=== PATIENT | male | born 1965 | race Caucasian/White ===

== ENCOUNTER → 2016-06-17 | Outpatient (CLI) | payer OTHER ==
[~2016-06-17] MED LIST: ALLO300T2 PO; ATOR-26 PO; CLR10 PO; GABA-113 PO; GLC/500 PO; GLIP-199 PO; LISI5TAB3 PO; SIMV40TA2 PO
--- NOTE | 2016-06-18 04:34 | PAP/PSG TECHNICIAN REPORT ---
[facility] Stock Supervisor Polysomnogram Report Study name: None Report date: 06/18/2016 Study date: 06/17/2016 Referring Physician: JOSE Moreno M.D. Name: ALBERT MOREIRA Interpreting Physician: Boni Howard M.D. Date of : 1965 Stock Supervisor: Cornelia Sterling [facility]. Sex: Male Age: 51 StudyType: PSG PAP Weight: 377 lbs Height: 51 years, Height 6' 1" BMI: 49.73 Medications: List not provided Patient History 51 yr. old male here for an updated titration sleep study. Patient complains of not sleeping well, frequent arousals and EDS. Patients last study was done on 06/25/11 and was ended on a BiPAP pressure of 18/12 with 3 lpm 02. Parameters Monitored NPSG: E1-M2, E2-M1, Fp1-M2, Fp2-M1, F3-M2, F4-M2, F4-M1, C3-M2, C4-M2, C4-M1, O1-M2, O2-M2, O2-M1, T3-M2, T4-M1, P3-M2, P4-M1, CHIN1, CHIN2, HR, EKG, Legs, PFLOW, SNOR, FLOW, CFLOW, Tidal Volume, THOR, ABDO, SpO2, PLTH, CPRESS, ETCO2 Wave, ETCO2, pH Sleep Architecture Sleep Stages Time at Lights Off 8:29:47 PM STAGES Time (min.) TST (%) Time at Lights On 4:11:47 AM Wake 89.0 -- Total Recording Time (TRT) 463.00 min. N1 69.5 19 Total Sleep Period (TSP) 442.0 min. N2 223.0 60 Total Sleep Time (TST) 373.0min. N3 26.0 7 Awake Time 90.0 min. REM 54.5 15 Wake after Sleep Onset 77.5 min. Sleep Efficiency (SE) 81 % Sleep Onset Latency (KIM) 11.5 min. Number of Stage 1 Shifts None Awakenings 43 Stage Changes 181 Number of REM periods 6 REM 54.5 15 REM Latency 124.0 min. NREM 318.5 85 Body Position Analysis Supine Right Left Side Prone Vertical Total Sleep Time (min.) 169.7 109.6 135.7 245.31 0.0 0.0 Total Sleep Time (%) 34% 29% 36% 66 0% N/A% Total Sleep Time REM (min.) 8.0 20.0 26.5 None 0.0 0.0 Total Sleep Time NREM (min.) 119.7 89.6 109.2 None 0.0 0.0 Intermittent Wake (min.) 42.0 34.6 12.4 None 0.0 0.0 Total Sleep Period (%) 34% None None None None None Arousals Myoclonus (PLM) * Events Count Index Events Count Index Spontaneous 18 3 Events Awake (PLMW) 168 113.3 Respiratory 73 11.9 Events Asleep w/ Arousal (PLMA) 102 16.4 PLM 100 16 Events Asleep w/o Arousal (PLMS) 413 66.4 Snoring 16 3 Total Asleep 515 82.8 Total 207 33 Total 683 89 Respiratory Analysis * CA OA MA CH H RERA Total Count 1 2 1 0 151 1 155 Index 0.2 0.3 0.2 0 24.3 0 25.1 Mean Duration 26.7 16.8 39.8 0.00 17.4 17.6 17.6 Longest Duration 26.7 19.4 39.8 0.00 39.8 17.6 55.5 Respiratory Event Summary Total Supine ~Supine Right Left Prone REM NREM Apneas Count 4 4 0 0 0 N/A 0 4 Index 0.6 2 0 0.0 0.0 N/A 0 1 Hypopneas (4% Desat) Count 151 118 33 17 16 N/A 7 144 Index 24.3 55.4 8 9.3 7.1 N/A 7.7 27.1 Apneas & All Hypopneas Count 155 122 33 17 16 N/A 7 148 Index 24.9 57 8 9 7 N/A 7.7 27.9 Respiratory Events (Quality Assurance Project Manager+All Hyp+RERA) Count 155 123 33 17 16 N/A 7 148 Index 25.1 58 8 9.3 7.1 N/A 7.7 28.1 Respiratory Related Arousal Count 73 123 6 2 4 N/A 1 73 Index 11.9 32 1 1 2 N/A 1 14 Snoring Analysis Supine Right Left Prone REM NREM Total Snore duration 13.3 min Snores count 177 32 76 N/A 5 280 285 Snore mean duration 2.8 Sec Snores index 83 18 34 N/A 5.5 52.7 45.8 TST with snoring (%) 3.6% Desaturation Event Summary: Minimum %SpO2 Event Count Mean/Min/Max Duration(sec.) Desaturation Index % Time In Bed > 90 151 24.4 / 6.0 / 60.0 143.5 13.9 86 - 90 147 23.5 / 7.0 / 60.0 48.2 40.3 81 - 85 14 25.6 / 7.0 / 34.5 4.1 45.5 76 - 80 0 N/A 0.0 0.3 71 - 75 0 N/A 0.0 0.0 66 - 70 0 N/A 0.0 0.0 61 - 65 0 N/A 0.0 0.0 56 - 60 0 N/A 0.0 0.0 51 - 55 0 N/A 0.0 0.0 < 50 0 N/A 0.0 0.0 Total REM NREM Awake <50% 0.0 min. 0.0 min. 0.0 min. 0.0 min. 51 - 60% 0.0 min. 0.0 min. 0.0 min. 0.0 min. 61 - 70% 0.0 min. 0.0 min. 0.0 min. 0.0 min. 71 - 80% 1.5 min. 1.5 min. 0.0 min. 0.0 min. 81 - 90% 389.5 min. 52.2 min. 283.1 min. 54.1 min. 91 - 100% 63.2 min. 0.8 min. 33.4 min. 29.0 min. Average 87 84 86 89 Minimum SpO2 79 79 81 80 Desaturation Event Index 31.7 8.8 32.2 45.2 # Desat. Events below 89% 213 8 152 53 Time(%) with Saturation below 89% 74.6 11.7 55.8 7.2 Time(min.) with Saturation below 89% 338.9 53.1 253.2 32.7 Time (mins) REM (mins) NREM (mins) % of TST SpO2 Below 90% 175 8 N167 86.7 SpO2 Below 88% 65 0 0 77 Heart Rate Analysis Min (bpm) Max (bpm) Average (bpm) Awake 60 93 78 NREM 46 91 75 REM 53 87 73 Overall 46 91 75 Supplemental O2 Values Minimum O2 level: None Value Start Time End Time Stock Supervisor Comments MR. Moreira slept in the right, left, and supine and prone positions. Frequent cardiac arrhythmia and PLMs causing arousals noted. No bruxism noted. CPAP was initiated at +6 CMH2O room air for patient comfort and up-titrated to al level of +15 CMH2O no Cflex. At the next pressure increase patient was switched to Bi-level therapy. PAP initiated at an IPAP of +15 CMH2O and an EPAP of +10 CMH2O up-titrated to a level of: IPAP +20 CMH2O, EPAP + 12 CMH20 BiFlex 2. At 9:58 pm 1 lpm of supplemental 02 was added due to very low oxygen, he stated that he uses 5 lpm at night. Patient was not on an optimal pressure for two hours to titrate oxygen. Patients own ResMed Mirage Quattro was used during titration. MR. Moreira awoke to use the restroom once during the night. MR. Moreira stated, I slept better last night than I do at home. The final report will be interpreted and signed by a sleep physician. The completed physician report will then be placed in the patient medical record. Therapy Event: Therapy (cm H20) 6 7 9 11 12 13 14 Total Time at Pressure (min.) 17.3 9.8 36.9 37.3 9.7 6.2 15.7 TST at Pressure (min.) 4.8 9.3 23.9 36.8 7.2 5.7 15.2 # Periods 1 1 1 1 1 1 1 Sleep Onset (min.) 11.5 0.0 0.0 0.0 0.0 0.0 0.0 REM Onset (min.) N/A N/A N/A N/A N/A N/A N/A Sleep Efficiency % 27 94 64 98 74 91 96 Wakefulness (%) 72.2 5.1 35.2 1.3 25.7 8.1 3.2 Wakefulness (min.) 12.5 0.5 13.0 0.5 2.5 0.5 0.5 NREM 1 (%) 27.8 32.6 18.9 6.7 25.7 12.1 23.9 NREM 1 (min.) 4.8 3.2 7.0 2.5 2.5 0.8 3.7 NREM 2 (%) 0.0 62.3 45.9 86.6 48.6 79.8 72.9 NREM 2 (min.) 0.0 6.1 16.9 32.3 4.7 4.9 11.4 NREM 3 (%) 0.0 0.0 0.0 5.4 0.0 0.0 0.0 NREM 3 (min.) 0.0 0.0 0.0 2.0 0.0 0.0 0.0 REM (%) 0.0 0.0 0.0 0.0 0.0 0.0 0.0 REM (min.) 0.0 0.0 0.0 0.0 0.0 0.0 0.0 # Arousals 1 4 26 22 14 9 15 Arousal Index 12.5 25.9 65.2 35.9 116.3 94.7 59.3 # Snore 1 8 29 53 24 13 13 Snore Index 12.5 51.7 72.7 86.4 199.4 136.8 51.4 AHI 62.4 77.6 67.7 31.0 124.7 136.8 19.8 AHI Supine 62.4 77.6 91.6 118.1 124.7 136.8 57.2 AHI Non-Supine N/A N/A 41.7 6.3 N/A N/A 5.5 NREM AHI 62.4 77.6 67.7 31.0 124.7 136.8 19.8 REM AHI N/A N/A N/A N/A N/A N/A N/A RDI 74.8 77.6 67.7 31.0 124.7 136.8 19.8 # Obstructive 0 1 0 1 0 0 0 # Central Ap 0 0 0 0 0 0 0 # Mixed 0 0 0 0 0 0 0 # Hypopneas 5 11 27 18 15 13 5 RERAS 1 0 0 0 0 0 0 Total Respiratory Events 6 12 27 19 15 13 5 Time Below SpO2 89.00% (min.) 2.9 5.7 17.7 31.1 2.3 1.1 12.8 Mean NREM SpO2 (%) 88 88 87 85 90 91 86 Mean REM SpO2 (%) N/A N/A N/A N/A N/A N/A N/A Mean Sleep SpO2 (%) 88 88 87 85 90 91 86 Min NREM SpO2 (%) 84 83 81 81 83 83 83 Min REM SpO2 (%) N/A N/A N/A N/A N/A N/A N/A Position Supine (min.) 4.8 9.3 12.4 8.1 7.2 5.7 4.2 Position Non-supine (min.) 0.0 0.0 11.5 28.7 0.0 0.0 11.0 LM Index Sleep 49.9 19.4 67.7 47.3 24.9 210.5 98.8 LM Index NREM 49.9 19.4 67.7 47.3 24.9 210.5 98.8 LM Index REM N/A N/A N/A N/A N/A N/A N/A Mean Heart Rate (bpm) 80 78 80 79 76 77 78 Min Heart Rate (bpm) 75 73 66 48 57 57 67 Therapy (cm H20) 15 15/10 16/10 17/10 18/11 19/11 20/12 Total Time at Pressure (min.) 58.0 21.4 111.1 12.6 13.1 100.9 12.1 TST at Pressure (min.) 53.1 6.8 102.6 10.1 10.1 83.9 3.6 # Periods 1 1 1 1 1 1 1 Sleep Onset (min.) 0.0 4.6 0.0 0.0 0.0 0.0 0.0 REM Onset (min.) 2.6 N/A 44.2 N/A N/A 75.5 0.0 Sleep Efficiency % 91 31 92 80 77 83 29 Wakefulness (%) 8.5 68.2 7.7 19.8 23.0 16.9 70.3 Wakefulness (min.) 4.9 14.6 8.5 2.5 3.0 17.0 8.5 NREM 1 (%) 12.1 9.3 12.2 43.6 30.6 12.9 0.0 NREM 1 (min.) 7.0 2.0 13.5 5.5 4.0 13.0 0.0 NREM 2 (%) 58.8 22.4 38.3 36.6 46.4 54.0 0.0 NREM 2 (min.) 34.1 4.8 42.6 4.6 6.1 54.5 0.0 NREM 3 (%) 6.9 0.0 18.0 0.0 0.0 0.0 0.0 NREM 3 (min.) 4.0 0.0 20.0 0.0 0.0 0.0 0.0 REM (%) 13.8 0.0 23.9 0.0 0.0 16.3 29.7 REM (min.) 8.0 0.0 26.5 0.0 0.0 16.4 3.6 # Arousals 29 2 33 13 8 29 2 Arousal Index 32.8 17.7 19.3 77.1 47.7 20.7 33.4 # Snore 31 2 52 24 12 22 1 Snore Index 35.0 17.7 30.4 142.3 71.5 15.7 16.7 AHI 10.2 35.3 8.2 88.9 59.6 4.3 16.7 AHI Supine 10.2 N/A 59.6 88.9 89.4 0.0 N/A AHI Non-Supine N/A 35.3 3.8 N/A 39.7 4.3 16.7 NREM AHI 10.7 35.3 10.3 88.9 59.6 1.8 N/A REM AHI 7.5 N/A 2.3 N/A N/A 14.6 16.7 RDI 10.2 35.3 8.2 88.9 59.6 4.3 16.7 # Obstructive 0 0 0 0 0 0 0 # Central Ap 0 0 1 0 0 0 0 # Mixed 0 0 1 0 0 0 0 # Hypopneas 9 4 12 15 10 6 1 RERAS 0 0 0 0 0 0 0 Total Respiratory Events 9 4 14 15 10 6 1 Time Below SpO2 89.00% (min.) 48.7 5.2 95.0 2.0 5.7 73.1 3.2 Mean NREM SpO2 (%) 86 87 86 91 88 86 N/A Mean REM SpO2 (%) 83 N/A 84 N/A N/A 85 85 Mean Sleep SpO2 (%) 86 87 85 91 88 86 85 Min NREM SpO2 (%) 83 82 81 82 83 82 N/A Min REM SpO2 (%) 79 N/A 80 N/A N/A 79 82 Position Supine (min.) 53.1 0.0 8.0 10.1 4.0 0.6 0.0 Position Non-supine (min.) 0.0 6.8 94.5 0.0 6.0 83.2 3.6 LM Index Sleep 83.7 141.2 124.0 130.4 95.3 42.9 66.8 LM Index NREM 95.9 141.2 116.0 130.4 95.3 41.8 N/A LM Index REM 15.0 N/A 147.2 N/A N/A 47.5 66.8 Mean Heart Rate (bpm) 77 76 74 72 73 72 69 Min Heart Rate (bpm) 46 70 57 64 54 57 63
--- NOTE | 2016-06-19 21:27 | POLYSOMNOGRAPH REPORT ---
CLINICAL DATA: A 51-year-old male with BMI of 49.73, referred by Dr. Samantha Moreno for sleep study with titration. He has poor sleep quality, frequent arousals, and excessive daytime sleepiness. His last study done on 06/27/2011 ended with a BiPAP pressure of 18/12, 3 liters a minute of oxygen. SLEEP ARCHITECTURE: Total sleep period was 442 minutes. Total sleep time was 373 minutes divided between 318.5 minutes of non-REM sleep and 54.5 minutes of REM sleep. Sleep onset latency was 11.5 minutes. REM latency was 124 minutes. Sleep efficiency was 81%. Wake after sleep onset was 77.5 minutes. Sleep consisted of stage N1 19%, N2 60%, N3 7%, REM 15%. AROUSAL DATA: 207 arousals were recorded for an index of 33 per hour. PLM DATA: Markedly elevated limb movements during sleep were noted. There were 515 limb movements during sleep noted for an index of 82.8 per hour with arousal index of 16.4 per hour. RESPIRATORY DATA: The apnea hypopnea index was 24.9. There was 1 central, 2 obstructive, and 1 mixed apneic episode. The longest duration of apnea was 39.8 seconds. There were 151 hypopneic episodes. The longest duration of hypopnea was 39.8 seconds. OXIMETRY DATA: Nocturnal hypoxemia was seen. Oxygen alejandra was 79% during REM sleep. Mean saturation was 87%. Time below 88% for 65 minutes. EKG: Heart rates ranged from 46-91 beats per minute. Frequent premature beats were noted. GEOGRAPHIC AREA INTELLIGENCE OFFICER'S COMMENTS AND TREATMENT SUMMARY: The patient slept in the right, left, supine, and prone positions. The patient was started on CPAP 6 cm of water pressure and titrated up to 15 cm of water pressure. He then was switched to BiPAP and eventually was titrated up to a final pressure setting up BiPAP 20/12, Bi-Flex 2 with 1 liter per minute oxygen. The patient continued to have nocturnal hypoxemia, but there was not enough tome to titrate oxygen. He continued to have hypoxemia in spite of BiPAP. At his final pressure setting of BiPAP 20/12, the patient slept for just over 3 minutes with an AHI of 16.7. IMPRESSION: Severe sleep apnea/hypopnea with severe nocturnal hypoxemia, improved but not totally corrected with BiPAP inspiratory pressure 20 and expiratory pressure 12, Bi-Flex setting #2, oxygen 1 liter per minute with persistent hypoxemia. RECOMMENDATIONS: The patient could be placed on BiPAP 20/12, Bi-Flex 2, with oxygen 2-3 liters per minute with followup pulse oximetry overnight and evaluations of compliance and effectiveness data. [facility]
== END | disposition home or self-care (01) ==
LOC: C.NEUR 20:00
PROVIDERS: ATTEND Otolaryngology
DX: G47.33 Obstructive sleep apnea (adult) (pediatric) (principal)

== ENCOUNTER 2017-01-03 05:17 | Observation (INO) | payer OTHER ==
[2016-12-31 11:23] VITALS: BMI 48.0
--- NOTE | 2016-12-31 11:59 | PAT Medication Instructions ---
Service Date Dec 31, 2016. Current Home Medication List Allopurinol (Zyloprim), 300 MG PO HS Atorvastatin (Lipitor), 80 MG PO HS Gabapentin (Neurontin), 600 MG PO HS PRN for RN Glipizide (Glipizide Er), 1 TAB PO QAM Lisinopril (Zestril), 5 MG PO HS Loratadine (Claritin), 10 MG PO PRN Metformin Hcl (Glucophage), 1,000 MG PO HS Medication Instructions For Your Scheduled Surgery - Hold the following medications 48 hours prior to surgery: Metformin Hcl (Glucophage), 1,000 MG PO HS - Hold the following medications 24 hours prior to surgery: Lisinopril (Zestril), 5 MG PO HS - Hold the following medications the morning of surgery: Glipizide (Glipizide Er), 1 TAB PO QAM Loratadine (Claritin), 10 MG PO PRN - Take the following medications as scheduled the night before surgery: Allopurinol (Zyloprim), 300 MG PO HS Atorvastatin (Lipitor), 80 MG PO HS Gabapentin (Neurontin), 600 MG PO HS PRN nothing to eat or drink after midnight If you have any questions please call us at [phone] or [phone] or [phone]
[2016-12-31 12:49] LABS: BASO % 0.4 %; BASO ABS # 0.04 K/uL (0-0.2); COMPLETE YES; EOS % 2.1 %; HEMATOCRIT 40.6 % (42-52); IG% 0.4 %; LYMPH % 29.5 %; LYMPH ABS # 3.29 K/uL (1.2-3.4); MEAN CELL VOLUME 84.2 fL (80-100); MEAN CORPUSCULAR HGB CONC 34.5 g/dl (32-36); MEAN PLATELET VOLUME 9.3 fL (7.4-10.4); MONO % 6.5 %; NEUT % 61.1 %; PLATELET COUNT 293 K/uL (130-400); RED BLOOD COUNT 4.82 M/uL (4.7-6.1); WHITE BLOOD COUNT 11.14 K/uL (4.8-10.8)
[2016-12-31 12:57] LABS: BUN/CREATININE RATIO 14.6 (10-20); CALCIUM 9.5 mg/dl (8.5-10.1); CREATININE 0.81 mg/dl (0.60-1.40); POTASSIUM 4.2 mmol/L (3.5-5.1)
--- NOTE | 2017-01-02 21:00 | HISTORY & PHYSICAL EXAMINATION ---
DATE OF ADMISSION: 01/03/2017 DIAGNOSES: Epiglottic cyst and chronic otitis media. HISTORY OF PRESENT ILLNESS: This 51-year-old presented with severe sleep apnea with choking spells. He was found to have persistent cystic type lesion on the lingual surface of the epiglottis. He also has chronic otitis media, hearing loss and found to have persistent effusions in both ears despite antibiotic treatment. PAST MEDICAL HISTORY: Medical problems; sleep apnea and hypertension. PREVIOUS SURGERIES: Tonsillectomy and sinus surgery. FAMILY HISTORY: Negative. SOCIAL HISTORY: Positive for smoking 1 pack per day. REVIEW OF SYSTEMS: Positive for tiredness and positive for hearing loss. PHYSICAL EXAMINATION: GENERAL: WNWD, male. VITAL SIGNS: 6 feet 2 inches, 370 pounds. HEAD: Normocephalic. EYES: Normal. EARS: Tympanic membrane shows dull with effusion behind the tympanic membranes. NOSE: Nasal passages are patent. THROAT: Oropharynx shows hypertrophy of the tongue base. Fiberoptic examination showed a 1 cm cyst on the lingual surface of the epiglottis. HEART: RRR. LUNGS: Clear. ABDOMEN: Soft. GENITOURINARY: Deferred. EXTREMITIES: Full range of motion. IMPRESSION: Epiglottic cyst and chronic otitis media. PLAN: Bilateral myringotomy with insertion of T-tubes and also direct laryngoscopy with excision of cyst of the epiglottis.
[~2017-01-03] VITALS: Ht 188 cm; Wt 168.4 kg
[2017-01-03] VITALS (8 sets, daily range): BP systolic 154–177; BP diastolic 75–95; PULSE 65–96; TEMP 36.3–36.8; O2SAT 94–98; Ht 188 cm; Wt 168.4 kg
[~2017-01-03 05:17] MED LIST changes: -SIMV40TA2 PO
[2017-01-03] MEDS ORDERED: LACTATED RINGER'S 1000ML 1,000 ML IV SCH (06:00)
[2017-01-03] MEDS ORDERED: CEFAZOLIN 3000 MG/65 ML D5W IV SCH (06:00)
[2017-01-03] MEDS ORDERED: FENTANYL CITRATE INJ 50 MCG/1 ML 2 ML VIAL ONE (06:49)
[2017-01-03] MEDS ORDERED: MIDAZOLAM HCL 1 MG/ML 2ML VIAL ONE (06:49)
[2017-01-03] MEDS ORDERED: ROCURONIUM BROMIDE 10 MG/ML 5 ML VIAL IV ONE (06:49)
[2017-01-03] MEDS ORDERED: LIDOCAINE HCL 2% 2 ML VIAL (20MG/ML) ONE (06:49)
[2017-01-03] MEDS ORDERED: PROPOFOL IV EMULSION 10 MG/ML 20 ML VIAL IV ONE ×3 (06:49→07:51)
[2017-01-03] MEDS ORDERED: SUCCINYLCHOLINE CHLORIDE 20 MG/ML 10 ML VIAL IV ONE (06:49)
[2017-01-03] MEDS ORDERED: OFLOXACIN 0.3% OP SOLN 5 ML BTL ONE (07:02)
--- NOTE | 2017-01-03 07:07 | History & Physical Bridge Note ---
H&P Re-Evaluation Bridge Note: I have examined the patient, reviewed the History & Physical and in the interval since the performance of the History & Physical I have noted the following changes of clinical significance: No changes noted
[2017-01-03] MEDS ORDERED: DEXAMETHASONE SOD INJ 4 MG/ML VIAL ONE (07:36)
[2017-01-03] MEDS ORDERED: ONDANSETRON INJ 2 MG/ML 2 ML VIAL ONE (07:37)
[2017-01-03] MEDS: EpINEphrine HCL INJ 1 MG/ML 5ML SYRINGE ONE ×2 (08:02→08:05)
[2017-01-03] MEDS ORDERED: ATROPINE SULFATE 0.1 MG/ML 5ML SYR IV PRN (08:15)
[2017-01-03] MEDS ORDERED: FENTANYL CITRATE INJ 50 MCG/1 ML 2 ML VIAL IV PRN (08:15)
[2017-01-03] MEDS ORDERED: EpHEDrine SULFATE INJ 50 MG/ML AMP IV PRN (08:15)
[2017-01-03] MEDS ORDERED: MoRPHine SULFATE 2 MG/ML CARP IV PRN (09:00)
[2017-01-03] MEDS ORDERED: ONDANSETRON INJ 2 MG/ML 2 ML VIAL IV PRN (09:00)
[2017-01-03] MEDS ORDERED: ACETAMINOPHEN SOLN 650MG/20.3 ML UDC PO PRN (09:00)
--- NOTE | 2017-01-03 09:02 | [facility] Operative Report ---
Operative Report Operative Date Jan 03, 2017. Pre-Operative Diagnosis Epiglottic cyst and chronic otitis media Post-Operative Diagnosis same as pre-operative Procedure(s) Performed Bilateral Myringotomy with insertion of bilateral T-Tubes, Direct Laryngoscopy and Excision of Cyst of the Epiglottis Surgeon Dr. Moreno Estimated Blood Loss 20ml Findings Large epiglottic cyst. Cyst right greater than the left ear canal. Specimens Specimen A: Epiglottis cyst Anesthesia Gen. endotracheal Complication(s) None Disposition Recovery Room / PACU Indications 51-year-old gentleman with chronic otitis media with effusion he also has a moderate sized cyst of the epiglottis Description of Procedure The patient was brought to the operating room. General endotracheal anesthesia was induced. He was draped in the usual sterile manner. The Dedo laryngoscope was used to visualize the epiglottis and the cyst on the lingual surface of the epiglottis. Suspension and microlaryngoscopy was performed. The cyst was grasped with the straight cup forceps and excised using the straight and up- biting scissors. The left ear was visualized irrigated with peroxide and cleaned of cerumen there. A large cyst was noted inferiorly along with fluid behind the tympanic membrane. Myringotomy incision was made inferiorly through the cystic area into the middle ear space evacuating isaac-colored fluid from the middle ear space. A modified T-tube was inserted. The right side tympanostomy was performed in a similar manner again the tympanic membrane was cystic and the T- tube was more difficult to insert on the right side. The T-tube had to be positioned using the alligator forceps and the Simmons needle placing it into the middle ear space. Floxin eardrops were placed. Attention was returned to the pharynx and the Dedo laryngoscope was again used. Hemostasis was controlled using topical epinephrine on cottonoids pledgets. The pharynx was irrigated clean and suctioned clean. The patient was extubated by anesthesia after assuring the patient was totally awake. He tolerated procedure well was taken to the recovery area in satisfactory condition. I attest to the content of the Intraoperative Record and any orders documented therein. Any exceptions are noted below.
[2017-01-03] MEDS ORDERED: IV FLUIDS COMPLETED PRN (09:15)
--- NOTE | 2017-01-03 09:32 | Anesthesiology Progress Note ---
Anesthesia Post Op Note Date & Time Jan 03, 2017 at 09:30 Vital Signs Pain Intensity: 0 Vital Signs Past 12 Hours Date Time Temp Pulse Resp B/P (MAP) Pulse Ox O2 Delivery O2 Flow Rate FiO2 01/03/17 09:22 36.4 77 16 145/78 (97) 96 Nasal Cannula 3 01/03/17 09:12 76 6 01/03/17 09:12 76 6 93 01/03/17 09:11 136/78 01/03/17 09:07 78 10 01/03/17 09:07 80 10 96 01/03/17 09:06 144/77 01/03/17 09:05 77 11 96 01/03/17 09:05 78 11 01/03/17 09:00 80 16 01/03/17 09:00 83 16 97 01/03/17 08:57 36.4 81 15 176/83 95 Mask 10 01/03/17 08:45 36.4 81 16 134/83 96 Mask 10 01/03/17 06:58 65 16 98 Room Air 01/03/17 05:35 36.8 96 20 159/82 (107) 96 Room Air Notes Mental Status: alert / awake / arousable, participated in evaluation Pt Amnestic to Procedure: Yes Nausea / Vomiting: adequately controlled Pain: adequately controlled Airway Patency, RR, SpO2: stable & adequate BP & HR: stable & adequate Hydration State: stable & adequate Anesthetic Complications: no major complications apparent Because this patient had such severe sleep apnea and there was so much soft tissue in his airway, the decision was made to keep him overnight on continuous pulse oximetry and 02 wih bipap for sleep.
--- NOTE | 2017-01-03 10:43 | Discharge Instructions ---
Discharge Instructions Date of Service Jan 03, 2017. Admission Reason for Admission: Chronic Otitis Media W/Effusion, Epiglottis Cyst, Discharge Discharge Diagnosis / Problem: same Discharge Goals Goal(s): Diagnostic testing, Therapeutic intervention Activity Recommendations Activity Limitations: resume your previous activity . Instructions / Follow-Up Instructions / Follow-Up ACTIVITY RECOMMENDATIONS: * Take it easy today. * Return to regular activity tomorrow. OVER THE COUNTER MEDICATIONS: * You may use Tylenol for pain * Avoid aspirin or aspirin containing products, e.g. as they may increase bleeding. DIET: Resume previous diet RETURN TO SCHOOL/WORK: May return to normal activities tomorrow. SPECIAL CARE INSTRUCTIONS: * Drainage is not unusual during the first few days after placement of tubes. The drainage may be bloody. If it is foul smelling or very thick, please notify the doctor. Call or cell phone . * Keep water out of the ears when shampooing or bathing. Use cotton balls covered with Vaseline or "Macks" ear plugs. * Call physician if increased pain, fever over 101 degrees F. or any problems. FOLLOW UP VISIT: Follow-up Visit with Dr. Moreno in 2 weeks. Please call to schedule. Current Hospital Diet Patient's current hospital diet: Diabetes Type 2 Diet Discharge Diet Recommended Diet: Regular Diet Procedures Procedures Performed: Bilateral Myringotomy with insertion of bilateral T-Tubes, Direct Laryngoscopy and Excision of Cyst of the Epiglottis Pending Studies Studies pending at discharge: yes List of pending studies: pathology of cyst Medical Emergencies . Who to Call and When: Medical Emergencies: If at any time you feel your situation is an emergency, please call [phone] immediately. . Non-Emergent Contact Non-Emergency issues call your: Primary Care Provider . "Provider Documentation" section prepared by Samantha Moreno. . VTE Core Measure Inpt VTE Proph given/why not?: SCD's [place] Drug Monitoring Program Search Results: no issues identified
[2017-01-03] MEDS ORDERED: LORATADINE 10 MG TAB PO SCH (10:45)
[2017-01-03] MEDS ORDERED: GABAPENTIN 300 MG CAP PO PRN (10:45)
[2017-01-03] MEDS ORDERED: ALLOPURINOL 300 MG TAB PO SCH (21:00)
[2017-01-03] MEDS ORDERED: METFORMIN HCL 500 MG TAB PO SCH (21:00)
[2017-01-03] MEDS ORDERED: ATORVASTATIN 20 MG TAB PO SCH (21:00)
[2017-01-03] MEDS ORDERED: LISINOPRIL 5 MG TAB PO SCH (21:00)
--- NOTE | 2017-01-20 11:52 | DISCHARGE SUMMARY ---
DIAGNOSES: Chronic otitis media and epiglottic cyst. DISCHARGE DIAGNOSES: Same. PROCEDURE: BMT and direct laryngoscopy with micro-excision of epiglottic cyst. HISTORY OF PRESENT ILLNESS: A 51-year-old male with a long history of obstructive sleep apnea, found to have chronic otitis media and mixed hearing loss, also has a large cyst of the epiglottis. He also has significant sleep apnea. HOSPITAL COURSE: The patient was taken to the operating room on 01/03/2017 where under general anesthesia he underwent BMT and direct laryngoscopy with micro-excision of epiglottic cyst. Postoperatively, the patient did well. He was monitored with oximetry for 6 hours postoperatively in the surgical unit. He continued to do well and desired to be discharged to home, therefore, the patient was sent home, instructed to use his CPAP at home and to return for followup in my office in 1 week.
== END 2017-01-03 12:45 | disposition home or self-care (01) ==
LOC: C.ACU 05:17 → C.MSW 08:30 → ENRESERV 09:54
PROVIDERS: ADMIT Otolaryngology; ATTEND Otolaryngology
DX: H65.493 Other chronic nonsuppurative otitis media, bilateral (principal); J38.7 Other diseases of larynx; J44.9 Chronic obstructive pulmonary disease, unspecified; G47.33 Obstructive sleep apnea (adult) (pediatric); E11.9 Type 2 diabetes mellitus without complications; I10 Essential (primary) hypertension; F17.200 Nicotine dependence, unspecified, uncomplicated

== ENCOUNTER → 2017-02-24 | Outpatient (CLI) | payer OTHER ==
[2017-02-24 12:56] LABS: ESTIMATED AVERAGE GLUCOSE 200 mg/dl; HA1C FLAG Normal (Normal)
== END | disposition home or self-care (01) ==
LOC: C.LABBFT 09:49
PROVIDERS: ATTEND Nurse Practitioner
DX: E11.40 Type 2 diabetes mellitus with diabetic neuropathy, unspecified (principal)

== ENCOUNTER → 2017-07-15 | Outpatient (CLI) | payer OTHER ==
[2017-07-15 15:04] LABS: BASO % 0.2 %; BASO ABS # 0.03 K/uL (0-0.2); EOS % 2.6 %; EOS ABS # 0.33 K/uL (0-0.5); HEMATOCRIT 43.8 % (42-52); IG# 0.04 K/uL (0.00-0.02); LYMPH % 30.8 %; LYMPH ABS # 3.93 K/uL (1.2-3.4); MEAN CELL VOLUME 84.7 fL (80-100); MEAN CORPUSCULAR HGB CONC 34.2 g/dl (32-36); MEAN PLATELET VOLUME 9.4 fL (7.4-10.4); MONO % 6.5 %; MONO ABS # 0.83 K/uL (0.11-0.59); NEUT % 59.6 %; PLATELET COUNT 314 K/uL (130-400); RED CELL DISTRIBUTION WIDTH CV 13.8 % (11.5-14.5); WHITE BLOOD COUNT 12.76 K/uL (4.8-10.8)
[2017-07-15 15:25] LABS: ALT/SGPT 21 U/L (12-78); AST/SGOT 14 U/L (15-37); BLOOD UREA NITROGEN 13 mg/dl (7-18); CARBON DIOXIDE 24 mmol/L (21-32); CREATININE 0.96 mg/dl (0.60-1.40); GLUCOSE 196 mg/dl (70-99); SODIUM 133 mmol/L (136-145); TOTAL PROTEIN 7.8 gm/dl (6.4-8.2)
[2017-07-15 15:29] LABS: ALKALINE PHOSPHATASE 131 U/L (45-117)
[2017-07-16 05:55] LABS: HEMOGLOBIN A1C 9.3 % (4.5-5.6)
== END | disposition home or self-care (01) ==
LOC: C.LABBFT 09:07
PROVIDERS: ATTEND Nurse Practitioner
DX: E11.40 Type 2 diabetes mellitus with diabetic neuropathy, unspecified (principal); Z12.5 Encounter for screening for malignant neoplasm of prostate; D72.829 Elevated white blood cell count, unspecified

== ENCOUNTER 2019-10-02 09:05 | Observation (INO) ==
[2019-10-02] MEDS ORDERED: SODIUM CHLORIDE 0.9% 500 ML IV ONE (09:45)
[2019-10-02 10:03] LABS: Basophils # (auto) 0.03 K/uL (0-0.2); Basophils % (auto) 0.3 %; Eosinophils # (auto) 0.16 K/uL (0-0.5); Eosinophils % (auto) 1.5 %; Hematocrit (blood only) 43.7 % (42-52); Hemoglobin 14.7 g/dL (14.0-18.0); Immature Granulocytes # (auto) 0.05 K/uL (0.00-0.02); Immature Granulocytes % (auto) 0.5 %; Lymphocytes # (auto) 2.65 K/uL (1.2-3.4); Lymphocytes % (auto) 25.5 %; Mean Corpuscular Hemoglobin 28.7 pg (25-34); Mean Corpuscular Hgb Conc 33.6 g/dL (32-36); Mean Corpuscular Volume 85.4 fL (80-100); Mean Platelet Volume 9.9 fL (7.4-10.4); Monocytes # (auto) 0.63 K/uL (0.11-0.59); Monocytes % (auto) 6.1 %; Neutrophils # (auto) 6.87 K/uL (1.4-6.5); Neutrophils % (auto) 66.1 %; Platelet Count 294 K/uL (130-400); RDW Coefficient of Variation 13.7 % (11.5-14.5); RDW Standard Deviation 42.4 fL (36.4-46.3); Red Blood Count 5.12 M/uL (4.7-6.1); White Blood Count 10.39 K/uL (4.8-10.8)
[2019-10-02 10:14] LABS: Partial Thromboplastin Time 29.1 Seconds (21.0-31.0); Prothrombin Time 10.3 Seconds (9.0-12.0)
--- NOTE | 2019-10-02 10:19 | XRay Report ---
XR chest 1V portable CLINICAL HISTORY: stroke sx COMPARISON STUDY: No previous studies for comparison. FINDINGS: Moderate cardiomegaly. Prominent pulmonary vasculature. Diaphragms are smooth. IMPRESSION: Mild congestive heart failure ACT 112: Negative or not required by law. The above report was generated using voice recognition software. It may contain grammatical, syntax or spelling errors. Electronically signed by: Tashi Boland M.D. 10/02/2019 10:18 AM
[2019-10-02 10:22] LABS: Alanine Aminotransferase 17 U/L (12-78); Albumin Level 3.7 gm/dl (3.4-5.0); Aspartate Aminotransferase 7 U/L (15-37); Blood Urea Nitrogen 16 mg/dl (7-18); Calcium 9.4 mg/dl (8.5-10.1); Carbon Dioxide 26 mmol/L (21-32); Chloride 104 mmol/L (98-107); Creatinine Clr Calc Pharmacy 149.9 ml/min; Est GFR (African American) 111.1; Est GFR (Non-African American) 95.9; Glucose 194 mg/dl (70-99); Magnesium 1.8 mg/dl (1.8-2.4); Potassium 4.1 mmol/L (3.5-5.1); Sodium 137 mmol/L (136-145)
[2019-10-02 10:33] LABS: Albumin Globulin Ratio 0.9 (0.9-2); Alkaline Phosphatase 98 U/L (45-117); Bilirubin,Total 0.4 mg/dl (0.2-1); Phosphorus 3.5 mg/dl (2.5-4.9); Total Protein 7.7 gm/dl (6.4-8.2); Troponin I < 0.015 ng/ml (0-0.045)
[2019-10-02] MEDS ORDERED: OPTIRAY 320 125ml IV PRN (10:52)
--- NOTE | 2019-10-02 11:15 | CT Scan Report ---
CT head/brain wo con CT DOSE: HISTORY: Mental status change Stroke evaluation TECHNIQUE: Multiaxial CT images of the head were performed without the use of intravenous contrast. A dose lowering technique was utilized adhering to the principles of ALARA. Comparison: None. Findings: Opacified mastoid air cells The calvarium and skull base are intact. The ventricles and sul ci are within normal limits. There is no mass, hematoma, midline shift, or acute infarct. Impression: No acute intracranial abnormality. Opacified bilateral mastoid air cells ACT 112: Negative or not required by law. The above report was generated using voice recognition software. It may contain grammatical, syntax or spelling errors. Electronically signed by: Tashi Boland M.D. 10/02/2019 11:14 AM
--- NOTE | 2019-10-02 11:17 | CT Scan Report ---
CT angio neck with con HISTORY: Mental status change Stroke evaluation TECHNIQUE: Multiaxial CT angiography of the neck was performed IV contrast: 119 cc nonionic All ameena urements were calculated based on NASCET criteria. Maximum intensity projection images were also obt ained. A dose lowering technique was utilized adhering to the principles of ALARA. COMPARISON STUDY: None. FINDINGS: The aortic arch and proximal great vessels are widely patent. There is no significant sten osis, occlusion, or dissection identified within the bilateral common carotid, internal carotid, or v ertebral arteries. IMPRESSION: No significant stenosis, occlusion, or dissection identified within the carotid or vertebral arteries . ACT 112: Negative or not required by law. The above report was generated using voice recognition software. It may contain grammatical, syntax or spelling errors. Electronically signed by: Tashi Boland M.D. 10/02/2019 11:16 AM
--- NOTE | 2019-10-02 11:19 | CT Scan Report ---
CT angio head w con HISTORY: Mental status change Stroke evaluation TECHNIQUE: Multiaxial CT angiography of the head was performed IV contrast: 119 cc nonionic Maximu m intensity projection images were also obtained. A dose lowering technique was utilized adhering to the principles of ALARA. COMPARISON: None. FINDINGS: There is no mass, hematoma, midline shift, or acute infarct. Visualized intracranial production intern al carotid arteries, distal vertebral arteries, and basilar artery are widely patent. There is no sig nificant stenosis, occlusion, or aneurysm seen within the bilateral ACAs, MCAs, or nanofabrication specialist. IMPRESSION: No significant stenosis, occlusion, or aneurysm within the [place]. ACT 112: Negative or not required by law. The above report was generated using voice recognition software. It may contain grammatical, syntax or spelling errors. Electronically signed by: Tashi Boland M.D. 10/02/2019 11:18 AM
--- NOTE | 2019-10-02 11:33 | Electrocardiogram Report ---
Test Reason : Blood Pressure : / mmHG Vent. Rate : 069 BPM Atrial Rate : 069 BPM P-R Int : 174 ms QRS Dur : 124 ms QT Int : 440 ms P-R-T Axes : 040 011 036 degrees QTc Int : 471 ms Normal sinus rhythm Possible Left atrial enlargement Non-specific intra-ventricular conduction delay Borderline ECG When compared with ECG of 31-DEC-2016 12:00, Questionable change in QRS axis Confirmed by Sarath Prajapati ([id number]) on 10/02/2019 11:32:37 AM Referred By: REFERRED SELF Confirmed By:Sarath Prajapati
[2019-10-02] MEDS ORDERED: ASPIRIN 81 MG CHEW PO STA ×2 (13:34→16:01)
--- NOTE | 2019-10-02 13:42 | History & Physical Report ---
Date of Service October 02, 2019 Assessment & Plan (1) Stroke-like symptoms: Combination of acute onset dysarthria with dysequilibrium and RUE clumsy- hand syndrome concerning for lacunar infarct; no facial weakness noted however. CT head with opacified mastoid cells, no ischemic changes Impressive CTA head/neck without significant stenoses despite significant risk factors with dyslipidemia, diabetes, obesity, smoking history. Complete stroke work-up: MRI brain without contrast TTE HbA1c and lipid panel in a.m. PT, OT, SLT evals Consult neurology Rx Aspirin 324 mg p.o. now Start aspirin 81 mg p.o. daily Continue atorvastatin 80 mg p.o. daily (2) Dysequilibrium: Acute CVA vs. Vestibular neuritis. Lack of true vertigo and concurrent dysarthria and RUE co-ordination deficit would favor the former. Consider vestibular neuritis only if stroke ruled out as he does not similar symptoms in the past treated by Dr Moreno, consider treatment with steroids. (3) Dysarthria: Suspected CVA vs. less likely pharyngitis in setting of chronic otitis media SLT eval (4) Bilateral otitis media with effusion: T-tubes in place but appear blocked b/l with bulging left TM and bilateral effusion. Not erythematous to suggest acute infection, but this was noticed in clinic yesterday. Suspect more longstanding from history and complete opacification of mastoids without pain. No epidural abscess /osteomyelitis to suggest spread of infection. (5) Mastoid disorder: Complete opacification of mastoids noted on CT. No associated pain or fever with this therefore unlikely acute mastoiditis with normal WBC. Otitis media treatment as above Discussed with Dr. Moreno and recommend patient calls for follow up on discharge. (6) Dyslipidemia: Continue atorvastatin 80 mg p.o. at bedtime (7) Hypertension: Continue lisinopril 5 mg p.o. every morning (8) Type 2 diabetes mellitus with diabetic neuropathy, without long-term current use of insulin: HbA1c 6.3 in January. However he had discontinued his usual diabetes medications since then. HbA1c with a.m. labs Hold metformin, linagliptin, glipizide. Consult pharmacy for glycemic control in the setting of suspected CVA a.m. glucose 100-140 (9) Tobacco use disorder: 3 PPD smoker highly advised smoking cessation Declined tobacco replacement products at this time. (10) Anxiety: On no chronic medication for this lorazepam 1 mg IV prior to MRI (11) Gout, joint: Chronic without acute flare. Continue allopurinol 300 mg p.o. every morning. (12) Sleep apnea in adult: CPAP at bedtime with supplemental O2 as required (13) DVT prophylaxis: Lovenox 40 mg SQ at bedtime Admission and Anticipated Discharge Date Admission Date: October 02, 2019 History of Present Illness Chief Complaint: Dysarthria, disequilibrium Primary Care Provider: Peterson Lamas MD Nathaniel Ga is a 54 year old male with multiple cardiovascular risk factors (smokes 3 PPD, hyperlipidemia, diabetes, hypertension, obstructive sleep apnea) who presents to the ER with stroke-like symptoms ongoing for the last 3 days. He notes on waking up on Friday, noted bilateral severe headache (without neck pain) and acute onset dysequilibrium, difficulty with word pronunciation and clumsiness of his dominant right hand when writing. He denies any problems understanding words. He denies any problems finding the right words to say. He denies any vision changes or dizziness. He is not falling more to one side but generally feels unbalanced. He denies any extremity limb weakness or acute sensation change other than his chronic diabetic peripheral neuropathy. He had stopped all his usual medications for diabetes and hypertension due to financial concerns and he does not pay for health insurance for the past 2 months. Restarted medications 2 days ago. He saw his primary care provider yesterday with similar symptoms and was advised to go to the ER due to concern for acute CVA but refused. He was additionally diagnosed with left-sided acute otitis media treated with Augmentin (took 1 tablet of this prior to coming to the ER today). After further persuasion by his partner that he was not improving; he decided to come to the ER today. He is also concerned about excessive ear discharge over the last 2 months. He believes this discharge to be wax rather than pus. Associated anterior ear pain occurring intermittently during this time period. No fevers or chills. No mastoid pain. No sinus pain. He reports extensive ENT surgical history with Dr. Moreno requiring multiple T tubes, sinus surgeries, tonsillectomy and uvulectomy. He does report a similar episode of disequilibrium many years ago which was treated as an inner ear infection and fully resolved. He denies any dysarthria or coordination deficit in his hand at that time. Allergies Allergy/AdvReac Type Severity Reaction Status Date / Time oxycodone AdvReac Mild DIZZY Verified 10/02/19 09:59 Home Medications Home Medications Medication Instructions Recorded Confirmed Type atorvastatin 80 mg tablet 80 mg PO HS #90 tab 01/25/19 10/02/19 Rx glipizide 10 mg tablet, extended 10 mg PO BID #180 tab 01/25/19 10/02/19 Rx release 24 hr allopurinol 300 mg PO QAM 02/02/19 10/02/19 History blood sugar diagnostic #200 ea 02/02/19 10/01/19 Rx gabapentin 300 mg PO QAM 02/02/19 10/02/19 History gabapentin 600 mg PO HS 02/02/19 10/02/19 History linagliptin [Tradjenta] 5 mg PO QAM 02/02/19 10/02/19 History lisinopril 5 mg PO QAM 02/02/19 10/02/19 History metformin 1,000 mg PO BID 02/02/19 10/02/19 History amoxicillin 875 mg-potassium 1 tab PO BID #14 tab 10/01/19 10/02/19 Rx clavulanate 125 mg tablet Past Med/Surg History Medical History (Updated 10/02/19 @ 22:32 by Tk Mendoza MD) Dyslipidemia Gout, joint Hypertension Right flank pain Skin lesion Sleep apnea CPAP Type 2 diabetes mellitus with diabetic neuropathy, without long-term current use of insulin Surgical History History of sinus surgery History of tonsillectomy and adenoidectomy Status post myringotomy with insertion of tube Social History (Updated 01/25/19 @ 09:06 by Diamante Mcfarlane) Preferred Language: Slovak Communication Ability: Effective Form Grader Operator Required: No Beliefs That Will Affect Care: None Current Living Situation: Significant Other Other Information That Helps Us Care for You: No Feels Safe at Home: Yes Safety Concerns: Feels Safe At This Time Smoking Status: Current every day smoker Tobacco Type: cigarettes ; Age Started Using Tobacco: 22 ; packs per day: 1.5 ; Cigarettes Per Day: 20-30 ; Do You Dip or Chew Tobacco: No ; Second Hand Exposure: No ; Tobacco Cessation Education Requested by Patient: No Hx Alcohol Use: No Hx Substance Use: No Review of Systems Review of Systems: All systems reviewed & are unremarkable except as noted in HPI & below Physical Exam Constitutional: WD/WN, vitals as above Eyes: PERRL, conjunctivae normal, anicteric sclerae ENMT: Ears: + hearing impairment (Bilateral) and + TM abnormality (T tubes in place with bilateral effusions, bulging TM on left, no erythema); no mastoid abnormality (Nonpainful to palpation) Nose: no external nose abnormality Mouth: + oropharynx abnormality (Uvulectomy and tonsillectomy noted, mild erythema posteriorly); no TMJ abnormality and oral mucous membranes not dry Neck: trachea midline, + short neck and + thick neck Respiratory: normal respiratory effort, lungs clear to auscultation Cardiovascular: Rate/Rhythm: regular rate and regular rhythm Heart Sounds: no murmur Extremities: normal capillary refill and + pedal edema (Trace pitting bilaterally); no calf tenderness Gastrointestinal (Abdomen): normal bowel sounds, soft, nontender, no hepatosplenomegaly Musculoskeletal: no cyanosis or clubbing, extremities motor strength 5/5 Skin: no rashes, warm and dry Neurologic: moves all extremities and awake; no focal motor deficits Speech / Cognition: + abnormal speech (Mild dysarthria noted with routine communication); no expressive aphasia and no receptive aphasia Motor/Sensory: + sensory deficit (Bilateral stocking distribution numbness to mid shins); no tremor and no pronator drift Cranial Nerves: PERRL, EOM intact bilaterally, normal facial strength, tongue midline, able to rotate head bilaterally, able to elevate shoulders bilaterally, no nystagmus and symmetric palate elevation; + hearing impairment (Non-unilateral) Coordination: normal [id number] test and normal hbqj-[id number] test Psychiatric: A+Ox3, euthymic affect Genitourinary: no CVA tenderness Lymphatic: no cervical or axillary lymphadenopathy Results & Data Results & Data ([facility]) Vital Signs (Past 12 Hours) Vital Signs Temp Pulse Pulse Resp BP BP Pulse Ox 10/02/19 13:20 66 96 10/02/19 13:10 64 94 10/02/19 13:01 169/92 H 96 10/02/19 13:00 95 10/02/19 12:50 66 97 06/20/20 12:40 65 24 96 10/02/19 12:31 69 18 136/75 97 10/02/19 12:30 67 19 97 10/02/19 12:21 64 70 17 116/98 116/98 98 10/02/19 10:31 71 72 18 115/81 115/81 96 10/02/19 10:30 69 19 96 10/02/19 10:20 72 18 96 10/02/19 10:10 70 17 96 10/02/19 10:00 71 20 141/88 H 95 10/02/19 09:50 69 14 98 10/02/19 09:47 67 19 144/90 H 96 10/02/19 09:10 36.9 C 67 20 199/[address] head/brain wo con Impression: No acute intracranial abnormality. Opacified bilateral mastoid air cells CT angio head w con IMPRESSION: No significant stenosis, occlusion, or aneurysm within the [place] of [place]. CT angio neck with con IMPRESSION: No significant stenosis, occlusion, or dissection identified within the carotid or vertebral arteries. ECG Indication: other (Suspected CVA) Rate (beats per minute): 69 Rhythm: normal sinus Findings: + other (Borderline QRS duration) Comparison ECG Date: from (December 31, 2016) Change: no significant change Code Status & VTE Plan Code Status Full VTE Prophylaxis Plan VTE Prophylaxis will be ordered: Yes PG Care Time/CCT Total # of Minutes Spent Total Time Spent with Patient: Total time spent is greater than 50% in coordination of care (as documented) at patient's floor/unit and/or counseling patient: Coding Level of Care Code 77459 Initial Inpt Care Lvl 3 Diagnoses Stroke-like symptoms R29.90 Dysequilibrium R42 Dysarthria R47.1 Bilateral otitis media with effusion H65.93 Mastoid disorder H74.90 Dyslipidemia E78.5 Hypertension I10 Type 2 diabetes mellitus with diabetic neuropathy, without long-term current use of insulin E11.40 Tobacco use disorder F17.200 Anxiety F41.9 Gout, joint M10.9 Sleep apnea in adult G47.30 DVT prophylaxis Z29.9
[2019-10-02] MEDS ORDERED: PNEUMOCOCCAL ADMINISTRATION CHARGE ONE (13:51)
[2019-10-02] MEDS ORDERED: PNEUMOCOCCAL POLYSACCHARIDES 25 MCG/0.5 ML VIAL/SYR IM ONE (13:51)
[2019-10-02] MEDS ORDERED: LORazepam 1 MG/2 ML VIAL IV STA (13:53)
[2019-10-02] MEDS ORDERED: LORazepam 2 MG/4 ML VIAL ONE (13:56)
[2019-10-02] MEDS ORDERED: PHARMACIST DISCHARGE MED REC CONSULT PRN (16:01)
[2019-10-02 17:09] LABS: Appearance Urine Clear (Clear); Bacteria Urine Automated Negative (Negative); Bilirubin Urine Negative (Negative); Blood Urine Negative (Negative); Cast Urine Automated 0 /lpf (0-5); Color Urine Yellow; Glucose Urine UA Negative (Negative); Ketones Urine Negative (Negative); Leukocyte Esterase Urine Negative (Negative); Nitrite Urine Negative (Negative); Protein Urine 1+ (Negative); RBC Urine Automated 0-4 /hpf (0-4); Specific Gravity Urine > 1.045 (1.000-1.030); Urobilinogen Urine Negative (Negative); WBC Urine Automated 0 /hpf (0-5)
[2019-10-02] MEDS ORDERED: PHARMACY GLYCEMIC MGMT CONSULT PRN (17:40)
--- NOTE | 2019-10-02 18:01 | Emergency Department Note ---
Impression & Plan Dysarthria, Dysequilibrium, Stroke-like symptoms, History of medication noncompliance ED Provider Note NAME: ALBERT MOREIRA AGE: 54 SEX: M ARRIVES VIA: Walk-In INFORMANT: Patient, ED PROVIDER(S): Bradley Singh MD CHIEF COMPLAINT: Difficulty with speech and balance. PLAN: Disposition: Admit MEDICAL DECISION MAKING: The patient is a pleasant 54-year-old gentleman with a past medical history of hypertension, hyperlipidemia, diabetes, gout who presents emergency department for valuation of dysarthria and difficulty with ambulation with unsteadiness in gait that the patient noticed acutely when he awoke morning he was subsequently seen by his PCP yesterday and was referred to the emergency department given their concern for stroke. However, the patient felt it was too late in decided that he would go home and then come today which he has done. Of note, the patient's pcp note does comment on patient's noncompliance and the fact that he decided to stop taking his medications 2 months ago. Patient reports he has been having recurrent ear infections for the past 2 months. Yesterday he was prescribed Augmentin. Patient denies any worsening of the symptoms since yesterday but does feel as though it is still difficult to articulate his words and difficult to walk in a straight line. He denies fevers, cough, congestion, CP, SOB, n/v/d, urinary sx. On arrival patient no acute distress, afebrile stable vital signs. On exam the patient does exhibit some mild ataxia to the left with unsteadiness with his gait. He does seem to have some subtle difficulty with articulation though he has no word finding difficulty. He has no focal neuro deficits otherwise. Given almost 72 hours from [facility], stroke alert was deferred. EKG unremarkable without evidence of acute ischemia. CXR negative. WBC, H/H, platelets wnl. Chemistry without acidosis. LFTs and electrolytes unremarkable. Troponin negative/undetectable. UA negative. CT head and CTA of the head and neck were performed and negative for ischemia, ICH or severe narrowing or occlusion of large vessels. Note is made of bilateral opacified mastoid air cells, which is likely chronic. No mastoid tenderness, swelling, or erythema/warmth. TMs with bilateral effusions but are not injected but with T-tubes in place. Given pateint's continued stroke-like sx will proceed with admission for further evaluation. Patient was agreeable. Case was discussed with Dr. Mendoza, [facility] [place], who will evaluate the patient for admission. Triage Nursing notes reviewed and agree them. Prior medical records reviewed Vital Signs: reviewed and remarkable for no significant abnormalities Differential diagnosis: Infection, dehydration, metabolic abnormality, hypo/hyperglycemia, electrolyte disturbance, anemia, hypoxia, cardiac sources, intracerebral event, toxicologic, neurologic, as well as other pathologies. ER treatment provided: See below. Diagnostics interpreted by me: ECG: NSR, 69 bpm, no ectopy, nonspecific intraventricular conduction delay, no overt ST elevation or depression, QTC 471, QRS 124. Cardiac Monitoring: An order for continuous cardiac monitoring was placed and demonstrated NSR, 69 bpm, no ectopy. Laboratory studies: See below Imaging studies: XR chest 1V portable CLINICAL HISTORY: stroke sx COMPARISON STUDY: No previous studies for comparison. FINDINGS: Moderate cardiomegaly. Prominent pulmonary vasculature. Diaphragms are smooth. IMPRESSION: Mild congestive heart failure ACT 112: Negative or not required by law. -- CT head/brain wo con CT DOSE: HISTORY: Mental status change Stroke evaluation TECHNIQUE: Multiaxial CT images of the head were performed without the use of intravenous contrast. A dose lowering technique was utilized adhering to the principles of ALARA. Comparison: None. Findings: Opacified mastoid air cells The calvarium and skull base are intact. The ventricles and sulci are within normal limits. There is no mass, hematoma, midline shift, or acute infarct. Impression: No acute intracranial abnormality. Opacified bilateral mastoid air cells -- CT angio head w con HISTORY: Mental status change Stroke evaluation TECHNIQUE: Multiaxial CT angiography of the head was performed IV contrast: 119 cc nonionic Maximum intensity projection images were also obtained. A dose lowering technique was utilized adhering to the principles of ALARA. COMPARISON: None. FINDINGS: There is no mass, hematoma, midline shift, or acute infarct. Visualized intracranial internal carotid arteries, distal vertebral arteries, and basilar artery are widely patent. There is no significant stenosis, occlusion, or aneurysm seen within the bilateral ACAs, MCAs, or global process owner. IMPRESSION: No significant stenosis, occlusion, or aneurysm within the nightm[place] of [place]. -- CT angio neck with con HISTORY: Mental status change Stroke evaluation TECHNIQUE: Multiaxial CT angiography of the neck was performed IV contrast: 119 cc nonionic All measurements were calculated based on NASCET criteria. Maximum intensity projection images were also obtained. A dose lowering technique was utilized adhering to the principles of ALARA. COMPARISON STUDY: None. FINDINGS: The aortic arch and proximal great vessels are widely patent. There is no significant stenosis, occlusion, or dissection identified within the bilateral common carotid, internal carotid, or vertebral arteries. IMPRESSION: No significant stenosis, occlusion, or dissection identified within the carotid or vertebral arteries. Consultation(s): Case was discussed with Dr. Mendoza, [facility] hospitalist, who will evaluate the patient for admission. HPI: The patient is a pleasant 54-year-old gentleman with a past medical history of hypertension, hyperlipidemia, diabetes, gout who presents emergency department for valuation of dysarthria and difficulty with ambulation with unsteadiness in gait that the patient noticed acutely when he awoke morning he was subsequently seen by his PCP yesterday and was referred to the emergency department given their concern for stroke. However, the patient felt it was too late in decided that he would go home and then come today which he has done. Of note, the patient's pcp note does comment on patient's noncompliance and the fact that he decided to stop taking his medications 2 months ago. Patient reports he has been having recurrent ear infections for the past 2 months. Yesterday he was prescribed Augmentin. Patient denies any worsening of the symptoms since yesterday but does feel as though it is still difficult to articulate his words and difficult to walk in a straight line. He denies fevers, cough, congestion, CP, SOB, n/v/d, urinary sx. ROS: See above HPI for pertinent positives & negatives. A total of 10 systems reviewed and were otherwise negative. PAST MEDICAL HISTORY:See Below PAST SURGICAL HISTORY:See Below FAMILY HISTORY:See Below SOCIAL HISTORY:See Below HOME MEDICATIONS:See Below ALLERGIES:See Below VITALS:See Below PHYSICAL EXAMINATION: GENERAL: Awake, alert, fatigued-appearing, in no distress, BMI 49. HENT: Normocephalic, atraumatic. Oropharynx with dry mucous membranes and otherwise unremarkable. TMs with bilateral effusions but are not injected but with T-tubes in place. EYES: Normal conjunctiva. Sclera non-icteric. EOMI. No nystamgus. PEARRL. NECK: Supple. No nuchal rigidity. FROM. No JVD. RESPIRATORY: Clear to auscultation. CARDIAC: Regular rate, normal rhythm. Extremities warm and well perfused. Pulses equal. ABDOMEN: Soft, non-distended. No tenderness to palpation. No rebound or guarding. No masses. RECTAL: Deferred. MUSCULOSKELETAL: Chest examination reveals no tenderness. The back is symmetrical on inspection without obvious abnormality. There is no CVA t enderness to palpation. No joint edema. LOWER EXTREMITIES: Calves are equal size bilaterally and non-tender. No edema. No discoloration. NEURO: Normal sensorium. No sensory or motor deficits noted. Subtle/equivocal difficulty with articulation without overt dysarthria or word finding difficulty. 5/5 strength and SILT x 4 extremities. Cerebellar function intact including [id number], alternating palms, [id number]. Mild ataxia to left with unsteady gait. SKIN: No rash or jaundice noted. Bradley Singh MD Past Med/Surg History Medical History Dyslipidemia Gout, joint Hypertension Right flank pain Skin lesion Sleep apnea CPAP Type 2 diabetes mellitus with diabetic neuropathy, without long-term current use of insulin Surgical History History of sinus surgery History of tonsillectomy and adenoidectomy Status post myringotomy with insertion of tube Family History Uncle Prostate cancer Mother Diabetes Father Diabetes COPD (chronic obstructive pulmonary disease) Social History Preferred Language: Azerbaijani Communication Ability: Effective Discovery Manager Required: No Beliefs That Will Affect Care: None Current Living Situation: Significant Other Other Information That Helps Us Care for You: No Feels Safe at Home: Yes Safety Concerns: Feels Safe At This Time Smoking Status: Current every day smoker Tobacco Type: cigarettes ; Age Started Using Tobacco: 22 ; packs per day: 1.5 ; Cigarettes Per Day: 20-30 ; Do You Dip or Chew Tobacco: No ; Second Hand Exposure: No ; Tobacco Cessation Education Requested by Patient: No Hx Alcohol Use: No Hx Substance Use: No Allergies Allergies Allergy/AdvReac Type Severity Reaction Status Date / Time oxycodone AdvReac Mild DIZZY Verified 10/02/19 09:59 Home Meds Home Medications Medication Instructions Recorded Confirmed allopurinol 300 mg PO QAM 02/02/19 10/02/19 gabapentin 300 mg PO QAM 02/02/19 10/02/19 gabapentin 600 mg PO HS 02/02/19 10/02/19 linagliptin [Tradjenta] 5 mg PO QAM 02/02/19 10/02/19 lisinopril 5 mg PO QAM 02/02/19 10/02/19 metformin 1,000 mg PO BID 02/02/19 10/02/19 Previous Rx's Medication Instructions Recorded atorvastatin 80 mg tablet 80 mg PO HS #90 tab 01/25/19 glipizide 10 mg tablet, extended 10 mg PO BID #180 tab 01/25/19 release 24 hr blood sugar diagnostic #200 ea 02/02/19 amoxicillin 875 mg-potassium 1 tab PO BID #14 tab 10/01/19 clavulanate 125 mg tablet Results & Data (ED) Vital Signs Vital Signs - 24 hr 10/02/19 09:10 10/02/19 09:47 10/02/19 09:50 Temperature 36.9 C Temperature Source Oral Pulse Rate 67 67 69 Pulse Rate [Right] Pulse Rate from SpO2 Sensor 68 69 Respiratory Rate 20 19 14 Respiratory Effort / Characteristics Non-Labored Spontaneous Respiratory Depth Normal Respiratory Pattern Regular Blood Pressure 199/111 H 144/90 H Blood Pressure [Right Arm] Blood Pressure Mean 140 104 Blood Pressure Mean [Right Arm] Blood Pressure Position Sitting Pulse Oximetry 98 96 98 Oxygen Delivery Method Room Air Sepsis Recent Fever Within 48 Hours No Sepsis New/Unexplained Change in Mental Status No Sepsis Action Taken by Nursing No Action Required 10/02/19 10:00 10/02/19 10:10 10/02/19 10:20 Temperature Temperature Source Pulse Rate 71 70 72 Pulse Rate [Right] Pulse Rate from SpO2 Sensor 71 66 70 Respiratory Rate 20 17 18 Respiratory Effort / Characteristics Respiratory Depth Respiratory Pattern Blood Pressure 141/88 H Blood Pressure [Right Arm] Blood Pressure Mean 95 Blood Pressure Mean [Right Arm] Blood Pressure Position Pulse Oximetry 95 96 96 Oxygen Delivery Method Sepsis Recent Fever Within 48 Hours Sepsis New/Unexplained Change in Mental Status Sepsis Action Taken by Nursing 10/02/19 10:30 10/02/19 10:31 10/02/19 12:21 Temperature Temperature Source Pulse Rate 69 71 64 Pulse Rate [Right] 72 70 Pulse Rate from SpO2 Sensor 65 69 60 Respiratory Rate 19 18 17 Respiratory Effort / Characteristics Non-Labored Respiratory Depth Normal Respiratory Pattern Blood Pressure 115/81 116/98 Blood Pressure [Right Arm] 115/81 116/98 Blood Pressure Mean 91 103 Blood Pressure Mean [Right Arm] 92 104 Blood Pressure Position Pulse Oximetry 96 96 98 Oxygen Delivery Method Room Air Room Air Sepsis Recent Fever Within 48 Hours Sepsis New/Unexplained Change in Mental Status Sepsis Action Taken by Nursing 10/02/19 12:30 10/02/19 12:31 10/02/19 12:40 Temperature Temperature Source Pulse Rate 67 69 65 Pulse Rate [Right] Pulse Rate from SpO2 Sensor 61 67 63 Respiratory Rate 19 18 24 Respiratory Effort / Characteristics Respiratory Depth Respiratory Pattern Blood Pressure 136/75 Blood Pressure [Right Arm] Blood Pressure Mean 78 Blood Pressure Mean [Right Arm] Blood Pressure Position Pulse Oximetry 97 97 96 Oxygen Delivery Method Room Air Room Air Sepsis Recent Fever Within 48 Hours Sepsis New/Unexplained Change in Mental Status Sepsis Action Taken by Nursing 10/02/19 12:50 10/02/19 13:00 10/02/19 13:01 Temperature Temperature Source Pulse Rate 66 Pulse Rate [Right] Pulse Rate from SpO2 Sensor 64 63 59 L Respiratory Rate Respiratory Effort / Characteristics Respiratory Depth Respiratory Pattern Blood Pressure 169/92 H Blood Pressure [Right Arm] Blood Pressure Mean 110 Blood Pressure Mean [Right Arm] Blood Pressure Position Pulse Oximetry 97 95 96 Oxygen Delivery Method Room Air Room Air Room Air Sepsis Recent Fever Within 48 Hours Sepsis New/Unexplained Change in Mental Status Sepsis Action Taken by Nursing 10/02/19 13:10 10/02/19 13:20 Temperature Temperature Source Pulse Rate 64 66 Pulse Rate [Right] Pulse Rate from SpO2 Sensor 61 69 Respiratory Rate Respiratory Effort / Characteristics Respiratory Depth Respiratory Pattern Blood Pressure Blood Pressure [Right Arm] Blood Pressure Mean Blood Pressure Mean [Right Arm] Blood Pressure Position Pulse Oximetry 94 96 Oxygen Delivery Method Room Air Room Air Sepsis Recent Fever Within 48 Hours Sepsis New/Unexplained Change in Mental Status Sepsis Action Taken by Nursing Laboratory Data Attestation: I reviewed the patient's lab results. Result diagrams: 10/02/19 09:50 10/02/19 09:50 Lab Results 10/02/19 10/02/19 10/02/19 Range/Units 09:50 09:50 09:50 WBC 10.39 (4.8-10.8) K/uL RBC 5.12 (4.7-6.1) M/uL Hgb 14.7 (14.0-18.0) g/dL Hct 43.7 (42-52) % MCV 85.4 (80-100) fL MCH 28.7 (25-34) pg MCHC 33.6 (32-36) g/dL RDW Std Deviation 42.4 (36.4-46.3) fL RDW Coeff of [place] 13.7 (11.5-14.5) % Plt Count 294 (130-400) K/uL MPV 9.9 (7.4-10.4) fL Immature Gran % (Auto) 0.5 % Neut % (Auto) 66.1 % Lymph % (Auto) 25.5 % [place] % (Auto) 6.1 % Eos % (Auto) 1.5 % Baso % (Auto) 0.3 % Immature Gran # (Auto) 0.05 H (0.00-0.02) K/uL Neut # (Auto) 6.87 H (1.4-6.5) K/uL Lymph # (Auto) 2.65 (1.2-3.4) K/uL Frederick # (Auto) 0.63 H (0.11-0.59) K/uL Eos # (Auto) 0.16 (0-0.5) K/uL Baso # (Auto) 0.03 (0-0.2) K/uL PT 10.3 (9.0-12.0) Seconds INR 1.0 (0.9-1.1) APTT 29.1 (21.0-31.0) Seconds PTT Ratio 1.0 Sodium 137 (136-145) mmol/L Potassium 4.1 (3.5-5.1) mmol/L Chloride 104 (98-107) mmol/L Carbon Dioxide 26 (21-32) mmol/L Anion Gap 7.0 (3-11) BUN 16 (7-18) mg/dl Creatinine 0.91 (0.6-1.4) mg/dl Est Cr Clr Drug Dosing 149.9 ml/min Est GFR ( Amer) 111.1 Est GFR (Non-Af Amer) 95.9 BUN/Creatinine Ratio 18.0 (10-20) Glucose 194 H (70-99) mg/dl POC Glucose (70-99) mg/dl Calcium 9.4 (8.5-10.1) mg/dl Phosphorus 3.5 (2.5-4.9) mg/dl Magnesium 1.8 (1.8-2.4) mg/dl Total Bilirubin 0.4 (0.2-1) mg/dl AST 7 L (15-37) U/L ALT 17 (12-78) U/L Alkaline Phosphatase 98 (45-117) U/L Troponin I < 0.015 (0-0.045) ng/ml Total Protein 7.7 (6.4-8.2) gm/dl Albumin 3.7 (3.4-5.0) gm/dl Globulin 4.0 (2.5-4.0) gm/dl Albumin/Globulin Ratio 0.9 (0.9-2) TSH 3.950 (0.300-4.500) uIu/ml 10/02/19 10/02/19 Range/Units 09:50 09:56 WBC (4.8-10.8) K/uL RBC (4.7-6.1) M/uL Hgb (14.0-18.0) g/dL Hct (42-52) % MCV (80-100) fL MCH (25-34) pg MCHC (32-36) g/dL RDW Std Deviation (36.4-46.3) fL RDW Coeff of [place] (11.5-14.5) % Plt Count (130-400) K/uL MPV (7.4-10.4) fL Immature Gran % (Auto) % Neut % (Auto) % Lymph % (Auto) % Frederick % (Auto) % Eos % (Auto) % Baso % (Auto) % Immature Gran # (Auto) (0.00-0.02) K/uL Neut # (Auto) (1.4-6.5) K/uL Lymph # (Auto) (1.2-3.4) K/uL Frederick # (Auto) (0.11-0.59) K/uL Eos # (Auto) (0-0.5) K/uL Baso # (Auto) (0-0.2) K/uL PT (9.0-12.0) Seconds INR (0.9-1.1) APTT (21.0-31.0) Seconds PTT Ratio Sodium (136-145) mmol/L Potassium (3.5-5.1) mmol/L Chloride (98-107) mmol/L Carbon Dioxide (21-32) mmol/L Anion Gap (3-11) BUN (7-18) mg/dl Creatinine (0.6-1.4) mg/dl Est Cr Clr Drug Dosing ml/min Est GFR ( Amer) Est GFR (Non-Af Amer) BUN/Creatinine Ratio (10-20) Glucose (70-99) mg/dl POC Glucose 193 H (70-99) mg/dl Calcium (8.5-10.1) mg/dl Phosphorus Cancelled (2.5-4.9) mg/dl Magnesium (1.8-2.4) mg/dl Total Bilirubin (0.2-1) mg/dl AST (15-37) U/L ALT (12-78) U/L Alkaline Phosphatase (45-117) U/L Troponin I (0-0.045) ng/ml Total Protein (6.4-8.2) gm/dl Albumin (3.4-5.0) gm/dl Globulin (2.5-4.0) gm/dl Albumin/Globulin Ratio (0.9-2) TSH Cancelled (0.300-4.500) uIu/ml Administered Medications Amoxicillin/Clavulanate Potassium (Augmentin 875mg) 1 tab PO BID JANAK; Protocol Stop: 10/12/19 20:59 Last Admin: 10/02/19 20:09 Dose: 1 tab Documented by: [id number] Atorvastatin Calcium (Lipitor) 80 mg PO HS JANAK Stop: 11/01/19 20:59 Last Admin: 10/02/19 20:10 Dose: 80 mg Documented by: [id number] Ciprofloxacin/Dexamethasone (Ciprodex Otic) 10 drops OTB TID JANAK Stop: 11/01/19 20:59 Last Admin: 10/02/19 20:10 Dose: 10 drops Documented by: [id number] Enoxaparin Sodium (Lovenox) 40 mg SQ QPM JANAK Stop: 11/01/19 20:59 Last Admin: 06/20/20 22:17 Dose: 40 mg Documented by: [id number] Gabapentin (Neurontin) 600 mg PO HS JANAK Stop: 11/01/19 20:59 Last Admin: 10/02/19 20:11 Dose: 600 mg Documented by: [id number] Insulin Aspart (Novolog Flexpen) 0 units SC ACHS JANAK Stop: 11/01/19 20:59 Last Admin: 10/02/19 20:28 Dose: 2 units Documented by: [id number] Cosigned by: [id number] Ioversol (Optiray 320 125ml) 119 ml IV ONCE PRN PRN Reason: Interaction Checking Stop: 10/06/19 10:51 Last Admin: 10/02/19 10:53 Dose: 119 ml Documented by: [id number] Discontinued Medications Aspirin (Aspirin Chew) 324 mg PO NOW STA Stop: 10/02/19 13:35 Last Admin: 10/02/19 13:53 Dose: 324 mg Documented by: [id number] Sodium Chloride (Nss) 500 mls @ 999 mls/hr IV .Q31M ONE Stop: 10/02/19 10:15 Last Infusion: 10/02/19 10:57 Dose: 0 mls/hr Documented by: [id number] Admin: 10/02/19 10:13 Dose: 999 mls/hr Documented by: [id number] Lorazepam (Ativan) 1 mg in 2 mls @ 2 mls/min IV NOW STA Stop: 10/02/19 13:54 Last Admin: 10/02/19 13:57 Dose: 2 mls/min Documented by: [id number] Lorazepam (Ativan) Confirm Administered Dose 2 mg .ROUTE .STK-MED ONE Stop: 10/02/19 13:57 Last Admin: 10/02/19 13:57 Dose: Not Given Documented by: [id number] Pneumococcal Polyvalent Vaccine (Pneumovax-23) 25 mcg IM .ONCE ONE Stop: 10/02/19 13:52 Last Admin: 10/02/19 16:46 Dose: Not Given Documented by: [id number] Blood Pressure Blood Pressure Findings: Elevated blood pressure Blood Pressure Disposition: further management by hospitalist Discharge Plan Visit Data *Final* Discharge Date/Time: 10/02/19 15:16 Chief Complaint: Stroke/CVA Symptoms Stated Complaint: STROKE SYMPTOMS ED Provider: Bradley Singh Discharge Problem: Dysarthria, Dysequilibrium, Stroke-like symptoms, History of medication noncompliance Patient Disposition: Admitted As Inpatient Discharge Instructions Interventions: ED Discharge Assessment Last Done: 10/02/19 15:16
[2019-10-02] MEDS ORDERED: GLUCAGON FOR INJ 1 MG VIAL IM PRN (19:15)
[2019-10-02] MEDS ORDERED: GLUCOSE 10 TABS/TUBE PO PRN (19:15)
[2019-10-02] MEDS ORDERED: GLUCOSE 40% GEL 15 GM TUBE PO PRN (19:15)
[2019-10-02] MEDS ORDERED: DEXTROSE 50% 50 ML SYRINGE IV PRN (19:15)
[2019-10-02] MEDS ORDERED: CARBOHYDRATES FOR HYPOGLYCEMIA PO PRN (19:15)
[2019-10-02] MEDS: AMOXICILLIN/CLAVULANATE 875 MG TAB PO SCH (20:09)
[2019-10-02] MEDS: CIPRO 0.3%/DEXAMETHASONE 0.1% OTIC SUSP 7.5ML OTB SCH (20:10)
[2019-10-02] MEDS: INSULIN ASPART 100 UNITS/ML 3 ML PEN SC SCH (20:28)
[2019-10-02] MEDS ORDERED: ATORVASTATIN 40 MG TAB PO SCH (21:00)
[2019-10-02] MEDS ORDERED: ENOXAPARIN INJ 40 MG/0.4 ML SYR SQ SCH (21:00)
[2019-10-02] MEDS ORDERED: GABAPENTIN 300 MG CAP PO SCH (21:00)
[2019-10-03] MEDS ORDERED: INSULIN ASPART 100 UNITS/ML 3 ML PEN SC ONE (02:00)
[2019-10-03 06:10] LABS: Basophils # (auto) 0.02 K/uL (0-0.2); Basophils % (auto) 0.2 %; Eosinophils # (auto) 0.25 K/uL (0-0.5); Eosinophils % (auto) 2.2 %; Hematocrit (blood only) 42.3 % (42-52); Immature Granulocytes # (auto) 0.05 K/uL (0.00-0.02); Immature Granulocytes % (auto) 0.4 %; Mean Corpuscular Hgb Conc 33.1 g/dL (32-36); Mean Corpuscular Volume 84.6 fL (80-100); Mean Platelet Volume 10.1 fL (7.4-10.4); Monocytes # (auto) 0.61 K/uL (0.11-0.59); Monocytes % (auto) 5.5 %; Neutrophils # (auto) 7.32 K/uL (1.4-6.5); Neutrophils % (auto) 65.7 %; Platelet Count 281 K/uL (130-400); RDW Coefficient of Variation 13.8 % (11.5-14.5); RDW Standard Deviation 42.6 fL (36.4-46.3); White Blood Count 11.15 K/uL (4.8-10.8)
[2019-10-03 06:45] LABS: BUN Creatinine Ratio 15.3 (10-20); Calcium 8.6 mg/dl (8.5-10.1); Creatinine Clr Calc Pharmacy 160.5 ml/min; Est GFR (African American) 115.3; Est GFR (Non-African American) 99.5; Potassium 4.1 mmol/L (3.5-5.1)
[2019-10-03] MEDS ORDERED: ACETAMINOPHEN 325 MG TAB PO PRN (07:25)
[2019-10-03] MEDS ORDERED: PERFLUTREN LIPID MICROSPHERE (DEFINITY) IV ONE (08:07)
--- NOTE | 2019-10-03 08:29 | Hospitalist Progress Note ---
Date of Service October 03, 2019 Assessment & Plan Admission and Anticipated Discharge Date Admission Date: October 02, 2019 Results & Data Results & Data ([facility]) Vital Signs (Past 12 Hours) Vital Signs Temp Pulse Pulse Resp BP Pulse Ox 10/03/19 07:19 36.8 C 55 L 18 154/82 H 95 10/03/19 04:07 36.8 C 68 18 134/75 96 10/03/19 03:33 73 10/03/19 03:30 65 16 94 10/03/19 02:20 18 94 10/02/19 23:40 36.6 C 65 18 132/71 94 10/02/19 23:00 90 20 94
[2019-10-03] MEDS ORDERED: INSULIN GLARGINE SOLOSTAR 100 UNITS/ML 3 ML PEN SC ONE (09:00)
[2019-10-03] MEDS ORDERED: GABAPENTIN 300 MG CAP PO SCH (09:00)
[2019-10-03] MEDS ORDERED: lisinopriL 5 MG TAB PO SCH (09:00)
[2019-10-03] MEDS ORDERED: ASPIRIN 81 MG ECTAB PO SCH (09:00)
[2019-10-03] MEDS ORDERED: allopurinoL 300 MG TAB PO SCH (09:00)
[2019-10-03] MEDS: INSULIN ASPART 100 UNITS/ML 3 ML PEN SC SCH (09:36)
[2019-10-03] MEDS: AMOXICILLIN/CLAVULANATE 875 MG TAB PO SCH (09:38)
[2019-10-03] MEDS: CIPRO 0.3%/DEXAMETHASONE 0.1% OTIC SUSP 7.5ML OTB SCH (09:39)
--- NOTE | 2019-10-03 10:02 | Neurology Consultation ---
Date of Consultation October 03, 2019 Assessment & Plan (1) Dysarthria: (2) Gait disturbance: (3) Bilateral otitis media with effusion: (4) Hypertension: (5) Type 2 diabetes mellitus with diabetic neuropathy, without long-term current use of insulin: (6) Dyslipidemia: Patient had the onset of nonspecific gait disturbance and mild dysarthria about 4 days ago. Today, I see no specific gait abnormality but he does have some mild dysarthria under certain testing. There is no aphasia and there is no other focal neurologic findings including weakness or numbness of the limbs. There is no meningeal signs or encephalopathy. A small ischemic stroke cannot be excluded and he does have significant risk factors for stroke including heavy cigarette smoking, hypertension, diabetes, and dyslipidemia. However on examination, especially in lieu of his recent infection, I suspect that these symptoms are related to his inner ear. MRI is desired but he refused it due to claustrophobia and size. Recommendations: 1. Try to obtain MRI of the brain without contrast if possible. 2. Control blood pressure as you are doing a meeting for a mean arterial pressure of 95-100. 3. Controlled glucose and awaiting hemoglobin A1c. 4. The patient is a high dose statin candidate and this should be continued. 5. Discontinue cigarette smoking 6. Echocardiogram is pending. 7. Obtain TSH and B12 Overall, I spent a total of 60 minutes with this case including review of records, review of CT films, direct evaluation the patient at bedside, and discussion of the case with the patient and nurse at bedside as well as Dr. Arrington including differential diagnosis and treatment options. History of Present Illness Reason for Consultation: Patient is a 54-year-old, who I was asked to see at the request of Dr. Mendoza, for neurologic consultation regarding possible stroke. Requesting Physician: Dr. Mendoza Attending Physician: Vladimir Arrington MD History of Present Illness Patient has a 79 year history of hypertension, diabetes, and dyslipidemia. He has no history of heart disease or stroke that he is aware. Is a 2 pack per day cigarette smoker for 30 years. He is on atorvastatin, gabapentin, glipizide, lisinopril, metformin, and linagliptin. Patient has a history of sinus issues and sinus surgery in the past. September 27 he went to bed feeling fine with no issues. He awoke September 28 and felt like his balance was off and his speech was slurred. He felt that he could not write correctly either. He had occipital headache and blood was coming from his right external auditory canal. On September 29 he initiated Augmentin for presumed infection. He saw his primary care physician September 30 and was told to go to the emergency room but he decided against it. He ended up going to the emergency room on the morning of October 01. He arrived October 01 at 0910 with a temperature 36.9, pulse 67, respiratory rate 20, and blood pressure 199/111 with an O2 saturation 98 percent. On examination, he was felt to have some slurred speech and unsteady gait (with some leaning to the left). There was a concern that his right upper extremity was clumsy. There was no confusion or altered mental status. CBC was unremarkable. Glucose was 194 but the rest of the Chem profile was unremarkable and urinalysis was negative. CT scan of the head was unremarkable for acute changes. CT angiography of the head and neck were unremarkable with no significant stenoses or vessel anomalies. This morning he feels that his speech is improved but perhaps slightly slurred still but his balance is better. He has no new issues and has no pain or headaches. CBC showed a mildly elevated white count of 11. Chem profile revealed a sodium 135 and glucose of 183. Triglycerides were 444 and total cholesterol 220. Hemoglobin A1c is pending. MRI of the brain was attempted but the patient is large and claustrophobic and refused. Allergies Allergy/AdvReac Type Severity Reaction Status Date / Time oxycodone AdvReac Mild DIZZY Verified 10/02/19 09:59 Home Medications Home Medications Medication Instructions Recorded Confirmed Type atorvastatin 80 mg tablet 80 mg PO HS #90 tab 01/25/19 10/02/19 Rx glipizide 10 mg tablet, extended 10 mg PO BID #180 tab 01/25/19 10/02/19 Rx release 24 hr allopurinol 300 mg PO QAM 02/02/19 10/02/19 History blood sugar diagnostic #200 ea 02/02/19 10/01/19 Rx gabapentin 300 mg PO QAM 02/02/19 10/02/19 History gabapentin 600 mg PO HS 02/02/19 10/02/19 History linagliptin [Tradjenta] 5 mg PO QAM 02/02/19 10/02/19 History lisinopril 5 mg PO QAM 02/02/19 10/02/19 History metformin 1,000 mg PO BID 02/02/19 10/02/19 History amoxicillin 875 mg-potassium 1 tab PO BID #14 tab 10/01/19 10/02/19 Rx clavulanate 125 mg tablet Patient History Medical History Dyslipidemia Gout, joint Hypertension Right flank pain Skin lesion Sleep apnea CPAP Type 2 diabetes mellitus with diabetic neuropathy, without long-term current use of insulin Surgical History History of sinus surgery History of tonsillectomy and adenoidectomy Status post myringotomy with insertion of tube Family History Uncle Prostate cancer Mother Diabetes Father Diabetes COPD (chronic obstructive pulmonary disease) Social History Preferred Language: Lao Communication Ability: Effective Insole Stiffener Required: No Beliefs That Will Affect Care: None Current Living Situation: Significant Other Other Information That Helps Us Care for You: No Feels Safe at Home: Yes Safety Concerns: Feels Safe At This Time Smoking Status: Current every day smoker Tobacco Type: cigarettes ; Age Started Using Tobacco: 22 ; packs per day: 1.5 ; Cigarettes Per Day: 20-30 ; Do You Dip or Chew Tobacco: No ; Second Hand Exposure: No ; Tobacco Cessation Education Requested by Patient: No Hx Alcohol Use: No Hx Substance Use: No Review of Systems Constitutional: no fever, no fatigue and no weakness Eyes: no diplopia, no eye pain and no worsening vision Ear, Nose, Mouth, Throat: + tinnitus and + hearing loss; no ear pain, no dizziness, no hoarseness and no dysphagia Respiratory: no cough and no dyspnea Cardiovascular: no chest pain, no palpitations and no lightheadedness Gastrointestinal: no abdominal pain, no nausea and no vomiting Genitourinary: no dysuria and no urinary incontinence Musculoskeletal: no back pain, no neck pain, no radicular pain, no joint pain and no myalgia Integumentary: no rash and no lesions Neurologic: + gait abnormality and + abnormal speech; no localized weakness, no generalized weakness, no tingling, no numbness, no tremor(s), no abnormal movements, no headache(s), no confusion and no memory loss Psychiatric: no depression, no irritability, no anxiety, no difficulty concentrating, no confusion and no hallucinations Endocrine: no fatigue and no flushing Hematologic / Lymphatic: no easy bleeding and no easy bruising Allergy / Immunological: no urticaria and no problem reported Exam (Neuro) Physical Exam: The patient is right-handed. The patient is awake, alert, and attentive. Speech is normal without any obvious aphasia , but there was some dysarthria the test phrases. Normal conversation does not reveal dysarthria however. he can name objects, repeat phrases, and has normal spontaneous speech. Mentation and thought processes are intact, with orientation to person, place and time, and normal fund of knowledge. Attention and concentration are normal. Mood and affect are normal and appropriate. General appearance and grooming are normal. Short and long-term memory are intact. The discs are sharp with positive venous pulsations bilaterally. There are no exudates, hemorrhages, or blood vessel changes seen. Pupils are 4 mm bilaterally and reactive to light. Extraocular eye muscles are intact without nystagmus. Visual acuity and visual zhou seem normal grossly to confrontation. There are no deficits to sensation in the face in all 3 distributions of the fifth cranial nerve bilaterally. Corneal reflexes are positive bilaterally. Facial strength and symmetry was normal bilaterally. Hearing seems normal to whisper and finger rub bilaterally. Palate moves well without asymmetry. There is normal sternocleidomastoid and trapezius (shoulder shrug) strength bilaterally. Tongue is midline with good strength bilaterally. Neck has a full range of motion without discomfort. There are no cervical bruits bilaterally. There are no cranial or ocular bruits. Heart is without murmur. There is a regular rhythm and rate. Cervical, thoracic, and lumbar spine are nontender to palpation. Gait is narrow based, with good arm swing, turns, and stance. Balance is normal eyes open or closed. With outstretched arms there is no drift. There are no resting, postural, or action tremors. There is no ataxia with finger to nose testing. There is good facility in the hands. No other abnormal involuntary movements are noted. Motor strength is 5/5 diffusely in the arms bilaterally including deltoids, biceps, triceps, brachioradialis, wrist flexors and extensors, malthouse laborer, and intrinsic hand muscles. Motor strength is 5/5 diffusely in the legs bilaterally including hip flexors, quadriceps, hamstrings, gastrocnemius, tibialis anterior, tibialis posterior, and Peroneii muscles. Toe extensors are normal and there is good bulk in the extensor digitorum brevis muscles bilaterally. The limbs have good tone without rigidity or spasticity. There is no atrophy noted in the muscles. Muscle bulk is normal, there is no tenderness to palpation, no myotonia to percussion, and no fasciculations seen. Sensory examination is intact to touch and pin throughout all 4 limbs diffusely. Vibratory and position sense testing is normal bilaterally as well. There is normal sensation to temperature. Reflexes are 1/4 in the biceps, triceps, brachioradialis, quadriceps, and Achilles tendons bilaterally. There is no clonus bilaterally. Toes are downgoing with plantar stimulation bilaterally. Peripheral pulses are present and of normal quality distally in all 4 limbs. There is no peripheral edema noted in the limbs. Results & Data ([facility]) Vital Signs (Past 12 Hours) Vital Signs Temp Pulse Pulse Resp BP Pulse Ox 10/03/19 07:19 36.8 C 55 L 18 154/82 H 95 10/03/19 04:07 36.8 C 68 18 134/75 96 10/03/19 03:33 73 10/03/19 03:30 65 16 94 10/03/19 02:20 18 94 10/02/19 23:40 36.6 C 65 18 132/71 94 10/02/19 23:00 90 20 94 PG Care Time/CCT Total # of Minutes Spent Total Time Spent with Patient: Total time spent is greater than 50% in coordination of care (as documented) at patient's floor/unit and/or counseling patient: Coding Level of Care Code 17017 Office/OBS Consult Lvl 5 Diagnoses Dysarthria R47.1 Gait disturbance R26.9 Bilateral otitis media with effusion H65.93 Hypertension I10 Type 2 diabetes mellitus with diabetic neuropathy, without long-term current use of insulin E11.40 Dyslipidemia E78.5
--- NOTE | 2019-10-03 10:17 | Pharmacy Report ---
Pharmacy Glycemic Short Note 2 - Date of Service October 03, 2019 - Glycemic Short BSG Results (Last 24 hours): 10/02/19 10/02/19 10/02/19 09:50 09:56 16:05 Glucose 194 H POC Glucose 193 H 123 H 10/02/19 10/03/19 10/03/19 20:11 02:04 05:22 Glucose 181 H POC Glucose 166 H 151 H 10/03/19 07:19 Glucose POC Glucose 192 H OUTPATIENT ANTIDIABETIC REGIMEN: * Patient reports discontinuing his anti-diabetic meds (glipizide, tradjenta, metformin) * A1c 6.3% (01/25/19) -> updated A1c pending ASSESSMENT: * Nathaniel is a 54 yo T2DM admitted with stroke like symptoms * He was previously managed on three oral anti-diabetic agents, however patient reports discontinuing these medications. * Will initiate SQ basal bolus insulin regimen which is the recommended regimen for inpatient glycemic control. * Will initiate weight based insulin dosing for insulin kevin patient and titrate based on BSG trends. PLAN FOR INPATIENT GLYCEMIC CONTROL: * Basal insulin * Lantus 20 units SQ this morning, then per scale BID: * 0 units for BSG < 140 mg/dL * 15 units for BSG 140 - 180 mg/dL * 20 units for BSG > 180 mg/dL * Bolus insulin * NovoLog per scale ACHS or Q6hrs while NPO * Goal Range: Low 110 mg/dL - High 140 mg/dL * Correction Factor: 15 mg/dL/unit * Nutritional / Prandial insulin per carb ratio of 1 unit per 5 grams CHO consumed PLAN FOR DISCHARGE: * pending
--- NOTE | 2019-10-03 14:00 | XCELERA ---
[id number]
--- NOTE | 2019-10-03 15:40 | Discharge Summary ---
Date of Service October 03, 2019 Admission HPI Per Admitting Provider Nathaniel Ga is a 54 year old male with multiple cardiovascular risk factors (smokes 3 PPD, hyperlipidemia, diabetes, hypertension, obstructive sleep apnea) who presents to the ER with stroke-like symptoms ongoing for the last 3 days. He notes on waking up on Friday, noted bilateral severe headache (without neck pain) and acute onset dysequilibrium, difficulty with word pronunciation and clumsiness of his dominant right hand when writing. He denies any problems understanding words. He denies any problems finding the right words to say. He denies any vision changes or dizziness. He is not falling more to one side but generally feels unbalanced. He denies any extremity limb weakness or acute sensation change other than his chronic diabetic peripheral neuropathy. He had stopped all his usual medications for diabetes and hypertension due to financial concerns and he does not pay for health insurance for the past 2 months. Restarted medications 2 days ago. He saw his primary care provider yesterday with similar symptoms and was advised to go to the ER due to concern for acute CVA but refused. He was additionally diagnosed with left-sided acute otitis media treated with Augmentin (took 1 tablet of this prior to coming to the ER today). After further persuasion by his partner that he was not improving; he decided to come to the ER today. He is also concerned about excessive ear discharge over the last 2 months. He believes this discharge to be wax rather than pus. Associated anterior ear pain occurring intermittently during this time period. No fevers or chills. No mastoid pain. No sinus pain. He reports extensive ENT surgical history with Dr. Moreno requiring multiple T tubes, sinus surgeries, tonsillectomy and uvulectomy. He does report a similar episode of disequilibrium many years ago which was treated as an inner ear infection and fully resolved. He denies any dysarthria or coordination deficit in his hand at that time. Admission Exam Per Admitting Provider Constitutional: WD/WN, vitals as above Eyes: PERRL, conjunctivae normal, anicteric sclerae ENMT: Ears: + hearing impairment (Bilateral) and + TM abnormality (T tubes in place with bilateral effusions, bulging TM on left, no erythema); no mastoid abnormality (Nonpainful to palpation) Nose: no external nose abnormality Mouth : + oropharynx abnormality (Uvulectomy and tonsillectomy noted, mild erythema posteriorly); no TMJ abnormality and oral mucous membranes not dry Neck: trachea midline, + short neck and + thick neck Respiratory: normal respiratory effort, lungs clear to auscultation Cardiovascular: Rate/Rhythm: regular rate and regular rhythm Heart Sounds: no murmur Extremities: normal capillary refill and + pedal edema (Trace pitting bilaterally); no calf tenderness Gastrointestinal (Abdomen): normal bowel sounds, soft, nontender, no hepatosplenomegaly Musculoskeletal: no cyanosis or clubbing, extremities motor strength 5/5 Skin: no rashes, warm and dry Neurologic: moves all extremities and awake; no focal motor deficits Speech / Cognition: + abnormal speech (Mild dysarthria noted with routine communication); no expressive aphasia and no receptive aphasia Motor/Sensory: + sensory deficit (Bilateral stocking distribution numbness to mid shins); no tremor and no pronator drift Cranial Nerves: PERRL, EOM intact bilaterally, normal facial strength, tongue midline, able to rotate head bilaterally, able to elevate shoulders bilaterally, no nystagmus and symmetric palate elevation; + he aring impairment (Non-unilateral) Coordination: normal [id number] test and normal [id number] test Psychiatric: A+Ox3, euthymic affect Genitourinary: no CVA tenderness Lymphatic: no cervical or axillary lymphadenopathy Principal Diagnosis Stroke Discharge Exam Constitutional no acute distress, not ill appearing and + uncooperative Neck normal visual inspection Respiratory normal respiratory effort and able to speak in complete sentences; no respiratory distress, no labored breathing, no retractions, no cough and no audible wheezes Auscultation: lungs clear to auscultation bilaterally; no crackles, no rales, no rhonchi and no wheezes Cardiovascular Rate/Rhythm: regular rate and regular rhythm Heart Sounds: normal S1 and normal S2; no gallop, no murmur and no cardiac rub Vessels: posterior tibial pulses present Extremities: no pedal edema and no edema Gastrointestinal (Abdomen) Inspection/Auscultation: + abdomen distended and normal bowel sounds Percussion/Palpation: abdomen soft and + abdomen firm; abdomen nontender, no guarding, abdomen not rigid and no abdominal mass Neurologic PERRL, EOMI, accommodation nl, no face palsy, no dysarthria normal touch/pain/proprioception, moves all extremities and awake; no focal motor deficits Discharge Data Allergies Allergy/AdvReac Type Severity Reaction Status Date / Time oxycodone AdvReac Mild DIZZY Verified 10/02/19 09:59 Consultations 10/02/19 12:59 ED Decision to Admit Stat 10/02/19 16:01 Consult Neurology Routine Ordered Studies 10/02/19 09:44 CT angio head w con Stat CT angio neck with con Stat CT head/brain wo con Stat Hospital Course (1) Gait disturbance: Patient admitted for stroke work-up. CT head and CTA neck done without abnormalities noted. MRI brain attempted however patient had very bad claustrophbia even after getting ativan to help and was not able to fit in MRI machine due to central obesity. On the floor, in discussion with patient regarding optimization of cardiac risk factors, patient stated that he was adamant about leaving hospital against medical advice. Attempted to talk patient into staying until full workup completed (possibly MRI, also TTE) however he was insistent that he wouldn't stay "for another half hour". We discussed the high risk of stroke within the first 3 days of having a stroke episode and high risk for the next 3 months going forward, with the possibility of the next stroke being larger and possibly leaving him paralyzed or , including the risk of having a stroke while driving. He acknowledged these risks and agreed that he could by stroke or "in a car crash outside". Attempted to get patient to see PCP tomorrow for close follow up however he acknowledged they would say the same thing as us as he was sent to the ED after seeing his PCP in the office. Ultimately patient left AMA. (2) Stroke-like symptoms: Total Time Total Time Spent Total Time Spent (In Minutes): see attending attestation Discharge Plan Discharge Items Patient Disposition: Against Medical Advice Reason For Visit: DYSARTHRIA,ATAXIC GAIT Follow-up/Referrals: Vladimir Lamas MD [Primary Care Provider] - Stand-Alone Forms: My [employer], Smoking Cessation Medications and DC Order Prescriptions: No Action (DME) OneTouch Ultra Blue Test Strip strip See Dose Instructions .ROUTE .MEDSUPPLY Qty: 200 RF: 3 atorvastatin 80 mg tablet 80 mg PO HS Qty: 90 RF: 3 glipizide 10 mg tablet extended release 24hr 10 mg PO BID Qty: 180 RF: 3 amoxicillin-pot clavulanate [Augmentin] 875-125 mg tablet 1 tab PO BID Qty: 14 RF: 0 gabapentin 300 mg Capsule 600 mg PO HS RF: 0 gabapentin 300 mg capsule 300 mg PO QAM RF: 0 allopurinol 300 mg tablet 300 mg PO QAM RF: 0 lisinopril 5 mg tablet 5 mg PO QAM RF: 0 metformin 500 mg tablet extended release 24 hr 1,000 mg PO BID RF: 0 Tradjenta 5 mg tablet 5 mg PO QAM RF: 0 Discharge Orders: Left Against Medical Advice (Routine); Ordered 10/03/19 Ordered By: Britni Leger Admission Data Admit Date/Time: 10/02/19 14:12 Attending Provider: Vladimir Arrington Admit Provider: Tk Mendoza Primary Care Provider: Vladimir Lamas Other Providers: Tk Mendoza ; Jona Braun ; Britni Leger Other Interventions: Discharge Summary Assessment (RN) Last Done: 10/03/19 11:52 DC Date/Time DO NOT enter until pt leaves facility: 10/03/19 13:53 Supervising Physician Co-Signing Physician Notes Attending attestation Pt seen and examined in concert with Dr. Leger. In agreement with the documented findings as noted in the resident documentation with any exceptions or additions as noted here. Sitting in bedside chair appearing agitated but without acute medical complaint. Patient defers detailed examination, superficially, CNII-XII grossly intact. Actively diaphoretic. Stroke like symptoms - gait disturbance and word finding difficulties which, subjectively, continued for > 24 hours in the setting of multiple poorly controlled risk factors. Unable to obtain MRI brain 2/2 needing open MRI. Pt deferred both counseling on the concerns for his pathology as well as inquiries into underlying causes ("I have my meds. I'll take them"). Defers further inpatient evaluation (as per resident note) and also refuses evaluation by PCP stat tomorrow ("I saw him last week and I have to go to work tomorrow"). Strongly counseled re: risks and was able to teach back the risks and consequences of his illness as reviewed to him. DMII, poorly controlled - resume outpatient medications which had been held for financial limitations (stated by pt) HTN - resume lisinopril HLD - resume atorvastatin therapy Tobacco use - counseled cessation and offered medical support re: patches and karo benitez Declined. Left AMA. Resident Activity Tracking Resident Involvement: Resident Care Provided Care Provided: Adult Hospital Medicine
[2019-10-03] MEDS ORDERED: INSULIN GLARGINE SOLOSTAR 100 UNITS/ML 3 ML PEN SQ SCH (21:00)
[2019-10-04 05:42] LABS: Estimated Average Glucose 303 mg/dl; Hemoglobin A1C 12.2 % (4.5-5.6)
--- NOTE | 2019-10-08 06:40 | Coding Query ---
CODING QUERY SECOND REQUEST To promote full compliance with coding requirements relating to patient care, provider participation is requested in all cases of manual qa tester uncertainty. Please assist us with the question(s) below: Coding Question(s): Please clarify diagnosis at discharge. Thank you. ( x ) Ischemic stroke ( ) Bilateral Otitis medial with effusion ( ) Other Physician's Response(s): Thank you Ирина Hahn CCS Principal Diagnosis: "that condition established after study, to be chiefly responsible for occasioning the admission of the patient to the hospital for care." Co-Existing Principal Diagnosis: "when two or more diagnoses equally meet the criteria for principal diagnosis as determined by the circumstances of admission, diagnostic work up, and/or therapy provided, and the Alphabetic Index, Tabular List, or another coding guideline does not provide sequencing direction, any one of the diagnoses may be sequenced first." "When the physician has documented what appears to be a current diagnosis in the body of the record, but has not included the diagnosis in the final diagnostic statement, the physician should be asked whether the diagnosis should be added." (Source Coding [facility] 2 QTR90. p3-4) DIANE
--- NOTE | 2019-11-01 11:43 | Coding Query ---
CODING QUERY Dr. Leger To promote full compliance with coding requirements relating to patient care, provider participation is requested in all cases of director mobile uncertainty. Please assist us with the question(s) below: Coding Question(s): Please clarify diagnosis at discharge. Thank you. ( x ) Ischemic stroke ( ) Bilateral Otitis medial with effusion ( ) Other Physician's Response(s): Ischemic stroke most congruent with symptoms of dizziness, abnormal gait and abnormal speech patterns that patient presented with. Head CT imaging had been negative but confirmatory MRI was unable to be completed as patient left AMA and was adamant against getting in the MRI machine and also had difficulty fitting into the machine due to his size. Thank you Ирина Hahn Principal Diagnosis: "that condition established after study, to be chiefly responsible for occasioning the admission of the patient to the hospital for care." Co-Existing Principal Diagnosis: "when two or more diagnoses equally meet the criteria for principal diagnosis as determined by the circumstances of admission, diagnostic work up, and/or therapy provided, and the Alphabetic Index, Tabular List, or another coding guideline does not provide sequencing direction, any one of the diagnoses may be sequenced first." "When the physician has documented what appears to be a current diagnosis in the body of the record, but has not included the diagnosis in the final diagnostic statement, the physician should be asked whether the diagnosis should be added." ([facility] 2 QTR90. p3-4) DIANE
== END 2019-10-03 13:53 | disposition left against medical advice (07) ==
LOC: 2W 09:05 → ED 09:05 → SUATTDRO 14:12 → 2W 15:16

== ENCOUNTER 2022-08-01 05:52 | Inpatient (IN) ==
--- NOTE | 2022-07-22 10:05 | Anesthesiology Consultation ---
Date of Service July 22, 2022 Assessment & Plan (1) Encounter for pre-operative examination: Chart Review Chart Review: Acceptable Risk for Surgery (pending preop Covid testing results ) and Patient NOT seen in Pre Admission Testing - Check BSG AM DOS - Discussed previous stroke like symptoms with Dr. Page- no issues since 2019- PCP aware- patient can proceed as scheduled -COVID screening: Per PAT nursing assessment on 07/22/22. Pt tested Covid positive on 05/20/22 with home test (had body aches- have since resolved). No known COVID-19 positive contacts or current COVID-19 related symptoms. Travel screen negative. Patient vaccinated for Covid. Due to patient being inpatient procedure- preop Covid testing will be done 07/23/22 at [place] lab= awaiting results. BMT, direct larygnoscopy with excision 01/03/17= Done under [facility] with Grade 2 view with Glidescope #4. ETT #7.0. Pt has difficult breathing laying flat. Unable to breath with minimal propofol assisted ventilation with OPA and two hand mask. Desat quickly. Sat maintained with 2 hand vent. Glidescope #4 used for successful intubation. Large areas of scar issue at base of tongue. Atraumatic intubation. Anesthesia progress note 01/03/17= "Because this patient had such severe sleep apnea and there was so much soft tissue in his airway, the decision was made to keep him overnight on continuous pulse oximetry and O2 with BiPAP for sleep." History Surgery Operation Date: 08/01/22 07:30 Proposed Procedures p Robotic assisted Laparoscopic Partial Nephrectomy, Possible Radical Right - Denys Matthews, Height/Weight Height: 6 ft 2 in Weight: 167.829 kg Allergies Allergy/AdvReac Type Severity Reaction Status Date / Time oxycodone AdvReac Mild DIZZY Verified 07/22/22 08:51 Medications Home Medications Medication Instructions Recorded Confirmed Last Taken gabapentin 300 mg capsule 600 mg PO HS 02/02/19 07/22/22 10/01/19 blood sugar diagnostic (OneTouch #200 ea 08/10/20 05/29/22 Unknown Ultra Blue Test Strip) blood-glucose meter (OneTouch #1 ea 08/10/20 07/22/22 Unknown Ultra2 Meter) lancets (OneTouch UltraSoft #200 ea 08/10/20 07/22/22 Unknown Lancets) allopurinol 300 mg tablet 300 mg PO QAM #90 tabs 10/16/21 07/22/22 Unknown atorvastatin 80 mg tablet 80 mg PO HS #90 tabs 10/16/21 07/22/22 Unknown glipizide 10 mg tablet, extended 10 mg PO BID #180 tabs 10/16/21 07/22/22 Unknown release 24 hr gabapentin 300 mg capsule 300 mg PO .COMPLEX #270 caps 12/28/21 07/22/22 Unknown metformin 500 mg tablet,extended 1,000 mg PO BID #360 tabs 12/28/21 07/22/22 Unknown release 24 hr budesonide-formoterol HFA 80 2 puff inhalation BID #10.2 grams 02/12/22 07/22/22 Unknown mcg-4.5 mcg/actuation aerosol inhaler (Symbicort) CPAP Supplies #1 ea 02/14/22 07/22/22 Unknown dulaglutide 3 mg/0.5 mL 3 mg (0.5 mL) subcut .COMPLEX #6 mL 05/14/22 07/22/22 Unknown subcutaneous pen injector lisinopril 40 mg tablet 40 mg PO QAM #90 tabs 05/29/22 07/22/22 Unknown ofloxacin 0.3 % eye drops 5 drp otic (ear) BID PRN clogged 06/24/22 07/22/22 Unknown tube #10 mL sodium sul 1.479 gram-potas ch See Rx Instructions PO .COMPLEX 06/28/22 Unknown 0.188 gram-magnes sul 0.225 gram #24 tabs tablet (Sutab) cyanocobalamin (vitamin B-12) 500 500 mcg PO QAM 07/22/22 07/22/22 Unknown mcg tablet dapagliflozin 5 mg tablet (Farxiga) 5 mg PO QAM 07/22/22 07/22/22 Unknown Past Medical History Medical History Anxiety no meds > controlled COPD (chronic obstructive pulmonary disease) well controlled, no res inh, said his albuterol inh was , and no longer prescribed, going to follow up with PCP Dyslipidemia Gout, joint History of anesthesia problem [facility] > difficulty breathing after a sinus surgery, this is what Dr. Moreno told patient, pt unaware of other details History of COVID-19 May 20, 2022 > home test > body aches > resolved Hypertension Mastoid disorder pt unaware Morbid obesity MARIA EUGENIA (obstructive sleep apnea) cpap Right renal mass Smoking greater than 30 pack years Stroke-like symptoms - 09/2019- admitted to [facility]- unable to complete MRI due to claustrophobia- left AMA- head/neck CTA and head CT unremarkable- denies any residual problems- no subsequent symptoms since that time - While admitted in 2019- neuro felt small ischemia stroke could not be excluded but suspected symptoms related to inner ear issue Type 2 diabetes mellitus with diabetic neuropathy, without long-term current use of insulin Past Family History Family History Uncle Prostate cancer Mother Diabetes Father Diabetes COPD (chronic obstructive pulmonary disease) Other Hearing loss No family history of allergies No family history of bleeding disorder Denies family history of Heart disease Cancer Hypertension Stroke Asthma Past Surgical History Surgical History History of sinus surgery History of tonsillectomy and adenoidectomy tonsils grew back and had to be removed again History of tooth extraction Status post myringotomy with insertion of tube x2 Social History Smoking Status: Current every day smoker tobacco type: cigarettes Smoking cigarettes per day: 1-1.5 ppd Do You Dip or Chew Tobacco: No Hx Alcohol Use: No Hx Substance Use: Yes substance use type: marijuana Substance Use Type Other:: uses on weekends Lab Results Anesthesia Preop Results Results Anesthesia Widget: WBC 12.89 K/ul (4.8-10.8) H 07/17/22 Hgb 14.7 g/dl (14.0-18.0) 07/17/22 Hct 43.3 % (42.0-52.0) 07/17/22 Plt 314 K/uL (130-400) 07/17/22 Na 135 mmol/L (136-145) L 07/17/22 K 4.8 mmol/L (3.5-5.1) 07/17/22 Cl 106 mmol/L (98-107) 07/17/22 CO2 20 mmol/L (21-32) L 07/17/22 BUN 25 mg/dl (6-23) H 07/17/22 Creat 1.03 mg/dl (0.6-1.4) 07/17/22 Glucose Level 230 mg/dl (70-99(Fasting)) H 07/17/22 TSH 4.661 uIu/ml (0.300-4.500) H 05/30/22 Free T4 0.61 ng/dl (0.61-1.60) 05/30/22 HA1c 9.6 % (4.5-5.6) H 05/30/22 Testing Laboratory Results 07/17/22= URINE CULTURE: No growth 07/16/22= UA: >2000 glucose Electrocardiogram Date: 03/12/22 Sinus rhythm with occasional ventricular premature complexes at 73 bpm Possible left atrial enlargement Moderate intraventricular conduction delay (Confirmed by PCP) Chest X-Ray Date: 07/17/22 FINDINGS: No pneumothorax or pleural effusion is present. There is no consolidation to suggest pneumonia. Cardiomediastinal silhouette is stable. There has been no change in appearance of the chest. IMPRESSION: No acute cardiopulmonary findings. No change in appearance of the chest. Echocardiogram Date: 10/03/19 EF: 55-60% LV Function: normal RWMA: + none Other Findings: + LVH (borderline/concentric ) Valvular Disease: + no significant valvular disease Other Testing Low Dose Lung CT 05/29/22= Limited exam due to body habitus. No suspicious pulmonary nodules. Suggestion of mild pulmonary emphysema.Decreased transverse dimension of the trachea (saber sheath morphology) with mild bronchial wall thickening. Neck CTA 10/02/19= No significant stenosis, occlusion, or dissection identified within the carotid or vertebral arteries. Head CTA 10/02/19= No significant stenosis, occlusion, or aneurysm within the [place] of [place]. Head CT 10/02/19= No acute intracranial abnormality. Opacified bilateral mastoid air cells
[2022-08-01] MEDS ORDERED: LACTATED RINGER'S 1,000 ML IV SCH ×2 (06:00→16:04)
[2022-08-01] MEDS ORDERED: ACETAMINOPHEN 1000 MG/100 ML IV IV ONE (07:06)
--- NOTE | 2022-08-01 07:07 | History & Physical Bridge Note ---
Date of Service August 01, 2022 History & Physical Bridge Note I have examined the patient, reviewed the History & Physical and in the interval since the performance of the History & Physical I have noted the following changes of clinical significance: no changes noted
[2022-08-01] MEDS ORDERED: fentaNYL citrate PF 100 MCG/2 ML VIAL ONE (07:20)
[2022-08-01] MEDS ORDERED: MIDAZOLAM HCL 1 MG/ML 2ML VIAL ONE (07:20)
[2022-08-01] MEDS ORDERED: ROCURONIUM BROMIDE 10 MG/ML 5 ML VIAL IV ONE ×2 (07:21→11:26)
[2022-08-01] MEDS ORDERED: SUCCINYLCHOLINE CHLORIDE 20 MG/ML 10 ML VIAL IV ONE (07:21)
[2022-08-01] MEDS ORDERED: PROPOFOL IV EMULSION 10 MG/ML 20 ML VIAL IV ONE (07:21)
[2022-08-01] MEDS ORDERED: LARYING-O-JET KIT (LTA) ONE (07:25)
[2022-08-01] MEDS ORDERED: ePHEDrine sulfate 50 MG/ML AMP IV PRN (07:25)
[2022-08-01] MEDS ORDERED: LIDOCAINE 2% 2 ML VIAL/AMP(20MG/ML) INFIL ONE (07:25)
[2022-08-01] MEDS ORDERED: PROMETHAZINE HCL 6.25 MG in SODIUM CHLORIDE 0.9% 50 ML IV PRN (07:25)
[2022-08-01] MEDS ORDERED: fentaNYL citrate PF 100 MCG/2 ML VIAL IV PRN (07:25)
[2022-08-01] MEDS ORDERED: ONDANSETRON INJ 2 MG/ML 2 ML VIAL IV PRN ×2 (07:25→16:04)
[2022-08-01] MEDS ORDERED: ATROPINE SULFATE 0.1 MG/ML 10ML SYR IV PRN (07:25)
[2022-08-01] MEDS ORDERED: HYDROmorphone INJ 2 MG/ML SYR/VIAL IV PRN (07:25)
[2022-08-01] MEDS ORDERED: BUPIVACAINE 0.5 % 5 MG/1 ML MPF 30ML VIAL ONE (07:28)
[2022-08-01] MEDS ORDERED: INSULIN ASPART PER UNIT CHARGE SC STA ×2 (07:34→13:52)
[2022-08-01] MEDS ORDERED: INSULIN ASPART PER UNIT CHARGE ONE ×2 (07:37→13:35)
[2022-08-01] MEDS ORDERED: METOCLOPRAMIDE HCL INJ 5 MG/ML 2 ML VIAL ONE (09:19)
[2022-08-01] MEDS ORDERED: HYDROmorphone INJ 2 MG/ML SYR/VIAL ONE (09:19)
[2022-08-01] MEDS ORDERED: FAMOTIDINE/PF 20 MG/2 ML VIAL IV ONE (10:12)
[2022-08-01] MEDS ORDERED: ALBUTEROL HFA INHALER 8.5 GM INH ONE (11:16)
[2022-08-01] MEDS ORDERED: SUGAMMADEX SODIUM 200 MG/2 ML VIAL IV ONE (11:34)
[2022-08-01] MEDS ORDERED: ONDANSETRON INJ 2 MG/ML 2 ML VIAL ONE ×2 (11:38→11:40)
--- NOTE | 2022-08-01 13:11 | Operative Report ---
PG Post Operative Report Pre & Post Diagnosis Operation Date: 08/01/22 07:30 Pre-Op Diagnosis: Renal Mass Post-Op Diagnosis: Renal Mass I identified the patient and participated in the time-out.: Yes Procedure Operation Date: 08/01/22 07:30 Actual Procedures p Robotic Assisted Right Laparoscopic Partial Nephrectomy(Right) - Denys Matthews DO Surgeon Denys Matthews, II, DO Survey Research Analyst Alejo BOWEN and Cosmo TONG Estimated Blood Loss 100 Findings Consistent with Post-Op Diagnosis Very large posterior uppper pole renal mass. Extensive adhesions of the right lateral wall and around the liver Specimens Right renal mass Drains 10 Fr Flat drain 18 Fr Reis Anesthesia Type General Complications none Disposition Disposition: Recovery Room Indications Patient with right renal mass suspicious for malignancy. Risks and benefits discussed at length. Description of Procedure The patient was brought to the operative suite and placed under general endotracheal intubation anesthesia in the supine position. The patient was transferred to lateral position with the right flank exposed. Patient does have significant morbid obesity and a very tall stature. This required additional time for positioning in order to place into a adequate position for access for the robot. The patient was placed into a flex'ed position and then placed into mild reverse Trendelenberg. At this point, the patient prepped and draped in the usual sterile fashion and a timeout was completed. Preoperative weight based antibiotics had been given for 3 g of Ancef.. MARIBELL's and SCD's were placed on the patient's lower extremities. A catheter was placed by nursing using sterile technique. With the time out completed the patient was flexed and the skin was marked. The port site was anesthetized. A small incision was made into the skin and subcutaneous tissues. A Varess needle was selected and placed. The needle was easily moved and it was irrigated and aspirated without any issues or concerns for placement. Insufflation commenced. The 8 mm camera port was placed. The abdominal cavity was further insufflated. The laparoscopic camera was placed and the abdominal cavity inspected. No concerning features were noted. At this point, the skin was marked for port placement and 8mm working ports were placed. The skin was anesthetized down to fascia and an approx 1cm incision was made to place the 2 x 8mm ports. A robotic 12 mm port was then placed in the most inferior position. The skin had been marked in case a radical nephrectomy was necessary. A 12 mm assistant program director ports were also placed in similar fashion under direct visualization in the perimedian position. The robot was positioned and docked. The camera was placed and all trocars were positioned under direct visualization. Carmen Dhillon was integral in port placement, camera utilization, and docking procedure. She also assisted during the extensive lysis of adhesions. She remained in sterile attire and then proceeded to assist the remainder of the case. The colon was mobilized medially to expose the retroperitoneum and the area assessed. Adhesions were freed to allow mobilization. The upper abdominal area had numerous areas of significant adhesions. There were multiple pieces of the omentum attached to the liver and the liver itself had multiple areas of adhesion. These adhesions had to be taken down. Approximately 25 minutes in order to lyse the adhesions with care taken to use blunt and sharp dissection while monitoring the position of the bowel. A small amount of further adhesions were noted from the colon and were freed. These were dissected with blunt technique. Cautery was used to assist dissection and control bleeding. The retroperitoneal fat was assessed. Starting distally the retroperitoneum was dissected and care was taken to dissect down near the IVC. The gonadal vein and ureter were identified. This was then followed superiorly. Dissection stayed toward the midline along the IVC and the ureter and gonadal vein were followed up towards the renal hilum. The dissection was followed to the renal pelvis. The Renal Vein was identified and exposed. Dissection was taken further superior. The Renal Artery and Vein were then cleaned and exposed. The renal artery had an early martin. This had to be then dissected more towards the midline in order to have a good access point for the main renal artery. Clamp placement was assessed and good access was achieved. The perirenal fat anterior to the kidney was then dissected. The mass and surrounding tissues were exposed. The kidney was then further mobilized. The ultrasound probe was placed and the mass further examined. The edges were marked. The mass was known to be quite large and on ultrasound it did have a very large appearance. The kidney had to be further mobilized and dissected along the lateral edge in order to be able to retract the kidney over to be a able to access the upper pole posterior mass. With considerable dissection and freeing the kidney this was able to be accessed and the mass was able to be fully visualized. The Vessels were assessed a final time. At this point Dr. Wilburn scrubbed into the case and assume the first aid trainer position. A bulldog clamp was placed on the artery and then on the vein. The kidney appropriately blanched. The previously marked margins were used to start the incision into the kidney. The mass was completely excised without evidence of penetrating into the capsule of the mass. The mass was quite deep and dissection was taken down towards the collecting system. A majority of the upper pole was resected in order to remove the entire mass completely. The removal of the mass did take longer than typical due to its extremely large size and posterior position. Care had to be taken to manipulate the kidney in multiple directions in order to completely excise the mass. The base of resection bed was assessed and small vessels were cauterized. The collecting system did appear to be opened in a small area. A 2 oh barbed suture was selected and the nephrotomy closed. Care was taken to close the collecting system opening. 3-0 Vicryl sutures were then used to close the edges of the elliptical opening. Three Vicryl sutures were used to close and bolster the edges. However due to the large size of the resection and the very deep dissection 2 additional 3-0 Vicryl sutures were needed in order to bolster and close the nephrotomy. At this point, the bulldog clamps were removed. Warm ischemia time was over 20 minutes. The kidney was full assessed after removal of clamps. No bleeding or other major areas of concern. Weck and Hemolock clips were used to bolster and tightened to approximate the edges. Surgicel hemostatic agent sheets were placed over the vessels and on the incised edge. Hemostatic agents Tisseel and Floseal were also placed. Hemostatic agent was also placed on the vessels. No major bleeding or other issues. Gerota's tissues then sutured with the 2-0 barbed suture to cover the area. The excised mass was placed in an endocatch bag for removal. Due to the very large size the larger bag had to be placed and this required a 16 mm port to be placed. The 12 mm robotic port was removed and the 16 mm port exchange. The larger Endo Catch bag was then able to be utilized. A Flat drain was placed through the skin and a lateral/inferior position. It was positioned in the gutter lateral to the liver and colon. This was secured with a nylon 1-0 suture. The entire dissection space was inspected one final time. No bleeding or injuries or areas of concern were noted. No tumor or other concerning features were noted. At this point, the robot was undocked and moved away from the patient. The port sites were all assessed laparoscopically. The endoscopic bag was moved into the port. The superior perimedian port site was closed with the Austin-Webb device and were closed with 2-0 Vicryl suture. The other ports were assessed and no issues observed. The inferior robotic port was opened further exposing fascia which was then opened in order to removed the mass within the bag. A 1-0 PDS suture was used to close fascia. The skin at each site was closed with a stapling device. The area was cleaned and bandages placed on each incision. The patient was cleaned and bandaged. The patient was moved back into the supine position The patient was cleaned, aroused from anesthesia, and transferred to the pacu in stable condition having tolerated the procedure well with no complications. I was present and participated in all aspects of the procedure. ANDRÉS Mejia was critical in the portions as mentioned above. Dr. Wilburn was sen during the removal of the mass and closure of the nephrotomy. I attest to the content of the Intraoperative Record and any orders documented therein. Any exceptions are noted below.
[2022-08-01] MEDS ORDERED: PHENYLEPHRINE 100MCG/ML 5ML SYR IV PRN (13:53)
[2022-08-01] MEDS ORDERED: PHENYLEPHRINE HCL 10 MG/ML VIAL ONE (13:56)
[2022-08-01] MEDS ORDERED: ALBUMIN HUMAN 25% 12.5 GM/50 ML VIAL IV ONE (13:56)
[2022-08-01] MEDS ORDERED: ALBUMIN 5% 250 ML IV ONE ×2 (14:00→16:53)
[2022-08-01] MEDS ORDERED: ALBUMIN 25% 12.5 GM/50 ML VIAL IV ONE (14:00)
[2022-08-01] MEDS ORDERED: LACTATED RINGER'S 1,000 ML IV ONE (14:27)
[2022-08-01] MEDS ORDERED: STAT IV Infusion **Titration per Protocol STA ×2 (14:37→19:31)
[2022-08-01 15:00] LABS: Hematocrit (blood only) 36.1 % (42.0-52.0); Mean Corpuscular Hemoglobin 28.8 pg (25.0-34.0); Mean Corpuscular Hgb Conc 33.2 g/dL (32.0-36.0); Mean Corpuscular Volume 86.8 fL (80.0-100.0); Mean Platelet Volume 9.5 fL (9.4-12.4); Platelet Count 341 K/uL (130-400); RDW Coefficient of Variation 14.5 % (11.5-14.5); RDW Standard Deviation 45.7 fL (36.4-46.3); Red Blood Count 4.16 M/uL (4.70-6.10); White Blood Count 26.89 K/ul (4.8-10.8)
[2022-08-01 15:17] LABS: Partial Thromboplastin Ratio 0.9; Partial Thromboplastin Time 26.7 Seconds (21.0-31.0); Prothrombin Time 10.6 Seconds (9.0-12.0)
--- NOTE | 2022-08-01 15:18 | Critical Care Consultation ---
Date of Consultation August 01, 2022 Assessment & Plan (1) Postoperative hypotension: Reason Critically Ill: 57-year-old male postprocedural hypotension PLAN: Neuro: Chronic pain -Continue gabapentin Acute postoperative pain -Postoperative pain management orders per urology Resp: Obstructive sleep apnea -No evidence of CO2 narcosis immediately postop based off of ABG. -Patient may use own BiPAP otherwise will provide CPAP when sleeping CV: Hypotension -Unclear etiology, EKG unchanged from prior, no evidence of significant volume depletion will trend H&H, check and trend troponins Fluids/Renal: Acute metabolic acidosis - Somewhat to be expected after partial nephrectomy Elevated creatinine -Again this is somewhat expected after the partial nephrectomy Hyperkalemia -Sending stat repeat as a believe that this is secondary to hemolysis -While there may be some elevation in his potassium he shows no other systemic signs of hyperkalemia at this time. ID: Antibiotics per urology GI/Nutrition: Morbid obesity -Clear liquid diet per urology Heme: No chemoprophylaxis in acute postoperative period -Trend H&H to ensure no postoperative hemorrhage DVT prophylaxis: SCDs Endocrine: ICU hyperglycemia protocol Hyperglycemia -We will likely progress to insulin infusion Vascular access: Peripheral IVs, arterial line placed in PACU by anesthesia Code Status: Full code Disposition: ICU I have personally spent 65 minutes of critical care time in the direct management of this patient. This is a life/limb threatening event. This includes time spent evaluating patient, direct bedside care, chart review, placing orders, interpretation of diagnostic studies, discussion with consultants, patient, and/or family members regarding treatment decisions, as well as other required patient management activities. This time is exclusive of all separately billable procedures, and teaching time and separate from and in addition to any other critical care service time. (2) Proteinuria due to type 2 diabetes mellitus: (3) Type 2 diabetes mellitus with diabetic neuropathy, without long-term current use of insulin: (4) Sleep apnea: (5) Morbid obesity: (6) Right renal mass: History of Present Illness Reason for Consultation: Postoperative hypotension Attending Physician: Denys Matthews, II, DO History of Present Illness Patient is a 57-year-old male with a past medical history concerning for renal mass, morbid obesity with a BMI of 47, diabetes, neuropathic pain who was seen in the PACU for hypotension after undergoing a partial nephrectomy. A limited FAST exam was performed in the presence of urology, the patient had a decompressed bladder secondary to a Reis and there did not appear to be retrovesicular fluid, I was able to visualize the right kidney and liver interface there did not appear to be free fluid in that area, additionally the left side did not demonstrate free fluid. I was unable to visualize his IVC to check for respiratory variability however patient was being volume expanded. I reviewed an EKG which demonstrated poor R wave progression but no evidence of acute ST elevation FL. I assisted anesthesia with placement of a right arterial line. Patient was transferred to the ICU for additional postoperative monitoring. Allergies Allergy/AdvReac Type Severity Reaction Status Date / Time oxycodone AdvReac Mild DIZZY Verified 08/01/22 06:18 Home Medications Medication Instructions Recorded Confirmed Type gabapentin 300 mg capsule 300 mg PO HS 02/02/19 08/01/22 History blood sugar diagnostic (OneTouch #200 ea 08/10/20 05/29/22 Rx Ultra Blue Test Strip) blood-glucose meter (OneTouch #1 ea 08/10/20 07/22/22 Rx Ultra2 Meter) lancets (SassorTouch UltraSoft #200 ea 08/10/20 07/22/22 Rx Lancets) allopurinol 300 mg tablet 300 mg PO QAM #90 tabs 10/16/21 08/01/22 Rx atorvastatin 80 mg tablet 80 mg PO HS #90 tabs 10/16/21 08/01/22 Rx metformin 500 mg tablet,extended 1,000 mg PO BID #360 tabs 12/28/21 08/01/22 Rx release 24 hr budesonide-formoterol HFA 80 2 puff inhalation BID #10.2 grams 02/12/22 08/01/22 Rx mcg-4.5 mcg/actuation aerosol inhaler (Symbicort) CPAP Supplies #1 ea 02/14/22 07/22/22 Rx lisinopril 40 mg tablet 40 mg PO QAM #90 tabs 05/29/22 08/01/22 Rx ofloxacin 0.3 % eye drops 5 drp otic (ear) BID PRN clogged 06/24/22 08/01/22 Rx tube #10 mL sodium sul 1.479 gram-potas ch See Rx Instructions PO .COMPLEX 06/28/22 Rx 0.188 gram-magnes sul 0.225 gram #24 tabs tablet (Sutab) cyanocobalamin (vitamin B-12) 500 500 mcg PO QAM 07/22/22 08/01/22 History mcg tablet dapagliflozin 5 mg tablet (Farxiga) 5 mg PO QAM 07/22/22 08/01/22 History dulaglutide 3 mg/0.5 mL 3 mg subcut .COMPLEX 08/01/22 08/01/22 History subcutaneous pen injector (Trulicity) gabapentin 300 mg capsule 600 mg PO QAM 08/01/22 08/01/22 History glipizide 10 mg tablet, extended 10 mg PO BID 08/01/22 08/01/22 History release 24 hr (Glucotrol XL) Patient History Medical History Anxiety no meds > controlled COPD (chronic obstructive pulmonary disease) well controlled, no res inh, said his albuterol inh was , and no longer prescribed, going to follow up with PCP Dyslipidemia Gout, joint History of anesthesia problem [facility] > difficulty breathing after a sinus surgery, this is what Dr. Moreno told patient, pt unaware of other details History of COVID-19 May 20, 2022 > home test > body aches > resolved Hypertension Mastoid disorder pt unaware Morbid obesity MARIA EUGENIA (obstructive sleep apnea) cpap Right renal mass Smoking greater than 30 pack years Stroke-like symptoms - 09/2019- admitted to [facility]- unable to complete MRI due to claustrophobia- left AMA- head/neck CTA and head CT unremarkable- denies any residual problems- no subsequent symptoms since that time - While admitted in 2019- neuro felt small ischemia stroke could not be excluded but suspected symptoms related to inner ear issue Type 2 diabetes mellitus with diabetic neuropathy, without long-term current use of insulin Surgical History History of sinus surgery History of tonsillectomy and adenoidectomy tonsils grew back and had to be removed again History of tooth extraction Status post myringotomy with insertion of tube x2 Family History Uncle Prostate cancer Mother Diabetes Father Diabetes COPD (chronic obstructive pulmonary disease) Other Hearing loss No family history of allergies No family history of bleeding disorder Denies family history of Heart disease Cancer Hypertension Stroke Asthma Social History Smoking Status: Current every day smoker Tobacco Type: Cigarettes Age Started Using Tobacco: 22; packs per day: 1.5; Cigarettes Per Day: 1-1.5 ppd; Second Hand Exposure: No; Do You Dip or Chew Tobacco: No; Tobacco Cessation Education Requested by Patient: No Hx Alcohol Use: No Hx Substance Use: Yes Substance Use Type Other:: uses on weekends Preferred Language: Slovenian Communication Ability: Effective Patient Observation Assistant Required: No Beliefs That Will Affect Care: None marital status: Single Current Living Situation: Significant Other current occupational status: unemployed Other Information That Helps Us Care for You: No Feels Safe at Home: Yes Safety Concerns: Feels Safe At This Time caffeine: Yes Dental Care, Regularly: No Physical Activity Frequency: Does not Exercise Seatbelt Use: always Sunscreen Use: No Assistive Devices: CPAP and Glasses Physical Exam Physical Exam: General: Arouses to verbal stimuli, BiPAP mask in place Skin: Warm, dry, Head: Atraumatic Ears, nose, mouth and throat: Noninvasive ventilator mask in place Cardiovascular: Normal peripheral perfusion Respiratory: no respiratory distress Gastrointestinal: Non distended, dressings removed mild sanguinous drainage at drain sites, no significant tenderness with palpation, no guarding no rebound Musculoskeletal: No deformity Results & Data Results & Data Vital Signs (Past 12 Hours) Vital Signs Temp Pulse Pulse Resp BP Pulse Ox O2 Del Method 08/01/22 13:30 83 24 94 08/01/22 13:45 81 22 76/50 L 98 Room Air 08/01/22 13:35 87 20 65/48 L 98 Room Air 08/01/22 13:25 36.2 C L 91 H 20 93/65 L 100 Oxymask 08/01/22 06:35 36.7 C 81 20 104/74 94 Room Air O2 Flow Rate FiO2 08/01/22 13:30 40 08/01/22 13:45 08/01/22 13:35 08/01/22 13:25 5 08/01/22 06:35 Critical Care Results & Data Vital Signs (Past 12 Hours) Vital Signs Temp Pulse Pulse Resp BP Pulse Ox O2 Del Method 08/01/22 15:15 73 14 103/78 95 BiPAP 08/01/22 15:05 73 22 103/74 93 BiPAP 08/01/22 14:55 75 22 103/74 96 BiPAP 08/01/22 14:45 72 20 92/62 L 96 BiPAP 08/01/22 14:35 67 22 63/54 L 96 BiPAP 08/01/22 14:25 63 21 75/54 L 98 BiPAP 08/01/22 14:15 68 21 96/56 L 98 BiPAP 08/01/22 14:05 76 21 73/60 L 98 BiPAP 08/01/22 13:55 81 22 58/41 L 98 BiPAP 08/01/22 13:30 83 24 94 08/01/22 13:45 81 22 76/50 L 98 Room Air 08/01/22 13:35 87 20 65/48 L 98 Room Air 08/01/22 13:25 36.2 C L 91 H 20 93/65 L 100 Oxymask 08/01/22 06:35 36.7 C 81 20 104/74 94 Room Air O2 Flow Rate FiO2 08/01/22 15:15 08/01/22 15:05 08/01/22 14:55 08/01/22 14:45 08/01/22 14:35 08/01/22 14:25 08/01/22 14:15 08/01/22 14:05 08/01/22 13:55 08/01/22 13:30 40 08/01/22 13:45 08/01/22 13:35 08/01/22 13:25 5 08/01/22 06:35 Lab & Micro Results (Past 24 Hours) RBC 4.16 M/uL (4.70-6.10) L 08/01/22 WBC 26.89 K/ul (4.8-10.8) H 08/01/22 Hgb 12.0 g/dl (14.0-18.0) L 08/01/22 Hct 36.1 % (42.0-52.0) L 08/01/22 MCV 86.8 fL (80.0-100.0) 08/01/22 MCH 28.8 pg (25.0-34.0) 08/01/22 MCHC 33.2 g/dL (32.0-36.0) 08/01/22 RDW Standard Deviation 45.7 fL (36.4-46.3) 08/01/22 RDW Coefficient of Variation 14.5 % (11.5-14.5) 08/01/22 Plt Count 341 K/uL (130-400) 08/01/22 MPV 9.5 fL (9.4-12.4) 08/01/22 Neutrophils (%) (Auto) 85.6 % 08/01/22 Lymphocytes (%) (Auto) 6.5 % 08/01/22 Monocytes # (Auto) 1.70 K/uL (0.11-0.59) H 08/01/22 Eosinophils # (Auto) 0.02 K/uL (0-0.50) 08/01/22 Immature Granulocyte % (Auto) 1.3 % 08/01/22 Neutrophils # (Auto) 23.02 K/uL (1.40-6.50) H 08/01/22 Lymphocytes # (Auto) 1.75 K/uL (1.2-3.4) 08/01/22 Monocytes # (Auto) 1.70 K/uL (0.11-0.59) H 08/01/22 Eosinophils # (Auto) 0.02 K/uL (0-0.50) 08/01/22 Basophils # (Auto) 0.06 K/uL (0-0.2) 08/01/22 Immature Granulocyte # (Auto) 0.34 K/uL (0.01-0.20) H 08/01 Red Blood Cell Morphology Unremarkable 08/01/22 Na 133 mmol/L (136-145) L 08/01/22 K 6.4 mmol/L (3.5-5.1) H* 08/01/22 Cl 108 mmol/L (98-107) H 08/01/22 CO2 17 mmol/L (21-32) L 08/01/22 Anion Gap 8 (3-11) 08/01/22 BUN 27 mg/dl (6-23) H 08/01/22 Creatinine 2.08 mg/dl (0.6-1.4) H 08/01/22 Estimated GFR ( Amer) 40.1 ml/min 08/01/22 Estimated GFR (Non-Af Amer) 34.6 ml/min 08/01/22 BUN/Creatinine Ratio 13.0 (10-20) 08/01/22 Glu 329 mg/dl (70-99(Fasting)) H* 08/01/22 Ca 8.8 mg/dl (8.6-10.3) 08/01/22 Phosphorus Level 7.1 mg/dl (2.5-4.9) H 08/01/22 Total Bilirubin 0.3 mg/dl (0.2-1.0) 08/01/22 AST 73 U/L (13-39) H 08/01/22 ALT 69 U/L (7-52) H 08/01/22 Alkaline Phosphatase 101 U/L (34-104) 08/01/22 TP 6.6 gm/dl (6.0-8.3) 08/01/22 Albumin 3.9 gm/dl (3.4-5.0) 08/01/22 Globulin 2.7 gm/dl (2.5-4.0) 08/01/22 Albumin/Globulin Ratio 1.4 (0.9-2) 08/01/22 Mg 1.7 mg/dl (1.7-2.4) 08/01/22 16:16 Calcium Level 8.8 mg/dl (8.6-10.3) 08/01/22 14:47 Ionized Calcium 1.15 mmol/L (1.12-1.32) 08/01/22 16:16 Prothromb Time International Ratio 1.0 (0.9-1.1) 08/01/22 14:4 7 I & O Totals 24 Hours 07/31/22 08/01/22 08/02/22 06:59 06:59 06:59 Intake Total 1999 Output Total 580 / 580 Balance 1420 / 1420 Cumulative 07/16/22 09:54 thru 08/01/22 16:11 Intake Total 1999 Output Total 580 Balance 1420 RT Ventilator Mngmt (Last Documented) Ventilator Ordered Settings Respiratory Rate 14 08/01/22 15:15 Fraction of Inspired Oxygen 40 08/01/22 13:30 Ventilator - PT Measurements Respiratory Rate 14 Coding Level of Care Code 78101 CRITICAL CARE 1ST 30-74M Diagnoses Postoperative hypotension I95.81 Proteinuria due to type 2 diabetes mellitus E11.29; R80.9 Type 2 diabetes mellitus with diabetic neuropathy, without long-term current use of insulin E11.40 Sleep apnea G47.30 Morbid obesity E66.01 Right renal mass N28.89
--- NOTE | 2022-08-01 15:19 | Anesthesiology Progress Note ---
Date of Service August 01, 2022 Anesthesia Post Procedure Vital Signs Vital Signs: Temp Pulse Pulse Resp BP Pulse Ox O2 Del Method 08/01/22 13:30 83 24 94 08/01/22 13:45 81 22 76/50 L 98 Room Air 08/01/22 13:35 87 20 65/48 L 98 Room Air 08/01/22 13:25 36.2 C L 91 H 20 93/65 L 100 Oxymask 08/01/22 06:35 36.7 C 81 20 104/74 94 Room Air O2 Flow Rate FiO2 08/01/22 13:30 40 08/01/22 13:45 08/01/22 13:35 08/01/22 13:25 5 08/01/22 06:35 Notes Mental Status: alert / awake / arousable and participated in evaluation Patient Amnestic to Procedure: Yes Nausea / Vomiting: adequately controlled Pain: adequately controlled Airway Patency, RR, SpO2: stable & adequate BP & HR: see Notes below Hydration State: see Notes below Notes: Patient had persistent hypotension in recovery. He had already been place on CPAP (per preop plan, respiratory had this waiting for him in recovery and was placed on it immediately upon entering PACU). We had been treating his blood sugars with SQ insulin. Patient had very mild response to vasoactive medications and started to aggressively treat his hypotension with colloid and crystalloid. Two IV's were maintained. Both hospitalist and ICU services consulted. ICU physician at bedside and did U/S exam of abdomen to ensure no significant intraabdominal bleeding. Surgeon also present to inspect surgical incision sites. HR normal so seemed less likely that this was hypovolemia. He responded somewhat to vasopressin. Patient continued to become more awake and aware the longer he was in PACU. Arterial line placed by ICU physician after I tried and was unable to place. Blood gas was done and showed mild acidosis. Plan to continue CPAP, treat BP with fluids and vasoactive medications and will be transferred to ICU for closer monitoring. Patient in agreement of plan.
[2022-08-01 15:34] LABS: Basophils # (auto) 0.06 K/uL (0-0.2); Basophils % (auto) 0.2 %; Eosinophils # (auto) 0.02 K/uL (0-0.50); Eosinophils % (auto) 0.1 %; Immature Granulocytes # (auto) 0.34 K/uL (0.01-0.20); Immature Granulocytes % (auto) 1.3 %; Lymphocytes # (auto) 1.75 K/uL (1.2-3.4); Lymphocytes % (auto) 6.5 %; Monocytes % (auto) 6.3 %; Neutrophils # (auto) 23.02 K/uL (1.40-6.50); Neutrophils % (auto) 85.6 %; RBC Morphology Unremarkable
--- NOTE | 2022-08-01 15:45 | Hospitalist Consultation ---
Date of Consultation August 01, 2022 Assessment & Plan (1) H/O partial nephrectomy: POD#0, EBL 100ml, post operative hemoglobin 12. (2) Postoperative hypotension: Unclear cause. May have just been intravascularly dry pre-operatively in setting of Farxiga and lisinopril use (last dose yesterday), now improved with IV fluids. No prior KS per patient and TTE in 2019 relatively unremarkable Given his hypotension remains borderline and need for close monitoring with radial arterial line he will be monitored in the ICU post operatively but no need for vasopressors at the current time. Random cortisol appropriately elevated - no need for steroids Further IV fluids deferred to ICU team and pending CMP (3) Type 2 diabetes mellitus with diabetic neuropathy, without long-term current use of insulin: HbA1C 9.6 in May no need to repeat this Pharmacy consulted for glycemic control with basal bolus insulin recommended during inpatient admission (4) Neuropathic pain: Continuing gabapentin deferred to ICU depending on cognitive status (5) Proteinuria due to type 2 diabetes mellitus: Hold lisinopril (6) Gout, joint: Continue allopurinol depending on renal function (7) Sleep apnea: CPAP HS (8) Morbid obesity: Plan VTE Prophylaxis - per primary urology team, SCDs ordered Diet - NPO pending improvement in respiratory status Disposition - transfer to ICU changed History of Present Illness Reason for Consultation: postop, medical comorbidities, DM2 Requesting Physician: ANDRÉS Mejia Attending Physician: Denys Matthews, II, DO History of Present Illness Nathaniel Ga is a 57 year old male POD#0 right partial nephrectomy. Initially a routine consult but asked to see in the PACU as anesthesiology requesting higher level of care due to hyperglycemia and hypotension. Patient reports feeling well the last few days without any acute concerns prior to this operation. No current chest pain, dizziness or shortness of breath. BP 76/50 on arrival. Patient pale appearing but able to have a slow, short sentence conversation and breathing spontaneously on CPAP. Equal breath sounds b/l without crackles or wheezing. HS RRR, no murmurs, Cap refill in extremities prolonged 7s. Radial pulses palpable b/l. Currently receiving albumin bolus ordered by anesthesiology at bedside. Urine output adequate with 400ml in peterson catheter. 1L LR bolus ordered. Surgical dressing was blood soaked and Dr Matthews called to bedside, No excessive output from drain. Abdo SNT on left side away from surgical incision. Labs ordered. Despite interventions BP decreased to 63/45. HR stable at mid 70s. Anesthesiology to place right radial arterial line subsequently confirming h ypotension measured with BP cuff. Levophed ordered (subsequently not required). Discussed case with Dr Miles (Green Building Energy Engineer) who arrived at bedside in PACU. After LR bolus MAP improved on radial line > 65 and subsequently Levophed not started. Hgb 12.0 from pre-op 14.7. CMP pending at time of transfer to ICU. After IV fluid bolus the patient became more awake and peripheral cap refill < 2s. He reports taking his usual diabetes medications yesterday except metformin that he was instructed to hold for 48 hours. He did not take his lisinopril today. He reports some back pain but no chest pain or shortness of breath. He feels the urge to urinate with a peterson catheter in place (no retention on bedside US). Dr Matthews updated family. Allergies Allergy/AdvReac Type Severity Reaction Status Date / Time oxycodone AdvReac Mild DIZZY Verified 08/01/22 06:18 Home Medications Medication Instructions Recorded Confirmed Type gabapentin 300 mg capsule 300 mg PO HS 02/02/19 08/01/22 History blood sugar diagnostic (OneTouch #200 ea 08/10/20 05/29/22 Rx Ultra Blue Test Strip) blood-glucose meter (OneTouch #1 ea 08/10/20 07/22/22 Rx Ultra2 Meter) lancets (OneTouch UltraSoft #200 ea 08/10/20 07/22/22 Rx Lancets) allopurinol 300 mg tablet 300 mg PO QAM #90 tabs 10/16/21 08/01/22 Rx atorvastatin 80 mg tablet 80 mg PO HS #90 tabs 10/16/21 08/01/22 Rx metformin 500 mg tablet,extended 1,000 mg PO BID #360 tabs 12/28/21 08/01/22 Rx release 24 hr budesonide-formoterol HFA 80 2 puff inhalation BID #10.2 grams 02/12/22 08/01/22 Rx mcg-4.5 mcg/actuation aerosol inhaler (Symbicort) CPAP Supplies #1 ea 02/14/22 07/22/22 Rx lisinopril 40 mg tablet 40 mg PO QAM #90 tabs 05/29/22 08/01/22 Rx ofloxacin 0.3 % eye drops 5 drp otic (ear) BID PRN clogged 06/24/22 08/01/22 Rx tube #10 mL sodium sul 1.479 gram-potas ch See Rx Instructions PO .COMPLEX 06/28/22 Rx 0.188 gram-magnes sul 0.225 gram #24 tabs tablet (Sutab) cyanocobalamin (vitamin B-12) 500 500 mcg PO QAM 07/22/22 08/01/22 History mcg tablet dapagliflozin 5 mg tablet (Farxiga) 5 mg PO QAM 07/22/22 08/01/22 History dulaglutide 3 mg/0.5 mL 3 mg subcut .COMPLEX 08/01/22 08/01/22 History subcutaneous pen injector (Trulicity) gabapentin 300 mg capsule 600 mg PO QAM 08/01/22 08/01/22 History glipizide 10 mg tablet, extended 10 mg PO BID 08/01/22 08/01/22 History release 24 hr (Glucotrol XL) Patient History Medical History Anxiety no meds > controlled COPD (chronic obstructive pulmonary disease) well controlled, no res inh, said his albuterol inh was , and no longer prescribed, going to follow up with PCP Dyslipidemia Gout, joint History of anesthesia problem [facility] > difficulty breathing after a sinus surgery, this is what Dr. Moreno told patient, pt unaware of other details History of COVID-May 20, 2022 > home test > body aches > resolved Hypertension Mastoid disorder pt unaware Morbid obesity MARIA EUGENIA (obstructive sleep apnea) cpap Right renal mass Smoking greater than 30 pack years Stroke-like symptoms - 09/2019- admitted to [facility]- unable to complete MRI due to claustrophobia- left AMA- head/neck CTA and head CT unremarkable- denies any residual problems- no subsequent symptoms since that time - While admitted in 2019- neuro felt small ischemia stroke could not be excluded but suspected symptoms related to inner ear issue Type 2 diabetes mellitus with diabetic neuropathy, without long-term current use of insulin Surgical History History of sinus surgery History of tonsillectomy and adenoidectomy tonsils grew back and had to be removed again History of tooth extraction Status post myringotomy with insertion of tube x2 Family History Uncle Prostate cancer Mother Diabetes Father Diabetes COPD (chronic obstructive pulmonary disease) Other Hearing loss No family history of allergies No family history of bleeding disorder Denies family history of Heart disease Cancer Hypertension Stroke Asthma Social History Smoking Status: Current every day smoker Tobacco Type: Cigarettes Age Started Using Tobacco: 22; packs per day: 1.5; Cigarettes Per Day: 1-1.5 ppd; Second Hand Exposure: No; Hx Alcohol Use: No Hx Substance Use: Yes Substance Use Type Other:: uses on weekends Preferred Language: Malay Communication Ability: Effective Zone Manager Required: No Beliefs That Will Affect Care: None marital status: Single Current Living Situation: Significant Other current occupational status: unemployed Feels Safe at Home: Yes caffeine: Yes Dental Care, Regularly: No Physical Activity Frequency: Does not Exercise Seatbelt Use: always Sunscreen Use: No Assistive Devices: CPAP and Glasses Review of Systems Review of Systems: All systems reviewed & are unremarkable except as noted in HPI & below Physical Exam Constitutional: well developed, + acute distress, + morbidly obese and + diaphoretic; + not well nourished Pale appearing Eyes: PERRL, conjunctivae normal, anicteric sclerae Neck: trachea midline, no thyromegaly Respiratory: normal respiratory effort; no respiratory distress A uscultation: + diminished lung sounds; no crackles and no wheezes Cardiovascular: Rate/Rhythm: regular rate and regular rhythm Heart Sounds: no murmur Vessels: no JVD Extremities: + pedal edema (1+ pitting b/l equal); + abnormal capillary refill (7s peripherally on initial assessment) and no calf tenderness Gastrointestinal (Abdomen): Inspection/Auscultation: + abdomen distended and + hypoactive bowel sounds Percussion/Palpation: abdomen soft; abdomen nontender (over non-surgical sites), no guarding and abdomen not rigid blood soaked surgical dressing, DIANA drain with bright bhupendra blood Musculoskeletal: no cyanosis or clubbing, extremities motor strength 5/5 Skin: + turgor decreased Neurologic: moves all extremities, awake and + confused; no focal motor deficits Psychiatric: Orientation: alert, oriented to person and oriented to place; + not oriented to time Results & Data Results & Data Vital Signs (Past 12 Hours) Vital Signs Temp Pulse Pulse Resp BP Pulse Ox O2 Del Method 08/01/22 13:30 83 24 94 08/01/22 13:45 81 22 76/50 L 98 Room Air 08/01/22 13:35 87 20 65/48 L 98 Room Air 08/01/22 13:25 36.2 C L 91 H 20 93/65 L 100 Oxymask 08/01/22 06:35 36.7 C 81 20 104/74 94 Room Air O2 Flow Rate FiO2 08/01/22 13:30 40 08/01/22 13:45 08/01/22 13:35 08/01/22 13:25 5 08/01/22 06:35 Laboratory Results Abnormal lab results 08/01/22 08/01/22 08/01/22 Range/Units 06:17 09:33 13:25 WBC (4.8-10.8) K/ul RBC (4.70-6.10) M/uL Hgb (14.0-18.0) g/dl Hct (42.0-52.0) % Neut # (Auto) (1.40-6.50) K/uL [place] # (Auto) (0.11-0.59) K/uL Immature Gran # (Auto) (0.01-0.20) K/uL Sodium (136-145) mmol/L Potassium (3.5-5.1) mmol/L Chloride (98-107) mmol/L Carbon Dioxide (21-32) mmol/L BUN (6-23) mg/dl Creatinine (0.6-1.4) mg/dl Glucose (70-99(Fasting)) mg/dl POC Glucose 221 H 199 H 305 H* (70-99) mg/dl Lactate (0.4-2.0) mmol/L AST (13-39) U/L ALT (7-52) U/L 08/01/22 08/01/22 08/01/22 Range/Units 14:04 14:47 14:47 WBC 26.89 H (4.8-10.8) K/ul RBC 4.16 L (4.70-6.10) M/uL Hgb 12.0 L (14.0-18.0) g/dl Hct 36.1 L (42.0-52.0) % Neut # (Auto) 23.02 H (1.40-6.50) K/uL [place] # (Auto) 1.70 H (0.11-0.59) K/uL Immature Gran # (Auto) 0.34 H (0.01-0.20) K/uL Sodium 133 L (136-145) mmol/L Potassium 6.4 H* (3.5-5.1) mmol/L Chloride 108 H (98-107) mmol/L Carbon Dioxide 17 L (21-32) mmol/L BUN 27 H (6-23) mg/dl Creatinine 2.08 H (0.6-1.4) mg/dl Glucose 329 H* (70-99(Fasting)) mg/dl POC Glucose 344 H* (70-99) mg/dl Lactate (0.4-2.0) mmol/L AST 73 H (13-39) U/L ALT 69 H (7-52) U/L 08/01/22 08/01/22 Range/Units 14:47 15:03 WBC (4.8-10.8) K/ul RBC (4.70-6.10) M/uL Hgb (14.0-18.0) g/dl Hct (42.0-52.0) % Neut # (Auto) (1.40-6.50) K/uL [place] # (Auto) (0.11-0.59) K/uL Immature Gran # (Auto) (0.01-0.20) K/uL Sodium (136-145) mmol/L Potassium (3.5-5.1) mmol/L Chloride (98-107) mmol/L Carbon Dioxide (21-32) mmol/L BUN (6-23) mg/dl Creatinine (0.6-1.4) mg/dl Glucose (70-99(Fasting)) mg/dl POC Glucose 327 H* (70-99) mg/dl Lactate 2.8 H* (0.4-2.0) mmol/L AST (13-39) U/L ALT (7-52) U/L ECG Rate (beats per minute): 72 Rhythm: normal sinus Findings: no acute ischemic change Comparison ECG Date: from (Mar 12, 2022) Change: the following changes noted (PVCs no longer present) PG Care Time/CCT Total # of Minutes Spent Total Time Spent with Patient: Total time spent is greater than 50% in coordination of care (as documented) at patient's floor/unit and/or counseling patient: Critical Care Time: Yes Total Critical Care Time: 50 This is a life/limb threatening event Coding Level of Care Code 57205 IN/OBS CONSULT LVL 5,80M Diagnoses H/O partial nephrectomy Z90.5 Postoperative hypotension I95.81 Type 2 diabetes mellitus with diabetic neuropathy, without long-term current use of insulin E11.40 Neuropathic pain M79.2 Proteinuria due to type 2 diabetes mellitus E11.29; R80.9 Gout, joint M10.9 Sleep apnea G47.30 Morbid obesity E66.01 Additional Codes Critical Care Time - Critical Care Time: Yes ([id number])
[2022-08-01 15:53] LABS: Albumin Globulin Ratio 1.4 (0.9-2); Albumin Level 3.9 gm/dl (3.4-5.0); Bilirubin,Total 0.3 mg/dl (0.2-1.0); Calcium 8.8 mg/dl (8.6-10.3); Creatinine Clr Calc Pharmacy 65.5 ml/min; Est GFR (African American) 40.1 ml/min; Est GFR (Non-African American) 34.6 ml/min; Globulin 2.7 gm/dl (2.5-4.0); Total Protein 6.6 gm/dl (6.0-8.3)
[2022-08-01] MEDS ORDERED: ceFAZolin 2000MG 2,000 MG/15 ML SYR IV SCH (16:00)
[2022-08-01] MEDS ORDERED: oxyCODONE HCL IR 5 MG TAB (IMMEDIATE RELEASE) PO PRN ×2 (16:04)
[2022-08-01] MEDS ORDERED: MoRPHine SULFATE 2 MG/ML CARP IV PRN (16:04)
[2022-08-01] MEDS ORDERED: PHARMACY GLYCEMIC MGMT CONSULT ONE (16:04)
[2022-08-01] MEDS ORDERED: PHARMACY GLYCEMIC MGMT CONSULT PRN (16:23)
[2022-08-01] MEDS ORDERED: INSULIN ASPART PER UNIT CHARGE SC SCH (16:30)
[2022-08-01] MEDS ORDERED: ICU Protocol for HYPERglycemia SCH (16:30)
[2022-08-01 16:35] LABS: Magnesium 1.7 mg/dl (1.7-2.4); Phosphorus 7.1 mg/dl (2.5-4.9); Troponin I High Sensitivity 6.8 pg/ml (0-20)
[2022-08-01] MEDS ORDERED: LANTUS PER UNIT CHARGE SC ONE (16:45)
[2022-08-01] MEDS: NOREPINEPHRINE/D5W 4 MG/250 ML PLCT IV SCH ×4 (17:06→23:51)
--- NOTE | 2022-08-01 17:12 | XRay Report ---
XR chest 1V portable HISTORY: hypoxia COMPARISON: Chest 07/17/2022. FINDINGS: No pneumothorax. There are low lung volumes. The correct silhouette is mildly enlarged. No evidence for pulmonary edema. Hazy appearance the right lung base is likely due to overlapping soft t issue. Otherwise, no focal lung consolidations to suggest a pneumonia. No definite pleural effusions. IMPRESSION: Low lung volumes with mild cardiomegaly. Otherwise, no acute process within the chest. ACT 112: Negative or not required by law. Electronically signed by: Gonzalo Roldan M.D. 08/01/2022 5:10 PM
[2022-08-01] MEDS ORDERED: PATIROMER CALCIUM SORBITEX 8.4 GM PACK PO STA (17:35)
[2022-08-01] MEDS ORDERED: INSULIN PROTOCOL GOAL RANGE ONE (17:39)
[2022-08-01] MEDS ORDERED: MODERATE STRESS LEVEL ONE (17:39)
[2022-08-01] MEDS ORDERED: STAT IV STA ×3 (17:39→19:04)
[2022-08-01] MEDS ORDERED: CARBOHYDRATES FOR HYPOGLYCEMIA PO PRN (17:45)
[2022-08-01] MEDS ORDERED: GLUCOSE 40% GEL 15 GM TUBE PO PRN (17:45)
[2022-08-01] MEDS ORDERED: GLUCAGON FOR INJ 1 MG VIAL IM PRN (17:45)
[2022-08-01] MEDS ORDERED: DEXTROSE 50% 50 ML SYRINGE IV PRN (17:45)
[2022-08-01] MEDS ORDERED: GLUCOSE 10 TAB/TUBE PO PRN (17:45)
[2022-08-01] MEDS ORDERED: LORazepam 2 MG/1 ML VIAL ONE (17:50)
[2022-08-01] MEDS ORDERED: SODIUM CHLORIDE 0.9% 250 ML IV PRN ×4 (17:56→23:28)
[2022-08-01] MEDS ORDERED: LORazepam 2 MG/1 ML VIAL IV STA (18:00)
[2022-08-01] MEDS ORDERED: NovoLIN-R BOLUS FROM BAG IV ONE (18:15)
[2022-08-01 18:23] LABS: iSTAT Arterial Blood Gas HCO3 12 meg/L (19-24); iSTAT Arterial Blood Gas pCO2 30 mmHg (35-46); iSTAT Arterial Blood Gas pH 7.19 (7.35-7.45); iSTAT Arterial Blood Gas pO2 61 mmHg (80-95); iSTAT Carbon Dioxide 12 mmol/L (24-31); iSTAT Site Art Line
--- NOTE | 2022-08-01 18:29 | Communication Note ---
Date of Service: August 01, 2022 Patient has continued to complain of discomfort, requiring vasoactive medications. Repeat potassium was elevated. I have consulted nephrology and discussed with the urology service. We will treat medically. Emergent dialysis is limited and unavailable after 7 PM per nephrology. At this time the patient is continuing to make urine. Repeat ABG demonstrates worsening metabolic acidosis. H&H pending but there does not appear to be active hemorrhage, hemoglobin on ABG reported at 11.6. EKG nonspecific ST segment abnormalities and sinus tachycardia no evidence of acute ST elevation IA. We will add a high flow oxygen as the patient is hypoxic. Differential considered includes pulmonary embolism, this represents a diagnostic and therapeutic conundrum as the patient had a recent nephrectomy with extended clamp time. I am concerned a contrasted CT will negatively impact his renal function. If this does represent acute pulmonary embolism lysis will be contraindicated with the exception of cardiac arrest and only in a lifesaving fashion as he is postop day 0. I am attempting to obtain a formal echocardiogram to evaluate cardiac function, d/w cards at 18:30. I have personally spent 40 minutes of critical care time in the direct management of this patient. This is a life/limb threatening event. This includes time spent evaluating patient, direct bedside care, chart review, placing orders, interpretation of diagnostic studies, discussion with consultants, patient, and/or family members regarding treatment decisions, as well as other required patient management activities. This time is exclusive of all separately billable procedures, and teaching time and separate from and in addition to any other critical care service time. Coding Level of Care Code 62582 CRITICAL CARE EA ADD 30M
[2022-08-01] MEDS ORDERED: SODIUM BICARBONATE 8.4% 150 MEQ in DEXTROSE 5% 1,000 ML IV SCH ×2 (18:30→19:15)
[2022-08-01 19:09] LABS: Calcium 8.3 mg/dl (8.6-10.3); Creatinine Clr Calc Pharmacy 54.5 ml/min; Est GFR (African American) 32.1 ml/min; Est GFR (Non-African American) 27.7 ml/min; Potassium 5.8 mmol/L (3.5-5.1)
[2022-08-01] MEDS: INSULIN REGULAR 250 UNITS in SODIUM CHLORIDE 0.9% 247.5 ML IV SCH (19:15)
[2022-08-01 19:22] LABS: Hematocrit (blood only) 31.9 % (42.0-52.0); Hemoglobin 10.1 g/dl (14.0-18.0); Mean Corpuscular Hemoglobin 28.9 pg (25.0-34.0); Mean Corpuscular Hgb Conc 31.7 g/dL (32.0-36.0); Mean Corpuscular Volume 91.4 fL (80.0-100.0); Mean Platelet Volume 10.3 fL (9.4-12.4); Platelet Count 419 K/uL (130-400); RDW Coefficient of Variation 14.2 % (11.5-14.5); RDW Standard Deviation 47.5 fL (36.4-46.3); Red Blood Count 3.49 M/uL (4.70-6.10); White Blood Count 30.86 K/ul (4.8-10.8)
[2022-08-01] MEDS ORDERED: PLASMA-LYTE A 1,000 ML IV ONE (19:32)
--- NOTE | 2022-08-01 19:38 | Procedure Note ---
Procedure Note Date of Service August 01, 2022 Note Procedure date: Noted above Procedure: Central venous access Pre-procedure indication: Need for vasoactive medication administration Post-procedure Diagnosis: same as above Prior to Procedure: Informed Consent: The risks, benefits, indications, potential complications, and alternatives were explained to the patient and verbal informed consent obtained. Attending Staff: Charleen Miles DO Resident/APC: Not applicable Skin Prep: Chlorhexidine Anesthesia: 4 mL 1% lidocaine without epinephrine The identity of the patient was confirmed and a bedside time out was performed. Description of Procedure: After sterile prep and sterile drape utilizing standard sterile technique the superficial skin of the right internal jugular area was anesthetized. The target vessel was identified and entered with an 18- gauge needle. Dark venous blood return was noted. A guidewire was inserted through the needle and into the vessel. The needle was withdrawn and a skin ty was made. A tissue dilator was advanced via Seldinger technique and removed. A triple lumen catheter was inserted via Seldinger technique and the guidewire removed. All ports kiki and flushed easily. A Biopatch was placed, and the catheter was secured via silk suture. A sterile dressing was then applied. Complications: None Estimated blood loss: Trace Patient tolerated the procedure well. Procedure Date: Noted Above Procedure: Procedural Ultrasound Indication: Central venous access Attending: Charleen Miles DO Resident/Physician Kitchen Steward: Not applicable Artery visualized: Yes Vein visualized: Yes Compressible Vein: Yes Vein patent: Yes Guidewire or Short Catheter seen in vein prior to dilation: Yes Line confirmed in Vein with ultrasound: Yes Lung Sliding on side of attempt (if applicable): NA If no lung sliding or not obtained has CXR been ordered: Yes Impression: Successful central venous access placement Images obtained are saved for permanent record Coding CPT Codes Tubes, Drains, and Vasc Access - Tubes, Drains, and Vasc Access: [id number] Insertion Of Non-tunneled Catheter Age 5 Yrs> ([id number]) Tubes, Drains, and Vasc Access - Tubes, Drains, and Vasc Access: [id number] Ultrasound Guidance For Vascular ([id number]) [facility] [place] Codes (Charges) Tubes, Drains, and Vasc Access Procedure 1: Tubes, Drains, and Vasc Access: [id number] Insertion Of Non-tunneled Catheter Age 6 Yrs> Procedure 2: Tubes, Drains, and Vasc Access: [id number] Ultrasound Guidance For Vascular
[2022-08-01] MEDS: VASOPRESSIN 20 UNITS in 0.9 % SODIUM CHLORIDE 100 ML IV SCH (20:00)
[2022-08-01] MEDS ORDERED: BUDESONIDE/FORMOTEROL FUMARATE 80/4.5 60 PUFFS/INHALER INH SCH (21:00)
[2022-08-01] MEDS ORDERED: CEFEPIME 2,000 MG in SYRINGE 0 ML IV SCH (22:00)
[2022-08-01 23:10] LABS: Hematocrit (blood only) 31.9 % (42.0-52.0); Hemoglobin 10.8 g/dl (14.0-18.0)
[2022-08-01] MEDS: MoRPHine SULFATE 4 MG/ML 1 ML CARP\\VIAL IV PRN (23:33)
[2022-08-01 23:37] LABS: iSTAT Allen Test Pass; iSTAT Arterial Blood Gas HCO3 16 meg/L (19-24); iSTAT Arterial Blood Gas pCO2 39 mmHg (35-46); iSTAT Arterial Blood Gas pH 7.23 (7.35-7.45); iSTAT Arterial Blood Gas pO2 94 mmHg (80-95); iSTAT Carbon Dioxide 17 mmol/L (24-31); iSTAT FiO2 32 %; iSTAT Site L Radial
[2022-08-01 23:50] LABS: Calcium 7.8 mg/dl (8.6-10.3)
[2022-08-01 23:58] LABS: BUN Creatinine Ratio 11.4 (10-20); Est GFR (African American) 26.8 ml/min; Est GFR (Non-African American) 23.1 ml/min
[2022-08-02] MEDS ORDERED: INSULIN ASPART PER UNIT CHARGE SC SCH
[2022-08-02 00:03] LABS: Fibrinogen 362 mg/dl (184-400); Prothrombin Time 11.2 Seconds (9.0-12.0)
--- NOTE | 2022-08-02 00:11 | CT Scan Report ---
Exam(s): CT ABDOMEN Without Contrast EXAM: CT Abdomen Without Intravenous Contrast CLINICAL HISTORY: Reason for exam: Shock, [place], post op nephrectomy. TECHNIQUE: Axial computed tomography images of the abdomen without intravenous contrast. Automated exposure control was utilized for the study. A dose lowering technique was utilized adhering to the principles of ALARA. COMPARISON: Dated 07/08/22 FINDINGS: Lung bases: Unremarkable. No mass. No consolidation. Liver: Unremarkable. Gallbladder and bile ducts: Unremarkable. No calcified stones. No ductal dilation. Pancreas: Unremarkable. No ductal dilation. Spleen: Unremarkable. No splenomegaly. Adrenals: Unremarkable. No mass. Kidneys and ureters: The patient has undergone right upper pole partial nephrectomy with adjacent small to moderate volume hemorrhage. Stomach and bowel: Unremarkable. No obstruction. No mucosal thickening. Intraperitoneal space: There is a small amount of perisplenic ascites which is most likely reactive. No free air. Bones/joints: No acute fracture. No dislocation. Soft tissues: Unremarkable. Vasculature: There is diffuse atherosclerotic calcification of the aorta and its major branch vessels. No abdominal aortic aneurysm. Lymph nodes: Unremarkable. No enlarged lymph nodes. Tubes, lines and devices: There is a left derrek-abdominal surgical drain in place. Other findings: The right anterior abdomen is excluded secondary to body habitus. IMPRESSION: Status post right upper pole partial nephrectomy with a small to moderate amount of adjacent hemorrhage. Electronically signed by: Kevin Umana MD 08/02/22 00:10 AM
[2022-08-02] MEDS ORDERED: PATIROMER CALCIUM SORBITEX 8.4 GM PACK PO STA (00:17)
[2022-08-02] MEDS ORDERED: CALCIUM GLUCONATE 10% 1,000 MG in DEXTROSE 5% 50 ML IV ONE (00:18)
[2022-08-02] MEDS ORDERED: STAT IV STA (00:18)
[2022-08-02] MEDS ORDERED: SODIUM ZIRCONIUM CYCLOSILICATE 10 GM PACKET PO STA (00:23)
[2022-08-02] MEDS: GABAPENTIN 300 MG CAP PO SCH ×2 (00:54→21:38)
[2022-08-02] MEDS: DOCUSATE SODIUM 100 MG CAP PO SCH ×3 (00:54→21:38)
[2022-08-02] MEDS: ATORVASTATIN 40 MG TAB PO SCH ×2 (00:54→21:38)
[2022-08-02] MEDS: INSULIN ASPART PER UNIT CHARGE SC SCH ×5 (00:55→20:26)
[2022-08-02] MEDS: NOREPINEPHRINE/D5W 4 MG/250 ML PLCT IV SCH ×5 (01:15→06:22)
[2022-08-02] MEDS: metroNIDAZOLE 500 MG/100 ML BAG IV SCH ×4 (01:20→23:05)
[2022-08-02 04:02] LABS: Basophils # (auto) 0.04 K/uL (0-0.2); Basophils % (auto) 0.2 %; Eosinophils # (auto) 0.01 K/uL (0-0.50); Eosinophils % (auto) 0.1 %; Hematocrit (blood only) 30.9 % (42.0-52.0); Hemoglobin 10.7 g/dl (14.0-18.0); Immature Granulocytes # (auto) 0.18 K/uL (0.01-0.20); Lymphocytes # (auto) 2.86 K/uL (1.2-3.4); Lymphocytes % (auto) 15.4 %; Mean Corpuscular Hemoglobin 29.6 pg (25.0-34.0); Mean Corpuscular Hgb Conc 34.6 g/dL (32.0-36.0); Mean Corpuscular Volume 85.6 fL (80.0-100.0); Mean Platelet Volume 9.7 fL (9.4-12.4); Monocytes # (auto) 1.59 K/uL (0.11-0.59); Monocytes % (auto) 8.6 %; Neutrophils # (auto) 13.89 K/uL (1.40-6.50); Neutrophils % (auto) 74.7 %; Platelet Count 289 K/uL (130-400); RDW Standard Deviation 43.5 fL (36.4-46.3); Red Blood Count 3.61 M/uL (4.70-6.10); White Blood Count 18.57 K/ul (4.8-10.8)
[2022-08-02 04:06] LABS: BUN Creatinine Ratio 10.7 (10-20); Creatinine Clr Calc Pharmacy 40.7 ml/min; Est GFR (African American) 22.5 ml/min; Est GFR (Non-African American) 19.4 ml/min; Magnesium 1.7 mg/dl (1.7-2.4); Phosphorus 5.6 mg/dl (2.5-4.9); Potassium 4.9 mmol/L (3.5-5.1)
[2022-08-02] MEDS: VASOPRESSIN 20 UNITS in 0.9 % SODIUM CHLORIDE 100 ML IV SCH (04:23)
[2022-08-02 04:53] LABS: iSTAT Allen Test Pass; iSTAT Art Bld Gas pCO2 Correct 35 mmHg (35-46); iSTAT Art Bld Gas pH Corrected 7.316 (7.35-7.45); iSTAT Arterial Blood Gas HCO3 18 meg/L (19-24); iSTAT Arterial Blood Gas pCO2 36 mmHg (35-46); iSTAT Arterial Blood Gas pH 7.31 (7.35-7.45); iSTAT Arterial Blood Gas pO2 69 mmHg (80-95); iSTAT Arterial Blood Gas pO2 C 67; iSTAT Carbon Dioxide 19 mmol/L (24-31); iSTAT Hematocrit 29 % (42-52); iSTAT Hemoglobin 9.9 g/dl (14.0-18.0); iSTAT Potassium 4.8 mmol/L (3.3-5.0); iSTAT Site L Radial; iSTAT Sodium 135 mmol/L (135-144)
[2022-08-02] MEDS: MAGNESIUM SULFATE / D5W 1 GM/100 ML BAG IV SCH ×3 (05:34→09:38)
--- NOTE | 2022-08-02 06:15 | Communication Note ---
Date of Service: August 02, 2022 This patient underwent a partial right nephrectomy by Dr. Matthews on 08/01/2022. Patient required admission to the ICU postoperative for hypotension. Pos toperatively patient was noted to have significant leukocytosis that peaked at 30.8. This morning it has improved 18.5. Patient also has a noted acute kidney injury and his creatinine has increased from normal levels preoperatively and are now 3.35. Postoperatively patient was noted to be markedly acidotic with a pH of 7.19. He was placed on a bicarbonate drip and his pH has improved to 7.31. Throughout the evening the patient has had transfusion of 3 units of packed red blood cells. Serial hemoglobin and hematocrits did not demonstrate any appreciable change in his hemoglobin and hematocrit despite receiving packed red blood cells. Over the past 12 hours the patient has had approximately 345 cc of urine output. He does have a DIANA drain that is draining bloody fluid and has drained approximately 85 cc over the past 12 hours. Patient has required pressor support with Levophed and vasopressin. Patient did undergo a CT scan last night that showed that he had a small to moderate amount of hemorrhage adjacent the patient's partial nephrectomy site. Myself and the ticket collector or usher nurse practitioner on staff last night discussed with our urology attending and due to the patient's clinical stability and lack of deterioration recommended continued supportive care throughout the night. We will continue to monitor closely with additional recommendations to follow based on our attending physicians evaluation of this case this morning.
[2022-08-02] MEDS: Double Conc; 16mg in 500mL IV SCH ×3 (06:19→20:21)
[2022-08-02] MEDS: SODIUM BICARBONATE 8.4% 150 MEQ in WATER, STERILE 1,000 ML IV SCH ×2 (06:20→15:23)
--- NOTE | 2022-08-02 07:15 | XRay Report ---
XR chest 1V portable HISTORY: line placement COMPARISON: Chest 08/01/2022. FINDINGS: Interval placement of a right jugular central venous catheter which terminates at the dista l SVC. No pneumothorax. No pleural effusions. The heart remains enlarged. There are low lung volumes. Bibasilar linear densities favor subsegmental atelectasis. IMPRESSION: Right jugular central venous catheter terminus at the distal SVC. No pneumothorax. ACT 112: Negative or not required by law. Electronically signed by: Gonzalo Roldan M.D. 08/02/2022 7:14 AM
[2022-08-02] MEDS: CYANOCOBALAMIN (B-12) 500 MCG TABLET PO SCH (07:58)
[2022-08-02] MEDS: FLUTICASONE/VILANTEROL 100/25MCG 14 PUFFS/INHALER INH SCH (08:00)
[2022-08-02] MEDS: CEFEPIME 2,000 MG in SYRINGE 0 ML IV SCH ×2 (08:02→20:22)
[2022-08-02] MEDS: MoRPHine SULFATE 4 MG/ML 1 ML CARP\\VIAL IV PRN (08:18)
--- NOTE | 2022-08-02 08:50 | Urology Progress Note ---
Date of Service August 02, 2022 Assessment & Plan (1) Right renal mass: (2) Postoperative hypotension: (3) H/O partial nephrectomy: (4) Tobacco use disorder: (5) Type 2 diabetes mellitus with diabetic neuropathy, without long-term current use of insulin: (6) Morbid obesity: (7) Proteinuria: (8) Smoking greater than 30 pack years: (9) MARIA EUGENIA (obstructive sleep apnea): (10) COPD (chronic obstructive pulmonary disease): (11) Acute kidney injury superimposed on CKD: Plan Postop day 1 status post right robotic assisted laparoscopic partial nephrectomy. Patient is being monitored with critical management in the ICU. Had a considerable issue post procedure with hypotension and respiratory issues. Found to be significantly acidotic. Had a mild increase in lactate which then increased further overnight. Initially there was some concerns about possible bleeding however patient had undergone a FAST exam with the assistance of the critical care team. No major fluid collections or concerning findings on that. Patient has subsequently been monitored closely in the critical care unit. Has required bicarb infusion. Has also required pressors immediately postop in order to help maintain blood pressure. Patient's hemoglobin was initially stable but then decreased to 10. A 3 unit transfusion was completed and patient has had a mild elevation out to 10.7. Patient underwent subsequent CT scan this morning in order to assess possible development of bleed. CT scan was reviewed interpreted by myself. Has mild fluid collection around the kidney consistent with postoperative findings. Had some fluid that appeared to be within the abdomen. No major or considerable findings that would be concerning for active or severe hemorrhage. Patient is having considerable MAO. Initially this was only mild but had increased. Patient in the immediate postoperative period also had a hyperkalemia. Patient has severe issues with diabetes and has had significant poor control in the past. Patient had considerable elevation of blood sugars as well. Had been managed for the potassium and blood sugars over the evening. These have improved over time. Electrolytes have improved as of this morning. All labs have been reviewed. Patient's creatinine has gone up to 3.35. Patient does have a significant proteinuria and chronic kidney disease at baseline likely from a combination of hypertension and diabetes with poor management in the past. There was a prolonged clamp time due to the extremely large size of the mass during the partial nephrectomy. May be having some degree of ATN . During the procedure patient did not have a considerable amount of blood loss. The clamps did appear to be well-placed and only very minimal bleeding occurred during the actual excision of the mass. Did have some mild oozing from perinephric tissues especially around the mass due to likely venous vessels in that region. Patient was assessed this morning. Overall has had some major improvements. White count has gone down significantly. Now at 18.57. Potassium which had been over 6 is now down to 4.9. Patient's acidosis has improved now at 7.3 on ABG. Patient is continuing with respiratory support. Has considerable sleep apnea and COPD at baseline. We will plan to continue to monitor this closely. Once patient is able would encourage ambulation and will likely be able to work on initiating a diet. We will plan to continue to monitor the patient critically. We will monitor patient for improvement over time. We will also monitor for considerable changes or issues that would be concerning for possible hemorrhage or other issues developing. Currently the DIANA drain is putting out a mildly serosanguineous fluid and has been draining well without major issue. Patient has Reis catheter in place. We will plan to maintain this for the time being. He has a mild hematuria with a light pink urine. This will be monitored over time. Urine output has remained stable. Patient has referrals/consults into nephrology and we will plan to continue to monitor closely with them. Hospitalist and critical care team are also involved and will remain so. We will plan to continue with close monitoring and continued supportive care. We will plan to update family later today. Admission and Anticipated Discharge Date Admission Date: August 01, 2022 Subjective Postop from urologic surgery. Patient status post right partial nephrectomy with robot-assisted laparoscopic approach. Patient had a large renal mass of the upper pole on the right. Subsequently had considerable issues in the postoperative period. Patient seen this morning in the ICU with the critical care team present. Patient had a considerable issue post procedure with respiratory distress. Patient has significant history of apnea at baseline with emphysema and a considerable smoking history. Patient required resuscitation. Throughout the process there was concern about possible bleeding from the kidney however on multiple assessments there was no active sign of major hemorrhage around the kidney or in the abdomen. Patient is currently still utilizing a BiPAP. Is alert and oriented and answering questions appropriately. Patient has been tolerated. Is having some occasional discomfort. No return of bowel function or flatus. Mild tenderness around the incisions. Patient is interested in getting up and walking but has been restricted due to the acute nature of the issues after procedure.. His urine output has remained stable. No new nausea or vomiting. Patient has remained n.p.o. Patient is not diaphoretic. Has mild tachycardia which has been improving. Has been having issues with hypotension. Review of Systems Review of Systems: All systems reviewed & are unremarkable except as noted in HPI & below Physical Exam Physical Exam: General: Alert and responsive. Oriented to person place and events. HEENT: Normocephalic Atraumatic. Inspection normal. Cranial Nerves 2-12 Grossly intact. Normal inspection of face. Normal inspection of neck. Psychologic: Normal affect. Respiratory: Tachypnea with moderately labored breathing. Continued use of ac cessory muscles. Utilizing BiPAP mask. Cardiovascular: Mild tachycardia Skin: Kiln and Dry. No rashes or visible lesions. Extremities/Lymphatics: Mild edema Abdomen: Significant distention with morbid obesity. No rebound or guarding. Wound: Clean, dry, covered. Initially postprocedure patient did have some oozing from each of the wound sites however this is drastically improved. Drain: Serosanguineous fluid : Reis in place draining mild light pink urine. Results & Data Vital Signs (Past 12 Hours) Vital Signs Temp Pulse Resp BP Pulse Ox O2 Flow Rate 08/02/22 00:00 96 H 08/02/22 06:00 36.6 C 08/02/22 04:00 36.6 C 08/02/22 02:00 37 C 08/02/22 00:00 36.8 C 08/01/22 22:00 36.7 C 08/02/22 05:45 91 H 21 94 08/02/22 05:45 104/70 08/02/22 05:40 89 28 H 95 08/02/22 05:31 89/64 L 08/02/22 05:31 89 21 94 08/02/22 05:30 89 24 95 08/02/22 05:20 91 H 23 95 08/02/22 05:10 92 H 13 94 08/02/22 05:00 90 17 93 08/02/22 04:50 88 26 H 94 08/02/22 04:45 90 20 95 08/02/22 04:45 93/70 L 08/02/22 04:40 89 26 H 95 08/02/22 04:30 88 28 H 95 04/21/23 04:20 87 15 94 08/02/22 04:15 95/64 L 08/02/22 04:15 86 22 95 08/02/22 04:10 88 24 95 08/02/22 04:06 90 27 H 08/02/22 04:06 73/51 L 08/02/22 04:00 91 H 27 H 94 08/02/22 04:00 79/63 L 08/02/22 03:50 88 20 95 08/02/22 03:40 92 H 22 95 08/02/22 03:30 88 24 96 08/02/22 03:20 90 23 90 08/02/22 03:16 88 22 92 08/02/22 03:16 95/53 L 08/02/22 03:10 89 26 H 96 08/02/22 03:01 88 25 H 92 08/02/22 03:01 81/54 L 08/02/22 03:00 88 27 H 95 08/02/22 02:50 89 19 95 08/02/22 02:40 90 31 H 95 08/02/22 02:31 91 H 19 95 08/02/22 02:31 88/48 L 08/02/22 02:30 91 H 25 H 96 08/02/22 02:22 86/62 L 08/02/22 02:22 93 H 19 84 L 08/02/22 02:20 95 H 15 95 08/02/22 02:10 91 H 16 95 08/02/22 02:01 89/65 L 08/02/22 02:01 94 H 12 87 L 08/02/22 02:00 94 H 16 93 08/02/22 01:50 90 19 87 L 08/02/22 01:42 114/71 08/02/22 01:42 88 24 96 08/02/22 01:40 90 24 93 08/02/22 01:39 112/76 08/02/22 01:39 89 26 H 94 08/02/22 02:38 37 C 88 26 H 87/57 L 93 4 08/01/22 22:03 36.7 C 98 H 31 H 109/59 L 96 08/01/22 23:30 103 H 30 H 96 08/01/22 23:15 99 H 32 H 96 08/01/22 22:45 99 H 30 H 08/01/22 22:30 96 08/01/22 22:30 126/80 08/01/22 22:15 96 H 33 H 93 08/01/22 22:00 100 H 27 H 95 08/01/22 22:00 107/66 08/01/22 21:54 106/64 08/01/22 21:54 101 H 26 H 08/01/22 21:45 103 H 30 H 96 08/01/22 21:30 102 H 26 H 96 08/01/22 21:15 100 H 31 H 08/01/22 21:01 95 H 27 H 78 L 08/01/22 21:01 135/100 08/01/22 21:00 94 H 27 H 92 08/01/22 20:45 99 H 31 H 96 08/02/22 01:38 36.6 C 88 25 H 114/71 95 4 08/02/22 01:08 36.8 C 89 23 112/76 93 4 08/02/22 00:53 36.6 C 90 24 119/70 96 08/01/22 22:05 36.7 C 100 H 26 H 109/53 L 95 4 08/02/22 00:34 36.8 C 98 H 27 H 92/71 L 95 08/01/22 21:48 36.8 C 101 H 20 95 4 08/01/22 21:29 36.7 C 101 H 26 H 121/62 97 08/01/22 21:07 37.1 C 98 H 32 H 141/66 H 93 4 PG Care Time/CCT Total # of Minutes Spent Total Time Spent with Patient: Total time spent is greater than 50% in coordination of care (as documented) at patient's floor/unit and/or counseling patient: Coding Level of Care Code 22174 SUB INP/OBS CARE 3/50MIN Diagnoses Right renal mass N28.89 Postoperative hypotension I95.81 H/O partial nephrectomy Z90.5 Tobacco use disorder F17.200 Type 2 diabetes mellitus with diabetic neuropathy, without long-term current use of insulin E11.40 Morbid obesity E66.01 Proteinuria R80.9 Smoking greater than 30 pack years F17.210 MARIA EUGENIA (obstructive sleep apnea) G47.33 COPD (chronic obstructive pulmonary disease) J44.9 Acute kidney injury superimposed on CKD N17.9; N18.9
[2022-08-02] MEDS ORDERED: GABAPENTIN 300 MG CAP PO SCH (09:00)
[2022-08-02] MEDS ORDERED: allopurinoL 300 MG TAB PO SCH (09:00)
--- NOTE | 2022-08-02 09:32 | Critical Care Progress Note ---
Date of Service August 02, 2022 Assessment & Plan (1) Postoperative hypotension: Plan: Reason Critically Ill: 57-year-old male postprocedural hypotension PLAN: Neuro: Chronic pain -Continue gabapentin Acute postoperative pain -Postoperative pain management orders per urology Resp: Obstructive sleep apnea -Patient may use own BiPAP otherwise will provide CPAP when sleeping CV: Hypotension: Improving -Continue to trend H&H: Surgical drains show improvement in color Fluids/Renal: Acute metabolic acidosis: Improving -Continue bicarb drip at present time Elevated creatinine -Nephrology following Hyperkalemia -Responding to medical management required second dose of binding resin ID: Antibiotics expanded to include Flagyl and cefepime -Patient improving anticipate discontinuation in 48 hours GI/Nutrition: Morbid obesity -Clear liquid diet per urology Heme: No chemoprophylaxis in acute postoperative period DVT prophylaxis: SCDs Endocrine: ICU hyperglycemia protocol Hyperglycemia -Continue insulin infusion Vascular access: Right IJ central catheter, arterial line malfunctioned and it was discontinued Code Status: Full code Disposition: ICU 1800 update: Discontinuing bicarbonate infusion I have personally spent 55 minutes of critical care time in the direct management of this patient. This is a life/limb threatening event. This includes time spent evaluating patient, direct bedside care, chart review, placing orders, interpretation of diagnostic studies, discussion with consultants, patient, and/or family members regarding treatment decisions, as well as other required patient management activities. This time is exclusive of all separately billable procedures, and teaching time and separate from and in addition to any other critical care service time. (2) Proteinuria due to type 2 diabetes mellitus: (3) Type 2 diabetes mellitus with diabetic neuropathy, without long-term current use of insulin: (4) Sleep apnea: (5) Morbid obesity: (6) Right renal mass: Admission and Anticipated Discharge Date Admission Date: August 01, 2022 Subjective Feels improved compared to yesterday. Physical Exam Physical Exam: General: Alert. nontoxic. Skin: Warm, dry, Head: Atraumatic Ears, nose, mouth and throat: airway patent Cardiovascular: Normal peripheral perfusion Respiratory: Mild tachypnea Gastrointestinal: dressings show shadowing however serosanguineous fluid, improved compared to yesterday Musculoskeletal: No deformity Results & Data Results & Data Vital Signs (Past 12 Hours) Vital Signs Temp Pulse Resp BP Pulse Ox O2 Flow Rate 08/02/22 00:00 96 H 08/02/22 06:00 36.6 C 08/02/22 04:00 36.6 C 08/02/22 02:00 37 C 08/02/22 00:00 36.8 C 08/01/22 22:00 36.7 C 08/02/22 05:45 91 H 21 94 08/02/22 05:45 104/70 08/02/22 05:40 89 28 H 95 08/02/22 05:31 89/64 L 08/02/22 05:31 89 21 94 08/02/22 05:30 89 24 95 08/02/22 05:20 91 H 23 95 08/02/22 05:10 92 H 13 94 08/02/22 05:00 90 17 93 08/02/22 04:50 88 26 H 94 08/02/22 04:45 90 20 95 08/02/22 04:45 93/70 L 08/02/22 04:40 89 26 H 95 08/02/22 04:30 88 28 H 95 08/02/22 04:20 87 15 94 08/02/22 04:15 95/64 L 08/02/22 04:15 86 22 95 08/02/22 04:10 88 24 95 08/02/22 04:06 90 27 H 08/02/22 04:06 73/51 L 08/02/22 04:00 91 H 27 H 94 08/02/22 04:00 79/63 L 08/02/22 03:50 88 20 95 08/02/22 03:40 92 H 22 95 08/02/22 03:30 88 24 96 08/02/22 03:20 90 23 90 08/02/22 03:16 88 22 92 08/02/22 03:16 95/53 L 08/02/22 03:10 89 26 H 96 08/02/22 03:01 88 25 H 92 08/02/22 03:01 81/54 L 08/02/22 03:00 88 27 H 95 08/02/22 02:50 89 19 95 08/02/22 02:40 90 31 H 95 08/02/22 02:31 91 H 19 95 08/02/22 02:31 88/48 L 08/02/22 02:30 91 H 25 H 96 08/02/22 02:22 86/62 L 08/02/22 02:22 93 H 19 84 L 08/02/22 02:20 95 H 15 95 08/02/22 02:10 91 H 16 95 08/02/22 02:01 89/65 L 08/02/22 02:01 94 H 12 87 L 08/02/22 02:00 94 H 16 93 08/02/22 01:50 90 19 87 L 08/02/22 01:42 114/71 08/02/22 01:42 88 24 96 08/02/22 01:40 90 24 93 08/02/22 01:39 112/76 08/02/22 01:39 89 26 H 94 08/02/22 02:38 37 C 88 26 H 87/57 L 93 4 08/01/22 22:03 36.7 C 98 H 31 H 109/59 L 96 08/01/22 23:30 103 H 30 H 96 08/01/22 23:15 99 H 32 H 96 08/01/22 22:45 99 H 30 H 08/01/22 22:30 96 08/01/22 22:30 126/80 08/01/22 22:15 96 H 33 H 93 08/01/22 22:00 100 H 27 H 95 08/01/22 22:00 107/66 08/01/22 21:54 106/64 08/01/22 21:54 101 H 26 H 08/01/22 21:45 103 H 30 H 96 08/02/22 01:38 36.6 C 88 25 H 114/71 95 4 08/02/22 01:08 36.8 C 89 23 112/76 93 4 08/02/22 00:53 36.6 C 90 24 119/70 96 08/01/22 22:05 36.7 C 100 H 26 H 109/53 L 95 4 08/02/22 00:34 36.8 C 98 H 27 H 92/71 L 95 08/01/22 21:48 36.8 C 101 H 20 95 4 Critical Care Results & Data Vital Signs (Past 12 Hours) Vital Signs Pulse Resp BP Pulse Ox O2 Del Method O2 Flow Rate FiO2 08/02/22 16:47 105 H 28 H 94 100 08/02/22 08:30 Oxymask, BiPAP 6 08/02/22 14:30 98 H 22 87 L 08/02/22 14:30 91/73 L 08/02/22 14:05 96 H 25 H 84 L 08/02/22 14:05 86/47 L 08/02/22 14:01 71/51 L 08/02/22 14:01 95 H 28 H 80 L 08/02/22 14:00 99 H 29 H 87 L 08/02/22 13:30 97 H 30 H 86 L 08/02/22 13:30 113/48 L 08/02/22 13:01 92/50 L 08/02/22 13:01 105 H 21 82 L 08/02/22 13:00 99 H 26 H 83 L 08/02/22 12:30 101 H 29 H 84 L 08/02/22 12:30 133/72 08/02/22 12:01 98/49 L 08/02/22 12:01 104 H 26 H 81 L 08/02/22 12:00 104 H 34 H 87 L 08/02/22 11:34 106 H 16 82 L 08/02/22 11:34 89/70 L 08/02/22 11:30 108 H 16 81 L 08/02/22 12:00 107 H 110/52 L 08/02/22 11:00 107 H 35 H 80 L 08/02/22 11:00 110/52 L 08/02/22 10:45 113/69 08/02/22 10:45 109 H 22 89 L 08/02/22 10:33 92/61 L 08/02/22 10:33 104 H 16 82 L 08/02/22 10:31 102 H 26 H 74 L 08/02/22 10:31 116/94 08/02/22 10:30 104 H 21 87 L 08/02/22 10:21 124/69 08/02/22 10:21 101 H 27 H 88 L 08/02/22 10:01 128/73 08/02/22 10:01 98 H 19 92 08/02/22 10:00 98 H 31 H 89 L 08/02/22 09:46 152/76 H 08/02/22 09:46 96 H 36 H 08/02/22 09:31 98 H 32 H 94 08/02/22 09:31 101/78 08/02/22 09:30 100 H 31 H 89 L 08/02/22 09:28 159/84 H 08/02/22 09:28 99 H 34 H 92 08/02/22 09:00 99 H 20 93 08/02/22 08:46 96 H 25 H 93 08/02/22 08:46 119/67 08/02/22 08:31 105/85 08/02/22 08:31 97 H 23 08/02/22 08:30 98 H 21 92 08/02/22 08:01 118/73 08/02/22 08:01 93 H 15 90 08/02/22 08:00 90 30 H 88 L 08/02/22 07:46 118/66 08/02/22 07:46 88 31 H 89 L 08/02/22 07:31 84 32 H 90 08/02/22 07:31 123/74 08/02/22 07:30 84 30 H 89 L 08/02/22 07:16 83 27 H 91 08/02/22 07:16 119/75 08/02/22 07:00 86 22 92 08/02/22 07:00 115/74 08/02/22 08:00 Oxymask Lab & Micro Results (Past 24 Hours) RBC 3.61 M/uL (4.70-6.10) L 08/02/22 WBC 18.57 K/ul (4.8-10.8) H 08/02/22 Hgb 9.9 g/dl (14.0-18.0) L 08/02/22 Hct 28.6 % (42.0-52.0) L 08/02/22 MCV 85.6 fL (80.0-100.0) 08/02/22 MCH 29.6 pg (25.0-34.0) 08/02/22 MCHC 34.6 g/dL (32.0-36.0) 08/02/22 RDW Standard Deviation 43.5 fL (36.4-46.3) 08/02/22 RDW Coefficient of Variation 14.0 % (11.5-14.5) 08/02/22 Plt Count 289 K/uL (130-400) 08/02/22 MPV 9.7 fL (9.4-12.4) 08/02/22 Neutrophils (%) (Auto) 74.7 % 08/02/22 Lymphocytes (%) (Auto) 15.4 % 08/02/22 Monocytes # (Auto) 1.59 K/uL (0.11-0.59) H 08/02/22 Eosinophils # (Auto) 0.01 K/uL (0-0.50) 08/02/22 Immature Granulocyte % (Auto) 1.0 % 08/02/22 Neutrophils # (Auto) 13.89 K/uL (1.40-6.50) H 08/02/22 Lymphocytes # (Auto) 2.86 K/uL (1.2-3.4) 08/02/22 Monocytes # (Auto) 1.59 K/uL (0.11-0.59) H 08/02/22 Eosinophils # (Auto) 0.01 K/uL (0-0.50) 08/02/22 Basophils # (Auto) 0.04 K/uL (0-0.2) 08/02/22 Immature Granulocyte # (Auto) 0.18 K/uL (0.01-0.20) 3 Na 134 mmol/L (136-145) L 08/02/22 K 4.8 mmol/L (3.5-5.1) 08/02/22 Cl 104 mmol/L (98-107) 08/02/22 CO2 20 mmol/L (21-32) L 08/02/22 Anion Gap 10 (3-11) 08/02/22 BUN 36 mg/dl (6-23) H 08/02/22 Creatinine 3.59 mg/dl (0.6-1.4) H 08/02/22 Estimated GFR ( Amer) 20.7 ml/min 08/02/22 Estimated GFR (Non-Af Amer) 17.9 ml/min 08/02/22 BUN/Creatinine Ratio 10.0 (10-20) 08/02/22 Glu 179 mg/dl (70-99(Fasting)) H 08/02/22 Ca 8.0 mg/dl (8.6-10.3) L 08/02/22 Phosphorus Level 5.6 mg/dl (2.5-4.9) H 08/02/22 Mg 1.7 mg/dl (1.7-2.4) 08/02/22 03:24 Calcium Level 8.0 mg/dl (8.6-10.3) L 08/02/22 09:06 Ionized Calcium 1.09 mmol/L (1.12-1.32) L 08/02/22 10:17 Prothromb Time International Ratio 1.0 (0.9-1.1) 08/01/22 22:4 1 Adan Test Pass 08/02/22 04:39 Diagnostic Findings (Past 24 Hours) Chest X-Ray 08/01/22 18:52 XR chest 1V portable HISTORY: line placement COMPARISON: Chest 08/01/2022. FINDINGS: Interval placement of a right jugular central venous catheter which terminates at the distal SVC. No pneumothorax. No pleural effusions. The heart remains enlarged. There are low lung volumes. Bibasilar linear densities favor subsegmental atelectasis. IMPRESSION: Right jugular central venous catheter terminus at the distal SVC. No pneumothorax. ACT 112: Negative or not required by law. Electronically signed by: Gonzalo Roldan M.D. 08/02/2022 7:[address] 08/01/22 23:24 Exam(s): CT ABDOMEN Without Contrast EXAM: CT Abdomen Without Intravenous Contrast CLINICAL HISTORY: Reason for exam: Shock, [place], post op nephrectomy. TECHNIQUE: Axial computed tomography images of the abdomen without intravenous contrast. Automated exposure control was utilized for the study. A dose lowering technique was utilized adhering to the principles of ALARA. COMPARISON: Dated 07/08/22 FINDINGS: Lung bases: Unremarkable. No mass. No consolidation. Liver: Unremarkable. Gallbladder and bile ducts: Unremarkable. No calcified stones. No ductal dilation. Pancreas: Unremarkable. No ductal dilation. Spleen: Unremarkable. No splenomegaly. Adrenals: Unremarkable. No mass. Kidneys and ureters: The patient has undergone right upper pole partial nephrectomy with adjacent small to moderate volume hemorrhage. Stomach and bowel: Unremarkable. No obstruction. No mucosal thickening. Intraperitoneal space: There is a small amount of perisplenic ascites which is most likely reactive. No free air. Bones/joints: No acute fracture. No dislocation. Soft tissues: Unremarkable. Vasculature: There is diffuse atherosclerotic calcification of the aorta and its major branch vessels. No abdominal aortic aneurysm. Lymph nodes: Unremarkable. No enlarged lymph nodes. Tubes, lines and devices: There is a left derrek-abdominal surgical drain in place. Other findings: The right anterior abdomen is excluded secondary to body habitus. IMPRESSION: Status post right upper pole partial nephrectomy with a small to moderate amount of adjacent hemorrhage. Electronically signed by: Kevin Umana MD 08/02/22 00:10 AM I & O Totals 24 Hours 08/01/22 08/02/22 08/03/22 06:59 06:59 06:59 Intake Total 7210.955 / 7210.955 2814.624 / 2814.624 Output Total 1055 / 1055 585 / 585 Balance 6155.955 / 6155.955 2229.624 / 2229.624 Cumulative 07/16/22 09:54 thru 08/02/22 17:52 Intake Total 44030.579 Output Total 1640 Balance 8385.579 RT Ventilator Mngmt (Last Documented) Ventilator Ordered Settings Respiratory Rate 28 08/02/22 16:47 Fraction of Inspired Oxygen 100 08/02/22 16:47 Ventilator - PT Measurements Respiratory Rate 28 Coding Level of Care Code 38291 CRITICAL CARE 1ST 30-74M Diagnoses Postoperative hypotension I95.81 Proteinuria due to type 2 diabetes mellitus E11.29; R80.9 Type 2 diabetes mellitus with diabetic neuropathy, without long-term current use of insulin E11.40 Sleep apnea G47.30 Morbid obesity E66.01 Right renal mass N28.89
[2022-08-02 09:38] LABS: Hematocrit (blood only) 29.9 % (42.0-52.0); Hemoglobin 10.4 g/dl (14.0-18.0)
[2022-08-02 10:00] LABS: Creatinine Clr Calc Pharmacy 37.9 ml/min; Est GFR (African American) 20.7 ml/min; Est GFR (Non-African American) 17.9 ml/min; Potassium 4.8 mmol/L (3.5-5.1)
[2022-08-02] MEDS ORDERED: LANTUS PER UNIT CHARGE SC ONE (10:45)
[2022-08-02] MEDS: INSULIN REGULAR 250 UNITS in SODIUM CHLORIDE 0.9% 247.5 ML IV SCH ×2 (12:01→12:25)
--- NOTE | 2022-08-02 12:14 | Nephrology Consultation ---
Date of Consultation August 02, 2022 Assessment & Plan (1) Acute kidney injury: (2) H/O partial nephrectomy: (3) Postoperative hypotension: (4) Hyperkalemia: (5) Metabolic acidosis: Plan 57-year-old gentleman with prior normal renal function with history of diabetes, obesity and proteinuria, recently diagnosed with renal cell carcinoma and had elective partial right nephrectomy yesterday. Postoperative course was complicated by persistent hypotension requiring pressor support, rapid worsening of renal function to creatinine initially 2.0 then 3.4 this morning associated with hyperkalemia and metabolic acidosis. MAO most likely secondary to ATN with persistent hypotension. Had significant drop in hemoglobin requiring 3 units of blood transfusion. CT was negative for any postoperative bleeding. potassium improved with conservative measures without needing for dialysis however creatinine could stool worsen. -- Agree with hemodynamic support, continue to monitor urine output. Monitor renal function electrolyte. No indication for dialysis at this time however in next 24-48 hours if renal function progressively worsen or urine output drops and developed critical electrolyte abnormality, may need to consider dialysis. -- Avoid all nephrotoxic medications, dose medications for eGFR less than 30, left arm nephrology precaution. Thank you for allowing me to participate in your patient's care. It was a pleasure to see Nathaniel. History of Present Illness Reason for Consultation: acute kidney injury, hyperkalemia after right nephrectomy. Attending Physician: Denys Matthews II, DO History of Present Illness Mr. David Ga he is a 57-year-old gentleman with history of right renal mass, proteinuria, hypertension diabetes admitted to the hospital yesterday for elective nephrectomy. Nephrology consult was requested as he has developed MAO and hyperkalemia post nephrectomy. EMR records are reviewed in detail during patient's visit. David was admitted yesterday electively and had partial right nephrectomy. His postoperative course was somewhat complicated with hypotension, respiratory distress, lactic acidosis, MAO and hyperkalemia as well as metabolic acidosis. Because of the large size of the mass the clamp time was longer than usual but did not have significant bleeding during surgery. Postoperatively he has been requiring pressor to maintain blood pressure. Overnight his potassium was elevated at 6.4 which subsequently improved after receiving insulin and D50 and potassium down to 4.8 this morning. He is currently still on pressor and requiring oxygen via Oxymask. Lactate was elevated. Baseline creatinine prior to the surgery was 1.1, immediately after surgery creatinine was 2.0 which rapidly worsened to 3.4 this morning. Has been having decent urine output more than 750 mL overnight, blood tinged. Hemoglobin also dropped to below 10 requiring 3 units of blood transfusion. Had CT abdomen and pelvis this morning showing some fluid consistent with postsurgical. However there was no evidence of active bleeding. Past medical history significant for hypertension and diabetes for more than 15 years both has been poorly controlled. He was recently seen at the nephrology clinic for proteinuria, during evaluation renal ultrasound showed right renal mass subsequently confirmed by CT scan. Had normal eGFR with b/l cr 0.9-1.1. workup including serological and paraproteinemia workup was unremarkable. Lisinopril was increased to 40 mg. Proteinuria slightly improved after lisinopril increased to 40 mg daily, blood pressure has been well controlled. No history of NSAID use. No history of autoimmune disease. Mom had history of advanced CKD, was getting close to dialysis but refused dialysis. Current active smoker for more than 30 years smokes 1 and half pack per day. Does not drink alcohol. 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 Diabetes has been poorly controlled with A1c around 9, has peripheral neuropathy but no diabetic retinopathy. On gabapentin. Currently on Farxiga 5 mg daily,metformin, Trulicity and glipizide. no history of coronary artery disease or peripheral vascular disease. History of gout, on allopurinol 300 mg daily, no recent gout attack. Morbid obese do with BMI above 40, has been progressively gaining weight. Has history of sleep apnea, has been using CPAP. He was awake, alert and oriented with family at bedside, using oxymask. Allergies Allergy/AdvReac Type Severity Reaction Status Date / Time oxycodone AdvReac Mild DIZZY Verified 08/01/22 06:18 Home Medications Medication Instructions Recorded Confirmed Type gabapentin 300 mg capsule 300 mg PO HS 02/02/19 08/01/22 History blood sugar diagnostic (OneTouch #200 ea 08/10/20 05/29/22 Rx Ultra Blue Test Strip) blood-glucose meter (OneTouch #1 ea 08/10/20 07/22/22 Rx Ultra2 Meter) lancets (OneTouch UltraSoft #200 ea 08/10/20 07/22/22 Rx Lancets) allopurinol 300 mg tablet 300 mg PO QAM #90 tabs 10/16/21 08/01/22 Rx atorvastatin 80 mg tablet 80 mg PO HS #90 tabs 10/16/21 08/01/22 Rx metformin 500 mg tablet,extended 1,000 mg PO BID #360 tabs 12/28/21 08/01/22 Rx release 24 hr budesonide-formoterol HFA 80 2 puff inhalation BID #10.2 grams 02/12/22 08/01/22 Rx mcg-4.5 mcg/actuation aerosol inhaler (Symbicort) CPAP Supplies #1 ea 02/14/22 07/22/22 Rx lisinopril 40 mg tablet 40 mg PO QAM #90 tabs 05/29/22 08/01/22 Rx ofloxacin 0.3 % eye drops 5 drp otic (ear) BID PRN clogged 06/24/22 08/01/22 Rx tube #10 mL sodium sul 1.479 gram-potas ch See Rx Instructions PO .COMPLEX 06/28/22 Rx 0.188 gram-magnes sul 0.225 gram #24 tabs tablet (Sutab) cyanocobalamin (vitamin B-12) 500 500 mcg PO QAM 07/22/22 08/01/22 History mcg tablet dapagliflozin 5 mg tablet (Farxiga) 5 mg PO QAM 07/22/22 08/01/22 History dulaglutide 3 mg/0.5 mL 3 mg subcut .COMPLEX 08/01/22 08/01/22 History subcutaneous pen injector (Trulicity) gabapentin 300 mg capsule 600 mg PO QAM 08/01/22 08/01/22 History glipizide 10 mg tablet, extended 10 mg PO BID 08/01/22 08/01/22 History release 24 hr (Glucotrol XL) Patient History Medical History (Updated 08/02/22 @ 12:14 by Rema Valero MD) Acute kidney injury Anxiety no meds > controlled COPD (chronic obstructive pulmonary disease) well controlled, no res inh, said his albuterol inh was , and no longer prescribed, going to follow up with PCP Dyslipidemia Gout, joint History of anesthesia problem [facility] > difficulty breathing after a sinus surgery, this is what Dr. Moreno told patient, pt unaware of other details History of COVID-19 May 20, 2022 > home test > body aches > resolved Hyperkalemia Hypertension Mastoid disorder pt unaware Metabolic acidosis Morbid obesity MARIA EUGENIA (obstructive sleep apnea) cpap Right renal mass Smoking greater than 30 pack years Stroke-like symptoms - 09/2019- admitted to [facility]- unable to complete MRI due to claustrophobia- left AMA- head/neck CTA and head CT unremarkable- denies any residual problems- no subsequent symptoms since that time - While admitted in 2019- neuro felt small ischemia stroke could not be excluded but suspected symptoms related to inner ear issue Type 2 diabetes mellitus with diabetic neuropathy, without long-term current use of insulin Surgical History (Updated 08/01/22 @ 16:34 by Tk Mendoza MD) History of sinus surgery History of tonsillectomy and adenoidectomy tonsils grew back and had to be removed again History of tooth extraction Status post myringotomy with insertion of tube x2 Family History Uncle Prostate cancer Mother Diabetes Father Diabetes COPD (chronic obstructive pulmonary disease) Other Hearing loss No family history of allergies No family history of bleeding disorder Denies family history of Heart disease Cancer Hypertension Stroke Asthma Social History Smoking Status: Current every day smoker Tobacco Type: Cigarettes Age Started Using Tobacco: 22; packs per day: 1.5; Cigarettes Per Day: 1-1.5 ppd; Second Hand Exposure: No; Do You Dip or Chew Tobacco: No; Tobacco Cessation Education Requested by Patient: No Hx Alcohol Use: No Hx Substance Use: Yes Substance Use Type Other:: uses on weekends Preferred Language: Icelandic Communication Ability: Effective Bath Mixer Required: No Beliefs That Will Affect Care: None marital status: Single Current Living Situation: Significant Other current occupational status: unemployed Other Information That Helps Us Care for You: No Feels Safe at Home: Yes Safety Concerns: Feels Safe At This Time caffeine: Yes Dental Care, Regularly: No Physical Activity Frequency: Does not Exercise Seatbelt Use: always Sunscreen Use: No Assistive Devices: CPAP Review of Systems Review of Systems: All systems reviewed & are unremarkable except as noted in HPI & below Physical Exam Constitutional: WD/WN, vitals as above + acute distress, + ill appearing and + morbidly obese Eyes: + anicteric sclerae Neck: normal visual inspection Respiratory: + respiratory distress Auscultation: + diminished lung sounds Cardiovascular: Rate/Rhythm: regular rate and regular rhythm Heart Sounds: normal S1 and normal S2 Extremities: no edema Gastrointestinal (Abdomen): Inspection/Auscultation: + abdomen distended and normal bowel sounds Percussion/Palpation: + abdomen tender; no guarding and abdomen not rigid Musculoskeletal: Extremities: extremities normal to inspection Skin: normal turgor; no rashes Neurologic: no focal motor deficits and not confused Psychiatric: Orientation: alert and oriented x 3 Affect: euthymic affect Results & Data Vital Signs (Past 12 Hours) Vital Signs Temp Pulse Resp BP Pulse Ox O2 Del Method O2 Flow Rate 08/02/22 11:00 107 H 35 H 80 L 08/02/22 11:00 110/52 L 08/02/22 10:45 113/69 08/02/22 10:45 109 H 22 89 L 08/02/22 10:33 92/61 L 08/02/22 10:33 104 H 16 82 L 08/02/22 10:31 102 H 26 H 74 L 08/02/22 10:31 116/94 08/02/22 10:30 104 H 21 87 L 08/02/22 10:21 124/69 08/02/22 10:21 101 H 27 H 88 L 08/02/22 10:01 128/73 08/02/22 10:01 98 H 19 92 08/02/22 10:00 98 H 31 H 89 L 08/02/22 09:46 152/76 H 08/02/22 09:46 96 H 36 H 08/02/22 09:31 98 H 32 H 94 08/02/22 09:31 101/78 08/02/22 09:30 100 H 31 H 89 L 08/02/22 09:28 159/84 H 08/02/22 09:28 99 H 34 H 92 08/02/22 09:00 99 H 20 93 08/02/22 08:46 96 H 25 H 93 08/02/22 08:46 119/67 08/02/22 08:31 105/85 08/02/22 08:31 97 H 23 08/02/22 08:30 98 H 21 92 08/02/22 08:01 118/73 08/02/22 08:01 93 H 15 90 08/02/22 08:00 90 30 H 88 L 08/02/22 07:46 118/66 08/02/22 07:46 88 31 H 89 L 08/02/22 07:31 84 32 H 90 08/02/22 07:31 123/74 08/02/22 07:30 84 30 H 89 L 08/02/22 07:16 83 27 H 91 08/02/22 07:16 119/75 08/02/22 07:00 86 22 92 08/02/22 07:00 115/74 08/02/22 08:00 Oxymask 08/02/22 06:00 36.6 C 08/02/22 04:00 36.6 C 08/02/22 02:00 37 C 08/02/22 05:45 91 H 21 94 08/02/22 05:45 104/70 08/02/22 05:40 89 28 H 95 08/02/22 05:31 89/64 L 08/02/22 05:31 89 21 94 08/02/22 05:30 89 24 95 08/02/22 05:20 91 H 23 95 08/02/22 05:10 92 H 13 94 08/02/22 05:00 90 17 93 08/02/22 04:50 88 26 H 94 08/02/22 04:45 90 20 95 08/02/22 04:45 93/70 L 08/02/22 04:40 89 26 H 95 08/02/22 04:30 88 28 H 95 08/02/22 04:20 87 15 94 08/02/22 04:15 95/64 L 08/02/22 04:15 86 22 95 08/02/22 04:10 88 24 95 08/02/22 04:06 90 27 H 08/02/22 04:06 73/51 L 08/02/22 04:00 91 H 27 H 94 08/02/22 04:00 79/63 L 08/02/22 03:50 88 20 95 08/02/22 03:40 92 H 22 95 08/02/22 03:30 88 24 96 08/02/22 03:20 90 23 90 08/02/22 03:16 88 22 92 08/02/22 03:16 95/53 L 08/02/22 03:10 89 26 H 96 08/02/22 03:01 88 25 H 92 08/02/22 03:01 81/54 L 08/02/22 03:00 88 27 H 95 08/02/22 02:50 89 19 95 08/02/22 02:40 90 31 H 95 08/02/22 02:31 91 H 19 95 08/02/22 02:31 88/48 L 08/02/22 02:30 91 H 25 H 96 08/02/22 02:22 86/62 L 08/02/22 02:22 93 H 19 84 L 08/02/22 02:20 95 H 15 95 08/02/22 02:10 91 H 16 95 08/02/22 02:01 89/65 L 08/02/22 02:01 94 H 12 87 L 08/02/22 02:00 94 H 16 93 08/02/22 01:50 90 19 87 L 08/02/22 01:42 114/71 08/02/22 01:42 88 24 96 08/02/22 01:40 90 24 93 08/02/22 01:39 112/76 08/02/22 01:39 89 26 H 94 08/02/22 02:38 37 C 88 26 H 87/57 L 93 4 08/02/22 01:38 36.6 C 88 25 H 114/71 95 4 08/02/22 01:08 36.8 C 89 23 112/76 93 4 08/02/22 00:53 36.6 C 90 24 119/70 96 08/02/22 00:34 36.8 C 98 H 27 H 92/71 L 95 PG Care Time/CCT Total # of Minutes Spent Total Time Spent with Patient: Total time spent is greater than 50% in coordination of care (as documented) at patient's floor/unit and/or counseling patient: Coding Level of Care Code 42650 IN/OBS CONSULT LVL 5,80M Diagnoses Acute kidney injury N17.9 H/O partial nephrectomy Z90.5 Postoperative hypotension I95.81 Hyperkalemia E87.5 Metabolic acidosis E87.20
[2022-08-02 12:31] LABS: Potassium 6.4 mmol/L (3.5-5.1)
--- NOTE | 2022-08-02 13:19 | XCELERA ---
[id number] \\[email or web address]\[id number]
[2022-08-02 13:22] LABS: Hematocrit (blood only) 28.6 % (42.0-52.0); Hemoglobin 9.9 g/dl (14.0-18.0)
[2022-08-02] MEDS: MoRPHine SULFATE 2 MG/ML CARP IV PRN (13:38)
--- NOTE | 2022-08-02 14:13 | Pharmacy Report ---
Pharmacy Glycemic Short Note 2 - Date of Service August 02, 2022 - Glycemic Short BSG Results (Last 24 hours): 08/01/22 08/01/22 08/01/22 14:04 14:47 15:03 Glucose 329 H* POC Glucose 344 H* 327 H* POC Glucose (other) 08/01/22 08/01/22 08/01/22 16:33 18:05 20:39 Glucose 518 H* POC Glucose 282 H POC Glucose (other) 451 H* 08/01/22 08/01/22 08/01/22 22:00 22:41 23:18 Glucose 483 H* POC Glucose POC Glucose (other) 486 H* 467 H* 08/02/22 08/02/22 08/02/22 00:45 01:40 02:32 Glucose POC Glucose 422 H* 436 H* 359 H* POC Glucose (other) 08/02/22 08/02/22 08/02/22 03:24 04:05 05:01 Glucose 293 H POC Glucose 290 H 231 H POC Glucose (other) 08/02/22 08/02/22 08/02/22 06:08 07:22 08:35 Glucose POC Glucose 171 H 212 H 217 H POC Glucose (other) 08/02/22 08/02/22 08/02/22 09:06 09:23 10:37 Glucose 179 H POC Glucose 204 H 177 H POC Glucose (other) 08/02/22 08/02/22 11:38 13:14 Glucose POC Glucose 121 H 159 H POC Glucose (other) OUTPATIENT ANTIDIABETIC REGIMEN: * Metformin ER 1000 mg BID, Trulicity, glipizide * A1c 9.6% 05/30/22 ASSESSMENT: * 57 yo admitted following partial nephrectomy, patient with hypotension currently on norepinephrine * Insulin infusion started yesterday with elevated BSGs. Continued to be elevated overnight with insulin infusion running at high rates, now down to 10.7 units/hr * Given continued pressor use and high rates, will continue insulin infusion today * Small dose of lantus this AM to assist with lowering infusion rates. PLAN FOR INPATIENT GLYCEMIC CONTROL: * Hold outpatient oral diabetes medications * Basal insulin * Lantus 20 units SQ x1 this AM- reassess tomorrow * Bolus insulin * NovoLog per scale ACHS or Q6hrs while NPO * Goal Range: Low 110 mg/dL - High 180 mg/dL * Correction Factor: 15 mg/dL/unit * Nutritional / Prandial insulin per carb ratio of 1 unit per 5 grams CHO consumed
--- NOTE | 2022-08-02 15:15 | Hospitalist Progress Note ---
Date of Service August 02, 2022 Assessment & Plan (1) H/O partial nephrectomy: Plan: POD#1. Surgery management. (2) Postoperative hypotension: Plan: Suspect intravascular volume depletion. Continue IV fluids. Monitor intake and output. He is currently on vasopressor support. Would hydrate and wean this off as rapidly as possible to prevent further renal dysfunction, if blood cultures are negative. (3) Type 2 diabetes mellitus with diabetic neuropathy, without long-term current use of insulin: Plan: HbA1C 9.6 in May. Pharmacy consulted for glycemic control with basal bolus insulin recommended during inpatient admission (4) Neuropathic pain: Plan: Takes gabapentin at home (5) Proteinuria due to type 2 diabetes mellitus: Plan: Lisinopril is on hold due to hypotension (6) Gout, joint: Plan: Continue allopurinol when able (7) Sleep apnea: Plan: CPAP HS (8) Morbid obesity: Plan: BMI greater than 40. Significant weight loss recommended (9) Acute blood loss anemia: Plan: Currently mild and not needing transfusion. Serial labs (10) Acute renal failure: Plan: Suspect prerenal causes due to volume depletion and hypotension. Urine sodium and urine creatinine are pending to calculate fractional excretion. Monitor intake and output. Continue IV fluids. Appreciate nephrology consultation and recommendations. Lisinopril is on hold. We will try to get off pressor support as quickly as possible Plan Per primary team. Anticipate eventual discharge to home Admission and Anticipated Discharge Date Admission Date: August 01, 2022 Subjective Alert and oriented. Somewhat restless however. Family is at the bedside. Creatinine has bumped to 3.3. Nephrology has been consulted. Urine sodium and urine creatinine ordered to calculate fractional excretion. Serum osmolarity should help guide therapy. Remains on a bicarbonate drip. Postoperative day #1 after partial right nephrectomy. Hemoglobin is down to mildly to 10.7 consistent with acute blood loss anemia. Hyperkalemia has resolved Review of Systems Review of Systems: Constitutional-no fever or chills ENT-no blurred vision, no double vision, no epistaxis, no sore throat Respiratory-no cough, no wheezing, no shortness of breath Cardiac-no palpitations, no chest pain, no syncope GI-no appetite. Intermittent nausea. -Reis catheter in place. He appears to be oliguric with some hematuria Musculoskeletal-complaining of buttock pain Skin-no bruising, no rashes, no pruritus Neuro-no isolated weakness, no paresthesia Psych-no depression, no anxiety Physical Exam Physical Exam: General-alert, appears to be mildly agitated. Morbidly obese HEENT-head atraumatic and normocephalic, pupils equal and reactive to light, extraocular muscles intact Neck-no lymphadenopathy or thyromegaly, trachea midline Chest-diminished breath sounds bilaterally anteriorly. No wheezing Cardiac-normal sinus rhythm, mildly tachycardic , normal S1 and S2 Abdomen-abdomen is distended with very hypoactive bowel sounds consistent with ileus Extremities-1+ pitting edema bilateral lower extremities below the knees is probably chronic and weight related Neuro-cranial nerves II through XII intact, motor and sensory function within normal limits, strength symmetrical , no focal deficits Psych-flat affect Results & Data Results & Data Vital Signs (Past 12 Hours) Vital Signs Temp Pulse Resp BP Pulse Ox O2 Del Method 08/02/22 14:30 98 H 22 87 L 08/02/22 14:30 91/73 L 08/02/22 14:05 96 H 25 H 84 L 08/02/22 14:05 86/47 L 08/02/22 14:01 71/51 L 08/02/22 14:01 95 H 28 H 80 L 08/02/22 14:00 99 H 29 H 87 L 08/02/22 13:30 97 H 30 H 86 L 08/02/22 13:30 113/48 L 08/02/22 13:01 92/50 L 08/02/22 13:01 105 H 21 82 L 08/02/22 13:00 99 H 26 H 83 L 08/02/22 12:30 101 H 29 H 84 L 08/02/22 12:30 133/72 08/02/22 12:01 98/49 L 08/02/22 12:01 104 H 26 H 81 L 08/02/22 12:00 104 H 34 H 87 L 08/02/22 11:34 106 H 16 82 L 08/02/22 11:34 89/70 L 08/02/22 11:30 108 H 16 81 L 08/02/22 12:00 107 H 110/52 L 08/02/22 11:00 107 H 35 H 80 L 08/02/22 11:00 110/52 L 08/02/22 10:45 113/69 08/02/22 10:45 109 H 22 89 L 08/02/22 10:33 92/61 L 08/02/22 10:33 104 H 16 82 L 08/02/22 10:31 102 H 26 H 74 L 08/02/22 10:31 116/94 08/02/22 10:30 104 H 21 87 L 08/02/22 10:21 124/69 08/02/22 10:21 101 H 27 H 88 L 08/02/22 10:01 128/73 08/02/22 10:01 98 H 19 92 08/02/22 10:00 98 H 31 H 89 L 08/02/22 09:46 152/76 H 08/02/22 09:46 96 H 36 H 08/02/22 09:31 98 H 32 H 94 08/02/22 09:31 101/78 08/02/22 09:30 100 H 31 H 89 L 08/02/22 09:28 159/84 H 08/02/22 09:28 99 H 34 H 92 08/02/22 09:00 99 H 20 93 08/02/22 08:46 96 H 25 H 93 08/02/22 08:46 119/67 08/02/22 08:31 105/85 08/02/22 08:31 97 H 23 08/02/22 08:30 98 H 21 92 08/02/22 08:01 118/73 08/02/22 08:01 93 H 15 90 08/02/22 08:00 90 30 H 88 L 08/02/22 07:46 118/66 08/02/22 07:46 88 31 H 89 L 08/02/22 07:31 84 32 H 90 08/02/22 07:31 123/74 08/02/22 07:30 84 30 H 89 L 08/02/22 07:16 83 27 H 91 08/02/22 07:16 119/75 08/02/22 07:00 86 22 92 08/02/22 07:00 115/74 08/02/22 08:00 Oxymask 08/02/22 06:00 36.6 C 08/02/22 04:00 36.6 C 08/02/22 05:45 91 H 21 94 08/02/22 05:45 104/70 08/02/22 05:40 89 28 H 95 08/02/22 05:31 89/64 L 08/02/22 05:31 89 21 94 08/02/22 05:30 89 24 95 08/02/22 05:20 91 H 23 95 08/02/22 05:10 92 H 13 94 08/02/22 05:00 90 17 93 08/02/22 04:50 88 26 H 94 08/02/22 04:45 90 20 95 08/02/22 04:45 93/70 L 08/02/22 04:40 89 26 H 95 08/02/22 04:30 88 28 H 95 08/02/22 04:20 87 15 94 08/02/22 04:15 95/64 L 08/02/22 04:15 86 22 95 08/02/22 04:10 88 24 95 08/02/22 04:06 90 27 H 08/02/22 04:06 73/51 L 08/02/22 04:00 91 H 27 H 94 08/02/22 04:00 79/63 L 08/02/22 03:50 88 20 95 08/02/22 03:40 92 H 22 95 08/02/22 03:30 88 24 96 08/02/22 03:20 90 23 90 08/02/22 03:16 88 22 92 08/02/22 03:16 95/53 L 08/02/22 03:10 89 26 H 96 Laboratory Results 08/02/22 12:38 08/02/22 09:06 PG Care Time/CCT Total # of Minutes Spent Total Time Spent with Patient: Total time spent is greater than 50% in coordination of care (as documented) at patient's floor/unit and/or counseling patient: Coding Level of Care Code 82862 SUB INP/OBS CARE 3/50MIN Diagnoses H/O partial nephrectomy Z90.5 Postoperative hypotension I95.81 Type 2 diabetes mellitus with diabetic neuropathy, without long-term current use of insulin E11.40 Neuropathic pain M79.2 Proteinuria due to type 2 diabetes mellitus E11.29; R80.9 Gout, joint M10.9 Sleep apnea G47.30 Morbid obesity E66.01 Acute blood loss anemia D62 Acute renal failure N17.9
[2022-08-02 16:57] LABS: Appearance Urine Turbid (Clear); Bacteria Urine Automated Negative (Negative); Bilirubin Urine Negative (Negative); Blood Urine 3+ (Negative); Color Urine Orange; Epithelial Cell Urine Auto >30 /lpf (0-5); Glucose Urine UA Negative (Negative); Ketones Urine Negative (Negative); Leukocyte Esterase Urine 2+ (Negative); Nitrite Urine Positive (Negative); Protein Urine Trace (Negative); Urobilinogen Urine Negative (Negative); WBC Urine Automated >30 /hpf (0-5)
[2022-08-02 17:41] LABS: Amorphous Sediment Urine Present (None Prsent); Cast Urine Automated 0 /lpf (0-5); RBC Urine Automated >30 /hpf (0-4); Renal Epithelial Cells Urine 0-5 /lpf (0-5)
--- NOTE | 2022-08-02 17:56 | Electrocardiogram Report ---
Test Reason : Blood Pressure : / mmHG Vent. Rate : 072 BPM Atrial Rate : 072 BPM P-R Int : 192 ms QRS Dur : 118 ms QT Int : 426 ms P-R-T Axes : 034 021 017 degrees QTc Int : 466 ms Normal sinus rhythm Poor R wave progression, consider anterior KS vs. lead placement vs. LVH Abnormal ECG When compared with ECG of 02-OCT-2019 09:46, No significant change was found Confirmed by Peterson Leslie ([id number]) on 08/02/2022 5:56:18 PM Referred By: Denys Matthews Confirmed By:Pedro Leslie
[2022-08-02 17:57] LABS: Creatinine Urine Random 221.2 mg/dl
--- NOTE | 2022-08-02 18:00 | Electrocardiogram Report ---
Test Reason : Blood Pressure : / mmHG Vent. Rate : 106 BPM Atrial Rate : 106 BPM P-R Int : 168 ms QRS Dur : 102 ms QT Int : 340 ms P-R-T Axes : 035 031 020 degrees QTc Int : 451 ms Poor data quality, interpretation may be adversely affected Sinus tachycardia Possible Left atrial enlargement Nonspecific ST abnormality Abnormal ECG When compared with ECG of 01-AUG-2022 15:16, (unconfirmed) Minimal criteria for Anterior infarct are no longer Present Confirmed by Peterson Leslie ([id number] on 08/02/2022 6:00:18 PM Referred By: Denys Matthews Confirmed By:Pedro Leslie
[2022-08-02 18:32] LABS: Hemoglobin 9.4 g/dl (14.0-18.0)
[2022-08-02 18:50] LABS: BUN Creatinine Ratio 9.2 (10-20); Est GFR (African American) 16.8 ml/min; Est GFR (Non-African American) 14.5 ml/min; Potassium 4.5 mmol/L (3.5-5.1)
[2022-08-03 00:05] LABS: HCO3 VBG 23 mmol/L; Oxygen Saturation VBG < 60.0 %; PCO2 VBG 42 mmHg (38-50); PO2 VBG 38 mmHg; pH VBG 7.34 (7.36-7.41)
[2022-08-03 00:27] LABS: BUN Creatinine Ratio 9.3 (10-20); Calcium 7.8 mg/dl (8.6-10.3); Creatinine Clr Calc Pharmacy 30.8 ml/min; Est GFR (African American) 16.1 ml/min; Est GFR (Non-African American) 13.9 ml/min; Potassium 4.4 mmol/L (3.5-5.1)
[2022-08-03 00:30] LABS: Basophils # (auto) 0.06 K/uL (0-0.2); Basophils % (auto) 0.3 %; Eosinophils # (auto) 0.02 K/uL (0-0.50); Eosinophils % (auto) 0.1 %; Hematocrit (blood only) 25.1 % (42.0-52.0); Hemoglobin 8.6 g/dl (14.0-18.0); Immature Granulocytes % (auto) 0.6 %; Lymphocytes # (auto) 1.85 K/uL (1.2-3.4); Lymphocytes % (auto) 10.6 %; Mean Corpuscular Hemoglobin 29.4 pg (25.0-34.0); Mean Corpuscular Hgb Conc 34.3 g/dL (32.0-36.0); Mean Corpuscular Volume 85.7 fL (80.0-100.0); Mean Platelet Volume 9.9 fL (9.4-12.4); Monocytes # (auto) 1.33 K/uL (0.11-0.59); Monocytes % (auto) 7.6 %; Neutrophils # (auto) 14.16 K/uL (1.40-6.50); Neutrophils % (auto) 80.8 %; Platelet Count 229 K/uL (130-400); RDW Coefficient of Variation 14.5 % (11.5-14.5); RDW Standard Deviation 44.9 fL (36.4-46.3); Red Blood Count 2.93 M/uL (4.70-6.10); White Blood Count 17.52 K/ul (4.8-10.8)
[2022-08-03] MEDS: MoRPHine SULFATE 2 MG/ML CARP IV PRN ×2 (01:05→22:53)
[2022-08-03] MEDS: Double Conc; 16mg in 500mL IV SCH ×3 (04:13→19:09)
[2022-08-03 05:55] LABS: Basophils # (auto) 0.04 K/uL (0-0.2); Basophils % (auto) 0.2 %; Eosinophils # (auto) 0.02 K/uL (0-0.50); Eosinophils % (auto) 0.1 %; Hematocrit (blood only) 23.4 % (42.0-52.0); Hemoglobin 8.1 g/dl (14.0-18.0); Immature Granulocytes % (auto) 0.6 %; Lymphocytes # (auto) 1.54 K/uL (1.2-3.4); Lymphocytes % (auto) 9.2 %; Mean Corpuscular Hemoglobin 29.7 pg (25.0-34.0); Mean Corpuscular Hgb Conc 34.6 g/dL (32.0-36.0); Mean Corpuscular Volume 85.7 fL (80.0-100.0); Mean Platelet Volume 9.1 fL (9.4-12.4); Monocytes # (auto) 1.28 K/uL (0.11-0.59); Monocytes % (auto) 7.6 %; Neutrophils # (auto) 13.84 K/uL (1.40-6.50); Neutrophils % (auto) 82.3 %; Platelet Count 213 K/uL (130-400); RDW Coefficient of Variation 14.6 % (11.5-14.5); RDW Standard Deviation 45.2 fL (36.4-46.3); Red Blood Count 2.73 M/uL (4.70-6.10); White Blood Count 16.82 K/ul (4.8-10.8)
[2022-08-03] MEDS: metroNIDAZOLE 500 MG/100 ML BAG IV SCH ×2 (05:56→14:51)
[2022-08-03 06:06] LABS: BUN Creatinine Ratio 10.2 (10-20); Calcium 7.7 mg/dl (8.6-10.3); Creatinine Clr Calc Pharmacy 33.2 ml/min; Est GFR (African American) 17.5 ml/min; Est GFR (Non-African American) 15.1 ml/min; Phosphorus 5.5 mg/dl (2.5-4.9); Potassium 4.1 mmol/L (3.5-5.1)
[2022-08-03 07:53] LABS: iSTAT Allen Test Pass; iSTAT Art Bld Gas pCO2 Correct 44 mmHg (35-46); iSTAT Art Bld Gas pH Corrected 7.342 (7.35-7.45); iSTAT Arterial Blood Gas HCO3 23 meg/L (19-24); iSTAT Arterial Blood Gas pCO2 41 mmHg (35-46); iSTAT Arterial Blood Gas pH 7.37 (7.35-7.45); iSTAT Arterial Blood Gas pO2 65 mmHg (80-95); iSTAT Arterial Blood Gas pO2 C 72; iSTAT Carbon Dioxide 24 mmol/L (24-31); iSTAT FiO2 100 %; iSTAT Hematocrit 23 % (42-52); iSTAT Hemoglobin 7.8 g/dl (14.0-18.0); iSTAT Site L Radial; iSTAT Sodium 133 mmol/L (135-144)
[2022-08-03] MEDS: INSULIN ASPART PER UNIT CHARGE SC SCH ×4 (07:53→21:03)
--- NOTE | 2022-08-03 08:10 | Critical Care Progress Note ---
Date of Service August 03, 2022 Assessment & Plan (1) Postoperative hypotension: Plan: Reason Critically Ill: 57-year-old male postprocedural hypotension PLAN: Neuro: Chronic pain - Chronic gabapentin - holding secondary to worsening renal function Acute postoperative pain -Postoperative pain management orders per urology -Pain well controlled Resp: Obstructive sleep apnea -Patient may use own BiPAP otherwise will provide CPAP when sleeping Acute hypoxic respiratory failure: P/F ratio <100 -Most consistent with third spacing -PE in differential, diagnostic conundrum: Echo technically limited due to body habitus, CTA contraindicated given worsening renal function, patient is definitively having postoperative bleeding requiring blood transfusions: Absolute contraindication to systemic thrombolysis is that he is recently postop , systemic anticoagulation in this patient would be very high risk without more definitive diagnosis of pulmonary embolism CV: Hypotension: Able to discontinue vasopressin yesterday however we have stalled in down titration of norepinephrine -Echocardiogram reviewed, troponins were negative will send additional level today, -This may also be vaccine customer representative of acute cor pulmonale, patient has longstanding history of obesity and obstructive sleep apnea which can induce pulmonary hypertension aside from thromboembolic disease which patient does not have a history Fluids/Renal: Acute metabolic acidosis: Mild -Bicarbonate infusion was discontinued yesterday Elevated creatinine appears to have nadired and has 1 downtrending lab value -Nephrology following Hyperkalemia: Resolved ID: Antibiotics expanded to include Flagyl and cefepime -Patient improving anticipate discontinuation when blood cultures negative 48 hours GI/Nutrition: Morbid obesity -At risk for reintubation, making n.p.o. Heme: Anemia: Acute blood loss: Postoperative -S/P 3 units PRBCs 08/02 -Ongoing drainage from surgical sites, -Check mixed venous oxygen saturation and if he has high extraction patient may benefit from higher hemoglobin concentration DVT prophylaxis: SCDs Endocrine: ICU hyperglycemia protocol Hyperglycemia -Continue insulin infusion Vascular access: Right IJ central catheter Code Status: Full code Disposition: ICU Discussed extensively with nephrology and urology regarding risks benefits of anticoagulation, contrast for advanced imaging, and close continued observation for probable acute cor pulmonale. Will trial milrinone hopefully decrease pulmonary vascular bed resistance. Considerations given to mild diuretic to help offload presumptive right-sided failure. I have personally spent 90 minutes of critical care time in the direct management of this patient. This is a life/limb threatening event. This includes time spent evaluating patient, direct bedside care, chart review, placing orders, interpretation of diagnostic studies, discussion with consultants, patient, and/or family members regarding treatment decisions, as well as other required patient management activities. This time is exclusive of all separately billable procedures, and teaching time and separate from and in addition to any other critical care service time. (2) Proteinuria due to type 2 diabetes mellitus: (3) Type 2 diabetes mellitus with diabetic neuropathy, without long-term current use of insulin: (4) Sleep apnea: (5) Morbid obesity: (6) Right renal mass: Admission and Anticipated Discharge Date Admission Date: August 01, 2022 Subjective Mildly decreasing mental status per staff, increasing disorientation. No significant improvement in oxygen requirements and have been unable to decrease vasoactive medication requirements in last 12 hours. Physical Exam Physical Exam: General: Arouses to voice Skin: Warm, dry, Head: Atraumatic Ears, nose, mouth and throat: BiPAP mask in place Cardiovascular: Normal peripheral perfusion Respiratory: Mild tachypnea Gastrointestinal: Non distended Musculoskeletal: No deformity Results & Data Results & Data Vital Signs (Past 12 Hours) Vital Signs Pulse Resp Pulse Ox O2 Del Method FiO2 08/03/22 07:25 96 H 08/02/22 21:00 BiPAP 100 08/03/22 02:37 102 H 29 H 96 100 08/03/22 00:00 101 H 08/02/22 23:25 102 H 30 H 96 100 Critical Care Results & Data Vital Signs (Past 12 Hours) Vital Signs Pulse Resp Pulse Ox O2 Del Method FiO2 08/03/22 07:25 96 H 08/02/22 21:00 BiPAP 100 08/03/22 02:37 102 H 29 H 96 100 08/03/22 00:00 101 H 08/02/22 23:25 102 H 30 H 96 100 Lab & Micro Results (Past 24 Hours) RBC 2.73 M/uL (4.70-6.10) L 08/03/22 WBC 16.82 K/ul (4.8-10.8) H 08/03/22 Hgb 8.1 g/dl (14.0-18.0) L 08/03/22 Hct 23.4 % (42.0-52.0) L 08/03/22 MCV 85.7 fL (80.0-100.0) 08/03/22 MCH 29.7 pg (25.0-34.0) 08/03/22 MCHC 34.6 g/dL (32.0-36.0) 08/03/22 RDW Standard Deviation 45.2 fL (36.4-46.3) 08/03/22 RDW Coefficient of Variation 14.6 % (11.5-14.5) H 08/03/22 Plt Count 213 K/uL (130-400) 08/03/22 MPV 9.1 fL (9.4-12.4) L 08/03/22 Neutrophils (%) (Auto) 82.3 % 08/03/22 Lymphocytes (%) (Auto) 9.2 % 08/03/22 Monocytes # (Auto) 1.28 K/uL (0.11-0.59) H 08/03/22 Eosinophils # (Auto) 0.02 K/uL (0-0.50) 08/03/22 Immature Granulocyte % (Auto) 0.6 % 08/03/22 Neutrophils # (Auto) 13.84 K/uL (1.40-6.50) H 08/03/22 Lymphocytes # (Auto) 1.54 K/uL (1.2-3.4) 08/03/22 Monocytes # (Auto) 1.28 K/uL (0.11-0.59) H 08/03/22 Eosinophils # (Auto) 0.02 K/uL (0-0.50) 08/03/22 Basophils # (Auto) 0.04 K/uL (0-0.2) 08/03/22 Immature Granulocyte # (Auto) 0.10 K/uL (0.01-0.20) 3 Na 133 mmol/L (136-145) L 08/03/22 K 4.1 mmol/L (3.5-5.1) 08/03/22 Cl 103 mmol/L (98-107) 08/03/22 CO2 24 mmol/L (21-32) 08/03/22 Anion Gap 6 (3-11) 08/03/22 BUN 42 mg/dl (6-23) H 08/03/22 Creatinine 4.12 mg/dl (0.6-1.4) H 08/03/22 Estimated GFR ( Amer) 17.5 ml/min 04/22/23 Estimated GFR (Non-Af Amer) 15.1 ml/min 08/03/22 BUN/Creatinine Ratio 10.2 (10-20) 08/03/22 Glu 105 mg/dl (70-99(Fasting)) H 08/03/22 Ca 7.7 mg/dl (8.6-10.3) L 08/03/22 Phosphorus Level 5.5 mg/dl (2.5-4.9) H 08/03/22 Mg 2.0 mg/dl (1.7-2.4) 08/03/22 05:36 Calcium Level 7.7 mg/dl (8.6-10.3) L 08/03/22 05:36 Ionized Calcium 1.09 mmol/L (1.12-1.32) L 08/02/22 10:17 Venous Blood pH 7.34 (7.36-7.41) L 08/02/22 23:56 Venous Blood Partial Pressure CO2 42 mmHg (38-50) 08/02/22 23:5 6 Venous Blood Partial Pressure O2 38 mmHg 08/02/22 23:56 Venous Blood HCO3 23 mmol/L 08/02/22 23:56 Venous Blood Base Excess -3.0 mEq/L 08/02/22 23:56 Venous Blood Oxygen Saturation < 60.0 % 08/02/22 23:56 Adan Test Pass 08/03/22 07:34 Microbiology 08/01/22 22:46 Aerobic Blood Culture - Preliminary Blood No growth in Aerobic bottle after 24 hours. Anaerobic Blood Culture - Preliminary No growth in Anaerobic bottle after 24 hours. 08/01/22 22:41 Aerobic Blood Culture - Preliminary Blood No growth in Aerobic bottle after 24 hours. Anaerobic Blood Culture - Preliminary No growth in Anaerobic bottle after 24 hours. I & O Totals 24 Hours 08/02/22 08/03/22 08/04/22 06:59 06:59 06:59 Intake Total 7210.955 / 7210.955 3764.054 / 3764.054 177.263 / 177.263 Output Total 1055 / 1055 1300 / 1300 Balance 6155.955 / 6155.955 2464.054 / 2464.054 177.263 / 177.263 Cumulative 07/16/22 09:54 thru 08/03/22 07:54 Intake Total 02578.272 Output Total 2355 Balance 8797.272 RT Ventilator Mngmt (Last Documented) Ventilator Ordered Settings Respiratory Rate 29 08/03/22 02:37 Fraction of Inspired Oxygen 100 08/03/22 02:37 Ventilator - PT Measurements Respiratory Rate 29 Coding Level of Care Code 65234 CRITICAL CARE EA ADD 30M Diagnoses Postoperative hypotension I95.81 Proteinuria due to type 2 diabetes mellitus E11.29; R80.9 Type 2 diabetes mellitus with diabetic neuropathy, without long-term current use of insulin E11.40 Sleep apnea G47.30 Morbid obesity E66.01 Right renal mass N28.89
--- NOTE | 2022-08-03 08:10 | Urology Progress Note ---
Date of Service August 03, 2022 Assessment & Plan (1) Acute renal failure: (2) Acute blood loss anemia: (3) H/O partial nephrectomy: (4) Renal mass: Plan 57-year-old male who is status post right robotic partial nephrectomy on 08/01/2022. Postoperatively was upgraded to ICU due to hypotension, respiratory issues, and concern for postoperative bleed. He fortunately stabilized and a postoperative CT scan did not show concern for a large hemorrhage. Subjectively, patient reports improvement. He is well-appearing today. His abdominal exam is nonconcerning. No current indication for any surgical intervention Continue to trend labs closely. Low concern for any persistent bleeding but patient may very likely require further transfusion as I believe his numbers are catching up with his initial blood loss. Defer to ICU team for transfusion management Creatinine appears to have plateaued and hopefully will downtrend. Appreciate help from critical care team, medicine and nephrology Reasonable for patient to have clear liquid diet and attempt to ambulate today We will maintain Reis catheter and DIANA drain Hold any anticoagulation Appreciate help with care from all consulting teams Admission and Anticipated Discharge Date Admission Date: August 01, 2022 Subjective No acute issues overnight. Patient reports subjectively feeling better. His pain is well controlled. He does remain mildly tachycardic and tachypneic. His blood pressures are still relatively soft. He has been afebrile. Leukocytosis continues to downtrend and is 16.8 this morning. Hemoglobin is currently 8.1 and previously was 8.6 and 9.4. Creatinine appears to have plateaued at 4.42 and is currently 4.12. Urine output is 0.24 mL/kg/h. DIANA output over last recorded timeframe was 130. Review of Systems Review of Systems: 14 point review of systems negative outside of what is listed above in HPI Physical Exam Physical Exam: General: Alert and oriented, no acute distress HEENT: Normocephalic, mucous membranes moist, BIPAP in place Pulmonary: Nonlabored respirations Abdomen: Soft, nondistended, nontender. Incisions clean dry and intact with dressing in place. DIANA drain with minimal serosanguineous output : Reis catheter draining clear urine Extremities: Moves all 4 spontaneously Neuro: No gross deficits Skin: Warm, dry, no rashes noted Results & Data Vital Signs (Past 12 Hours) Vital Signs Pulse Resp Pulse Ox O2 Del Method FiO2 08/03/22 07:25 96 H 08/02/22 21:00 BiPAP 100 08/03/22 02:37 102 H 29 H 96 100 08/03/22 00:00 101 H 08/02/22 23:25 102 H 30 H 96 100 PG Care Time/CCT Total # of Minutes Spent Total Time Spent with Patient: Total time spent is greater than 50% in coordination of care (as documented) at patient's floor/unit and/or counseling patient: Coding Level of Care Code 06051 SUB INP/OBS CARE 2/35MIN Diagnoses Acute renal failure N17.9 Acute blood loss anemia D62 H/O partial nephrectomy Z90.5 Renal mass N28.89
[2022-08-03] MEDS ORDERED: LANTUS PER UNIT CHARGE SC ONE ×3 (09:00→15:00)
[2022-08-03 09:10] LABS: Mixed Venous Blood Gas Base Excess -1.5 mEq/L (-7.7-1.9); Mixed Venous Blood Gas HCO3 24 mmol/L (19-24); Mixed Venous Blood Gas O2 Sat 67.7 % (68); Mixed Venous Blood Gas PCO2 45 mmHg (38-50); Mixed Venous Blood Gas PO2 40 mmHg (80-95); Mixed Venous Blood Gas pH 7.34 (7.35-7.45)
[2022-08-03] MEDS ORDERED: [UNRECOGNIZED DRUG - REMARK] IV ONE (09:39)
[2022-08-03] MEDS ORDERED: STAT IV Infusion **Titration per Protocol STA ×2 (09:39→10:14)
[2022-08-03 09:43] LABS: Partial Thromboplastin Ratio 1.1; Partial Thromboplastin Time 31.3 Seconds (21.0-31.0); Prothrombin Time 11.4 Seconds (9.0-12.0)
[2022-08-03 09:45] LABS: Fibrinogen 546 mg/dl (184-400)
[2022-08-03] MEDS: INSULIN REGULAR 250 UNITS in SODIUM CHLORIDE 0.9% 247.5 ML IV SCH (09:50)
--- NOTE | 2022-08-03 09:53 | Nephrology Progress Note ---
Date of Service August 03, 2022 Assessment & Plan (1) Acute kidney injury: Plan: Non-oliguric. Creatinine plateaued. MAO consistent with ischemic ATN in setting of hemodynamic instability. No emergent indication for dialysis at this time. Potential future indications were reviewed with the patient and his daughter this AM. I also discussed the plan of care with Dr. Miles and Dr. Wilburn. Avoid significantly positive fluid balance due to hypoxia, low lung volume, and clinical findings of pulmonary hypertension. Reasons that dialysis may be required to assist in volume management were discussed with Nathaniel and his daughter. Medications are appropriately dosed for kidney dysfunction. For body weight and given some noted improvement in kidney function/est CrCl cefepime 2 q 12 dosing likely acceptable but may consider dose reduction for any signs of potential toxicity. MAP goal >65. Document strict I/O's. Reis to gravity. Monitor metabolic profile twice daily. (2) H/O partial nephrectomy: Plan: POD #2 s/p robotic assisted laparoscopic right partial nephrectomy. CT reviewed this AM. (3) Postoperative hypotension: Plan: Remains on vasopressor support. No fevers or chills. WBC normal. H/H stable. (4) Acute blood loss anemia: Plan: s/p 3 u PRBC transfusion support. H/H stable. CT reviewed. No signs of continued active bleeding noted this AM. (5) COPD (chronic obstructive pulmonary disease): (6) MARIA EUGENIA (obstructive sleep apnea): Plan: Remains dependent on BIPAP and supplemental O2. Signs of pulmonary hypertension. Given kidney dysfunction, I would suggest avoiding iodinated contrast / CTA if able. Cautious titration of milrinone in kidney dysfunction. Admission and Anticipated Discharge Date Admission Date: August 01, 2022 Subjective Nathaniel was seen and evaluated in the ICU this AM with his daughter (Elisabet) at the bedside. He remains on Levophed gtt and on BIPAP 100% FI02. Non-oliguric. Reis intact. Denies pain. No fevers or chills. Some oozing on dressing but no notable signs of active bleeding otherwise. Nathaniel was sleeping this AM but did wake to answer questions and allow exam before drifting back to sleep. Review of Systems Review of Systems: All systems reviewed & are unremarkable except as noted in HPI & below Physical Exam Constitutional: + ill appearing and + morbidly obese Eyes: + anicteric sclerae; pupils not irregular ENMT: BIPAP/NRB Neck: normal visual inspection, trachea midline and + thick neck Respiratory: + tachypneic; no respiratory distress and no retractions Auscultation: lungs clear to auscultation bilaterally and + rhonchi; no rales and no wheezes Cardiovascular: Rate/Rhythm: regular rate Heart Sounds: normal S1 and normal S2 Extremities: no edema Gastrointestinal (Abdomen): Inspection/Auscultation: + abdomen distended; + abnormal bowel sounds Percussion/Palpation: normal to percussion; no guarding and abdomen not rigid Surgical dressing with some blood, DIANA draining bloody fluid Musculoskeletal: Extremities: no cyanosis and no clubbing Skin: normal turgor; no jaundice Neurologic: Motor/Sensory: no tremor and no asterixis Psychiatric: Orientation: alert and oriented x 3 Genitourinary: Reis with concentrated yellow urine Results & Data Vital Signs (Past 12 Hours) Vital Signs Pulse Resp BP Pulse Ox FiO2 08/03/22 09:00 91 H 24 95 08/03/22 09:00 128/67 08/03/22 08:30 91 H 23 08/03/22 08:30 131/60 08/03/22 08:29 89 22 95 08/03/22 08:29 120/58 L 08/03/22 08:01 88 20 92 08/03/22 08:01 119/67 08/03/22 08:00 92 H 21 92 08/03/22 07:30 93 H 30 H 92 08/03/22 07:30 106/69 08/03/22 07:01 94 H 23 90 08/03/22 07:01 122/63 08/03/22 07:00 94 H 24 90 08/03/22 07:40 98 H 31 H 90 100 08/03/22 07:25 96 H 08/03/22 02:37 102 H 29 H 96 100 08/03/22 00:00 101 H 08/02/22 23:25 102 H 30 H 96 100 Laboratory Results Laboratory Results - last 24 hr 08/01/22 08/01/22 08/01/22 14:47 16:25 22:00 WBC RBC Hgb POC Hgb Hct POC Hct MCV MCH MCHC RDW Std Deviation RDW Coeff of [place] Plt Count MPV Immature Gran % (Auto) Neut % (Auto) Lymph % (Auto) [place] % (Auto) Eos % (Auto) Baso % (Auto) Neut # (Auto) Lymph # (Auto) [place] # (Auto) Eos # (Auto) Baso # (Auto) Immature Gran # (Auto) PT INR APTT PTT Ratio Fibrinogen Sample Site POC pH POC pCO2 POC pO2 POC HCO3 POC Total CO2 POC Base Excess ABG pH (Temp Correct) ABG pCO2 (Temp Corrct POC ABG pO2 at Pt Temp POC ABG O2 Sat Adan Test VBG pH VBG pCO2 VBG pO2 VBG HCO3 VBG O2 Saturation VBG Base Excess Mixed VBG pH Mixed VBG pCO2 Mixed VBG pO2 Mixed VBG HCO3 Mixed VBG Base Excess Mixed VBG O2 Saturation O2 Delivery Device POC O2 Rate POC FiO2 IPAP POC Sodium Sodium POC Potassium Potassium 6.4 H* Chloride Carbon Dioxide Anion Gap BUN Creatinine Est Cr Clr Drug Dosing Est GFR ( Amer) Est GFR (Non-Af Amer) BUN/Creatinine Ratio Glucose POC Glucose POC Glucose (other) 486 H* Osmolality Lactate Calcium Ionized Calcium Phosphorus Magnesium Troponin I High Sens B-Natriuretic Peptide Urine Color [place] Urine Appearance Turbid A Urine pH 5.0 Ur Specific [place] 1.020 Urine Protein Trace H Urine Glucose (UA) Negative Urine Ketones Negative Urine Blood 3+ H Urine Nitrite Positive A Urine Bilirubin Negative Urine Urobilinogen Negative Ur Leukocyte Esterase 2+ H Urine WBC (Auto) >30 H Urine RBC (Auto) >30 H U Hyaline Cast (Auto) 0 U Epithel Cells (Auto) >30 H Urine Bacteria (Auto) Negative Ur Renal Epithelial Cell 0-5 Amorphous Sediment Present A Urine Yeast Not Reportable Ur Random Creatinine Ur Random Sodium 08/02/22 08/02/22 08/02/22 09:06 10:17 10:24 WBC RBC Hgb POC Hgb Hct POC Hct MCV MCH MCHC RDW Std Deviation RDW Coeff of [place] Plt Count MPV Immature Gran % (Auto) Neut % (Auto) Lymph % (Auto) [place] % (Auto) Eos % (Auto) Baso % (Auto) Neut # (Auto) Lymph # (Auto) [place] # (Auto) Eos # (Auto) Baso # (Auto) Immature Gran # (Auto) PT INR APTT PTT Ratio Fibrinogen Sample Site POC pH POC pCO2 POC pO2 POC HCO3 POC Total CO2 POC Base Excess ABG pH (Temp Correct) ABG pCO2 (Temp Corrct POC ABG pO2 at Pt Temp POC ABG O2 Sat Adan Test VBG pH VBG pCO2 VBG pO2 VBG HCO3 VBG O2 Saturation VBG Base Excess Mixed VBG pH Mixed VBG pCO2 Mixed VBG pO2 Mixed VBG HCO3 Mixed VBG Base Excess Mixed VBG O2 Saturation O2 Delivery Device POC O2 Rate POC FiO2 IPAP POC Sodium Sodium 134 L POC Potassium Potassium 4.8 Chloride 104 Carbon Dioxide 20 L Anion Gap 10 BUN 36 H Creatinine 3.59 H Est Cr Clr Drug Dosing 37.9 Est GFR ( Amer) 20.7 Est GFR (Non-Af Amer) 17.9 BUN/Creatinine Ratio 10.0 Glucose 179 H POC Glucose POC Glucose (other) Osmolality Lactate 2.4 H* Calcium 8.0 L Ionized Calcium 1.09 L Phosphorus Magnesium Troponin I High Sens B-Natriuretic Peptide Urine Color Urine Appearance Urine pH Ur Specific [place] Urine Protein Urine Glucose (UA) Urine Ketones Urine Blood Urine Nitrite Urine Bilirubin Urine Urobilinogen Ur Leukocyte Esterase Urine WBC (Auto) Urine RBC (Auto) U Hyaline Cast (Auto) U Epithel Cells (Auto) Urine Bacteria (Auto) Ur Renal Epithelial Cell Amorphous Sediment Urine Yeast Ur Random Creatinine Ur Random Sodium 08/02/22 08/02/22 08/02/22 10:25 10:37 11:38 WBC RBC Hgb POC Hgb Hct POC Hct MCV MCH MCHC RDW Std Deviation RDW Coeff of [place] Plt Count MPV Immature Gran % (Auto) Neut % (Auto) Lymph % (Auto) [place] % (Auto) Eos % (Auto) Baso % (Auto) Neut # (Auto) Lymph # (Auto) [place] # (Auto) Eos # (Auto) Baso # (Auto) Immature Gran # (Auto) PT INR APTT PTT Ratio Fibrinogen Sample Site POC pH POC pCO2 POC pO2 POC HCO3 POC Total CO2 POC Base Excess ABG pH (Temp Correct) ABG pCO2 (Temp Corrct POC ABG pO2 at Pt Temp POC ABG O2 Sat Adan Test VBG pH VBG pCO2 VBG pO2 VBG HCO3 VBG O2 Saturation VBG Base Excess Mixed VBG pH Mixed VBG pCO2 Mixed VBG pO2 Mixed VBG HCO3 Mixed VBG Base Excess Mixed VBG O2 Saturation O2 Delivery Device POC O2 Rate POC FiO2 IPAP POC Sodium Sodium POC Potassium Potassium Chloride Carbon Dioxide Anion Gap BUN Creatinine Est Cr Clr Drug Dosing Est GFR ( Amer) Est GFR (Non-Af Amer) BUN/Creatinine Ratio Glucose POC Glucose 177 H 121 H POC Glucose (other) Osmolality 299 Lactate Calcium Ionized Calcium Phosphorus Magnesium Troponin I High Sens B-Natriuretic Peptide Urine Color Urine Appearance Urine pH Ur Specific [place] Urine Protein Urine Glucose (UA) Urine Ketones Urine Blood Urine Nitrite Urine Bilirubin Urine Urobilinogen Ur Leukocyte Esterase Urine WBC (Auto) Urine RBC (Auto) U Hyaline Cast (Auto) U Epithel Cells (Auto) Urine Bacteria (Auto) Ur Renal Epithelial Cell Amorphous Sediment Urine Yeast Ur Random Creatinine Ur Random Sodium 08/02/22 08/02/22 08/02/22 12:38 12:38 13:14 WBC RBC Hgb 9.9 L POC Hgb Hct 28.6 L POC Hct MCV MCH MCHC RDW Std Deviation RDW Coeff of [place] Plt Count MPV Immature Gran % (Auto) Neut % (Auto) Lymph % (Auto) [place] % (Auto) Eos % (Auto) Baso % (Auto) Neut # (Auto) Lymph # (Auto) [place] # (Auto) Eos # (Auto) Baso # (Auto) Immature Gran # (Auto) PT INR APTT PTT Ratio Fibrinogen Sample Site POC pH POC pCO2 POC pO2 POC HCO3 POC Total CO2 POC Base Excess ABG pH (Temp Correct) ABG pCO2 (Temp Corrct POC ABG pO2 at Pt Temp POC ABG O2 Sat Adan Test VBG pH VBG pCO2 VBG pO2 VBG HCO3 VBG O2 Saturation VBG Base Excess Mixed VBG pH Mixed VBG pCO2 Mixed VBG pO2 Mixed VBG HCO3 Mixed VBG Base Excess Mixed VBG O2 Saturation O2 Delivery Device POC O2 Rate POC FiO2 IPAP POC Sodium Sodium POC Potassium Potassium Chloride Carbon Dioxide Anion Gap BUN Creatinine Est Cr Clr Drug Dosing Est GFR ( Amer) Est GFR (Non-Af Amer) BUN/Creatinine Ratio Glucose POC Glucose 159 H POC Glucose (other) Osmolality Lactate Calcium Ionized Calcium Phosphorus Magnesium Troponin I High Sens B-Natriuretic Peptide 67 Urine Color Urine Appearance Urine pH Ur Specific [place] Urine Protein Urine Glucose (UA) Urine Ketones Urine Blood Urine Nitrite Urine Bilirubin Urine Urobilinogen Ur Leukocyte Esterase Urine WBC (Auto) Urine RBC (Auto) U Hyaline Cast (Auto) U Epithel Cells (Auto) Urine Bacteria (Auto) Ur Renal Epithelial Cell Amorphous Sediment Urine Yeast Ur Random Creatinine Ur Random Sodium 08/02/22 08/02/22 08/02/22 14:16 15:19 16:25 WBC RBC Hgb POC Hgb Hct POC Hct MCV MCH MCHC RDW Std Deviation RDW Coeff of [place] Plt Count MPV Immature Gran % (Auto) Neut % (Auto) Lymph % (Auto) [place] % (Auto) Eos % (Auto) Baso % (Auto) Neut # (Auto) Lymph # (Auto) [place] # (Auto) Eos # (Auto) Baso # (Auto) Immature Gran # (Auto) PT INR APTT PTT Ratio Fibrinogen Sample Site POC pH POC pCO2 POC pO2 POC HCO3 POC Total CO2 POC Base Excess ABG pH (Temp Correct) ABG pCO2 (Temp Corrct POC ABG pO2 at Pt Temp POC ABG O2 Sat Adan Test VBG pH VBG pCO2 VBG pO2 VBG HCO3 VBG O2 Saturation VBG Base Excess Mixed VBG pH Mixed VBG pCO2 Mixed VBG pO2 Mixed VBG HCO3 Mixed VBG Base Excess Mixed VBG O2 Saturation O2 Delivery Device POC O2 Rate POC FiO2 IPAP POC Sodium Sodium POC Potassium Potassium Chloride Carbon Dioxide Anion Gap BUN Creatinine Est Cr Clr Drug Dosing Est GFR ( Amer) Est GFR (Non-Af Amer) BUN/Creatinine Ratio Glucose POC Glucose 156 H 161 H POC Glucose (other) Osmolality Lactate Calcium Ionized Calcium Phosphorus Magnesium Troponin I High Sens B-Natriuretic Peptide Urine Color Urine Appearance Urine pH Ur Specific [place] Urine Protein Urine Glucose (UA) Urine Ketones Urine Blood Urine Nitrite Urine Bilirubin Urine Urobilinogen Ur Leukocyte Esterase Urine WBC (Auto) Urine RBC (Auto) U Hyaline Cast (Auto) U Epithel Cells (Auto) Urine Bacteria (Auto) Ur Renal Epithelial Cell Amorphous Sediment Urine Yeast Ur Random Creatinine 221.2 Ur Random Sodium 35 08/02/22 08/02/22 08/02/22 17:03 18:10 18:10 WBC RBC Hgb 9.4 L POC Hgb Hct 27.0 L POC Hct MCV MCH MCHC RDW Std Deviation RDW Coeff of [place] Plt Count MPV Immature Gran % (Auto) Neut % (Auto) Lymph % (Auto) [place] % (Auto) Eos % (Auto) Baso % (Auto) Neut # (Auto) Lymph # (Auto) [place] # (Auto) Eos # (Auto) Baso # (Auto) Immature Gran # (Auto) PT INR APTT PTT Ratio Fibrinogen Sample Site POC pH POC pCO2 POC pO2 POC HCO3 POC Total CO2 POC Base Excess ABG pH (Temp Correct) ABG pCO2 (Temp Corrct POC ABG pO2 at Pt Temp POC ABG O2 Sat Adan Test VBG pH VBG pCO2 VBG pO2 VBG HCO3 VBG O2 Saturation VBG Base Excess Mixed VBG pH Mixed VBG pCO2 Mixed VBG pO2 Mixed VBG HCO3 Mixed VBG Base Excess Mixed VBG O2 Saturation O2 Delivery Device POC O2 Rate POC FiO2 IPAP POC Sodium Sodium 134 L POC Potassium Potassium 4.5 Chloride 103 Carbon Dioxide 20 L Anion Gap 11 BUN 39 H Creatinine 4.26 H D Est Cr Clr Drug Dosing 32.0 Est GFR ( Amer) 16.8 Est GFR (Non-Af Amer) 14.5 BUN/Creatinine Ratio 9.2 L Glucose 148 H POC Glucose 144 H POC Glucose (other) Osmolality Lactate Calcium 8.0 L Ionized Calcium Phosphorus Magnesium Troponin I High Sens B-Natriuretic Peptide Urine Color Urine Appearance Urine pH Ur Specific [place] Urine Protein Urine Glucose (UA) Urine Ketones Urine Blood Urine Nitrite Urine Bilirubin Urine Urobilinogen Ur Leukocyte Esterase Urine WBC (Auto) Urine RBC (Auto) U Hyaline Cast (Auto) U Epithel Cells (Auto) Urine Bacteria (Auto) Ur Renal Epithelial Cell Amorphous Sediment Urine Yeast Ur Random Creatinine Ur Random Sodium 08/02/22 08/02/22 08/02/22 19:35 23:08 23:56 WBC 17.52 H RBC 2.93 L Hgb 8.6 L POC Hgb Hct 25.1 L POC Hct MCV 85.7 MCH 29.4 MCHC 34.3 RDW Std Deviation 44.9 RDW Coeff of [place] 14.5 Plt Count 229 MPV 9.9 Immature Gran % (Auto) 0.6 Neut % (Auto) 80.8 Lymph % (Auto) 10.6 [place] % (Auto) 7.6 Eos % (Auto) 0.1 Baso % (Auto) 0.3 Neut # (Auto) 14.16 H Lymph # (Auto) 1.85 [place] # (Auto) 1.33 H Eos # (Auto) 0.02 Baso # (Auto) 0.06 Immature Gran # (Auto) 0.10 PT INR APTT PTT Ratio Fibrinogen Sample Site POC pH POC pCO2 POC pO2 POC HCO3 POC Total CO2 POC Base Excess ABG pH (Temp Correct) ABG pCO2 (Temp Corrct POC ABG pO2 at Pt Temp POC ABG O2 Sat Adan Test VBG pH VBG pCO2 VBG pO2 VBG HCO3 VBG O2 Saturation VBG Base Excess Mixed VBG pH Mixed VBG pCO2 Mixed VBG pO2 Mixed VBG HCO3 Mixed VBG Base Excess Mixed VBG O2 Saturation O2 Delivery Device POC O2 Rate POC FiO2 IPAP POC Sodium Sodium POC Potassium Potassium Chloride Carbon Dioxide Anion Gap BUN Creatinine Est Cr Clr Drug Dosing Est GFR ( Amer) Est GFR (Non-Af Amer) BUN/Creatinine Ratio Glucose POC Glucose 151 H 116 H POC Glucose (other) Osmolality Lactate Calcium Ionized Calcium Phosphorus Magnesium Troponin I High Sens B-Natriuretic Peptide Urine Color Urine Appearance Urine pH Ur Specific [place] Urine Protein Urine Glucose (UA) Urine Ketones Urine Blood Urine Nitrite Urine Bilirubin Urine Urobilinogen Ur Leukocyte Esterase Urine WBC (Auto) Urine RBC (Auto) U Hyaline Cast (Auto) U Epithel Cells (Auto) Urine Bacteria (Auto) Ur Renal Epithelial Cell Amorphous Sediment Urine Yeast Ur Random Creatinine Ur Random Sodium 08/02/22 08/02/22 08/03/22 23:56 23:56 01:45 WBC RBC Hgb POC Hgb Hct POC Hct MCV MCH MCHC RDW Std Deviation RDW Coeff of [place] Plt Count MPV Immature Gran % (Auto) Neut % (Auto) Lymph % (Auto) [place] % (Auto) Eos % (Auto) Baso % (Auto) Neut # (Auto) Lymph # (Auto) [place] # (Auto) Eos # (Auto) Baso # (Auto) Immature Gran # (Auto) PT INR APTT PTT Ratio Fibrinogen Sample Site POC pH POC pCO2 POC pO2 POC HCO3 POC Total CO2 POC Base Excess ABG pH (Temp Correct) ABG pCO2 (Temp Corrct POC ABG pO2 at Pt Temp POC ABG O2 Sat Adan Test VBG pH 7.34 L VBG pCO2 42 VBG pO2 38 VBG HCO3 23 VBG O2 Saturation < 60.0 VBG Base Excess -3.0 Mixed VBG pH Mixed VBG pCO2 Mixed VBG pO2 Mixed VBG HCO3 Mixed VBG Base Excess Mixed VBG O2 Saturation O2 Delivery Device POC O2 Rate POC FiO2 IPAP POC Sodium Sodium 134 L POC Potassium Potassium 4.4 Chloride 102 Carbon Dioxide 22 Anion Gap 10 BUN 41 H Creatinine 4.42 H Est Cr Clr Drug Dosing 30.8 Est GFR ( Amer) 16.1 Est GFR (Non-Af Amer) 13.9 BUN/Creatinine Ratio 9.3 L Glucose 131 H POC Glucose 123 H POC Glucose (other) Osmolality Lactate Calcium 7.8 L Ionized Calcium Phosphorus Magnesium Troponin I High Sens B-Natriuretic Peptide Urine Color Urine Appearance Urine pH Ur Specific [place] Urine Protein Urine Glucose (UA) Urine Ketones Urine Blood Urine Nitrite Urine Bilirubin Urine Urobilinogen Ur Leukocyte Esterase Urine WBC (Auto) Urine RBC (Auto) U Hyaline Cast (Auto) U Epithel Cells (Auto) Urine Bacteria (Auto) Ur Renal Epithelial Cell Amorphous Sediment Urine Yeast Ur Random Creatinine Ur Random Sodium 08/03/22 08/03/22 08/03/22 04:48 05:36 05:36 WBC 16.82 H RBC 2.73 L Hgb 8.1 L POC Hgb Hct 23.4 L POC Hct MCV 85.7 MCH 29.7 MCHC 34.6 RDW Std Deviation 45.2 RDW Coeff of [place] 14.6 H Plt Count 213 MPV 9.1 L Immature Gran % (Auto) 0.6 Neut % (Auto) 82.3 Lymph % (Auto) 9.2 [place] % (Auto) 7.6 Eos % (Auto) 0.1 Baso % (Auto) 0.2 Neut # (Auto) 13.84 H Lymph # (Auto) 1.54 [place] # (Auto) 1.28 H Eos # (Auto) 0.02 Baso # (Auto) 0.04 Immature Gran # (Auto) 0.10 PT INR APTT PTT Ratio Fibrinogen Sample Site POC pH POC pCO2 POC pO2 POC HCO3 POC Total CO2 POC Base Excess ABG pH (Temp Correct) ABG pCO2 (Temp Corrct POC ABG pO2 at Pt Temp POC ABG O2 Sat Adan Test VBG pH VBG pCO2 VBG pO2 VBG HCO3 VBG O2 Saturation VBG Base Excess Mixed VBG pH Mixed VBG pCO2 Mixed VBG pO2 Mixed VBG HCO3 Mixed VBG Base Excess Mixed VBG O2 Saturation O2 Delivery Device POC O2 Rate POC FiO2 IPAP POC Sodium Sodium 133 L POC Potassium Potassium 4.1 Chloride 103 Carbon Dioxide 24 Anion Gap 6 BUN 42 H Creatinine 4.12 H D Est Cr Clr Drug Dosing 33.2 Est GFR ( Amer) 17.5 Est GFR (Non-Af Amer) 15.1 BUN/Creatinine Ratio 10.2 Glucose 105 H POC Glucose 113 H POC Glucose (other) Osmolality Lactate Calcium 7.7 L Ionized Calcium Phosphorus 5.5 H Magnesium 2.0 Troponin I High Sens B-Natriuretic Peptide Urine Color Urine Appearance Urine pH Ur Specific [place] Urine Protein Urine Glucose (UA) Urine Ketones Urine Blood Urine Nitrite Urine Bilirubin Urine Urobilinogen Ur Leukocyte Esterase Urine WBC (Auto) Urine RBC (Auto) U Hyaline Cast (Auto) U Epithel Cells (Auto) Urine Bacteria (Auto) Ur Renal Epithelial Cell Amorphous Sediment Urine Yeast Ur Random Creatinine Ur Random Sodium 08/03/22 08/03/22 08/03/22 07:34 07:40 08:41 WBC RBC Hgb POC Hgb 7.8 L Hct POC Hct 23 L MCV MCH MCHC RDW Std Deviation RDW Coeff of [place] Plt Count MPV Immature Gran % (Auto) Neut % (Auto) Lymph % (Auto) [place] % (Auto) Eos % (Auto) Baso % (Auto) Neut # (Auto) Lymph # (Auto) [place] # (Auto) Eos # (Auto) Baso # (Auto) Immature Gran # (Auto) PT INR APTT PTT Ratio Fibrinogen Sample Site L Radial POC pH 7.37 POC pCO2 41 POC pO2 65 L POC HCO3 23 POC Total CO2 24 POC Base Excess -2.0 ABG pH (Temp Correct) 7.342 L ABG pCO2 (Temp Corrct 44 POC ABG pO2 at Pt Temp 72 POC ABG O2 Sat 92.0 Adan Test Pass VBG pH VBG pCO2 VBG pO2 VBG HCO3 VBG O2 Saturation VBG Base Excess Mixed VBG pH Mixed VBG pCO2 Mixed VBG pO2 Mixed VBG HCO3 Mixed VBG Base Excess Mixed VBG O2 Saturation O2 Delivery Device BIPAP POC O2 Rate 16 POC FiO2 100 IPAP 15 POC Sodium 133 L Sodium POC Potassium 4.0 Potassium Chloride Carbon Dioxide Anion Gap BUN Creatinine Est Cr Clr Drug Dosing Est GFR ( Amer) Est GFR (Non-Af Amer) BUN/Creatinine Ratio Glucose POC Glucose 96 POC Glucose (other) 104 H Osmolality Lactate Calcium Ionized Calcium Phosphorus Magnesium Troponin I High Sens B-Natriuretic Peptide Urine Color Urine Appearance Urine pH Ur Specific [place] Urine Protein Urine Glucose (UA) Urine Ketones Urine Blood Urine Nitrite Urine Bilirubin Urine Urobilinogen Ur Leukocyte Esterase Urine WBC (Auto) Urine RBC (Auto) U Hyaline Cast (Auto) U Epithel Cells (Auto) Urine Bacteria (Auto) Ur Renal Epithelial Cell Amorphous Sediment Urine Yeast Ur Random Creatinine Ur Random Sodium 08/03/22 08/03/22 08/03/22 08:53 08:53 08:53 WBC RBC Hgb POC Hgb Hct POC Hct MCV MCH MCHC RDW Std Deviation RDW Coeff of [place] Plt Count MPV Immature Gran % (Auto) Neut % (Auto) Lymph % (Auto) [place] % (Auto) Eos % (Auto) Baso % (Auto) Neut # (Auto) Lymph # (Auto) [place] # (Auto) Eos # (Auto) Baso # (Auto) Immature Gran # (Auto) PT INR APTT PTT Ratio Fibrinogen Sample Site POC pH POC pCO2 POC pO2 POC HCO3 POC Total CO2 POC Base Excess ABG pH (Temp Correct) ABG pCO2 (Temp Corrct POC ABG pO2 at Pt Temp POC ABG O2 Sat Adan Test VBG pH VBG pCO2 VBG pO2 VBG HCO3 VBG O2 Saturation VBG Base Excess Mixed VBG pH 7.34 L Mixed VBG pCO2 45 Mixed VBG pO2 40 L Mixed VBG HCO3 24 Mixed VBG Base Excess -1.5 Mixed VBG O2 Saturation 67.7 O2 Delivery Device POC O2 Rate POC FiO2 IPAP POC Sodium Sodium POC Potassium Potassium Chloride Carbon Dioxide Anion Gap BUN Creatinine Est Cr Clr Drug Dosing Est GFR ( Amer) Est GFR (Non-Af Amer) BUN/Creatinine Ratio Glucose POC Glucose POC Glucose (other) Osmolality Lactate 0.8 Calcium Ionized Calcium Phosphorus Magnesium Troponin I High Sens 54.7 H* D B-Natriuretic Peptide Urine Color Urine Appearance Urine pH Ur Specific [place] Urine Protein Urine Glucose (UA) Urine Ketones Urine Blood Urine Nitrite Urine Bilirubin Urine Urobilinogen Ur Leukocyte Esterase Urine WBC (Auto) Urine RBC (Auto) U Hyaline Cast (Auto) U Epithel Cells (Auto) Urine Bacteria (Auto) Ur Renal Epithelial Cell Amorphous Sediment Urine Yeast Ur Random Creatinine Ur Random Sodium 08/03/22 08:53 WBC RBC Hgb POC Hgb Hct POC Hct MCV MCH MCHC RDW Std Deviation RDW Coeff of [place] Plt Count MPV Immature Gran % (Auto) Neut % (Auto) Lymph % (Auto) [place] % (Auto) Eos % (Auto) Baso % (Auto) Neut # (Auto) Lymph # (Auto) [place] # (Auto) Eos # (Auto) Baso # (Auto) Immature Gran # (Auto) PT 11.4 INR 1.0 APTT 31.3 H PTT Ratio 1.1 Fibrinogen 546 H D Sample Site POC pH POC pCO2 POC pO2 POC HCO3 POC Total CO2 POC Base Excess ABG pH (Temp Correct) ABG pCO2 (Temp Corrct POC ABG pO2 at Pt Temp POC ABG O2 Sat Adan Test VBG pH VBG pCO2 VBG pO2 VBG HCO3 VBG O2 Saturation VBG Base Excess Mixed VBG pH Mixed VBG pCO2 Mixed VBG pO2 Mixed VBG HCO3 Mixed VBG Base Excess Mixed VBG O2 Saturation O2 Delivery Device POC O2 Rate POC FiO2 IPAP POC Sodium Sodium POC Potassium Potassium Chloride Carbon Dioxide Anion Gap BUN Creatinine Est Cr Clr Drug Dosing Est GFR ( Amer) Est GFR (Non-Af Amer) BUN/Creatinine Ratio Glucose POC Glucose POC Glucose (other) Osmolality Lactate Calcium Ionized Calcium Phosphorus Magnesium Troponin I High Sens B-Natriuretic Peptide Urine Color Urine Appearance Urine pH Ur Specific [place] Urine Protein Urine Glucose (UA) Urine Ketones Urine Blood Urine Nitrite Urine Bilirubin Urine Urobilinogen Ur Leukocyte Esterase Urine WBC (Auto) Urine RBC (Auto) U Hyaline Cast (Auto) U Epithel Cells (Auto) Urine Bacteria (Auto) Ur Renal Epithelial Cell Amorphous Sediment Urine Yeast Ur Random Creatinine Ur Random Sodium Diagnostic Findings CT Abdomen Without Intravenous Contrast Lung bases: Unremarkable. No mass. No consolidation. Liver: Unremarkable. Gallbladder and bile ducts: Unremarkable. No calcified stones. No ductal dilation. Pancreas: Unremarkable. No ductal dilation. Spleen: Unremarkable. No splenomegaly. Adrenals: Unremarkable. No mass. Kidneys and ureters: The patient has undergone right upper pole partial nephrectomy with adjacent small to moderate volume hemorrhage. Stomach and bowel: Unremarkable. No obstruction. No mucosal thickening. Intraperitoneal space: There is a small amount of perisplenic ascites which is most likely reactive. No free air. Bones/joints: No acute fracture. No dislocation. Soft tissues: Unremarkable. Vasculature: There is diffuse atherosclerotic calcification of the aorta and its major branch vessels. No abdominal aortic aneurysm. Lymph nodes: Unremarkable. No enlarged lymph nodes. Tubes, lines and devices: There is a left derrek-abdominal surgical drain in place. Other findings: The right anterior abdomen is excluded secondary to body habitus. IMPRESSION: Status post right upper pole partial nephrectomy with a small to moderate amount of adjacent hemorrhage. PG Care Time/CCT Total # of Minutes Spent Total Time Spent with Patient: Total time spent is greater than 50% in coordination of care (as documented) at patient's floor/unit and/or counseling patient: Coding Level of Care Code 94351 SUB INP/OBS CARE 3/50MIN Diagnoses Acute kidney injury N17.9 H/O partial nephrectomy Z90.5 Postoperative hypotension I95.81 Acute blood loss anemia D62 COPD (chronic obstructive pulmonary disease) J44.9 MARIA EUGENIA (obstructive sleep apnea) G47.33
[2022-08-03] MEDS: CEFEPIME 2,000 MG in SYRINGE 0 ML IV SCH ×2 (10:01→20:44)
[2022-08-03] MEDS: DOCUSATE SODIUM 100 MG CAP PO SCH ×2 (10:12→20:41)
[2022-08-03] MEDS: CYANOCOBALAMIN (B-12) 500 MCG TABLET PO SCH (10:12)
[2022-08-03] MEDS: FLUTICASONE/VILANTEROL 100/25MCG 14 PUFFS/INHALER INH SCH (10:13)
[2022-08-03] MEDS ORDERED: dexMEDEtomidine 200 MCG/50 ML BAG IV SCH ×2 (10:15→10:30)
[2022-08-03] MEDS ORDERED: HALOPERIDOL LACTATE 5 MG/ML 1 ML VIAL ONE (10:16)
[2022-08-03] MEDS ORDERED: HALOPERIDOL LACTATE 5 MG/ML 1 ML VIAL IV STA (10:18)
[2022-08-03] MEDS: MILRINONE LACTATE/D5W 20,000 MCG/100 ML BAG IV SCH ×2 (11:41→20:45)
--- NOTE | 2022-08-03 12:06 | Ultrasound Report ---
BILATERAL LOWER EXTREMITY VENOUS DOPPLER HISTORY: Swelling of the lower legs. r/o dvt COMPARISON STUDY: None. FINDINGS: Limited study secondary to patient body habitus. Subcutaneous edema. There is normal compre ssibility, flow, and augmentation within the bilateral lower extremity deep venous systems. IMPRESSION: No DVT within the right or left lower extremity. ACT 112: Negative or not required by law. Electronically signed by: Sergio Richter M.D. 08/03/2022 12:04 PM
[2022-08-03 12:37] LABS: Hematocrit (blood only) 23.9 % (42.0-52.0); Hemoglobin 8.1 g/dl (14.0-18.0)
[2022-08-03 12:56] LABS: BUN Creatinine Ratio 9.7 (10-20); Calcium 7.7 mg/dl (8.6-10.3); Creatinine Clr Calc Pharmacy 31.7 ml/min; Est GFR (African American) 16.6 ml/min; Est GFR (Non-African American) 14.3 ml/min; Potassium 4.4 mmol/L (3.5-5.1)
--- NOTE | 2022-08-03 13:01 | XRay Report ---
XR chest 1V portable HISTORY: 57 years-old Male hypoxia acute hypoxia COMPARISON: 08/01/2022 TECHNIQUE: AP view of the chest FINDINGS: Cardiac silhouette is enlarged. Right IJ central venous catheter is again noted with distal tip proje cted over the superior cavoatrial junction. No pneumothorax. Small pleural effusions. Degenerative ch anges of the shoulders and spine. IMPRESSION: 1. Cardiomegaly without overt pulmonary edema. 2. Unchanged positioning of the right IJ central venous catheter. 3. Small pleural effusions. ACT 112: Negative or not required by law. The above report was generated using voice recognition software. It may contain grammatical, syntax o r spelling errors. Electronically signed by: Sergio Richter M.D. 08/03/2022 1:00 PM
--- NOTE | 2022-08-03 13:16 | Electrocardiogram Report ---
Test Reason : Blood Pressure : / mmHG Vent. Rate : 094 BPM Atrial Rate : 094 BPM P-R Int : 172 ms QRS Dur : 114 ms QT Int : 354 ms P-R-T Axes : 043 000 059 degrees QTc Int : 442 ms Sinus rhythm with frequent Premature ventricular complexes Incomplete left bundle block Borderline ECG When compared with ECG of 01-AUG-2022 18:08, Premature ventricular complexes are now Present Incomplete left bundle block is now Present Nonspecific T wave abnormality now evident in Lateral leads Confirmed by Sarath Prajapati ([id number]) on 08/03/2022 1:15:45 PM Referred By: Denys Matthews Confirmed By:Sarath Prajapati
--- NOTE | 2022-08-03 14:05 | Hospitalist Progress Note ---
Date of Service August 03, 2022 Assessment & Plan (1) H/O partial nephrectomy: Plan: POD#2. Surgery management. (2) Postoperative hypotension: Plan: Suspect intravascular volume depletion. Would suggest being aggressive with IV fluids. Monitor intake and output. He is currently on vasopressor support. Would hydrate and wean this off as rapidly as possible to prevent further renal dysfunction. (3) Type 2 diabetes mellitus with diabetic neuropathy, without long-term current use of insulin: Plan: HbA1C 9.6 in May. Pharmacy consulted for glycemic control with basal bolus insulin recommended during inpatient admission (4) Neuropathic pain: Plan: Takes gabapentin at home (5) Proteinuria due to type 2 diabetes mellitus: Plan: Lisinopril is on hold due to hypotension (6) Gout, joint: Plan: Continue allopurinol when able (7) Sleep apnea: Plan: CPAP HS (8) Morbid obesity: Plan: BMI greater than 40. Significant weight loss recommended (9) Acute blood loss anemia: Plan: Currently mild and not needing transfusion. Serial labs (10) Acute renal failure: Plan: Suspect prerenal causes due to volume depletion and hypotension. Urine sodium a nd urine creatinine are pending to calculate fractional excretion. Monitor intake and output. Continue IV fluids. Appreciate nephrology consultation and recommendations. Lisinopril is on hold. We will try to get off pressor support as quickly as possible (11) Acute psychosis: Plan: Supportive care. Family reassured that this will eventually resolve. Plan Per primary team. Anticipate eventual discharge to home Admission and Anticipated Discharge Date Admission Date: August 01, 2022 Subjective The patient is exhibiting ICU psychosis. Family is at the bedside. Creatinine has increased further to 4.1. Serum osmolality elevated at 299. Would push IV fluids and wean off pressor support as rapidly as possible. Hemoglobin down slightly to 8.1 from yesterday. We will follow. Review of Systems Review of Systems: The patient is unable to answer any questions regarding review of systems due to confusion Physical Exam Physical Exam: General-alert, appears to be mildly agitated, confused now. Morbidly obese HEENT-head atraumatic and normocephalic, pupils equal and reactive to light, extraocular muscles intact Neck-no lymphadenopathy or thyromegaly, trachea midline Chest-diminished breath sounds bilaterally anteriorly. No wheezing Cardiac-normal sinus rhythm, mildly tachycardic , normal S1 and S2 Abdomen-abdomen is distended with very hypoactive bowel sounds consistent with ileus Extremities-1+ pitting edema bilateral lower extremities below the knees is probably chronic and weight related Neuro-cranial nerves II through XII intact, motor and sensory function within normal limits, strength symmetrical , no focal deficits Psych-flat affect Results & Data Results & Data Vital Signs (Past 12 Hours) Vital Signs Pulse Resp BP Pulse Ox FiO2 08/03/22 11:49 93 H 24 95 90 08/03/22 09:00 91 H 24 95 08/03/22 09:00 128/67 08/03/22 08:30 91 H 23 08/03/22 08:30 131/60 08/03/22 08:29 89 22 95 08/03/22 08:29 120/58 L 08/03/22 08:01 88 20 92 08/03/22 08:01 119/67 08/03/22 08:00 92 H 21 92 08/03/22 07:30 93 H 30 H 92 08/03/22 07:30 106/69 08/03/22 07:01 94 H 23 90 08/03/22 07:01 122/63 08/03/22 07:00 94 H 24 90 08/03/22 07:40 98 H 31 H 90 100 08/03/22 07:25 96 H 08/03/22 02:37 102 H 29 H 96 100 Laboratory Results 08/03/22 11:55 08/03/22 11:55 PG Care Time/CCT Total # of Minutes Spent Total Time Spent with Patient: Total time spent is greater than 50% in coordination of care (as documented) at patient's floor/unit and/or counseling patient: Coding Level of Care Code 12068 SUB INP/OBS CARE 3/50MIN Diagnoses H/O partial nephrectomy Z90.5 Postoperative hypotension I95.81 Type 2 diabetes mellitus with diabetic neuropathy, without long-term current use of insulin E11.40 Neuropathic pain M79.2 Proteinuria due to type 2 diabetes mellitus E11.29; R80.9 Gout, joint M10.9 Sleep apnea G47.30 Morbid obesity E66.01 Acute blood loss anemia D62 Acute renal failure N17.9 Acute psychosis F23
[2022-08-03 19:00] LABS: Hematocrit (blood only) 23.8 % (42.0-52.0); Hemoglobin 8.1 g/dl (14.0-18.0)
[2022-08-03 19:13] LABS: BUN Creatinine Ratio 10.9 (10-20); Calcium 7.7 mg/dl (8.6-10.3); Creatinine Clr Calc Pharmacy 33.1 ml/min; Est GFR (African American) 17.5 ml/min; Est GFR (Non-African American) 15.1 ml/min; Potassium 4.2 mmol/L (3.5-5.1)
[2022-08-03] MEDS ORDERED: ACETAMINOPHEN 1,000 MG/100 ML VIAL IV PRN (20:41)
[2022-08-03] MEDS: ATORVASTATIN 40 MG TAB PO SCH (20:41)
[2022-08-03] MEDS ORDERED: FUROSEMIDE 40 MG/4 ML VIAL IV ONE (21:35)
[2022-08-04 00:36] LABS: Hematocrit (blood only) 22.3 % (42.0-52.0); Hemoglobin 7.6 g/dl (14.0-18.0)
[2022-08-04] MEDS ORDERED: SODIUM CHLORIDE 0.9% 250 ML IV PRN (00:39)
[2022-08-04] MEDS: Double Conc; 16mg in 500mL IV SCH ×2 (01:52→12:43)
[2022-08-04] MEDS: MILRINONE LACTATE/D5W 20,000 MCG/100 ML BAG IV SCH ×3 (04:02→18:51)
[2022-08-04 05:11] LABS: iSTAT Allen Test Pass; iSTAT Art Bld Gas pCO2 Correct 38 mmHg (35-46); iSTAT Art Bld Gas pH Corrected 7.376 (7.35-7.45); iSTAT Arterial Blood Gas HCO3 22 meg/L (19-24); iSTAT Arterial Blood Gas pCO2 36 mmHg (35-46); iSTAT Arterial Blood Gas pO2 60 mmHg (80-95); iSTAT Arterial Blood Gas pO2 C 65; iSTAT Carbon Dioxide 23 mmol/L (24-31); iSTAT FiO2 100 %; iSTAT Hematocrit 21 % (42-52); iSTAT Hemoglobin 7.1 g/dl (14.0-18.0); iSTAT Potassium 4.2 mmol/L (3.3-5.0); iSTAT Site L Radial; iSTAT Sodium 134 mmol/L (135-144)
[2022-08-04] MEDS: MoRPHine SULFATE 2 MG/ML CARP IV PRN ×4 (06:17→19:56)
[2022-08-04] MEDS: INSULIN ASPART PER UNIT CHARGE SC SCH ×4 (07:15→21:15)
[2022-08-04] MEDS: CYANOCOBALAMIN (B-12) 500 MCG TABLET PO SCH (07:26)
[2022-08-04] MEDS: DOCUSATE SODIUM 100 MG CAP PO SCH ×2 (07:27→20:00)
[2022-08-04] MEDS: FLUTICASONE/VILANTEROL 100/25MCG 14 PUFFS/INHALER INH SCH (07:27)
[2022-08-04] MEDS ORDERED: LANTUS PER UNIT CHARGE SC ONE ×2 (08:00→10:45)
[2022-08-04 08:31] LABS: Base Excess VBG -4.1 mEq/L; HCO3 VBG 22 mmol/L; Oxygen Saturation VBG 74.9 %; PCO2 VBG 41 mmHg (38-50); PO2 VBG 45 mmHg; pH VBG 7.33 (7.36-7.41)
[2022-08-04 08:34] LABS: Basophils # (auto) 0.03 K/uL (0-0.2); Basophils % (auto) 0.2 %; Eosinophils # (auto) 0.04 K/uL (0-0.50); Eosinophils % (auto) 0.2 %; Hematocrit (blood only) 24.2 % (42.0-52.0); Hemoglobin 8.4 g/dl (14.0-18.0); Immature Granulocytes # (auto) 0.15 K/uL (0.01-0.20); Immature Granulocytes % (auto) 0.8 %; Lymphocytes % (auto) 7.8 %; Mean Corpuscular Hemoglobin 29.6 pg (25.0-34.0); Mean Corpuscular Hgb Conc 34.7 g/dL (32.0-36.0); Mean Corpuscular Volume 85.2 fL (80.0-100.0); Mean Platelet Volume 9.3 fL (9.4-12.4); Monocytes # (auto) 1.31 K/uL (0.11-0.59); Monocytes % (auto) 6.9 %; Neutrophils # (auto) 16.09 K/uL (1.40-6.50); Neutrophils % (auto) 84.1 %; Platelet Count 242 K/uL (130-400); RDW Coefficient of Variation 14.5 % (11.5-14.5); RDW Standard Deviation 45.2 fL (36.4-46.3); Red Blood Count 2.84 M/uL (4.70-6.10); White Blood Count 19.12 K/ul (4.8-10.8)
--- NOTE | 2022-08-04 09:00 | Critical Care Progress Note ---
Date of Service August 04, 2022 Assessment & Plan (1) Postoperative hypotension: Plan: Reason Critically Ill: 57-year-old male postprocedural hypotension PLAN: Neuro: Chronic pain - Chronic gabapentin - holding secondary to worsening renal function Acute postoperative pain -Postoperative pain management orders per urology -Pain well controlled Resp: Obstructive sleep apnea -Patient may use own BiPAP - Attempt high flow nasal cannula today Acute hypoxic respiratory failure: P/F ratio <100 -Most consistent with third spacing and acute cor pulmonale -PE in differential, diagnostic conundrum: Echo technically limited due to body habitus, CTA contraindicated given poor renal function, bilateral venous duplex negative, no role for V/Q scan given diagnostic limitations CV: Hypotension: improved hemodynamics today -continue weaning of levophed -gentle diuresis Fluids/Renal: Acute metabolic acidosis: Mild and appears to be improving Acute kidney injury: Improving -Nephrology following - Bumex 1 mg IV x 1 Hyperkalemia: Resolved ID: Antibiotics expanded to include Flagyl and cefepime Fever overnight - Repeat blood and urine cultures - Reviewed urology notes may need evaluation for possible urine leak. - Continue Flagyl Cefepime given fever GI/Nutrition: Morbid obesity -Full liquid diet if able to tolerate nasal cannula Heme: Anemia: Acute blood loss: Postoperative -S/P 3 units PRBCs 08/02; S/P 2 Units PRBC 08/04 -improved quality of surgical site drainage DVT prophylaxis: SCDs Endocrine: ICU hyperglycemia protocol Hyperglycemia -Continue insulin infusion Vascular access: Right IJ central catheter Code Status: Full code Disposition: ICU Discussed extensively with nephrology and urology. Patient may sit at edge of bed and full sit position. Not ambulatory at this point. I believe the patient has transitioned from multifactorial shock which previously included hypovolemia now to acute cor pulmonale and will benefit from gentle diuresis I have personally spent 50 minutes of critical care time in the direct management of this patient. This is a life/limb threatening event. This includes time spent evaluating patient, direct bedside care, chart review, placing orders, interpretation of diagnostic studies, discussion with consultants, patient, and/or family members regarding treatment decisions, as well as other required patient management activities. This time is exclusive of all separately billable procedures, and teaching time and separate from and in addition to any other critical care service time. (2) Proteinuria due to type 2 diabetes mellitus: (3) Type 2 diabetes mellitus with diabetic neuropathy, without long-term current use of insulin: (4) Sleep apnea: (5) Morbid obesity: (6) Right renal mass: Admission and Anticipated Discharge Date Admission Date: August 01, 2022 Subjective No significant overnight events, was started on blood and given trial of diuretics Physical Exam Physical Exam: General: Alert. GCS 15 Skin: Warm, dry, Head: Atraumatic Ears, nose, mouth and throat: BiPAP mask in place Cardiovascular: Normal peripheral perfusion Respiratory: no respiratory distress Gastrointestinal: Non distended Musculoskeletal: No deformity Results & Data Results & Data Vital Signs (Past 12 Hours) Vital Signs Temp Pulse Resp BP Pulse Ox O2 Del Method FiO2 08/04/22 08:30 98 H 27 H 95 08/04/22 08:30 132/67 08/04/22 08:23 99 H 26 H 95 08/04/22 08:23 100/58 L 08/04/22 08:15 100 H 24 08/04/22 08:15 120/65 08/04/22 08:00 101 H 25 H 93 08/04/22 08:00 123/59 L 08/04/22 07:45 103 H 23 78 L 08/04/22 07:45 119/58 L 08/04/22 07:31 102 H 25 H 84 L 08/04/22 07:31 107/56 L 08/04/22 07:30 100 H 35 H 94 08/04/22 07:15 104 H 29 H 87 L 08/04/22 07:15 96/49 L 08/04/22 07:01 102 H 21 93 08/04/22 07:01 93/57 L 08/04/22 07:00 101 H 15 78 L 08/04/22 08:33 Oxymask, BiPAP 08/04/22 08:32 36.7 C 08/04/22 07:52 100 H 27 H 92 100 08/04/22 08:26 36.7 C 100 H 24 100/58 L 96 08/04/22 06:58 97 H 08/04/22 07:01 38.2 C H 101 H 26 H 93/57 L 94 08/04/22 06:35 38.2 C H 98 H 23 90/46 L 94 08/04/22 05:35 38.2 C H 98 H 24 104/63 92 08/04/22 04:35 38.2 C H 97 H 22 108/66 92 08/04/22 02:47 102 H 24 92 100 08/04/22 03:35 38.5 C H 102 H 21 107/67 90 08/04/22 03:05 38.3 C H 98 H 24 121/55 L 93 08/04/22 03:15 99 H 24 94 08/04/22 03:15 121/55 L 08/04/22 03:00 104 H 27 H 92 08/04/22 03:00 112/58 L 08/04/22 02:50 98 H 23 73 L 08/04/22 02:50 95/52 L 08/04/22 02:45 103 H 25 H 92 08/04/22 02:50 38.3 C H 98 H 22 95/52 L 92 08/04/22 02:30 106 H 28 H 92 08/04/22 02:30 119/62 08/04/22 02:15 108 H 30 H 88 L 08/04/22 02:00 102 H 29 H 86 L 08/04/22 02:00 97/55 L 08/04/22 01:45 105 H 29 H 89 L 08/04/22 01:30 99 H 24 86 L 08/04/22 01:15 100 H 22 90 08/04/22 01:00 95 H 21 87 L 08/04/22 01:00 99/44 L 08/04/22 00:45 100 H 24 91 08/04/22 00:30 95 H 21 86 L 08/04/22 00:30 90/50 L 08/04/22 00:15 100 H 22 89 L 08/04/22 00:00 99 H 25 H 93 08/03/22 23:45 95 H 19 92 08/03/22 23:30 98 H 23 92 08/03/22 23:15 97 H 23 90 08/03/22 23:00 100 H 24 90 08/03/22 23:00 92/53 L 08/03/22 22:45 107 H 13 80 L 08/03/22 22:31 96/49 L 08/03/22 22:31 104 H 30 H 89 L 08/03/22 22:30 108 H 16 82 L 08/03/22 22:15 104 H 25 H 91 08/04/22 02:34 38.3 C H 106 H 23 119/62 91 08/04/22 02:13 38.3 C H 107 H 28 H 97/55 L 89 L 08/03/22 23:20 99 H 30 H 91 100 08/03/22 23:32 101 H 08/03/22 22:03 109 H 29 H 88 L 08/03/22 22:03 73/45 L 08/03/22 22:01 115 H 33 H 87 L 08/03/22 22:00 114 H 32 H 08/03/22 21:45 117 H 25 H 85 L 08/03/22 21:30 109 H 30 H 84 L 08/03/22 21:30 99/56 L 08/03/22 21:15 106 H 28 H 92 Coding Level of Care Code 94521 CRITICAL CARE 1ST 30-74M Diagnoses Postoperative hypotension I95.81 Proteinuria due to type 2 diabetes mellitus E11.29; R80.9 Type 2 diabetes mellitus with diabetic neuropathy, without long-term current use of insulin E11.40 Sleep apnea G47.30 Morbid obesity E66.01 Right renal mass N28.89
[2022-08-04 09:01] LABS: Calcium 7.7 mg/dl (8.6-10.3); Creatinine Clr Calc Pharmacy 36.2 ml/min; Est GFR (African American) 19.5 ml/min; Est GFR (Non-African American) 16.8 ml/min; Magnesium 2.1 mg/dl (1.7-2.4); Phosphorus 3.9 mg/dl (2.5-4.9); Potassium 4.3 mmol/L (3.5-5.1)
--- NOTE | 2022-08-04 09:17 | Urology Progress Note ---
Date of Service August 04, 2022 Assessment & Plan (1) Acute renal failure: (2) Acute blood loss anemia: (3) H/O partial nephrectomy: (4) Renal mass: Plan 57-year-old male who is status post right robotic partial nephrectomy on 08/01/2022. Postoperatively was upgraded to ICU due to hypotension, respiratory issues, and concern for postoperative bleed. He fortunately stabilized and a postoperative CT scan did not show concern for a large hemorrhage. Subjectively, patient continues to deny any complaints. Continue to trend labs closely. Low concern for any persistent bleeding but do agree with blood transfusion today. Defer to ICU team for transfusion management Creatinine continues to downtrend, 3.78 this morning. Urine output has improved. Reasonable for patient to have clear liquid diet and attempt to ambulate today We will maintain Reis catheter and DIANA drain. DIANA drain output has decreased. Agree with blood cultures, recommend repeat urine culture. Recommend restarting antibiotics, can start with Ancef. If patient has persistent fevers, may need to obtain CT urogram to evaluate for a urine leak. We will have to weigh this with concern for renal function and further renal damage. We will start by sending a DIANA creatinine. Hold any anticoagulation Appreciate help with care from all consulting teams Admission and Anticipated Discharge Date Admission Date: August 01, 2022 Subjective Patient subjectively reports no issues. He did spike low-grade temperatures up to 38.5 overnight. Remains mildly tachycardic. Blood pressure is relatively stable on norepinephrine drip. Still requiring 100% FiO2. Labs shows a leukocytosis of 19.1, up from 16.8 yesterday. Hemoglobin currently 8.4, down trended as low as 7.6 and he is currently receiving blood this morning. BMP shows a creatinine of 3.78, down from 4.13. Blood and urine cultures have no growth to date.Urine output has picked up and is 0.72 mL/kg/h. DIANA drainage has decreased significantly. Review of Systems Review of Systems: 14 point review of systems negative outside of what is listed above in HPI Physical Exam Physical Exam: General: Alert and oriented, no acute distress HEENT: Normocephalic, mucous membranes moist, BIPAP in place Pulmonary: Nonlabored respirations Abdomen: Soft, nondistended, nontender. Incisions clean dry and intact with dressing in place. DIANA drain with very minimal serosanguinous output. : Reis catheter draining clear urine Extremities: Moves all 4 spontaneously Neuro: No gross deficits Skin: Warm, dry, no rashes noted Results & Data Vital Signs (Past 12 Hours) Vital Signs Temp Pulse Resp BP Pulse Ox O2 Del Method FiO2 08/04/22 08:30 98 H 27 H 95 08/04/22 08:30 132/67 08/04/22 08:23 99 H 26 H 95 08/04/22 08:23 100/58 L 08/04/22 08:15 100 H 24 08/04/22 08:15 120/65 08/04/22 08:00 101 H 25 H 93 08/04/22 08:00 123/59 L 08/04/22 07:45 103 H 23 78 L 08/04/22 07:45 119/58 L 08/04/22 07:31 102 H 25 H 84 L 08/04/22 07:31 107/56 L 08/04/22 07:30 100 H 35 H 94 08/04/22 07:15 104 H 29 H 87 L 08/04/22 07:15 96/49 L 08/04/22 07:01 102 H 21 93 08/04/22 07:01 93/57 L 08/04/22 07:00 101 H 15 78 L 08/04/22 08:46 36.7 C 97 H 24 107/61 98 08/04/22 08:33 Oxymask, BiPAP 08/04/22 08:32 36.7 C 08/04/22 07:52 100 H 27 H 92 100 08/04/22 08:26 36.7 C 100 H 24 100/58 L 96 08/04/22 06:58 97 H 08/04/22 07:01 38.2 C H 101 H 26 H 93/57 L 94 08/04/22 06:35 38.2 C H 98 H 23 90/46 L 94 08/04/22 05:35 38.2 C H 98 H 24 104/63 92 08/04/22 04:35 38.2 C H 97 H 22 108/66 92 08/04/22 02:47 102 H 24 92 100 08/04/22 03:35 38.5 C H 102 H 21 107/67 90 08/04/22 03:05 38.3 C H 98 H 24 121/55 L 93 08/04/22 03:15 99 H 24 94 08/04/22 03:15 121/55 L 08/04/22 03:00 104 H 27 H 92 08/04/22 03:00 112/58 L 08/04/22 02:50 98 H 23 73 L 08/04/22 02:50 95/52 L 08/04/22 02:45 103 H 25 H 92 08/04/22 02:50 38.3 C H 98 H 22 95/52 L 92 08/04/22 02:30 106 H 28 H 92 08/04/22 02:30 119/62 08/04/22 02:15 108 H 30 H 88 L 08/04/22 02:00 102 H 29 H 86 L 08/04/22 02:00 97/55 L 08/04/22 01:45 105 H 29 H 89 L 08/04/22 01:30 99 H 24 86 L 08/04/22 01:15 100 H 22 90 08/04/22 01:00 95 H 21 87 L 08/04/22 01:00 99/44 L 08/04/22 00:45 100 H 24 91 08/04/22 00:30 95 H 21 86 L 08/04/22 00:30 90/50 L 08/04/22 00:15 100 H 22 89 L 08/04/22 00:00 99 H 25 H 93 08/03/22 23:45 95 H 19 92 08/03/22 23:30 98 H 23 92 08/03/22 23:15 97 H 23 90 08/03/22 23:00 100 H 24 90 08/03/22 23:00 92/53 L 08/03/22 22:45 107 H 13 80 L 08/03/22 22:31 96/49 L 08/03/22 22:31 104 H 30 H 89 L 08/03/22 22:30 108 H 16 82 L 08/03/22 22:15 104 H 25 H 91 08/04/22 02:34 38.3 C H 106 H 23 119/62 91 08/04/22 02:13 38.3 C H 107 H 28 H 97/55 L 89 L 08/03/22 23:20 99 H 30 H 91 100 08/03/22 23:32 101 H 08/03/22 22:03 109 H 29 H 88 L 08/03/22 22:03 73/45 L 08/03/22 22:01 115 H 33 H 87 L 08/03/22 22:00 114 H 32 H 08/03/22 21:45 117 H 25 H 85 L 08/03/22 21:30 109 H 30 H 84 L 08/03/22 21:30 99/56 L 08/03/22 21:15 106 H 28 H 92 PG Care Time/CCT Total # of Minutes Spent Total Time Spent with Patient: Total time spent is greater than 50% in coordination of care (as documented) at patient's floor/unit and/or counseling patient: Coding Level of Care Code 20984 SUB INP/OBS CARE 2/35MIN Diagnoses Acute renal failure N17.9 Acute blood loss anemia D62 H/O partial nephrectomy Z90.5 Renal mass N28.89
--- NOTE | 2022-08-04 09:27 | XRay Report ---
XR chest 1V portable HISTORY: 57 years-old Male Resp failure acute respiratory failure COMPARISON: Chest radiograph 08/03/2022 TECHNIQUE: AP view of the chest FINDINGS: Cardiac silhouette is enlarged. Right IJ central venous catheter is unchanged. No pneumothorax. Pulmo nary vascular congestion with progressive interstitial coarsening. Increased size of the layering ple ural effusions with bibasilar consolidation. Lungs are hypoinflated. Degenerative changes of the shou lders and spine. IMPRESSION: 1. Cardiomegaly with progressive pulmonary edema. 2. Increased size of the layering pleural effusions with bibasilar opacities favoring atelectasis. ACT 112: Negative or not required by law. The above report was generated using voice recognition software. It may contain grammatical, syntax o r spelling errors. Electronically signed by: Sergio Richter M.D. 08/04/2022 9:26 AM
[2022-08-04] MEDS ORDERED: NOREPINEPHRINE/D5W 4 MG/250 ML IV ONE (09:47)
[2022-08-04] MEDS ORDERED: BUMETANIDE 1 MG in SYRINGE 0 ML IV ONE (10:00)
[2022-08-04] MEDS: metroNIDAZOLE 500 MG/100 ML BAG IV SCH ×2 (11:00→20:00)
--- NOTE | 2022-08-04 11:14 | Nephrology Progress Note ---
Date of Service August 04, 2022 Assessment & Plan (1) Acute kidney injury: Plan: Non-oliguric. Creatinine slightly improved. MAO consistent with ischemic ATN in setting of hemodynamic instability. No emergent indication for dialysis at this time. Potential future indications were reviewed with the patient and his daughter this AM. I also discussed the plan of care with Dr. Miles and Dr. Wilburn. Avoid significantly positive fluid balance. IV Bumex to be provided with PRBC transfusion this AM. Medications are appropriately dosed for kidney dysfunction. MAP goal >65. Document strict I/O's. Reis to gravity. Monitor metabolic profile twice daily. (2) H/O partial nephrectomy: Plan: POD #3 s/p robotic assisted laparoscopic right partial nephrectomy. Plan of care reviewed with urology. Diet to be advanced to clear liquid. (3) Postoperative hypotension: Plan: Remains on vasopressor support. Noted low grade fevers overnight. (4) Acute blood loss anemia: Plan: s/p 3 u PRBC transfusion support post-operatively. Additional 2 units are being provided this AM. CT reviewed. No signs of continued active bleeding noted this AM. (5) COPD (chronic obstructive pulmonary disease): (6) MARIA EUGENIA (obstructive sleep apnea): Plan: Remains dependent on BIPAP and supplemental O2. Signs of pulmonary hypertension. Given kidney dysfunction, I would suggest avoiding iodinated contrast / CTA if able. Cautious titration of milrinone in kidney dysfunction. Diuretics to encourage urine output. Admission and Anticipated Discharge Date Admission Date: August 01, 2022 Subjective Tmax 38.7 overnight. No subjective fevers or chills. Nathaniel is feeling much neto r this morning. He denies notable pain. He reports discomfort in his back from laying in bed. He would like to get up and walk and is asking about potential discharge home. He is not concerned about oxygen saturations dropping when NRB mask removed, stating "they always drop into the 80's at home." Remains on norepi gtt. Urine output increased. Furosemide 40 mg IV provided yesterday. Additional PRBC transfusion support being provided this AM. Review of Systems Review of Systems: All systems reviewed & are unremarkable except as noted in HPI & below Physical Exam Constitutional: well developed and + morbidly obese; no acute distress Eyes: + anicteric sclerae; pupils not irregular Neck: normal visual inspection, trachea midline and + thick neck Respiratory: normal respiratory effort; no respiratory distress and no labored breathing Auscultation: lungs clear to auscultation bilaterally and + rhonchi; no rales and no wheezes Cardiovascular: Rate/Rhythm: regular rate Heart Sounds: normal S1 and normal S2 Extremities: + edema (trace dependent) Gastrointestinal (Abdomen): Inspection/Auscultation: + abdomen distended; + abnormal bowel sounds (hypoactive) Percussion/Palpation: normal to percussion; no guarding and abdomen not rigid Musculoskeletal: Extremities: no cyanosis and no clubbing Skin: normal turgor; no jaundice Neurologic: Motor/Sensory: no tremor and no asterixis Psychiatric: Orientation: alert and oriented x 3 Results & Data Vital Signs (Past 12 Hours) Vital Signs Temp Pulse Resp BP Pulse Ox O2 Del Method FiO2 08/04/22 10:45 36.6 C 89 21 104/59 L 95 08/04/22 10:00 36.7 C 90 23 124/60 93 08/04/22 09:28 36.6 C 98 H 21 93/54 L 90 08/04/22 09:00 36.6 C 97 H 24 124/59 L 94 08/04/22 08:30 98 H 27 H 95 08/04/22 08:30 132/67 08/04/22 08:23 99 H 26 H 95 08/04/22 08:23 100/58 L 08/04/22 08:15 100 H 24 08/04/22 08:15 120/65 08/04/22 08:00 101 H 25 H 93 08/04/22 08:00 123/59 L 08/04/22 07:45 103 H 23 78 L 08/04/22 07:45 119/58 L 08/04/22 07:31 102 H 25 H 84 L 08/04/22 07:31 107/56 L 08/04/22 07:30 100 H 35 H 94 08/04/22 07:15 104 H 29 H 87 L 08/04/22 07:15 96/49 L 08/04/22 07:01 102 H 21 93 08/04/22 07:01 93/57 L 08/04/22 07:00 101 H 15 78 L 08/04/22 08:46 36.7 C 97 H 24 107/61 98 08/04/22 08:33 Oxymask, BiPAP 08/04/22 08:32 36.7 C 08/04/22 07:52 100 H 27 H 92 100 08/04/22 08:26 36.7 C 100 H 24 100/58 L 96 08/04/22 06:58 97 H 08/04/22 07:01 38.2 C H 101 H 26 H 93/57 L 94 08/04/22 06:35 38.2 C H 98 H 23 90/46 L 94 08/04/22 05:35 38.2 C H 98 H 24 104/63 92 08/04/22 04:35 38.2 C H 97 H 22 108/66 92 08/04/22 02:47 102 H 24 92 100 08/04/22 03:35 38.5 C H 102 H 21 107/67 90 08/04/22 03:05 38.3 C H 98 H 24 121/55 L 93 08/04/22 03:15 99 H 24 94 08/04/22 03:15 121/55 L 08/04/22 03:00 104 H 27 H 92 08/04/22 03:00 112/58 L 08/04/22 02:50 98 H 23 73 L 08/04/22 02:50 95/52 L 08/04/22 02:45 103 H 25 H 92 08/04/22 02:50 38.3 C H 98 H 22 95/52 L 92 08/04/22 02:30 106 H 28 H 92 08/04/22 02:30 119/62 08/04/22 02:15 108 H 30 H 88 L 08/04/22 02:00 102 H 29 H 86 L 08/04/22 02:00 97/55 L 08/04/22 01:45 105 H 29 H 89 L 08/04/22 01:30 99 H 24 86 L 08/04/22 01:15 100 H 22 90 08/04/22 01:00 95 H 21 87 L 08/04/22 01:00 99/44 L 08/04/22 00:45 100 H 24 91 08/04/22 00:30 95 H 21 86 L 08/04/22 00:30 90/50 L 08/04/22 00:15 100 H 22 89 L 08/04/22 00:00 99 H 25 H 93 08/03/22 23:45 95 H 19 92 08/03/22 23:30 98 H 23 92 08/03/22 23:15 97 H 23 90 08/04/22 02:34 38.3 C H 106 H 23 119/62 91 08/04/22 02:13 38.3 C H 107 H 28 H 97/55 L 89 L 08/03/22 23:20 99 H 30 H 91 100 08/03/22 23:32 101 H Laboratory Results Laboratory Results - last 24 hr 08/01/22 08/03/22 08/03/22 06:10 10:51 11:55 WBC RBC Hgb 8.1 L POC Hgb Hct 23.9 L POC Hct MCV MCH MCHC RDW Std Deviation RDW Coeff of [place] Plt Count MPV Immature Gran % (Auto) Neut % (Auto) Lymph % (Auto) Garfield % (Auto) Eos % (Auto) Baso % (Auto) Neut # (Auto) Lymph # (Auto) Garfield # (Auto) Eos # (Auto) Baso # (Auto) Immature Gran # (Auto) Sample Site POC pH POC pCO2 POC pO2 POC HCO3 POC Total CO2 POC Base Excess ABG pH (Temp Correct) ABG pCO2 (Temp Corrct POC ABG pO2 at Pt Temp POC ABG O2 Sat Adan Test VBG pH VBG pCO2 VBG pO2 VBG HCO3 VBG O2 Saturation VBG Base Excess O2 Delivery Device POC O2 Rate POC FiO2 IPAP POC Sodium Sodium POC Potassium Potassium Chloride Carbon Dioxide Anion Gap BUN Creatinine Est Cr Clr Drug Dosing Est GFR ( Amer) Est GFR (Non-Af Amer) BUN/Creatinine Ratio Glucose POC Glucose (other) 131 H Lactate Calcium Phosphorus Magnesium Blood Type O Positive Antibody Screen NEGATIVE Crossmatch See Detail 08/03/22 08/03/22 08/03/22 11:55 11:55 12:02 WBC RBC Hgb POC Hgb Hct POC Hct MCV MCH MCHC RDW Std Deviation RDW Coeff of [place] Plt Count MPV Immature Gran % (Auto) Neut % (Auto) Lymph % (Auto) Garfield % (Auto) Eos % (Auto) Baso % (Auto) Neut # (Auto) Lymph # (Auto) Garfield # (Auto) Eos # (Auto) Baso # (Auto) Immature Gran # (Auto) Sample Site POC pH POC pCO2 POC pO2 POC HCO3 POC Total CO2 POC Base Excess ABG pH (Temp Correct) ABG pCO2 (Temp Corrct POC ABG pO2 at Pt Temp POC ABG O2 Sat Adan Test VBG pH VBG pCO2 VBG pO2 VBG HCO3 VBG O2 Saturation VBG Base Excess O2 Delivery Device POC O2 Rate POC FiO2 IPAP POC Sodium Sodium 134 L POC Potassium Potassium 4.4 Chloride 101 Carbon Dioxide 23 Anion Gap 10 BUN 42 H Creatinine 4.32 H Est Cr Clr Drug Dosing 31.7 Est GFR ( Amer) 16.6 Est GFR (Non-Af Amer) 14.3 BUN/Creatinine Ratio 9.7 L Glucose 136 H POC Glucose (other) 140 H Lactate 0.8 Calcium 7.7 L Phosphorus Magnesium Blood Type Antibody Screen Crossmatch 08/03/22 08/03/22 08/03/22 14:00 16:32 17:28 WBC RBC Hgb POC Hgb Hct POC Hct MCV MCH MCHC RDW Std Deviation RDW Coeff of [place] Plt Count MPV Immature Gran % (Auto) Neut % (Auto) Lymph % (Auto) Garfield % (Auto) Eos % (Auto) Baso % (Auto) Neut # (Auto) Lymph # (Auto) Garfield # (Auto) Eos # (Auto) Baso # (Auto) Immature Gran # (Auto) Sample Site POC pH POC pCO2 POC pO2 POC HCO3 POC Total CO2 POC Base Excess ABG pH (Temp Correct) ABG pCO2 (Temp Corrct POC ABG pO2 at Pt Temp POC ABG O2 Sat Adan Test VBG pH VBG pCO2 VBG pO2 VBG HCO3 VBG O2 Saturation VBG Base Excess O2 Delivery Device POC O2 Rate POC FiO2 IPAP POC Sodium Sodium POC Potassium Potassium Chloride Carbon Dioxide Anion Gap BUN Creatinine Est Cr Clr Drug Dosing Est GFR ( Amer) Est GFR (Non-Af Amer) BUN/Creatinine Ratio Glucose POC Glucose (other) 169 H 198 H 196 H Lactate Calcium Phosphorus Magnesium Blood Type Antibody Screen Crossmatch 08/03/22 08/03/22 08/03/22 18:29 18:29 18:29 WBC RBC Hgb 8.1 L POC Hgb Hct 23.8 L POC Hct MCV MCH MCHC RDW Std Deviation RDW Coeff of [place] Plt Count MPV Immature Gran % (Auto) Neut % (Auto) Lymph % (Auto) Garfield % (Auto) Eos % (Auto) Baso % (Auto) Neut # (Auto) Lymph # (Auto) Garfield # (Auto) Eos # (Auto) Baso # (Auto) Immature Gran # (Auto) Sample Site POC pH POC pCO2 POC pO2 POC HCO3 POC Total CO2 POC Base Excess ABG pH (Temp Correct) ABG pCO2 (Temp Corrct POC ABG pO2 at Pt Temp POC ABG O2 Sat Adan Test VBG pH VBG pCO2 VBG pO2 VBG HCO3 VBG O2 Saturation VBG Base Excess O2 Delivery Device POC O2 Rate POC FiO2 IPAP POC Sodium Sodium 134 L POC Potassium Potassium 4.2 Chloride 103 Carbon Dioxide 23 Anion Gap 8 BUN 45 H Creatinine 4.13 H Est Cr Clr Drug Dosing 33.1 Est GFR ( Amer) 17.5 Est GFR (Non-Af Amer) 15.1 BUN/Creatinine Ratio 10.9 Glucose 182 H POC Glucose (other) Lactate 1.2 Calcium 7.7 L Phosphorus Magnesium Blood Type Antibody Screen Crossmatch 08/03/22 08/03/22 08/03/22 19:52 21:04 22:04 WBC RBC Hgb POC Hgb Hct POC Hct MCV MCH MCHC RDW Std Deviation RDW Coeff of [place] Plt Count MPV Immature Gran % (Auto) Neut % (Auto) Lymph % (Auto) Garfield % (Auto) Eos % (Auto) Baso % (Auto) Neut # (Auto) Lymph # (Auto) Garfield # (Auto) Eos # (Auto) Baso # (Auto) Immature Gran # (Auto) Sample Site POC pH POC pCO2 POC pO2 POC HCO3 POC Total CO2 POC Base Excess ABG pH (Temp Correct) ABG pCO2 (Temp Corrct POC ABG pO2 at Pt Temp POC ABG O2 Sat Adan Test VBG pH VBG pCO2 VBG pO2 VBG HCO3 VBG O2 Saturation VBG Base Excess O2 Delivery Device POC O2 Rate POC FiO2 IPAP POC Sodium Sodium POC Potassium Potassium Chloride Carbon Dioxide Anion Gap BUN Creatinine Est Cr Clr Drug Dosing Est GFR ( Amer) Est GFR (Non-Af Amer) BUN/Creatinine Ratio Glucose POC Glucose (other) 201 H 198 H 199 H Lactate Calcium Phosphorus Magnesium Blood Type Antibody Screen Crossmatch 08/03/22 08/03/22 08/03/22 23:04 23:49 23:49 WBC RBC Hgb 7.6 L POC Hgb Hct 22.3 L POC Hct MCV MCH MCHC RDW Std Deviation RDW Coeff of [place] Plt Count MPV Immature Gran % (Auto) Neut % (Auto) Lymph % (Auto) Garfield % (Auto) Eos % (Auto) Baso % (Auto) Neut # (Auto) Lymph # (Auto) Garfield # (Auto) Eos # (Auto) Baso # (Auto) Immature Gran # (Auto) Sample Site POC pH POC pCO2 POC pO2 POC HCO3 POC Total CO2 POC Base Excess ABG pH (Temp Correct) ABG pCO2 (Temp Corrct POC ABG pO2 at Pt Temp POC ABG O2 Sat Adan Test VBG pH VBG pCO2 VBG pO2 VBG HCO3 VBG O2 Saturation VBG Base Excess O2 Delivery Device POC O2 Rate POC FiO2 IPAP POC Sodium Sodium POC Potassium Potassium Chloride Carbon Dioxide Anion Gap BUN Creatinine Est Cr Clr Drug Dosing Est GFR ( Amer) Est GFR (Non-Af Amer) BUN/Creatinine Ratio Glucose POC Glucose (other) 193 H Lactate Calcium Phosphorus Magnesium Blood Type O Positive Antibody Screen NEGATIVE Crossmatch See Detail 08/03/22 08/04/22 08/04/22 23:56 01:11 02:04 WBC RBC Hgb POC Hgb Hct POC Hct MCV MCH MCHC RDW Std Deviation RDW Coeff of [place] Plt Count MPV Immature Gran % (Auto) Neut % (Auto) Lymph % (Auto) Garfield % (Auto) Eos % (Auto) Baso % (Auto) Neut # (Auto) Lymph # (Auto) Garfield # (Auto) Eos # (Auto) Baso # (Auto) Immature Gran # (Auto) Sample Site POC pH POC pCO2 POC pO2 POC HCO3 POC Total CO2 POC Base Excess ABG pH (Temp Correct) ABG pCO2 (Temp Corrct POC ABG pO2 at Pt Temp POC ABG O2 Sat Adan Test VBG pH VBG pCO2 VBG pO2 VBG HCO3 VBG O2 Saturation VBG Base Excess O2 Delivery Device POC O2 Rate POC FiO2 IPAP POC Sodium Sodium POC Potassium Potassium Chloride Carbon Dioxide Anion Gap BUN Creatinine Est Cr Clr Drug Dosing Est GFR ( Amer) Est GFR (Non-Af Amer) BUN/Creatinine Ratio Glucose POC Glucose (other) 192 H 189 H 183 H Lactate Calcium Phosphorus Magnesium Blood Type Antibody Screen Crossmatch 08/04/22 08/04/22 08/04/22 03:12 04:02 04:57 WBC RBC Hgb POC Hgb 7.1 L Hct POC Hct 21 L MCV MCH MCHC RDW Std Deviation RDW Coeff of [place] Plt Count MPV Immature Gran % (Auto) Neut % (Auto) Lymph % (Auto) Garfield % (Auto) Eos % (Auto) Baso % (Auto) Neut # (Auto) Lymph # (Auto) Garfield # (Auto) Eos # (Auto) Baso # (Auto) Immature Gran # (Auto) Sample Site L Radial POC pH 7.40 POC pCO2 36 POC pO2 60 L POC HCO3 22 POC Total CO2 23 L POC Base Excess -3.0 ABG pH (Temp Correct) 7.376 ABG pCO2 (Temp Corrct 38 POC ABG pO2 at Pt Temp 65 POC ABG O2 Sat 90.0 Adan Test Pass VBG pH VBG pCO2 VBG pO2 VBG HCO3 VBG O2 Saturation VBG Base Excess O2 Delivery Device BIPAP POC O2 Rate 20 POC FiO2 100 IPAP 15 POC Sodium 134 L Sodium POC Potassium 4.2 Potassium Chloride Carbon Dioxide Anion Gap BUN Creatinine Est Cr Clr Drug Dosing Est GFR ( Amer) Est GFR (Non-Af Amer) BUN/Creatinine Ratio Glucose POC Glucose (other) 178 H 175 H Lactate Calcium Phosphorus Magnesium Blood Type Antibody Screen Crossmatch 08/04/22 08/04/22 08/04/22 05:03 07:19 08:15 WBC 19.12 H RBC 2.84 L Hgb 8.4 L POC Hgb Hct 24.2 L POC Hct MCV 85.2 MCH 29.6 MCHC 34.7 RDW Std Deviation 45.2 RDW Coeff of [place] 14.5 Plt Count 242 MPV 9.3 L Immature Gran % (Auto) 0.8 Neut % (Auto) 84.1 Lymph % (Auto) 7.8 Garfield % (Auto) 6.9 Eos % (Auto) 0.2 Baso % (Auto) 0.2 Neut # (Auto) 16.09 H Lymph # (Auto) 1.50 Garfield # (Auto) 1.31 H Eos # (Auto) 0.04 Baso # (Auto) 0.03 Immature Gran # (Auto) 0.15 Sample Site POC pH POC pCO2 POC pO2 POC HCO3 POC Total CO2 POC Base Excess ABG pH (Temp Correct) ABG pCO2 (Temp Corrct POC ABG pO2 at Pt Temp POC ABG O2 Sat Adan Test VBG pH VBG pCO2 VBG pO2 VBG HCO3 VBG O2 Saturation VBG Base Excess O2 Delivery Device POC O2 Rate POC FiO2 IPAP POC Sodium Sodium POC Potassium Potassium Chloride Carbon Dioxide Anion Gap BUN Creatinine Est Cr Clr Drug Dosing Est GFR ( Amer) Est GFR (Non-Af Amer) BUN/Creatinine Ratio Glucose POC Glucose (other) 174 H 150 H Lactate Calcium Phosphorus Magnesium Blood Type Antibody Screen Crossmatch 08/04/22 08/04/22 08/04/22 08:15 08:15 09:22 WBC RBC Hgb POC Hgb Hct POC Hct MCV MCH MCHC RDW Std Deviation RDW Coeff of [place] Plt Count MPV Immature Gran % (Auto) Neut % (Auto) Lymph % (Auto) Garfield % (Auto) Eos % (Auto) Baso % (Auto) Neut # (Auto) Lymph # (Auto) Garfield # (Auto) Eos # (Auto) Baso # (Auto) Immature Gran # (Auto) Sample Site POC pH POC pCO2 POC pO2 POC HCO3 POC Total CO2 POC Base Excess ABG pH (Temp Correct) ABG pCO2 (Temp Corrct POC ABG pO2 at Pt Temp POC ABG O2 Sat Adan Test VBG pH 7.33 L VBG pCO2 41 VBG pO2 45 VBG HCO3 22 VBG O2 Saturation 74.9 VBG Base Excess -4.1 O2 Delivery Device POC O2 Rate POC FiO2 IPAP POC Sodium Sodium 134 L POC Potassium Potassium 4.3 Chloride 102 Carbon Dioxide 24 Anion Gap 8 BUN 49 H Creatinine 3.78 H D Est Cr Clr Drug Dosing 36.2 Est GFR ( Amer) 19.5 Est GFR (Non-Af Amer) 16.8 BUN/Creatinine Ratio 13.0 Glucose 135 H POC Glucose (other) 128 H Lactate Calcium 7.7 L Phosphorus 3.9 D Magnesium 2.1 Blood Type Antibody Screen Crossmatch Diagnostic Findings XR chest 1V portable FINDINGS: Cardiac silhouette is enlarged. Right IJ central venous catheter is unchanged. No pneumothorax. Pulmonary vascular congestion with progressive interstitial coarsening. Increased size of the layering pleural effusions with bibasilar consolidation. Lungs are hypoinflated. Degenerative changes of the shoulders and spine. IMPRESSION: 1. Cardiomegaly with progressive pulmonary edema. 2. Increased size of the layering pleural effusions with bibasilar opacities favoring atelectasis. PG Care Time/CCT Total # of Minutes Spent Total Time Spent with Patient: Total time spent is greater than 50% in coordination of care (as documented) at patient's floor/unit and/or counseling patient: Coding Level of Care Code 79794 SUB INP/OBS CARE 3/50MIN Diagnoses Acute kidney injury N17.9 H/O partial nephrectomy Z90.5 Postoperative hypotension I95.81 Acute blood loss anemia D62 COPD (chronic obstructive pulmonary disease) J44.9 MARIA EUGENIA (obstructive sleep apnea) G47.33
[2022-08-04] MEDS: INSULIN REGULAR 250 UNITS in SODIUM CHLORIDE 0.9% 247.5 ML IV SCH (12:30)
[2022-08-04] MEDS: CEFEPIME 2,000 MG in SYRINGE 0 ML IV SCH ×2 (12:55→21:21)
[2022-08-04 13:07] LABS: Base Excess VBG -2.2 mEq/L; HCO3 VBG 24 mmol/L; Oxygen Saturation VBG 61.9 %; PCO2 VBG 44 mmHg (38-50); PO2 VBG 37 mmHg; pH VBG 7.34 (7.36-7.41)
--- NOTE | 2022-08-04 13:49 | Hospitalist Progress Note ---
Date of Service August 04, 2022 Assessment & Plan (1) H/O partial nephrectomy: Plan: POD#3. Surgery management. (2) Postoperative hypotension: Plan: Suspect intravascular volume depletion. Would suggest being aggressive with IV fluids. Monitor intake and output. He is currently on vasopressor support. Would hydrate and wean this off as rapidly as possible to prevent further renal dysfunction. (3) Type 2 diabetes mellitus with diabetic neuropathy, without long-term current use of insulin: Plan: HbA1C 9.6 in May. Pharmacy consulted for glycemic control with basal bolus insulin recommended during inpatient admission (4) Neuropathic pain: Plan: Takes gabapentin at home (5) Proteinuria due to type 2 diabetes mellitus: Plan: Lisinopril is on hold due to hypotension and need for pressor support (6) Gout, joint: Plan: Continue allopurinol when able (7) Sleep apnea: Plan: CPAP HS (8) Morbid obesity: Plan: BMI greater than 40. Significant weight loss recommended (9) Acute blood loss anemia: Plan: Currently mild and not needing transfusion. Serial labs (10) Acute renal failure: Plan: Suspect prerenal causes due to volume depletion and hypotension. Urine sodium and urine creatinine ordered to calculate fractional excretion. Monitor intake and output. Continue IV fluids. Appreciate nephrology consultation and recommendations. Lisinopril is on hold. Try to get off pressor support as quickly as possible (11) Acute psychosis: Plan: Supportive care. Family reassured that this will eventually resolve. Plan Per primary team. Anticipate eventual discharge to home Admission and Anticipated Discharge Date Admission Date: August 01, 2022 Subjective Improved overall. He is awake and alert. He remains on pressors however. Creatinine is now improving down to 3.7. Postoperative day 3 after partial right nephrectomy. Review of Systems Review of Systems: The patient is awake but somewhat confused and answers to review of systems questions are unreliable Physical Exam Physical Exam: General-alert, confused now. Morbidly obese HEENT-head atraumatic and normocephalic, pupils equal and reactive to light, extraocular muscles intact Neck-no lymphadenopathy or thyromegaly, trachea midline Chest-diminished breath sounds bilaterally anteriorly. No wheezing Cardiac-normal sinus rhythm, mildly tachycardic , normal S1 and S2 Abdomen-abdomen is distended with very hypoactive bowel sounds consistent with ileus Extremities-1+ pitting edema bilateral lower extremities below the knees is probably chronic and weight related Neuro-cranial nerves II through XII intact, motor and sensory function within normal limits, strength symmetrical , no focal deficits Psych-flat affect Results & Data Results & Data Vital Signs (Past 12 Hours) Vital Signs Temp Pulse Pulse Resp BP Pulse Ox O2 Del Method 08/04/22 11:35 103 H 20 92 High Flow Nasal Cannula 08/04/22 10:45 36.6 C 89 21 104/59 L 95 08/04/22 10:00 36.7 C 90 23 124/60 93 08/04/22 09:28 36.6 C 98 H 21 93/54 L 90 08/04/22 09:00 36.6 C 97 H 24 124/59 L 94 08/04/22 08:30 98 H 27 H 95 08/04/22 08:30 132/67 08/04/22 08:23 99 H 26 H 95 08/04/22 08:23 100/58 L 08/04/22 08:15 100 H 24 08/04/22 08:15 120/65 08/04/22 08:00 101 H 25 H 93 08/04/22 08:00 123/59 L 08/04/22 07:45 103 H 23 78 L 08/04/22 07:45 119/58 L 08/04/22 07:31 102 H 25 H 84 L 08/04/22 07:31 107/56 L 08/04/22 07:30 100 H 35 H 94 08/04/22 07:15 104 H 29 H 87 L 08/04/22 07:15 96/49 L 08/04/22 07:01 102 H 21 93 08/04/22 07:01 93/57 L 08/04/22 07:00 101 H 15 78 L 08/04/22 08:46 36.7 C 97 H 24 107/61 98 08/04/22 08:33 Oxymask, BiPAP 08/04/22 08:32 36.7 C 08/04/22 07:52 100 H 27 H 92 08/04/22 08:26 36.7 C 100 H 24 100/58 L 96 08/04/22 06:58 97 H 08/04/22 07:01 38.2 C H 101 H 26 H 93/57 L 94 08/04/22 06:35 38.2 C H 98 H 23 90/46 L 94 08/04/22 05:35 38.2 C H 98 H 24 104/63 92 08/04/22 04:35 38.2 C H 97 H 22 108/66 92 08/04/22 02:47 102 H 24 92 08/04/22 03:35 38.5 C H 102 H 21 107/67 90 08/04/22 03:05 38.3 C H 98 H 24 121/55 L 93 08/04/22 03:15 99 H 24 94 08/04/22 03:15 121/55 L 08/04/22 03:00 104 H 27 H 92 08/04/22 03:00 112/58 L 08/04/22 02:50 98 H 23 73 L 08/04/22 02:50 95/52 L 08/04/22 02:45 103 H 25 H 92 08/04/22 02:50 38.3 C H 98 H 22 95/52 L 92 08/04/22 02:30 106 H 28 H 92 08/04/22 02:30 119/62 08/04/22 02:15 108 H 30 H 88 L 08/04/22 02:00 102 H 29 H 86 L 08/04/22 02:00 97/55 L 08/04/22 02:34 38.3 C H 106 H 23 119/62 91 08/04/22 02:13 38.3 C H 107 H 28 H 97/55 L 89 L O2 Flow Rate FiO2 08/04/22 11:35 40 100 08/04/22 10:45 08/04/22 10:00 08/04/22 09:28 08/04/22 09:00 08/04/22 08:30 08/04/22 08:30 08/04/22 08:23 08/04/22 08:23 08/04/22 08:15 08/04/22 08:15 08/04/22 08:00 08/04/22 08:00 08/04/22 07:45 08/04/22 07:45 08/04/22 07:31 08/04/22 07:31 08/04/22 07:30 08/04/22 07:15 08/04/22 07:15 08/04/22 07:01 08/04/22 07:01 08/04/22 07:00 08/04/22 08:46 08/04/22 08:33 08/04/22 08:32 08/04/22 07:52 100 08/04/22 08:26 08/04/22 06:58 08/04/22 07:01 08/04/22 06:35 08/04/22 05:35 08/04/22 04:35 08/04/22 02:47 100 08/04/22 03:35 08/04/22 03:05 08/04/22 03:15 08/04/22 03:15 08/04/22 03:00 08/04/22 03:00 08/04/22 02:50 08/04/22 02:50 08/04/22 02:45 08/04/22 02:50 08/04/22 02:30 08/04/22 02:30 08/04/22 02:15 08/04/22 02:00 08/04/22 02:00 08/04/22 02:34 08/04/22 02:13 Laboratory Results 08/04/22 08:15 08/04/22 08:15 PG Care Time/CCT Total # of Minutes Spent Total Time Spent with Patient: Total time spent is greater than 50% in coordination of care (as documented) at patient's floor/unit and/or counseling patient: Coding Level of Care Code 88007 SUB INP/OBS CARE 2/35MIN Diagnoses H/O partial nephrectomy Z90.5 Postoperative hypotension I95.81 Type 2 diabetes mellitus with diabetic neuropathy, without long-term current use of insulin E11.40 Neuropathic pain M79.2 Proteinuria due to type 2 diabetes mellitus E11.29; R80.9 Gout, joint M10.9 Sleep apnea G47.30 Morbid obesity E66.01 Acute blood loss anemia D62 Acute renal failure N17.9 Acute psychosis F23
--- NOTE | 2022-08-04 14:29 | Communication Note ---
Date of Service: August 04, 2022 Evaluated patient this afternoon. Patient is postop day 3 status post right partial nephrectomy. Patient has been dealing with hypotension and respirator y/cardiac distress. Updated patient and family today. Appears renal function is improving. Creatinine has lowered. Urine output remains consistent. DIANA drainage is decreased. Patient was able to be changed over to a mask from the BiPAP. Has been satting at 92 Patient is complaining of significant spasms with the catheter. Did discuss possibly adding some medication if this becomes more severe. We will monitor for now. As patient increases urine output this may improve as the urine becomes more diluted. If needed could consider adding an anticholinergic at low-dose for bladder spasms. Patient has been taking in liquids. Has been tolerating water as well as drank milk earlier today. Continues to have issues with hypotension. Did have fevers overnight. Is back on antibiotics. Pathology is not available yet. Will likely be a few more days until reports are available. Did review with patient and family and will no neck steps moving forward for management once that available. Continue with critical care and monitoring. Continue with close observation and monitoring.
[2022-08-04 14:50] LABS: Amphetamines+Metham, Urine Neg (Neg); Barbiturates, Urine Neg (Neg); Benzodiazepine, Urine Neg (Neg); Cocaine, Urine Neg (Neg); MDMA (Ecstacy), Urine Neg (Neg); Methadone, Urine Neg (Neg); Opiate, Urine Pos (Neg); Phencyclidine, Urine Neg (Neg)
--- NOTE | 2022-08-04 14:59 | Pharmacy Report ---
Pharmacy Glycemic Short Note 2 - Date of Service August 04, 2022 - Glycemic Short BSG Results (Last 24 hours): 08/03/22 08/03/22 08/03/22 14:00 16:32 17:28 Glucose POC Glucose (other) 169 H 198 H 196 H 08/03/22 08/03/22 08/03/22 18:29 19:52 21:04 Glucose 182 H POC Glucose (other) 201 H 198 H 08/03/22 08/03/22 08/03/22 22:04 23:04 23:56 Glucose POC Glucose (other) 199 H 193 H 192 H 08/04/22 08/04/22 08/04/22 01:11 02:04 03:12 Glucose POC Glucose (other) 189 H 183 H 178 H 08/04/22 08/04/22 08/04/22 04:02 05:03 07:19 Glucose POC Glucose (other) 175 H 174 H 150 H 08/04/22 08/04/22 08/04/22 08:15 09:22 10:27 Glucose 135 H POC Glucose (other) 128 H 127 H 08/04/22 08/04/22 08/04/22 11:38 12:30 13:42 Glucose POC Glucose (other) 138 H 175 H 192 H OUTPATIENT ANTIDIABETIC REGIMEN: * Metformin ER 1000 mg BID, Trulicity, glipizide * A1c 9.6% 05/30/22 ASSESSMENT: 08/04/22: * Patient remains on insulin infusion in ICU * Hemodynamics improving -> vasopressor support being weaned * Diet advanced to full liquid/T2DM today * Give patient improvement, will look to make progress in transitioning off insulin infusion * Insulin infusion requirements still ~10 units/hr 08/02/22: * 57 yo admitted following partial nephrectomy, patient with hypotension currently on norepinephrine * Insulin infusion started yesterday with elevated BSGs. Continued to be elevated overnight with insulin infusion running at high rates, now down to 10.7 units/hr * Given continued pressor use and high rates, will continue insulin infusion today * Small dose of Lantus this AM to assist with lowering infusion rates. PLAN FOR INPATIENT GLYCEMIC CONTROL: * Hold outpatient oral diabetes medications * Basal insulin * Lantus 30 units SC BID * Bolus insulin * Nutritional / Prandial insulin per carb ratio of 1 unit per 5 grams CHO consumed
[2022-08-04 18:37] LABS: Hematocrit (blood only) 21.9 % (42.0-52.0); Hemoglobin 7.6 g/dl (14.0-18.0)
[2022-08-04 19:31] LABS: Hematocrit (blood only) 22.2 % (42.0-52.0); Hemoglobin 7.6 g/dl (14.0-18.0)
[2022-08-04] MEDS: ATORVASTATIN 40 MG TAB PO SCH (19:57)
[2022-08-04] MEDS ORDERED: LANTUS PER UNIT CHARGE SC SCH (21:00)
[2022-08-05 00:55] LABS: Hematocrit (blood only) 21.9 % (42.0-52.0); Hemoglobin 7.4 g/dl (14.0-18.0)
[2022-08-05] MEDS: MILRINONE LACTATE/D5W 20,000 MCG/100 ML BAG IV SCH (00:56)
[2022-08-05] MEDS ORDERED: BUMETANIDE 1 MG in SYRINGE 0 ML IV ONE (01:30)
[2022-08-05] MEDS: metroNIDAZOLE 500 MG/100 ML BAG IV SCH ×2 (02:03→11:13)
[2022-08-05 06:22] LABS: BUN Creatinine Ratio 16.2 (10-20); Calcium 7.2 mg/dl (8.6-10.3); Est GFR (African American) 21.3 ml/min; Est GFR (Non-African American) 18.4 ml/min; Phosphorus 3.6 mg/dl (2.5-4.9); Potassium 4.3 mmol/L (3.5-5.1)
[2022-08-05 06:27] LABS: Hematocrit (blood only) 20.6 % (42.0-52.0); Hemoglobin 7.2 g/dl (14.0-18.0); Mean Corpuscular Hemoglobin 30.4 pg (25.0-34.0); Mean Corpuscular Volume 86.9 fL (80.0-100.0); Mean Platelet Volume 9.4 fL (9.4-12.4); Platelet Count 224 K/uL (130-400); RDW Coefficient of Variation 14.6 % (11.5-14.5); RDW Standard Deviation 46.7 fL (36.4-46.3); Red Blood Count 2.37 M/uL (4.70-6.10); White Blood Count 15.56 K/ul (4.8-10.8)
[2022-08-05 06:35] LABS: Anisocytosis Present; Basophils # (auto) 0.02 K/uL (0-0.2); Basophils % (auto) 0.1 %; Eosinophils # (auto) 0.25 K/uL (0-0.50); Eosinophils % (auto) 1.6 %; Immature Granulocytes # (auto) 0.13 K/uL (0.01-0.20); Immature Granulocytes % (auto) 0.8 %; Lymphocytes # (auto) 1.33 K/uL (1.2-3.4); Lymphocytes % (auto) 8.5 %; Monocytes # (auto) 1.42 K/uL (0.11-0.59); Monocytes % (auto) 9.1 %; Neutrophils # (auto) 12.41 K/uL (1.40-6.50); Neutrophils % (auto) 79.9 %; Polychromasia 1+
[2022-08-05] MEDS ORDERED: SODIUM CHLORIDE 0.9% 250 ML IV PRN (06:38)
[2022-08-05 06:50] LABS: Prothrombin Time 11.3 Seconds (9.0-12.0)
[2022-08-05] MEDS: DOCUSATE SODIUM 100 MG CAP PO SCH ×2 (08:26→20:03)
[2022-08-05] MEDS: CYANOCOBALAMIN (B-12) 500 MCG TABLET PO SCH (08:26)
[2022-08-05] MEDS: INSULIN ASPART PER UNIT CHARGE SC SCH ×4 (08:26→20:19)
[2022-08-05] MEDS: FLUTICASONE/VILANTEROL 100/25MCG 14 PUFFS/INHALER INH SCH (08:26)
[2022-08-05] MEDS ORDERED: BUMETANIDE 2 MG in SYRINGE 0 ML IV ONE (08:31)
--- NOTE | 2022-08-05 08:38 | XRay Report ---
XR chest 1V portable CLINICAL HISTORY: Respiratory failure. COMPARISON STUDY: Chest CT May 29, 2022 and chest radiograph August 04, 2022. FINDINGS: Right internal jugular central line remains in place. There is no pneumothorax. Cardiomegal y is unchanged. Mediastinal contours are stable. Small bilateral pleural effusions have slightly incr eased. There are associated bibasilar opacities. Pulmonary edema persists. IMPRESSION: Persistent pulmonary edema with increase in small bilateral pleural effusions and associated bibasila r opacities which could reflect atelectasis or consolidation. ACT 112: Negative or not required by law. Electronically signed by: Renny Riddle M.D. 08/05/2022 8:36 AM
[2022-08-05] MEDS ORDERED: NOREPINEPHRINE/D5W 4 MG/250 ML IV ONE (08:41)
--- NOTE | 2022-08-05 08:59 | Urology Progress Note ---
Date of Service August 05, 2022 Assessment & Plan (1) Acute renal failure: (2) Acute blood loss anemia: (3) H/O partial nephrectomy: (4) Renal mass: Plan 57-year-old male who is POD #4 status post right robotic partial nephrectomy on 08/01/2022 for suspected renal malignancy. Postoperatively he was upgraded to ICU due to hypotension, respiratory issues, and concern for postoperative bleed. He fortunately stabilized and a postoperative CT scan did not show concern for a large hemorrhage. Afebrile overnight. Remains on Levophed with plan to wean, also on gentle diuresis. Creatinine continues to downtrend, 3.51 this morning. Urine output has improved. Hgb 7.2 this AM, receiving PRBCs this am at time of visit. Defer transfusion management to ICU team. Continue to trend labs. Patient tolerating full liquid diet. Patient out of bed to chair this morning. Maintain Reis catheter and DIANA drain. Repeat blood cultures showing no growth x 24 hours, urine culture pending. On IV Flagyl and Cefepime. Hold any anticoagulation. Pathology pending. Appreciate help with care from all consulting teams. Attending note. Patient evaluated. Had blood earlier in the day. Patient is currently sitting in a chair. He is using a nasal cannula and is still in the satting in the 94% range. Patient's vitals are continuing to improve. His temp has remained stable with no major spikes or fever. His blood pressures have remained somewhat low but w ill managed to continue to monitor this. Continues have small amount of drainage from DIANA drain. Does appear to be a little bit more blood than over the weekend however still remains likely serosanguineous without significant large volumes of blood draining. Due to the patient's significant Valsalva while breathing due to use of accessory muscles this is likely putting additional pressure on the area operated on and may be the source of the intermittent drops in hemoglobin. Had tolerated the transfusion earlier in the day. Plan to continue to monitor patient's blood counts throughout this time. If patient develops a significant or sudden bleed that is not responsive or concerning for a more active or severe bleeding intra-abdominal he would likely need to consider vascular management with likely embolization of the kidney. Patient's renal function has continued to improve. Today creatinine came back at 3.51 this is continuing to improve over time. White count is down to 15.56. Initially hemoglobin in the morning was 7.2 this went up to 8.1 after the transfusion of 1 unit. Pathology is still pending. Patient is currently on IV antibiotics due to the fever over the weekend. Has been trying to increase fluid intake. Did encourage patient to utilize gum hard candy or other active chewing in order to help stimulate and ease the guts as he is having some considerable episodes of gas discomfort and pain. This will likely continue to improve as the patient's bowel function starts to return. In the meantime would continue use of stool softeners continue utilization of enhanced recovery techniques for return of bowel function. And will likely work on advancing diet moving forward. Patient is not having any considerable nausea or hiccups. Has not had any major return of bowel function yet. We will plan to continue monitoring with close monitoring as patient is titrated off of the pressors will likely be able to transition him to a telemetry floor moving forward. We will continue to monitor the patient very closely over the postoperative period. We will likely encourage ambulation and will likely utilize physical therapy in order to assist in the patient transitioning back to ambulation and more active activity. We will plan to monitor moving forward. Can likely work on removing catheter once patient is more steady on his feet and the patient has been adequately diuresed. We will continue to monitor patient's lung function over time. Continue the close critical management. 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 Also appreciate the pharmacy for management of diabetic medications. Patient at baseline is a poorly controlled diabetic and had not been on insulin management. We will likely need to consider this especially for discharge planning as there is a chance patient may need to consider utilizing insulin for better and tighter control during the postoperative period. Patient had previously been referred to endocrinology. We will likely need to move forward with this at some point we will plan to continue monitoring with plans to transition once patient has improved and continues to move forward. Patient's gas pains to continue could consider trying some oral relief agents as long as this is okay and approved by the critical care team. From the surgical standpoint it should be okay. Spent a considerable amount of time with patient and family this evening discussing his recovery and expectations. We will plan to continue moving forward. Admission and Anticipated Discharge Date Admission Date: August 01, 2022 Subjective Patient seen and examined in ICU this morning. He was transferring from bed to chair with RN upon my arrival. Remains on Levophed. Subjectively doing okay, reports feeling weak. Tolerating full liquid diet. No nausea or vomiting. Denies pain at present. Reis patent and draining yellow urine, urine output has improved. DIANA output remains low. No fever or chills overnight. Labs show creatinine 3.51 (down from 3.78), WBC 15.56 (previously 19.12), Hgb 7.2 - currently receiving blood this am. Repeat blood cultures with no growth to date, repeat UC pending. Review of Systems Constitutional: as per Subjective / HPI Gastrointestinal: as per Subjective / HPI Genitourinary: + as per Subjective / HPI Physical Exam Physical Exam: General: Alert and oriented, no acute distress, +obese HEENT: Normocephalic Pulmonary: no respiratory distress, oxymask in place Abdomen: Soft, nondistended, nontender; DIANA drain with sanguinous output. : Reis catheter draining clear urine Extremities: Moves all 4 extremities spontaneously Neuro: No gross deficits Skin: Surgical incisions healthy and well approximated with lobo. Right quadrant dressing clean dry and intact. Results & Data Vital Signs (Past 12 Hours) Vital Signs Temp Pulse Resp BP Pulse Ox O2 Flow Rate FiO2 08/05/22 08:19 36.8 C 92 H 20 98/60 L 88 L 10 08/05/22 08:03 36.8 C 92 H 22 111/55 L 92 10 08/05/22 06:30 80 21 94 08/05/22 06:16 102/56 L 08/05/22 06:16 82 24 94 08/05/22 06:15 84 17 94 08/05/22 06:02 106/47 L 08/05/22 06:02 81 21 96 08/05/22 06:01 79/36 L 08/05/22 06:01 82 15 96 08/05/22 06:00 83 24 96 08/05/22 05:45 82 23 95 08/05/22 05:31 97/54 L 08/05/22 05:31 84 24 95 08/05/22 05:30 85 16 96 08/05/22 05:16 92/47 L 08/05/22 05:16 81 23 08/05/22 05:15 79 17 96 08/05/22 05:01 83 25 H 97 08/05/22 05:01 96/47 L 08/05/22 05:00 84 24 98 08/05/22 04:47 97/49 L 08/05/22 04:47 86 27 H 94 08/05/22 04:45 86 22 93 08/05/22 04:30 82 20 96 08/05/22 04:15 93 H 26 H 93 08/05/22 04:00 86 20 96 08/05/22 03:57 91/48 L 08/05/22 03:57 82 20 95 08/05/22 05:29 85 37 H 96 80 08/05/22 03:58 88 21 92 80 08/05/22 00:00 37.2 C 08/05/22 03:46 87/50 L 08/05/22 03:46 86 21 95 08/05/22 03:45 85 21 94 08/05/22 03:30 90 27 H 90 08/05/22 03:15 87 22 95 08/05/22 03:15 94/55 L 08/05/22 03:00 86 20 95 08/05/22 02:46 99/54 L 08/05/22 02:46 89 22 95 08/05/22 02:45 89 22 94 08/05/22 02:30 90 24 96 08/05/22 02:16 90 22 95 08/05/22 02:16 95/48 L 08/05/22 02:15 86 21 95 08/05/22 02:11 117/61 08/05/22 02:11 90 24 91 08/05/22 02:00 86 20 97 08/05/22 02:00 90/44 L 08/05/22 01:45 89 24 96 08/05/22 01:45 87/53 L 08/05/22 01:30 89 21 96 08/05/22 01:30 99/49 L 08/05/22 01:15 84 18 96 08/05/22 01:15 85/46 L 08/05/22 01:00 90 21 97 08/05/22 01:00 92/47 L 08/05/22 00:45 92 H 22 97 08/05/22 00:45 103/43 L 08/05/22 00:30 93 H 28 H 96 08/05/22 00:30 108/49 L 08/05/22 00:15 90 22 96 08/05/22 00:15 100/44 L 08/05/22 00:00 91 H 21 94 08/05/22 00:00 92/40 L 08/04/22 23:45 94 H 26 H 95 08/04/22 23:45 92/50 L 08/04/22 23:30 95 H 27 H 96 08/04/22 23:30 104/49 L 08/04/22 23:15 94 H 26 H 97 08/04/22 23:15 88/51 L 08/04/22 23:00 96 H 28 H 96 08/04/22 23:00 91/46 L 08/04/22 22:45 97 H 26 H 97 08/04/22 22:45 98/49 L 08/04/22 22:30 97 H 23 98 08/04/22 22:30 92/44 L 08/04/22 22:15 99 H 26 H 96 08/04/22 22:15 107/45 L 08/04/22 22:00 98 H 29 H 97 08/04/22 22:00 90/48 L 08/05/22 03:51 37.2 C 08/05/22 00:00 97 H 08/04/22 22:52 98 H 39 H 97 80 08/04/22 21:30 95 H 23 97 08/04/22 21:30 122/53 L 08/04/22 21:15 98 H 25 H 98 08/04/22 21:15 114/50 L 08/04/22 21:00 99 H 25 H 99 08/04/22 21:00 100/49 L PG Care Time/CCT Total # of Minutes Spent Total Time Spent with Patient: Total time spent is greater than 50% in coordination of care (as documented) at patient's floor/unit and/or counseling patient: Coding Level of Care Code None Diagnoses Acute renal failure N17.9 Acute blood loss anemia D62 H/O partial nephrectomy Z90.5 Renal mass N28.89
[2022-08-05] MEDS ORDERED: LANTUS PER UNIT CHARGE SC ONE ×2 (09:00→21:00)
--- NOTE | 2022-08-05 09:23 | Nephrology Progress Note ---
Date of Service August 05, 2022 Assessment & Plan (1) Acute kidney injury: Plan: Non-oliguric. Creatinine slightly improved. MAO consistent with ischemic ATN in setting of partial nephrectomy, hemodynamic instability, and acute blood loss anemia. No current indication for dialysis. Remains in positive fluid balance. IV Bumex 1 mg proivded overnight. Additional, Bumex 2 mg IV ordered now with PRBC transfusion. Medications are appropriately dosed for kidney dysfunction. MAP goal >65. Document strict I/O's. Reis to gravity. Repeat metabolic profile tomorrow AM. (2) H/O partial nephrectomy: Plan: POD #4 s/p robotic assisted laparoscopic right partial nephrectomy. Plan of care reviewed with urology. Clear liquid diet. (3) Postoperative hypotension: Plan: Continue to wean Levophed as tolerated. (4) Acute blood loss anemia: Plan: 3 u PRBC transfusion support post-operatively. Additional 2 units are being provided yesterday AM. 1 unit this AM. (5) COPD (chronic obstructive pulmonary disease): (6) MARIA EUGENIA (obstructive sleep apnea): Plan: Given kidney dysfunction, I would suggest avoiding iodinated contrast / CTA if able. Cautious titration of milrinone in kidney dysfunction. Diuretics to encourage urine output. Admission and Anticipated Discharge Date Admission Date: August 01, 2022 Subjective Patient seen and examined in ICU this morning. I discussed the recent history and plan of care with Dr. Greene. No acute events overnight. Afebrile overnight. Decreased drainage from DIANA. Levophed gtt weaned to 0.05. Nathaniel reports some persistent back discomfort in bed but otherwise he feels well. Denies notable abdominal pain. Remains on Oxymask. Denies notable dyspnea. Review of Systems Review of Systems: All systems reviewed & are unremarkable except as noted in HPI & below Physical Exam Constitutional: well developed and + morbidly obese; no acute distress Eyes: + anicteric sclerae; pupils not irregular Neck: normal visual inspection, trachea midline and + thick neck Respiratory: normal respiratory effort and + tachypneic; no respiratory distress, no labored breathing and no retractions Auscultation: lungs clear to auscultation bilaterally and + rhonchi; no rales and no wheezes Cardiovascular: Rate/Rhythm: regular rate Heart Sounds: normal S1 and normal S2 Extremities: + edema (trace dependent) Gastrointestinal (Abdomen): Inspection/Auscultation: + abdomen distended; + abnormal bowel sounds (hypoactive) Percussion/Palpation: normal to percussion; no guarding and abdomen not rigid Musculoskeletal: Extremities: no cyanosis and no clubbing Skin: normal turgor; no jaundice Neurologic: Motor/Sensory: no tremor and no asterixis Psychiatric: Orientation: alert and oriented x 3 Results & Data Vital Signs (Past 12 Hours) Vital Signs Temp Pulse Resp BP Pulse Ox O2 Flow Rate FiO2 08/05/22 08:45 36.9 C 91 H 20 114/51 L 90 10 08/05/22 08:30 92 H 20 78/53 L 91 15 08/05/22 08:19 36.8 C 92 H 20 98/60 L 88 L 10 08/05/22 08:03 36.8 C 92 H 22 111/55 L 92 10 08/05/22 06:30 80 21 94 08/05/22 06:16 102/56 L 08/05/22 06:16 82 24 94 08/05/22 06:15 84 17 94 08/05/22 06:02 106/47 L 08/05/22 06:02 81 21 96 08/05/22 06:01 79/36 L 08/05/22 06:01 82 15 96 08/05/22 06:00 83 24 96 08/05/22 05:45 82 23 95 08/05/22 05:31 97/54 L 08/05/22 05:31 84 24 95 08/05/22 05:30 85 16 96 08/05/22 05:16 92/47 L 08/05/22 05:16 81 23 08/05/22 05:15 79 17 96 08/05/22 05:01 83 25 H 97 08/05/22 05:01 96/47 L 08/05/22 05:00 84 24 98 08/05/22 04:47 97/49 L 08/05/22 04:47 86 27 H 94 08/05/22 04:45 86 22 93 08/05/22 04:30 82 20 96 08/05/22 04:15 93 H 26 H 93 08/05/22 04:00 86 20 96 08/05/22 03:57 91/48 L 08/05/22 03:57 82 20 95 08/05/22 05:29 85 37 H 96 80 08/05/22 03:58 88 21 92 80 08/05/22 00:00 37.2 C 08/05/22 03:46 87/50 L 08/05/22 03:46 86 21 95 08/05/22 03:45 85 21 94 08/05/22 03:30 90 27 H 90 08/05/22 03:15 87 22 95 08/05/22 03:15 94/55 L 08/05/22 03:00 86 20 95 08/05/22 02:46 99/54 L 08/05/22 02:46 89 22 95 08/05/22 02:45 89 22 94 08/05/22 02:30 90 24 96 08/05/22 02:16 90 22 95 08/05/22 02:16 95/48 L 08/05/22 02:15 86 21 95 08/05/22 02:11 117/61 08/05/22 02:11 90 24 91 08/05/22 02:00 86 20 97 08/05/22 02:00 90/44 L 08/05/22 01:45 89 24 96 08/05/22 01:45 87/53 L 08/05/22 01:30 89 21 96 08/05/22 01:30 99/49 L 08/05/22 01:15 84 18 96 08/05/22 01:15 85/46 L 08/05/22 01:00 90 21 97 08/05/22 01:00 92/47 L 08/05/22 00:45 92 H 22 97 08/05/22 00:45 103/43 L 08/05/22 00:30 93 H 28 H 96 08/05/22 00:30 108/49 L 08/05/22 00:15 90 22 96 08/05/22 00:15 100/44 L 08/05/22 00:00 91 H 21 94 08/05/22 00:00 92/40 L 08/04/22 23:45 94 H 26 H 95 08/04/22 23:45 92/50 L 08/04/22 23:30 95 H 27 H 96 08/04/22 23:30 104/49 L 08/04/22 23:15 94 H 26 H 97 08/04/22 23:15 88/51 L 08/04/22 23:00 96 H 28 H 96 08/04/22 23:00 91/46 L 08/04/22 22:45 97 H 26 H 97 08/04/22 22:45 98/49 L 08/04/22 22:30 97 H 23 98 08/04/22 22:30 92/44 L 08/04/22 22:15 99 H 26 H 96 08/04/22 22:15 107/45 L 08/04/22 22:00 98 H 29 H 97 08/04/22 22:00 90/48 L 08/05/22 03:51 37.2 C 08/05/22 00:00 97 H 08/04/22 22:52 98 H 39 H 97 80 08/04/22 21:30 95 H 23 97 08/04/22 21:30 122/53 L Laboratory Results Laboratory Results - last 24 hr 08/03/22 08/04/22 08/04/22 23:49 09:22 10:27 WBC RBC Hgb Hct MCV MCH MCHC RDW Std Deviation RDW Coeff of [place] Plt Count MPV Immature Gran % (Auto) Neut % (Auto) Lymph % (Auto) [place] % (Auto) Eos % (Auto) Baso % (Auto) Neut # (Auto) Lymph # (Auto) [place] # (Auto) Eos # (Auto) Baso # (Auto) Immature Gran # (Auto) Polychromasia Anisocytosis PT INR VBG pH VBG pCO2 VBG pO2 VBG HCO3 VBG O2 Saturation VBG Base Excess Sodium Potassium Chloride Carbon Dioxide Anion Gap BUN Creatinine Est Cr Clr Drug Dosing Est GFR ( Amer) Est GFR (Non-Af Amer) BUN/Creatinine Ratio Glucose POC Glucose POC Glucose (other) 128 H 127 H Calcium Phosphorus Magnesium Urine Opiates Screen U Codeine Confrm GC/MS Ur Morphine (GC/MS) Ur Hydrocodone (GC/MS) Ur Norhydrocodone Ur Noroxycodone Urine Oxycodone (GC/MS) U Oxymorphone GC/MS Ur Methadone, Qual Ur Hydromorphone (GC/MS) Urine Barbiturates Ur Phencyclidine (PCP) U Amphetamin/Meth Scrn MDMA (Ecstasy) Screen U Benzodiazepines Scrn Ur Cocaine Metabolite U Marijuana (THC) Screen Drug Screen Comment Blood Type O Positive Antibody Screen NEGATIVE Crossmatch See Detail 08/04/22 08/04/22 08/04/22 11:38 12:30 12:57 WBC RBC Hgb Hct MCV MCH MCHC RDW Std Deviation RDW Coeff of [place] Plt Count MPV Immature Gran % (Auto) Neut % (Auto) Lymph % (Auto) [place] % (Auto) Eos % (Auto) Baso % (Auto) Neut # (Auto) Lymph # (Auto) [place] # (Auto) Eos # (Auto) Baso # (Auto) Immature Gran # (Auto) Polychromasia Anisocytosis PT INR VBG pH 7.34 L VBG pCO2 44 VBG pO2 37 VBG HCO3 24 VBG O2 Saturation 61.9 VBG Base Excess -2.2 Sodium Potassium Chloride Carbon Dioxide Anion Gap BUN Creatinine Est Cr Clr Drug Dosing Est GFR ( Amer) Est GFR (Non-Af Amer) BUN/Creatinine Ratio Glucose POC Glucose POC Glucose (other) 138 H 175 H Calcium Phosphorus Magnesium Urine Opiates Screen U Codeine Confrm GC/MS Ur Morphine (GC/MS) Ur Hydrocodone (GC/MS) Ur Norhydrocodone Ur Noroxycodone Urine Oxycodone (GC/MS) U Oxymorphone GC/MS Ur Methadone, Qual Ur Hydromorphone (GC/MS) Urine Barbiturates Ur Phencyclidine (PCP) U Amphetamin/Meth Scrn MDMA (Ecstasy) Screen U Benzodiazepines Scrn Ur Cocaine Metabolite U Marijuana (THC) Screen Drug Screen Comment Blood Type Antibody Screen Crossmatch 08/04/22 08/04/22 08/04/22 13:42 15:03 16:56 WBC RBC Hgb Hct MCV MCH MCHC RDW Std Deviation RDW Coeff of [place] Plt Count MPV Immature Gran % (Auto) Neut % (Auto) Lymph % (Auto) [place] % (Auto) Eos % (Auto) Baso % (Auto) Neut # (Auto) Lymph # (Auto) [place] # (Auto) Eos # (Auto) Baso # (Auto) Immature Gran # (Auto) Polychromasia Anisocytosis PT INR VBG pH VBG pCO2 VBG pO2 VBG HCO3 VBG O2 Saturation VBG Base Excess Sodium Potassium Chloride Carbon Dioxide Anion Gap BUN Creatinine Est Cr Clr Drug Dosing Est GFR ( Amer) Est GFR (Non-Af Amer) BUN/Creatinine Ratio Glucose POC Glucose 164 H POC Glucose (other) 192 H 163 H Calcium Phosphorus Magnesium Urine Opiates Screen U Codeine Confrm GC/MS Ur Morphine (GC/MS) Ur Hydrocodone (GC/MS) Ur Norhydrocodone Ur Noroxycodone Urine Oxycodone (GC/MS) U Oxymorphone GC/MS Ur Methadone, Qual Ur Hydromorphone (GC/MS) Urine Barbiturates Ur Phencyclidine (PCP) U Amphetamin/Meth Scrn MDMA (Ecstasy) Screen U Benzodiazepines Scrn Ur Cocaine Metabolite U Marijuana (THC) Screen Drug Screen Comment Blood Type Antibody Screen Crossmatch 08/04/22 08/04/22 08/04/22 17:54 18:21 19:25 WBC RBC Hgb 7.6 L 7.6 L Hct 21.9 L 22.2 L MCV MCH MCHC RDW Std Deviation RDW Coeff of [place] Plt Count MPV Immature Gran % (Auto) Neut % (Auto) Lymph % (Auto) [place] % (Auto) Eos % (Auto) Baso % (Auto) Neut # (Auto) Lymph # (Auto) [place] # (Auto) Eos # (Auto) Baso # (Auto) Immature Gran # (Auto) Polychromasia Anisocytosis PT INR VBG pH VBG pCO2 VBG pO2 VBG HCO3 VBG O2 Saturation VBG Base Excess Sodium Potassium Chloride Carbon Dioxide Anion Gap BUN Creatinine Est Cr Clr Drug Dosing Est GFR ( Amer) Est GFR (Non-Af Amer) BUN/Creatinine Ratio Glucose POC Glucose 144 H POC Glucose (other) Calcium Phosphorus Magnesium Urine Opiates Screen U Codeine Confrm GC/MS Ur Morphine (GC/MS) Ur Hydrocodone (GC/MS) Ur Norhydrocodone Ur Noroxycodone Urine Oxycodone (GC/MS) U Oxymorphone GC/MS Ur Methadone, Qual Ur Hydromorphone (GC/MS) Urine Barbiturates Ur Phencyclidine (PCP) U Amphetamin/Meth Scrn MDMA (Ecstasy) Screen U Benzodiazepines Scrn Ur Cocaine Metabolite U Marijuana (THC) Screen Drug Screen Comment Blood Type Antibody Screen Crossmatch 08/04/22 08/04/22 08/04/22 20:22 20:46 21:10 WBC RBC Hgb Hct MCV MCH MCHC RDW Std Deviation RDW Coeff of [place] Plt Count MPV Immature Gran % (Auto) Neut % (Auto) Lymph % (Auto) [place] % (Auto) Eos % (Auto) Baso % (Auto) Neut # (Auto) Lymph # (Auto) [place] # (Auto) Eos # (Auto) Baso # (Auto) Immature Gran # (Auto) Polychromasia Anisocytosis PT INR VBG pH VBG pCO2 VBG pO2 VBG HCO3 VBG O2 Saturation VBG Base Excess Sodium Potassium Chloride Carbon Dioxide Anion Gap BUN Creatinine Est Cr Clr Drug Dosing Est GFR ( Amer) Est GFR (Non-Af Amer) BUN/Creatinine Ratio Glucose POC Glucose POC Glucose (other) 105 H 132 H 131 H Calcium Phosphorus Magnesium Urine Opiates Screen U Codeine Confrm GC/MS Ur Morphine (GC/MS) Ur Hydrocodone (GC/MS) Ur Norhydrocodone Ur Noroxycodone Urine Oxycodone (GC/MS) U Oxymorphone GC/MS Ur Methadone, Qual Ur Hydromorphone (GC/MS) Urine Barbiturates Ur Phencyclidine (PCP) U Amphetamin/Meth Scrn MDMA (Ecstasy) Screen U Benzodiazepines Scrn Ur Cocaine Metabolite U Marijuana (THC) Screen Drug Screen Comment Blood Type Antibody Screen Crossmatch 08/04/22 08/04/22 08/04/22 21:35 22:47 23:51 WBC RBC Hgb Hct MCV MCH MCHC RDW Std Deviation RDW Coeff of [place] Plt Count MPV Immature Gran % (Auto) Neut % (Auto) Lymph % (Auto) [place] % (Auto) Eos % (Auto) Baso % (Auto) Neut # (Auto) Lymph # (Auto) [place] # (Auto) Eos # (Auto) Baso # (Auto) Immature Gran # (Auto) Polychromasia Anisocytosis PT INR VBG pH VBG pCO2 VBG pO2 VBG HCO3 VBG O2 Saturation VBG Base Excess Sodium Potassium Chloride Carbon Dioxide Anion Gap BUN Creatinine Est Cr Clr Drug Dosing Est GFR ( Amer) Est GFR (Non-Af Amer) BUN/Creatinine Ratio Glucose POC Glucose POC Glucose (other) 145 H 146 H 146 H Calcium Phosphorus Magnesium Urine Opiates Screen U Codeine Confrm GC/MS Ur Morphine (GC/MS) Ur Hydrocodone (GC/MS) Ur Norhydrocodone Ur Noroxycodone Urine Oxycodone (GC/MS) U Oxymorphone GC/MS Ur Methadone, Qual Ur Hydromorphone (GC/MS) Urine Barbiturates Ur Phencyclidine (PCP) U Amphetamin/Meth Scrn MDMA (Ecstasy) Screen U Benzodiazepines Scrn Ur Cocaine Metabolite U Marijuana (THC) Screen Drug Screen Comment Blood Type Antibody Screen Crossmatch 08/04/22 08/04/22 08/05/22 Unknown Unknown 00:34 WBC RBC Hgb 7.4 L Hct 21.9 L MCV MCH MCHC RDW Std Deviation RDW Coeff of [place] Plt Count MPV Immature Gran % (Auto) Neut % (Auto) Lymph % (Auto) [place] % (Auto) Eos % (Auto) Baso % (Auto) Neut # (Auto) Lymph # (Auto) [place] # (Auto) Eos # (Auto) Baso # (Auto) Immature Gran # (Auto) Polychromasia Anisocytosis PT INR VBG pH VBG pCO2 VBG pO2 VBG HCO3 VBG O2 Saturation VBG Base Excess Sodium Potassium Chloride Carbon Dioxide Anion Gap BUN Creatinine Est Cr Clr Drug Dosing Est GFR ( Amer) Est GFR (Non-Af Amer) BUN/Creatinine Ratio Glucose POC Glucose POC Glucose (other) Calcium Phosphorus Magnesium Urine Opiates Screen Pos H U Codeine Confrm GC/MS Pending Ur Morphine (GC/MS) Pending Ur Hydrocodone (GC/MS) Pending Ur Norhydrocodone Pending Ur Noroxycodone Pending Urine Oxycodone (GC/MS) Pending U Oxymorphone GC/MS Pending Ur Methadone, Qual Neg Ur Hydromorphone (GC/MS) Pending Urine Barbiturates Neg Ur Phencyclidine (PCP) Neg U Amphetamin/Meth Scrn Neg MDMA (Ecstasy) Screen Neg U Benzodiazepines Scrn Neg Ur Cocaine Metabolite Neg U Marijuana (THC) Screen Neg Drug Screen Comment Pending Blood Type Antibody Screen Crossmatch 08/05/22 08/05/22 08/05/22 00:41 02:50 03:42 WBC RBC Hgb Hct MCV MCH MCHC RDW Std Deviation RDW Coeff of [place] Plt Count MPV Immature Gran % (Auto) Neut % (Auto) Lymph % (Auto) [place] % (Auto) Eos % (Auto) Baso % (Auto) Neut # (Auto) Lymph # (Auto) [place] # (Auto) Eos # (Auto) Baso # (Auto) Immature Gran # (Auto) Polychromasia Anisocytosis PT INR VBG pH VBG pCO2 VBG pO2 VBG HCO3 VBG O2 Saturation VBG Base Excess Sodium Potassium Chloride Carbon Dioxide Anion Gap BUN Creatinine Est Cr Clr Drug Dosing Est GFR ( Amer) Est GFR (Non-Af Amer) BUN/Creatinine Ratio Glucose POC Glucose POC Glucose (other) 141 H 121 H 119 H Calcium Phosphorus Magnesium Urine Opiates Screen U Codeine Confrm GC/MS Ur Morphine (GC/MS) Ur Hydrocodone (GC/MS) Ur Norhydrocodone Ur Noroxycodone Urine Oxycodone (GC/MS) U Oxymorphone GC/MS Ur Methadone, Qual Ur Hydromorphone (GC/MS) Urine Barbiturates Ur Phencyclidine (PCP) U Amphetamin/Meth Scrn MDMA (Ecstasy) Screen U Benzodiazepines Scrn Ur Cocaine Metabolite U Marijuana (THC) Screen Drug Screen Comment Blood Type Antibody Screen Crossmatch 08/05/22 08/05/22 08/05/22 05:35 05:35 05:35 WBC 15.56 H RBC 2.37 L Hgb 7.2 L Hct 20.6 L* MCV 86.9 MCH 30.4 MCHC 35.0 RDW Std Deviation 46.7 H RDW Coeff of [place] 14.6 H Plt Count 224 MPV 9.4 Immature Gran % (Auto) 0.8 Neut % (Auto) 79.9 Lymph % (Auto) 8.5 [place] % (Auto) 9.1 Eos % (Auto) 1.6 Baso % (Auto) 0.1 Neut # (Auto) 12.41 H Lymph # (Auto) 1.33 [place] # (Auto) 1.42 H Eos # (Auto) 0.25 Baso # (Auto) 0.02 Immature Gran # (Auto) 0.13 Polychromasia 1+ Anisocytosis Present PT 11.3 INR 1.0 VBG pH VBG pCO2 VBG pO2 VBG HCO3 VBG O2 Saturation VBG Base Excess Sodium 133 L Potassium 4.3 Chloride 102 Carbon Dioxide 23 Anion Gap 8 BUN 57 H Creatinine 3.51 H Est Cr Clr Drug Dosing 39.0 Est GFR ( Amer) 21.3 Est GFR (Non-Af Amer) 18.4 BUN/Creatinine Ratio 16.2 Glucose 118 H POC Glucose POC Glucose (other) Calcium 7.2 L Phosphorus 3.6 Magnesium 2.0 Urine Opiates Screen U Codeine Confrm GC/MS Ur Morphine (GC/MS) Ur Hydrocodone (GC/MS) Ur Norhydrocodone Ur Noroxycodone Urine Oxycodone (GC/MS) U Oxymorphone GC/MS Ur Methadone, Qual Ur Hydromorphone (GC/MS) Urine Barbiturates Ur Phencyclidine (PCP) U Amphetamin/Meth Scrn MDMA (Ecstasy) Screen U Benzodiazepines Scrn Ur Cocaine Metabolite U Marijuana (THC) Screen Drug Screen Comment Blood Type Antibody Screen Crossmatch 08/05/22 08/05/22 06:11 07:25 WBC RBC Hgb Hct MCV MCH MCHC RDW Std Deviation RDW Coeff of [place] Plt Count MPV Immature Gran % (Auto) Neut % (Auto) Lymph % (Auto) [place] % (Auto) Eos % (Auto) Baso % (Auto) Neut # (Auto) Lymph # (Auto) [place] # (Auto) Eos # (Auto) Baso # (Auto) Immature Gran # (Auto) Polychromasia Anisocytosis PT INR VBG pH VBG pCO2 VBG pO2 VBG HCO3 VBG O2 Saturation VBG Base Excess Sodium Potassium Chloride Carbon Dioxide Anion Gap BUN Creatinine Est Cr Clr Drug Dosing Est GFR ( Amer) Est GFR (Non-Af Amer) BUN/Creatinine Ratio Glucose POC Glucose POC Glucose (other) 130 H 141 H Calcium Phosphorus Magnesium Urine Opiates Screen U Codeine Confrm GC/MS Ur Morphine (GC/MS) Ur Hydrocodone (GC/MS) Ur Norhydrocodone Ur Noroxycodone Urine Oxycodone (GC/MS) U Oxymorphone GC/MS Ur Methadone, Qual Ur Hydromorphone (GC/MS) Urine Barbiturates Ur Phencyclidine (PCP) U Amphetamin/Meth Scrn MDMA (Ecstasy) Screen U Benzodiazepines Scrn Ur Cocaine Metabolite U Marijuana (THC) Screen Drug Screen Comment Blood Type Antibody Screen Crossmatch PG Care Time/CCT Total # of Minutes Spent Total Time Spent with Patient: Total time spent is greater than 50% in coordination of care (as documented) at patient's floor/unit and/or counseling patient: Coding Level of Care Code 34238 SUB INP/OBS CARE 350MIN Diagnoses Acute kidney injury N17.9 H/O partial nephrectomy Z90.5 Postoperative hypotension I95.81 Acute blood loss anemia D62 COPD (chronic obstructive pulmonary disease) J44.9 MARIA EUGENIA (obstructive sleep apnea) G47.33
[2022-08-05] MEDS: Double Conc; 16mg in 500mL IV SCH ×3 (10:23→11:34)
--- NOTE | 2022-08-05 10:35 | Pharmacy Report ---
Pharmacy Glycemic Short Note 2 - Date of Service August 05, 2022 - Glycemic Short BSG Results (Last 24 hours): 08/04/22 08/04/22 08/04/22 10:27 11:38 12:30 Glucose POC Glucose POC Glucose (other) 127 H 138 H 175 H 08/04/22 08/04/22 08/04/22 13:42 15:03 16:56 Glucose POC Glucose 164 H POC Glucose (other) 192 H 163 H 08/04/22 08/04/22 08/04/22 17:54 20:22 20:46 Glucose POC Glucose 144 H POC Glucose (other) 105 H 132 H 08/04/22 08/04/22 08/04/22 21:10 21:35 22:47 Glucose POC Glucose POC Glucose (other) 131 H 145 H 146 H 08/04/22 08/05/22 08/05/22 23:51 00:41 02:50 Glucose POC Glucose POC Glucose (other) 146 H 141 H 121 H 08/05/22 08/05/22 08/05/22 03:42 05:35 06:11 Glucose 118 H POC Glucose POC Glucose (other) 119 H 130 H 08/05/22 07:25 Glucose POC Glucose POC Glucose (other) 141 H OUTPATIENT ANTIDIABETIC REGIMEN: * Metformin ER 1000 mg PO BID * Glipizide ER 10 mg PO BID * Farxiga 5 mg PO daily * Trulicity 3 mg SC every Friday * HbA1c: 9.6% (05/30/22) ASSESSMENT: 08/05: * Nathaniel remained on the insulin infusion in the ICU this AM. Rate has trended down this AM. Based on requirements over the last 8 hours, calculated total daily insulin requirements to be near 180 units. * Hemodynamics are improving. Milrinone to be discontinued today and hopefully can wean norepinephrine off. Improving diet and renal function as well. * Will reduced estimated TDD from above to be conservative today as to prevent hypoglycemia. Insulin drip has been discontinued at this time. Will target a total daily insulin dose of 160 units, split 50/50 between basal and bolus. Will check BSGs q4h for now during drip transition period. Can likely be changed to ACHS tomorrow. 08/04: * Patient remains on insulin infusion in ICU * Hemodynamics improving -> vasopressor support being weaned * Diet advanced to full liquid/T2DM today * Give patient improvement, will look to make progress in transitioning off insulin infusion * Insulin infusion requirements still ~10 units/hr 08/02: * 57 yo admitted following partial nephrectomy, patient with hypotension currently on norepinephrine * Insulin infusion started yesterday with elevated BSGs. Continued to be elevated overnight with insulin infusion running at high rates, now down to 10.7 units/hr * Given continued pressor use and high rates, will continue insulin infusion today * Small dose of Lantus this AM to assist with lowering infusion rates. PLAN FOR INPATIENT GLYCEMIC CONTROL: * Hold outpatient oral diabetes medications * Discontinue Insulin drip at this time * Basal insulin * Lantus 40 units SC BID * Reassess basal in the AM * Bolus insulin * Novolog per scale q4 * Goal Range: 110-140 mg/dL * Correction Factor: 15 mg/dL/unit * Carb Ratio: 5 g CHO/unit
[2022-08-05] MEDS: INSULIN REGULAR 250 UNITS in SODIUM CHLORIDE 0.9% 247.5 ML IV SCH (10:40)
[2022-08-05] MEDS: CEFEPIME 2,000 MG in SYRINGE 0 ML IV SCH (11:12)
[2022-08-05 13:29] LABS: Hematocrit (blood only) 23.6 % (42.0-52.0); Hemoglobin 8.1 g/dl (14.0-18.0)
--- NOTE | 2022-08-05 14:51 | Critical Care Progress Note ---
Date of Service August 05, 2022 Assessment & Plan (1) Acute renal failure: (2) MARIA EUGENIA (obstructive sleep apnea): (3) Postoperative hypotension: Plan Reason Critically Ill: 57-year-old male postprocedural hypotension status post partial nephrectomy. 24-hour events: Pressors have been weaned. The patient has tolerated breaks off of noninvasive positive pressure ventilation but continues to demonstrate encephalopathy when he sleeps without the CPAP/BiPAP in place. Recommendations: Neuro: Patient has chronic pain issues which appear to be exacerbating his encephalopathy when he receives his OxyContin. We will try and taper down. Holding his gabapentin given his kidney function issues. If pain management continues to be problematic, consultation with the acute pain service may be considered. Resp: Sleep disordered breathing and hypoxemic respiratory failure. Chest x-ray demonstrates decreased lung volumes with atelectatic changes. Suspect significant degree of VQ mismatch. Discussed with nursing the importance of placing the patient on noninvasive positive pressure ventilation when sleeping or if mental status is altered. Low suspicion for thromboembolic disease and could not likely anticoagulate given the potential bleeding issues and recent surgery. Patient will do better if we can offload fluid. Aggressive incentive spirometry. If he can be up to chair, suspect his respiratory mechanics and VQ mismatch will improve. Would not try and target oxygen saturations above 88 to 90%. I do not think the patient has COPD and will discontinue his inhalers at this point in time. We will discontinue the morphine and decrease oxycodone in an effort to try and improve his hemodynamics and respiratory status CV: Hypotension: Unclear etiology. Echo from 08/01/2022 showed underfilling of the left ventricular cavity. EF was normal. Right ventricle showed normal size and function with normal respiratory variation in the inferior vena cava. Appears improved today. Discontinue milrinone. Add midodrine in an effort to get him off of pressors. His lactate has been normal on the last 3 occasions. Fluids/Renal: Discussed with nephrology. Serum creatinine appears to be improving. Continue diuresis. Electrolytes stable. Will replace calcium today. ID: Day #[id number] cefepime and Flagyl. Fever curve and white blood cell count are better. Cultures have shown no growth to date. Procalcitonin unlikely to be helpful in the setting of acute renal failure. Discontinue antibiotics at this point in time and follow clinically. Hemorrhage adjacent to the partial nephrectomy may result in fevers and elevation in white blood cell count. Defer additional imaging unless hemodynamically unstable GI/Nutrition: Tolerating diet. Heme: Acute blood loss: Small mount of hemorrhage identified at the operative site. Try and minimize lab draws. Appropriate response to 1 unit of packed cells this morning. Continue to follow Endocrine: Glycemic control per protocol. Currently on an insulin infusion. Vascular access: Right IJ central catheter Code Status: Full code Disposition: ICU We will work on physical therapy and Occupational Therapy once the patient is off pressors and safe to get out of bed. We will try and have him sit up as much as possible. Discussed on multidisciplinary rounds and with critical care bedside nurse. Total of 38 minutes critical care time was spent in evaluation management stabilization of this patient Admission and Anticipated Discharge Date Admission Date: August 01, 2022 Subjective Patient seen and examined. He is not describing any shortness of breath, chest pain, or palpitations this morning. Abdominal pain is reasonably well controlled. He denies nausea or vomiting. Review of Systems Review of Systems: All systems reviewed & are unremarkable except as noted in Subjective Physical Exam Constitutional: well developed and + morbidly obese; no acute distress Eyes: + anicteric sclerae; pupils not irregular Neck: normal visual inspection, trachea midline and + thick neck Respiratory: normal respiratory effort and + tachypneic; no respiratory distress, no labored breathing and no retractions Auscultation: lungs clear to auscultation bilaterally and + rhonchi; no rales and no wheezes Cardiovascular: Rate/Rhythm: regular rate Heart Sounds: normal S1 and nor mal S2 Extremities: + edema (trace dependent) Gastrointestinal (Abdomen): Inspection/Auscultation: + abdomen distended; + abnormal bowel sounds (hypoactive) Percussion/Palpation: normal to percussion; no guarding and abdomen not rigid Musculoskeletal: Extremities: no cyanosis and no clubbing Skin: normal turgor; no jaundice Neurologic: Motor/Sensory: no tremor and no asterixis Psychiatric: Orientation: alert and oriented x 3 Results & Data Results & Data Vital Signs (Past 12 Hours) Vital Signs Temp Pulse Resp BP Pulse Ox O2 Del Method O2 Flow Rate 08/05/22 13:55 88 28 H 97 08/05/22 11:16 87 23 90 08/05/22 11:16 96/71 L 08/05/22 11:00 88 27 H 91 08/05/22 11:00 110/51 L 08/05/22 10:30 98/55 L 08/05/22 10:30 90 24 89 L 08/05/22 10:00 88 28 H 90 08/05/22 10:00 90/51 L 08/05/22 09:46 95/50 L 08/05/22 09:46 93 H 25 H 90 08/05/22 09:31 102/55 L 08/05/22 09:31 94 H 26 H 91 08/05/22 09:00 93 H 30 H 91 08/05/22 08:53 86/40 L 08/05/22 08:53 90 20 90 08/05/22 08:47 114/51 L 08/05/22 08:47 87 27 H 08/05/22 08:17 98/60 L 08/05/22 08:17 90 27 H 89 L 08/05/22 08:01 111/55 L 08/05/22 08:01 92 H 24 91 08/05/22 08:00 91 H 28 H 89 L 08/05/22 07:48 117/59 L 08/05/22 07:48 86 26 H 92 08/05/22 07:46 117/60 08/05/22 07:46 90 12 93 08/05/22 07:31 83 21 96 08/05/22 07:31 95/55 L 08/05/22 07:15 107/61 08/05/22 07:15 83 20 96 08/05/22 07:00 84 23 94 08/05/22 06:46 99/49 L 08/05/22 06:46 84 22 95 08/05/22 06:45 83 19 95 08/05/22 11:29 92 H 20 96/71 L 89 L 6 08/05/22 11:28 89 08/05/22 11:05 89 20 110/51 L 89 L 8 08/05/22 10:05 888 H 20 94/53 L 91 10 08/05/22 10:14 Oxymask 10 08/05/22 09:05 89 20 101/50 L 92 10 08/05/22 08:00 91 H 08/05/22 08:45 36.9 C 91 H 20 114/51 L 90 10 08/05/22 08:30 92 H 20 78/53 L 91 15 08/05/22 08:19 36.8 C 92 H 20 98/60 L 88 L 10 08/05/22 08:03 36.8 C 92 H 22 111/55 L 92 10 08/05/22 06:30 80 21 94 08/05/22 06:16 102/56 L 08/05/22 06:16 82 24 94 08/05/22 06:15 84 17 94 08/05/22 06:02 106/47 L 08/05/22 06:02 81 21 96 08/05/22 06:01 79/36 L 08/05/22 06:01 82 15 96 08/05/22 06:00 83 24 96 08/05/22 05:45 82 23 95 08/05/22 05:31 97/54 L 08/05/22 05:31 84 24 95 08/05/22 05:30 85 16 96 08/05/22 05:16 92/47 L 08/05/22 05:16 81 23 08/05/22 05:15 79 17 96 08/05/22 05:01 83 25 H 97 08/05/22 05:01 96/47 L 08/05/22 05:00 84 24 98 08/05/22 04:47 97/49 L 08/05/22 04:47 86 27 H 94 08/05/22 04:45 86 22 93 08/05/22 04:30 82 20 96 08/05/22 04:15 93 H 26 H 93 08/05/22 04:00 86 20 96 08/05/22 03:57 91/48 L 08/05/22 03:57 82 20 95 08/05/22 05:29 85 37 H 96 08/05/22 03:58 88 21 92 08/05/22 03:46 87/50 L 08/05/22 03:46 86 21 95 08/05/22 03:45 85 21 94 08/05/22 03:30 90 27 H 90 08/05/22 03:15 87 22 95 08/05/22 03:15 94/55 L 08/05/22 03:00 86 20 95 08/05/22 02:46 99/54 L 08/05/22 02:46 89 22 95 08/05/22 02:45 89 22 94 08/05/22 03:51 37.2 C FiO2 08/05/22 13:55 65 08/05/22 11:16 08/05/22 11:16 08/05/22 11:00 08/05/22 11:00 08/05/22 10:30 08/05/22 10:30 08/05/22 10:00 08/05/22 10:00 08/05/22 09:46 08/05/22 09:46 08/05/22 09:31 08/05/22 09:31 08/05/22 09:00 08/05/22 08:53 08/05/22 08:53 08/05/22 08:47 08/05/22 08:47 08/05/22 08:17 08/05/22 08:17 08/05/22 08:01 08/05/22 08:01 08/05/22 08:00 08/05/22 07:48 08/05/22 07:48 08/05/22 07:46 08/05/22 07:46 08/05/22 07:31 08/05/22 07:31 08/05/22 07:15 08/05/22 07:15 08/05/22 07:00 08/05/22 06:46 08/05/22 06:46 08/05/22 06:45 08/05/22 11:29 08/05/22 11:28 08/05/22 11:05 08/05/22 10:05 08/05/22 10:14 08/05/22 09:05 08/05/22 08:00 08/05/22 08:45 08/05/22 08:30 08/05/22 08:19 08/05/22 08:03 08/05/22 06:30 08/05/22 06:16 08/05/22 06:16 08/05/22 06:15 08/05/22 06:02 08/05/22 06:02 08/05/22 06:01 08/05/22 06:01 08/05/22 06:00 08/05/22 05:45 08/05/22 05:31 08/05/22 05:31 08/05/22 05:30 08/05/22 05:16 08/05/22 05:16 08/05/22 05:15 08/05/22 05:01 08/05/22 05:01 08/05/22 05:00 08/05/22 04:47 08/05/22 04:47 08/05/22 04:45 08/05/22 04:30 08/05/22 04:15 08/05/22 04:00 08/05/22 03:57 08/05/22 03:57 08/05/22 05:29 80 08/05/22 03:58 80 08/05/22 03:46 08/05/22 03:46 08/05/22 03:45 08/05/22 03:30 08/05/22 03:15 08/05/22 03:15 08/05/22 03:00 08/05/22 02:46 08/05/22 02:46 08/05/22 02:45 08/05/22 03:51 Critical Care Results & Data Vital Signs (Past 12 Hours) Vital Signs Temp Pulse Resp BP Pulse Ox O2 Del Method O2 Flow Rate 08/05/22 13:55 88 28 H 97 08/05/22 11:16 87 23 90 08/05/22 11:16 96/71 L 08/05/22 11:00 88 27 H 91 08/05/22 11:00 110/51 L 08/05/22 10:30 98/55 L 08/05/22 10:30 90 24 89 L 08/05/22 10:00 88 28 H 90 08/05/22 10:00 90/51 L 08/05/22 09:46 95/50 L 08/05/22 09:46 93 H 25 H 90 08/05/22 09:31 102/55 L 08/05/22 09:31 94 H 26 H 91 08/05/22 09:00 93 H 30 H 91 08/05/22 08:53 86/40 L 08/05/22 08:53 90 20 90 08/05/22 08:47 114/51 L 08/05/22 08:47 87 27 H 08/05/22 08:17 98/60 L 08/05/22 08:17 90 27 H 89 L 08/05/22 08:01 111/55 L 08/05/22 08:01 92 H 24 91 08/05/22 08:00 91 H 28 H 89 L 08/05/22 07:48 117/59 L 08/05/22 07:48 86 26 H 92 08/05/22 07:46 117/60 08/05/22 07:46 90 12 93 08/05/22 07:31 83 21 96 08/05/22 07:31 95/55 L 08/05/22 07:15 107/61 08/05/22 07:15 83 20 96 08/05/22 07:00 84 23 94 08/05/22 06:46 99/49 L 08/05/22 06:46 84 22 95 08/05/22 06:45 83 19 95 08/05/22 11:29 92 H 20 96/71 L 89 L 6 08/05/22 11:28 89 08/05/22 11:05 89 20 110/51 L 89 L 8 08/05/22 10:05 888 H 20 94/53 L 91 10 08/05/22 10:14 Oxymask 10 08/05/22 09:05 89 20 101/50 L 92 10 08/05/22 08:00 91 H 08/05/22 08:45 36.9 C 91 H 20 114/51 L 90 10 08/05/22 08:30 92 H 20 78/53 L 91 15 08/05/22 08:19 36.8 C 92 H 20 98/60 L 88 L 10 08/05/22 08:03 36.8 C 92 H 22 111/55 L 92 10 08/05/22 06:30 80 21 94 08/05/22 06:16 102/56 L 08/05/22 06:16 82 24 94 08/05/22 06:15 84 17 94 08/05/22 06:02 106/47 L 08/05/22 06:02 81 21 96 08/05/22 06:01 79/36 L 08/05/22 06:01 82 15 96 08/05/22 06:00 83 24 96 08/05/22 05:45 82 23 95 08/05/22 05:31 97/54 L 08/05/22 05:31 84 24 95 08/05/22 05:30 85 16 96 08/05/22 05:16 92/47 L 08/05/22 05:16 81 23 08/05/22 05:15 79 17 96 08/05/22 05:01 83 25 H 97 08/05/22 05:01 96/47 L 08/05/22 05:00 84 24 98 08/05/22 04:47 97/49 L 08/05/22 04:47 86 27 H 94 08/05/22 04:45 86 22 93 08/05/22 04:30 82 20 96 08/05/22 04:15 93 H 26 H 93 08/05/22 04:00 86 20 96 08/05/22 03:57 91/48 L 08/05/22 03:57 82 20 95 08/05/22 05:29 85 37 H 96 08/05/22 03:58 88 21 92 08/05/22 03:46 87/50 L 08/05/22 03:46 86 21 95 08/05/22 03:45 85 21 94 08/05/22 03:30 90 27 H 90 08/05/22 03:15 87 22 95 08/05/22 03:15 94/55 L 08/05/22 03:00 86 20 95 08/05/22 02:46 99/54 L 08/05/22 02:46 89 22 95 08/05/22 02:45 89 22 94 08/05/22 03:51 37.2 C FiO2 08/05/22 13:55 65 08/05/22 11:16 08/05/22 11:16 08/05/22 11:00 08/05/22 11:00 08/05/22 10:30 08/05/22 10:30 08/05/22 10:00 08/05/22 10:00 08/05/22 09:46 08/05/22 09:46 08/05/22 09:31 08/05/22 09:31 08/05/22 09:00 08/05/22 08:53 08/05/22 08:53 08/05/22 08:47 08/05/22 08:47 08/05/22 08:17 08/05/22 08:17 08/05/22 08:01 08/05/22 08:01 08/05/22 08:00 08/05/22 07:48 08/05/22 07:48 08/05/22 07:46 08/05/22 07:46 08/05/22 07:31 08/05/22 07:31 08/05/22 07:15 08/05/22 07:15 08/05/22 07:00 08/05/22 06:46 08/05/22 06:46 08/05/22 06:45 08/05/22 11:29 08/05/22 11:28 08/05/22 11:05 08/05/22 10:05 08/05/22 10:14 08/05/22 09:05 08/05/22 08:00 08/05/22 08:45 08/05/22 08:30 08/05/22 08:19 08/05/22 08:03 08/05/22 06:30 08/05/22 06:16 08/05/22 06:16 08/05/22 06:15 08/05/22 06:02 08/05/22 06:02 08/05/22 06:01 08/05/22 06:01 08/05/22 06:00 08/05/22 05:45 08/05/22 05:31 08/05/22 05:31 08/05/22 05:30 08/05/22 05:16 08/05/22 05:16 08/05/22 05:15 08/05/22 05:01 08/05/22 05:01 08/05/22 05:00 08/05/22 04:47 08/05/22 04:47 08/05/22 04:45 08/05/22 04:30 08/05/22 04:15 08/05/22 04:00 08/05/22 03:57 08/05/22 03:57 08/05/22 05:29 80 08/05/22 03:58 80 08/05/22 03:46 08/05/22 03:46 08/05/22 03:45 08/05/22 03:30 08/05/22 03:15 08/05/22 03:15 08/05/22 03:00 08/05/22 02:46 08/05/22 02:46 08/05/22 02:45 08/05/22 03:51 Lab & Micro Results (Past 24 Hours) RBC 2.37 M/uL (4.70-6.10) L 08/05/22 WBC 15.56 K/ul (4.8-10.8) H 08/05/22 Hgb 8.1 g/dl (14.0-18.0) L 08/05/22 Hct 23.6 % (42.0-52.0) L 08/05/22 MCV 86.9 fL (80.0-100.0) 08/05/22 MCH 30.4 pg (25.0-34.0) 08/05/22 MCHC 35.0 g/dL (32.0-36.0) 08/05/22 RDW Standard Deviation 46.7 fL (36.4-46.3) H 08/05/22 RDW Coefficient of Variation 14.6 % (11.5-14.5) H 08/05/22 Plt Count 224 K/uL (130-400) 08/05/22 MPV 9.4 fL (9.4-12.4) 08/05/22 Neutrophils (%) (Auto) 79.9 % 08/05/22 Lymphocytes (%) (Auto) 8.5 % 08/05/22 Monocytes # (Auto) 1.42 K/uL (0.11-0.59) H 08/05/22 Eosinophils # (Auto) 0.25 K/uL (0-0.50) 08/05/22 Immature Granulocyte % (Auto) 0.8 % 08/05/22 Neutrophils # (Auto) 12.41 K/uL (1.40-6.50) H 08/05/22 Lymphocytes # (Auto) 1.33 K/uL (1.2-3.4) 08/05/22 Monocytes # (Auto) 1.42 K/uL (0.11-0.59) H 08/05/22 Eosinophils # (Auto) 0.25 K/uL (0-0.50) 08/05/22 Basophils # (Auto) 0.02 K/uL (0-0.2) 08/05/22 Immature Granulocyte # (Auto) 0.13 K/uL (0.01-0.20) 3 Polychromasia 1+ 08/05/22 Anisocytosis Present 08/05/22 Na 133 mmol/L (136-145) L 08/05/22 K 4.3 mmol/L (3.5-5.1) 08/05/22 Cl 102 mmol/L (98-107) 08/05/22 CO2 23 mmol/L (21-32) 08/05/22 Anion Gap 8 (3-11) 08/05/22 BUN 57 mg/dl (6-23) H 08/05/22 Creatinine 3.51 mg/dl (0.6-1.4) H 08/05/22 Estimated GFR ( Amer) 21.3 ml/min 08/05/22 Estimated GFR (Non-Af Amer) 18.4 ml/min 08/05/22 BUN/Creatinine Ratio 16.2 (10-20) 08/05/22 Glu 118 mg/dl (70-99(Fasting)) H 08/05/22 Ca 7.2 mg/dl (8.6-10.3) L 08/05/22 Phosphorus Level 3.6 mg/dl (2.5-4.9) 08/05/22 Mg 2.0 mg/dl (1.7-2.4) 08/05/22 05:35 Calcium Level 7.2 mg/dl (8.6-10.3) L 08/05/22 05:35 Prothromb Time International Ratio 1.0 (0.9-1.1) 08/05/22 05:3 5 Microbiology 08/04/22 Unknown Urine Culture - Preliminary Urine,Indwelling Cath No growth - Less than 1,000 colonies/mL, Final report to follow. 08/03/22 21:05 Aerobic Blood Culture - Preliminary Blood No growth in Aerobic bottle after 24 hours. Anaerobic Blood Culture - Preliminary No growth in Anaerobic bottle after 24 hours. 08/03/22 21:05 Aerobic Blood Culture - Preliminary Blood No growth in Aerobic bottle after 24 hours. Anaerobic Blood Culture - Preliminary No growth in Anaerobic bottle after 24 hours. Diagnostic Findings (Past 24 Hours) Chest X-Ray 08/05/22 07:00 XR chest 1V portable CLINICAL HISTORY: Respiratory failure. COMPARISON STUDY: Chest CT May 29, 2022 and chest radiograph August 04, 2022. FINDINGS: Right internal jugular central line remains in place. There is no pneumothorax. Cardiomegaly is unchanged. Mediastinal contours are stable. Small bilateral pleural effusions have slightly increased. There are associated bibasilar opacities. Pulmonary edema persists. IMPRESSION: Persistent pulmonary edema with increase in small bilateral pleural effusions and associated bibasilar opacities which could reflect atelectasis or consolidation. ACT 112: Negative or not required by law. Electronically signed by: Renny Riddle M.D. 08/05/2022 8:36 AM I & O Totals 24 Hours 08/04/22 08/05/22 08/06/22 06:59 06:59 06:59 Intake Total 3758.584 / 3758.584 3313.502 / 3313.502 731.117 / 731.117 Output Total 3130 / 3130 2725 / 2725 900 / 900 Balance 628.584 / 628.584 588.502 / 588.502 -168.883 / -168.883 Cumulative 07/16/22 09:54 thru 08/05/22 12:14 Intake Total 67165.212 Output Total 9110 Balance 9668.212 RT Ventilator Mngmt (Last Documented) Ventilator Ordered Settings Respiratory Rate 28 08/05/22 13:55 Fraction of Inspired Oxygen 65 08/05/22 13:55 Ventilator - PT Measurements Respiratory Rate 28 Coding Level of Care Code 91756 CRITICAL CARE 1ST 30-74M Diagnoses Acute renal failure N17.9 MARIA EUGENIA (obstructive sleep apnea) G47.33 Postoperative hypotension I95.81
[2022-08-05] MEDS ORDERED: STAT IV STA (15:00)
[2022-08-05] MEDS ORDERED: CALCIUM GLUCONATE 10% 3,000 MG in DEXTROSE 5% 100 ML IV ONE (15:15)
[2022-08-05 15:58] LABS: Base Excess VBG -1.1 mEq/L; HCO3 VBG 25 mmol/L; Oxygen Saturation VBG < 60.0 %; PCO2 VBG 48 mmHg (38-50); PO2 VBG 36 mmHg; pH VBG 7.33 (7.36-7.41)
[2022-08-05] MEDS: MIDODRINE HCL 10 MG TAB PO SCH (16:30)
[2022-08-05] MEDS ORDERED: STAT IV Infusion **Titration per Protocol STA (19:14)
[2022-08-05] MEDS ORDERED: NOREPINEPHRINE/D5W 4 MG/250 ML PLCT IV SCH (19:15)
[2022-08-05] MEDS: ATORVASTATIN 40 MG TAB PO SCH (20:03)
[2022-08-05 21:43] LABS: Hematocrit (blood only) 24.3 % (42.0-52.0); Hemoglobin 8.3 g/dl (14.0-18.0)
[2022-08-05] MEDS ORDERED: OLANZapine 10 MG/2.1 ML SDV IM STA (21:46)
[2022-08-05] MEDS ORDERED: OLANZapine 10 MG/2.1 ML SDV IM ONE (21:47)
[2022-08-05] MEDS ORDERED: LORazepam 2 MG/1 ML VIAL IV STA (23:00)
[2022-08-05] MEDS ORDERED: hydrOXYzine HCL IM SOLN 50 MG/ML 1 ML VIAL IM STA (23:46)
[2022-08-06] MEDS: INSULIN ASPART PER UNIT CHARGE SC SCH ×6 (00:30→20:06)
[2022-08-06 05:54] LABS: BUN Creatinine Ratio 21.5 (10-20); Creatinine Clr Calc Pharmacy 54.3 ml/min; Est GFR (African American) 31.2 ml/min; Est GFR (Non-African American) 26.9 ml/min; Magnesium 2.1 mg/dl (1.7-2.4); Phosphorus 2.8 mg/dl (2.5-4.9); Potassium 4.4 mmol/L (3.5-5.1)
[2022-08-06 05:57] LABS: Basophils # (auto) 0.03 K/uL (0-0.2); Basophils % (auto) 0.2 %; Eosinophils # (auto) 0.36 K/uL (0-0.50); Eosinophils % (auto) 2.8 %; Hematocrit (blood only) 24.3 % (42.0-52.0); Hemoglobin 8.2 g/dl (14.0-18.0); Immature Granulocytes # (auto) 0.14 K/uL (0.01-0.20); Immature Granulocytes % (auto) 1.1 %; Lymphocytes % (auto) 11.7 %; Mean Corpuscular Hemoglobin 29.5 pg (25.0-34.0); Mean Corpuscular Hgb Conc 33.7 g/dL (32.0-36.0); Mean Corpuscular Volume 87.4 fL (80.0-100.0); Mean Platelet Volume 9.3 fL (9.4-12.4); Monocytes # (auto) 1.34 K/uL (0.11-0.59); Monocytes % (auto) 10.5 %; Neutrophils # (auto) 9.42 K/uL (1.40-6.50); Neutrophils % (auto) 73.7 %; Platelet Count 241 K/uL (130-400); RDW Coefficient of Variation 14.6 % (11.5-14.5); RDW Standard Deviation 46.9 fL (36.4-46.3); Red Blood Count 2.78 M/uL (4.70-6.10); White Blood Count 12.79 K/ul (4.8-10.8)
[2022-08-06 06:03] LABS: Prothrombin Time 11.1 Seconds (9.0-12.0)
--- NOTE | 2022-08-06 08:18 | XRay Report ---
XR chest 1V portable CLINICAL HISTORY: Respiratory failure. COMPARISON STUDY: Chest radiograph August 05, 2022. FINDINGS: Right internal jugular central line remains in place. There is no pneumothorax. Lung volume s are diminished. This is unchanged. Pulmonary edema has improved. Bilateral pleural effusions and bi basilar opacities have improved. Cardiomegaly is again noted. Mediastinal contours are stable. IMPRESSION: Interval improvement in pulmonary edema, bilateral pleural effusions and associated biba silar opacities. ACT 112: Negative or not required by law. Electronically signed by: Renny Riddle M.D. 08/06/2022 8:17 AM
[2022-08-06] MEDS: MIDODRINE HCL 10 MG TAB PO SCH (08:34)
--- NOTE | 2022-08-06 08:37 | Critical Care Progress Note ---
Date of Service August 06, 2022 Assessment & Plan (1) Acute renal failure: (2) MARIA EUGENIA (obstructive sleep apnea): (3) Postoperative hypotension: Plan Reason Critically Ill: 57-year-old male postprocedural hypotension status post partial nephrectomy. 24-hour events: Patient developed acute delirium overnight. He received atypical antipsychotics as well as benzodiazepines and eventually required restraints and a sitter. He is now off pressors. He continues to intermittently require BiPAP. His hemoglobin has been stable. Recommendations: Neuro: Acute delirium. Possible withdrawal from gabapentin. We will restart 300 mg twice a day and see how he does. We will place on Precedex. He has not responded to benzodiazepines. Try and normalize sleep-wake cycle is much as possible. His exam is nonfocal and do not think additional imaging is required currently. Resp: Sleep disordered breathing and hypoxemic respiratory failure. Continue noninvasive positive pressure ventilation at night. We will need to try and get him out of bed to chair and mobile once his acute delirium resolves. CV: Hypotension resolved. Discontinue norepinephrine and midodrine. Fluids/Renal: Creatinine slightly improved. Continue Reis catheter. Electrolytes stable. Acid-base status with continued respiratory acidosis ID: Completed course of cefepime and Flagyl. Monitoring clinically. GI/Nutrition: Tolerating diet. Heme: Acute blood loss: Small mount of hemorrhage identified at the operative site. Try and minimize lab draws. No evidence of continued bleeding. Endocrine: Glycemic control per protocol. Subcu insulin per pharmacy. Vascular access: Right IJ central catheter Code Status: Full code Disposition: ICU We will work on physical therapy and Occupational Therapy once the patient is stable from an acute delirium standpoint. We will keep him in the ICU until his delirium is improved and is appropriate for transfer to the floor. Patient was discussed on multidisciplinary rounds and with bedside critical care nurse. Total of 35 minutes was spent evaluating managing and stabilizing patient. Admission and Anticipated Discharge Date Admission Date: August 01, 2022 Subjective Patient is delirious this morning. He is hemodynamically stable and off pressors. He was on BiPAP intermittently but this has been weaned off this morning. He received Ativan and Zyprexa last evening without significant response. He is oriented to person and place but not to year. He denies any complaints currently. Review of Systems Review of Systems: Unobtainable due to mental health condition Physical Exam Constitutional: well developed and + morbidly obese; no acute distress Neck: normal visual inspection, trachea midline and + thick neck Respiratory: normal respiratory effort; no respiratory distress, no labored breathing, no retractions and not tachypneic Auscultation: lungs clear to auscultation bilaterally and + rhonchi; no rales and no wheezes Cardiovascular: Rate/Rhythm: regular rate Heart Sounds: normal S1 and normal S2 Extremities: + edema (trace dependent) Gastrointestinal (Abdomen): Inspection/Auscultation: + abdomen distended; + abnormal bowel sounds (hypoactive) Percussion/Palpation: normal to percussion; no guarding and abdomen not rigid Musculoskeletal: Extremities: no cyanosis and no clubbing Skin: normal turgor; no jaundice Neurologic: Motor/Sensory: no tremor and no asterixis Results & Data Results & Data Vital Signs (Past 12 Hours) Vital Signs Temp Pulse Resp BP Pulse Ox O2 Del Method FiO2 08/06/22 05:50 87 23 08/06/22 05:40 86 22 08/06/22 05:30 92 H 14 08/06/22 05:20 90 33 H 08/06/22 05:10 90 20 08/06/22 05:01 106/76 08/06/22 05:01 90 25 H 08/06/22 05:00 87 22 08/06/22 04:50 82 21 08/06/22 04:40 91 H 29 H 08/06/22 04:30 91 H 30 H 08/06/22 04:20 95 H 27 H 08/06/22 04:10 97 H 30 H 08/06/22 04:01 117/98 08/06/22 04:01 95 H 17 08/06/22 04:00 95 H 22 08/06/22 03:50 90 21 95 08/06/22 03:40 94 H 20 93 08/06/22 03:30 94 H 27 H 94 08/06/22 03:20 98 H 22 93 08/06/22 03:10 98 H 27 H 93 BiPAP 08/06/22 03:01 115/64 08/06/22 03:01 97 H 20 96 08/06/22 03:00 98 H 19 93 08/06/22 02:50 99 H 88 L 08/06/22 02:40 97 H 92 08/06/22 02:30 100 H 93 08/06/22 02:20 99 H 32 H 90 08/06/22 02:10 89 L 08/06/22 02:01 110 H 86 L 08/06/22 02:01 96/75 L 08/06/22 02:00 88 L 08/06/22 01:50 100 H 89 L 08/06/22 01:40 102 H 88 L 08/06/22 01:33 99/83 L 08/06/22 01:33 101 H 39 H 88 L 08/06/22 01:30 96 H 56 H 91 08/06/22 01:20 99 H 92 08/06/22 01:10 98 H 27 H 91 08/06/22 01:00 92 H 23 93 08/06/22 00:50 94 H 13 94 08/06/22 00:40 96 H 11 L 93 08/06/22 00:30 95 H 18 90 08/06/22 02:34 22 92 45 08/06/22 00:42 75 08/06/22 00:20 92 H 11 L 91 08/06/22 00:10 94 H 8 L 91 08/06/22 00:00 93 H 13 90 08/05/22 23:50 95 H 16 87 L 08/05/22 23:40 90 21 92 08/05/22 23:30 90 14 76 L 08/05/22 23:20 87 17 91 08/05/22 23:10 86 15 08/05/22 23:00 84 18 89 L 08/05/22 23:00 119/63 08/05/22 22:50 82 14 86 L 08/05/22 22:40 79 21 91 08/05/22 22:30 81 24 85 L 08/05/22 22:20 91 08/05/22 22:10 79 21 94 08/05/22 22:00 95 H 18 08/05/22 21:50 82 23 92 08/05/22 21:41 142/57 H 08/05/22 21:41 78 29 H 95 08/05/22 21:40 78 27 H 94 08/05/22 21:31 80 28 H 85 L 08/05/22 21:31 87/54 L 08/05/22 21:30 81 18 85 L 08/05/22 21:20 77 20 95 08/05/22 21:16 87/46 L 08/05/22 21:16 78 17 08/05/22 21:10 77 19 94 08/05/22 21:00 74 18 92 08/05/22 20:50 83 31 H 81 L 08/05/22 20:45 77 18 96 08/05/22 20:45 102/51 L 08/05/22 20:40 80 19 97 08/06/22 00:22 BiPAP 08/06/22 00:21 36.9 C Critical Care Results & Data Vital Signs (Past 12 Hours) Vital Signs Temp Pulse Resp BP Pulse Ox O2 Del Method FiO2 08/06/22 05:50 87 23 08/06/22 05:40 86 22 08/06/22 05:30 92 H 14 08/06/22 05:20 90 33 H 08/06/22 05:10 90 20 08/06/22 05:01 106/76 08/06/22 05:01 90 25 H 08/06/22 05:00 87 22 08/06/22 04:50 82 21 08/06/22 04:40 91 H 29 H 08/06/22 04:30 91 H 30 H 08/06/22 04:20 95 H 27 H 08/06/22 04:10 97 H 30 H 08/06/22 04:01 117/98 08/06/22 04:01 95 H 17 08/06/22 04:00 95 H 22 08/06/22 03:50 90 21 95 08/06/22 03:40 94 H 20 93 08/06/22 03:30 94 H 27 H 94 08/06/22 03:20 98 H 22 93 08/06/22 03:10 98 H 27 H 93 BiPAP 08/06/22 03:01 115/64 08/06/22 03:01 97 H 20 96 08/06/22 03:00 98 H 19 93 08/06/22 02:50 99 H 88 L 08/06/22 02:40 97 H 92 08/06/22 02:30 100 H 93 08/06/22 02:20 99 H 32 H 90 08/06/22 02:10 89 L 08/06/22 02:01 110 H 86 L 08/06/22 02:01 96/75 L 08/06/22 02:00 88 L 08/06/22 01:50 100 H 89 L 08/06/22 01:40 102 H 88 L 08/06/22 01:33 99/83 L 08/06/22 01:33 101 H 39 H 88 L 08/06/22 01:30 96 H 56 H 91 08/06/22 01:20 99 H 92 08/06/22 01:10 98 H 27 H 91 08/06/22 01:00 92 H 23 93 08/06/22 00:50 94 H 13 94 08/06/22 00:40 96 H 11 L 93 08/06/22 00:30 95 H 18 90 08/06/22 02:34 22 92 45 08/06/22 00:42 75 08/06/22 00:20 92 H 11 L 91 08/06/22 00:10 94 H 8 L 91 08/06/22 00:00 93 H 13 90 08/05/22 23:50 95 H 16 87 L 08/05/22 23:40 90 21 92 08/05/22 23:30 90 14 76 L 08/05/22 23:20 87 17 91 08/05/22 23:10 86 15 08/05/22 23:00 84 18 89 L 08/05/22 23:00 119/63 08/05/22 22:50 82 14 86 L 08/05/22 22:40 79 21 91 08/05/22 22:30 81 24 85 L 08/05/22 22:20 91 08/05/22 22:10 79 21 94 08/05/22 22:00 95 H 18 08/05/22 21:50 82 23 92 08/05/22 21:41 142/57 H 08/05/22 21:41 78 29 H 95 08/05/22 21:40 78 27 H 94 08/05/22 21:31 80 28 H 85 L 08/05/22 21:31 87/54 L 08/05/22 21:30 81 18 85 L 08/05/22 21:20 77 20 95 08/05/22 21:16 87/46 L 08/05/22 21:16 78 17 08/05/22 21:10 77 19 94 08/05/22 21:00 74 18 92 08/05/22 20:50 83 31 H 81 L 08/05/22 20:45 77 18 96 08/05/22 20:45 102/51 L 08/05/22 20:40 80 19 97 08/06/22 00:22 BiPAP 08/06/22 00:21 36.9 C Lab & Micro Results (Past 24 Hours) RBC 2.78 M/uL (4.70-6.10) L 08/06/22 WBC 12.79 K/ul (4.8-10.8) H 08/06/22 Hgb 8.2 g/dl (14.0-18.0) L 08/06/22 Hct 24.3 % (42.0-52.0) L 08/06/22 MCV 87.4 fL (80.0-100.0) 08/06/22 MCH 29.5 pg (25.0-34.0) 08/06/22 MCHC 33.7 g/dL (32.0-36.0) 08/06/22 RDW Standard Deviation 46.9 fL (36.4-46.3) H 08/06/22 RDW Coefficient of Variation 14.6 % (11.5-14.5) H 08/06/22 Plt Count 241 K/uL (130-400) 08/06/22 MPV 9.3 fL (9.4-12.4) L 08/06/22 Neutrophils (%) (Auto) 73.7 % 08/06/22 Lymphocytes (%) (Auto) 11.7 % 08/06/22 Monocytes # (Auto) 1.34 K/uL (0.11-0.59) H 08/06/22 Eosinophils # (Auto) 0.36 K/uL (0-0.50) 08/06/22 Immature Granulocyte % (Auto) 1.1 % 08/06/22 Neutrophils # (Auto) 9.42 K/uL (1.40-6.50) H 08/06/22 Lymphocytes # (Auto) 1.50 K/uL (1.2-3.4) 08/06/22 Monocytes # (Auto) 1.34 K/uL (0.11-0.59) H 08/06/22 Eosinophils # (Auto) 0.36 K/uL (0-0.50) 08/06/22 Basophils # (Auto) 0.03 K/uL (0-0.2) 08/06/22 Immature Granulocyte # (Auto) 0.14 K/uL (0.01-0.20) 3 Na 136 mmol/L (136-145) 08/06/22 K 4.4 mmol/L (3.5-5.1) 08/06/22 Cl 106 mmol/L (98-107) 08/06/22 CO2 25 mmol/L (21-32) 08/06/22 Anion Gap 5 (3-11) 08/06/22 BUN 55 mg/dl (6-23) H 08/06/22 Creatinine 2.56 mg/dl (0.6-1.4) H 08/06/22 Estimated GFR ( Amer) 31.2 ml/min 08/06/22 Estimated GFR (Non-Af Amer) 26.9 ml/min 08/06/22 BUN/Creatinine Ratio 21.5 (10-20) H 08/06/22 Glu 112 mg/dl (70-99(Fasting)) H 08/06/22 Ca 8.0 mg/dl (8.6-10.3) L 08/06/22 Phosphorus Level 2.8 mg/dl (2.5-4.9) 08/06/22 Mg 2.1 mg/dl (1.7-2.4) 08/06/22 05:27 Calcium Level 8.0 mg/dl (8.6-10.3) L 08/06/22 05:27 Prothromb Time International Ratio 1.0 (0.9-1.1) 08/06/22 05:2 7 Venous Blood pH 7.33 (7.36-7.41) L 08/05/22 15:46 Venous Blood Partial Pressure CO2 48 mmHg (38-50) 08/05/22 15:4 6 Venous Blood Partial Pressure O2 36 mmHg 08/05/22 15:46 Venous Blood HCO3 25 mmol/L 08/05/22 15:46 Venous Blood Base Excess -1.1 mEq/L 08/05/22 15:46 Venous Blood Oxygen Saturation < 60.0 % 08/05/22 15:46 Microbiology 08/03/22 21:05 Aerobic Blood Culture - Preliminary Blood No growth in Aerobic bottle after 48 hours. Anaerobic Blood Culture - Preliminary No growth in Anaerobic bottle after 48 hours. 08/03/22 21:05 Aerobic Blood Culture - Preliminary Blood No growth in Aerobic bottle after 48 hours. Anaerobic Blood Culture - Preliminary No growth in Anaerobic bottle after 48 hours. 08/04/22 Unknown Urine Culture - Preliminary Urine,Indwelling Cath No growth - Less than 1,000 colonies/mL, Final report to follow. Diagnostic Findings (Past 24 Hours) Chest X-Ray 08/05/22 07:00 XR chest 1V portable CLINICAL HISTORY: Respiratory failure. COMPARISON STUDY: Chest CT May 29, 2022 and chest radiograph August 04, 2022. FINDINGS: Right internal jugular central line remains in place. There is no pneumothorax. Cardiomegaly is unchanged. Mediastinal contours are stable. Small bilateral pleural effusions have slightly increased. There are associated bibasilar opacities. Pulmonary edema persists. IMPRESSION: Persistent pulmonary edema with increase in small bilateral pleural effusions and associated bibasilar opacities which could reflect atelectasis or consolidation. ACT 112: Negative or not required by law. Electronically signed by: Renny Riddle M.D. 08/05/2022 8:36 AM Chest X-Ray 08/06/22 07:00 XR chest 1V portable CLINICAL HISTORY: Respiratory failure. COMPARISON STUDY: Chest radiograph August 05, 2022. FINDINGS: Right internal jugular central line remains in place. There is no pneumothorax. Lung volumes are diminished. This is unchanged. Pulmonary edema has improved. Bilateral pleural effusions and bibasilar opacities have improved. Cardiomegaly is again noted. Mediastinal contours are stable. IMPRESSION: Interval improvement in pulmonary edema, bilateral pleural effusions and associated bibasilar opacities. ACT 112: Negative or not required by law. Electronically signed by: Rneny Riddle M.D. 08/06/2022 8:17 AM I & O Totals 24 Hours 08/05/22 08/06/22 08/07/22 06:59 06:59 06:59 Intake Total 3313.502 / 3313.502 961.117 / 961.117 Output Total 2725 / 2725 5035 / 5035 233 / 233 Balance 588.502 / 588.502 -4073.883 / -4073.883 -233 / -233 Cumulative 07/16/22 09:54 thru 08/06/22 07:59 Intake Total 12233.212 Output Total 99212 Balance 5530.212 RT Ventilator Mngmt (Last Documented) Ventilator Ordered Settings Respiratory Rate 23 08/06/22 05:50 Fraction of Inspired Oxygen 45 08/06/22 02:34 Ventilator - PT Measurements Respiratory Rate 23 Coding Level of Care Code 59241 SUB INP/OBS CARE 3/50MIN Diagnoses Acute renal failure N17.9 MARIA EUGENIA (obstructive sleep apnea) G47.33 Postoperative hypotension I95.81
[2022-08-06] MEDS ORDERED: LANTUS PER UNIT CHARGE SC SCH ×2 (09:00)
[2022-08-06] MEDS ORDERED: STAT IV Infusion **Titration per Protocol STA (09:03)
[2022-08-06] MEDS ORDERED: dexMEDEtomidine 200 MCG/50 ML BAG IV SCH (09:15)
[2022-08-06] MEDS: CYANOCOBALAMIN (B-12) 500 MCG TABLET PO SCH (09:48)
[2022-08-06] MEDS: DOCUSATE SODIUM 100 MG CAP PO SCH ×2 (09:48→21:00)
--- NOTE | 2022-08-06 10:05 | Nephrology Progress Note ---
Date of Service August 06, 2022 Assessment & Plan (1) Acute kidney injury: Plan: Non-oliguric. Polyuric -- antidiuresis. Creatinine improving. MAO consistent with ischemic ATN in setting of partial nephrectomy, hemodynamic instability, and acute blood loss anemia. No indication for dialysis. Additional diuretics held this AM. Medications are appropriately dosed for kidney dysfunction. MAP goal >65. Document strict I/O's. Repeat metabolic profile tomorrow AM. (2) H/O partial nephrectomy: Plan: POD #5 s/p robotic assisted laparoscopic right partial nephrectomy. (3) Postoperative hypotension: Plan: Vasopressor support has been weaned off. No signs of active bleeding noted this AM. Afebrile. (4) Acute blood loss anemia: Plan: 3 u PRBC transfusion support post-operatively followed by an additional 2 units POD#1 and 1 unit yesterday AM. Hgb acceptable. (5) COPD (chronic obstructive pulmonary disease): (6) MARIA EUGENIA (obstructive sleep apnea): Plan: Diuretics PRN to encourage negative fluid balance. Admission and Anticipated Discharge Date Admission Date: August 01, 2022 Subjective Agitation and confusion noted overnight. Remains somewhat disoriented this AM. Answers questions appropriately and oriented to person. Avoided answering questions regarding orientation to place and time. Denies dyspnea. Denies pain. Afebrile overnight. Vasopressors weaned off. BP remains acceptable. Some blood noted on surgical dressing but no obviously signs of bleeding. BIPAP intermittently overnight. Polyuric. Review of Systems Review of Systems: All systems reviewed & are unremarkable except as noted in HPI & below Physical Exam Constitutional: well developed and + morbidly obese; no acute distress Eyes: + anicteric sclerae and + pinpoint pupils Neck: normal visual inspection, trachea midline and + thick neck Respiratory: + tachypneic; no respiratory distress Auscultation: lungs clear to auscultation bilaterally, + diminished lung sounds and + rhonchi; no rales and no wheezes Cardiovascular: Rate/Rhythm: + tachycardic Heart Sounds: normal S1 and normal S2 Extremities: + edema (trace dependent) Gastrointestinal (Abdomen): Inspection/Auscultation: + abdomen distended; + abnormal bowel sounds (hypoactive) Percussion/Palpation: normal to percussion; no guarding and abdomen not rigid Musculoskeletal: Extremities: no cyanosis and no clubbing Skin: normal turgor; no jaundice Neurologic: Motor/Sensory: no tremor and no asterixis Psychiatric: Orientation: alert and cooperative Results & Data Vital Signs (Past 12 Hours) Vital Signs Temp Pulse Resp BP Pulse Ox O2 Del Method O2 Flow Rate 08/06/22 07:30 Oxymask 10 08/06/22 05:50 87 23 08/06/22 05:40 86 22 08/06/22 05:30 92 H 14 08/06/22 05:20 90 33 H 08/06/22 05:10 90 20 08/06/22 05:01 106/76 08/06/22 05:01 90 25 H 08/06/22 05:00 87 22 08/06/22 04:50 82 21 08/06/22 04:40 91 H 29 H 08/06/22 04:30 91 H 30 H 08/06/22 04:20 95 H 27 H 08/06/22 04:10 97 H 30 H 08/06/22 04:01 117/98 08/06/22 04:01 95 H 17 08/06/22 04:00 95 H 22 08/06/22 03:50 90 21 95 08/06/22 03:40 94 H 20 93 08/06/22 03:30 94 H 27 H 94 08/06/22 03:20 98 H 22 93 08/06/22 03:10 98 H 27 H 93 BiPAP 08/06/22 03:01 115/64 08/06/22 03:01 97 H 20 96 08/06/22 03:00 98 H 19 93 08/06/22 02:50 99 H 88 L 08/06/22 02:40 97 H 92 08/06/22 02:30 100 H 93 08/06/22 02:20 99 H 32 H 90 08/06/22 02:10 89 L 08/06/22 02:01 110 H 86 L 08/06/22 02:01 96/75 L 08/06/22 02:00 88 L 08/06/22 01:50 100 H 89 L 08/06/22 01:40 102 H 88 L 08/06/22 01:33 99/83 L 08/06/22 01:33 101 H 39 H 88 L 08/06/22 01:30 96 H 56 H 91 08/06/22 01:20 99 H 92 08/06/22 01:10 98 H 27 H 91 08/06/22 01:00 92 H 23 93 08/06/22 00:50 94 H 13 94 08/06/22 00:40 96 H 11 L 93 08/06/22 00:30 95 H 18 90 08/06/22 02:34 22 92 08/06/22 00:42 75 08/06/22 00:20 92 H 11 L 91 08/06/22 00:10 94 H 8 L 91 08/06/22 00:00 93 H 13 90 08/05/22 23:50 95 H 16 87 L 08/05/22 23:40 90 21 92 08/05/22 23:30 90 14 76 L 08/05/22 23:20 87 17 91 08/05/22 23:10 86 15 08/05/22 23:00 84 18 89 L 08/05/22 23:00 119/63 08/05/22 22:50 82 14 86 L 08/05/22 22:40 79 21 91 08/05/22 22:30 81 24 85 L 08/05/22 22:20 91 08/05/22 22:10 79 21 94 08/05/22 22:00 95 H 18 08/06/22 00:22 BiPAP 08/06/22 00:21 36.9 C FiO2 08/06/22 07:30 08/06/22 05:50 08/06/22 05:40 08/06/22 05:30 08/06/22 05:20 08/06/22 05:10 08/06/22 05:01 08/06/22 05:01 08/06/22 05:00 08/06/22 04:50 08/06/22 04:40 08/06/22 04:30 08/06/22 04:20 08/06/22 04:10 08/06/22 04:01 08/06/22 04:01 08/06/22 04:00 08/06/22 03:50 08/06/22 03:40 08/06/22 03:30 08/06/22 03:20 08/06/22 03:10 08/06/22 03:01 08/06/22 03:01 08/06/22 03:00 08/06/22 02:50 08/06/22 02:40 08/06/22 02:30 08/06/22 02:20 08/06/22 02:10 08/06/22 02:01 08/06/22 02:01 08/06/22 02:00 08/06/22 01:50 08/06/22 01:40 08/06/22 01:33 08/06/22 01:33 08/06/22 01:30 08/06/22 01:20 08/06/22 01:10 08/06/22 01:00 08/06/22 00:50 08/06/22 00:40 08/06/22 00:30 08/06/22 02:34 45 08/06/22 00:42 08/06/22 00:20 08/06/22 00:10 08/06/22 00:00 08/05/22 23:50 08/05/22 23:40 08/05/22 23:30 08/05/22 23:20 08/05/22 23:10 08/05/22 23:00 08/05/22 23:00 08/05/22 22:50 08/05/22 22:40 08/05/22 22:30 08/05/22 22:20 08/05/22 22:10 08/05/22 22:00 08/06/22 00:22 08/06/22 00:21 Laboratory Results Laboratory Results - last 24 hr 08/05/22 08/05/22 08/05/22 11:20 13:05 14:35 WBC RBC Hgb 8.1 L Hct 23.6 L MCV MCH MCHC RDW Std Deviation RDW Coeff of [place] Plt Count MPV Immature Gran % (Auto) Neut % (Auto) Lymph % (Auto) Yell % (Auto) Eos % (Auto) Baso % (Auto) Neut # (Auto) Lymph # (Auto) Yell # (Auto) Eos # (Auto) Baso # (Auto) Immature Gran # (Auto) PT INR VBG pH VBG pCO2 VBG pO2 VBG HCO3 VBG O2 Saturation VBG Base Excess Sodium Potassium Chloride Carbon Dioxide Anion Gap BUN Creatinine Est Cr Clr Drug Dosing Est GFR ( Amer) Est GFR (Non-Af Amer) BUN/Creatinine Ratio Glucose POC Glucose 240 H 191 H Calcium Phosphorus Magnesium 08/05/22 08/05/2223 15:46 16:14 19:53 WBC RBC Hgb 8.3 L Hct 24.3 L MCV MCH MCHC RDW Std Deviation RDW Coeff of [place] Plt Count MPV Immature Gran % (Auto) Neut % (Auto) Lymph % (Auto) Yell % (Auto) Eos % (Auto) Baso % (Auto) Neut # (Auto) Lymph # (Auto) Yell # (Auto) Eos # (Auto) Baso # (Auto) Immature Gran # (Auto) PT INR VBG pH 7.33 L VBG pCO2 48 VBG pO2 36 VBG HCO3 25 VBG O2 Saturation < 60.0 VBG Base Excess -1.1 Sodium Potassium Chloride Carbon Dioxide Anion Gap BUN Creatinine Est Cr Clr Drug Dosing Est GFR ( Amer) Est GFR (Non-Af Amer) BUN/Creatinine Ratio Glucose POC Glucose 165 H Calcium Phosphorus Magnesium 08/05/22 08/05/22 08/05/22 19:55 21:32 23:52 WBC RBC Hgb Hct MCV MCH MCHC RDW Std Deviation RDW Coeff of [place] Plt Count MPV Immature Gran % (Auto) Neut % (Auto) Lymph % (Auto) Yell % (Auto) Eos % (Auto) Baso % (Auto) Neut # (Auto) Lymph # (Auto) Yell # (Auto) Eos # (Auto) Baso # (Auto) Immature Gran # (Auto) PT INR VBG pH VBG pCO2 VBG pO2 VBG HCO3 VBG O2 Saturation VBG Base Excess Sodium Potassium Chloride Carbon Dioxide Anion Gap BUN Creatinine Est Cr Clr Drug Dosing Est GFR ( Amer) Est GFR (Non-Af Amer) BUN/Creatinine Ratio Glucose POC Glucose 140 H 151 H 167 H Calcium Phosphorus Magnesium 08/06/22 08/06/22 08/06/22 03:48 05:27 05:27 WBC 12.79 H RBC 2.78 L Hgb 8.2 L Hct 24.3 L MCV 87.4 MCH 29.5 MCHC 33.7 RDW Std Deviation 46.9 H RDW Coeff of [place] 14.6 H Plt Count 241 MPV 9.3 L Immature Gran % (Auto) 1.1 Neut % (Auto) 73.7 Lymph % (Auto) 11.7 Yell % (Auto) 10.5 Eos % (Auto) 2.8 Baso % (Auto) 0.2 Neut # (Auto) 9.42 H Lymph # (Auto) 1.50 Yell # (Auto) 1.34 H Eos # (Auto) 0.36 Baso # (Auto) 0.03 Immature Gran # (Auto) 0.14 PT INR VBG pH VBG pCO2 VBG pO2 VBG HCO3 VBG O2 Saturation VBG Base Excess Sodium 136 Potassium 4.4 Chloride 106 Carbon Dioxide 25 Anion Gap 5 BUN 55 H Creatinine 2.56 H D Est Cr Clr Drug Dosing 54.3 Est GFR ( Amer) 31.2 Est GFR (Non-Af Amer) 26.9 BUN/Creatinine Ratio 21.5 H Glucose 112 H POC Glucose 162 H Calcium 8.0 L Phosphorus 2.8 Magnesium 2.1 08/06/22 08/06/22 05:27 07:19 WBC RBC Hgb Hct MCV MCH MCHC RDW Std Deviation RDW Coeff of [place] Plt Count MPV Immature Gran % (Auto) Neut % (Auto) Lymph % (Auto) Yell % (Auto) Eos % (Auto) Baso % (Auto) Neut # (Auto) Lymph # (Auto) Yell # (Auto) Eos # (Auto) Baso # (Auto) Immature Gran # (Auto) PT 11.1 INR 1.0 VBG pH VBG pCO2 VBG pO2 VBG HCO3 VBG O2 Saturation VBG Base Excess Sodium Potassium Chloride Carbon Dioxide Anion Gap BUN Creatinine Est Cr Clr Drug Dosing Est GFR ( Amer) Est GFR (Non-Af Amer) BUN/Creatinine Ratio Glucose POC Glucose 109 H Calcium Phosphorus Magnesium PG Care Time/CCT Total # of Minutes Spent Total Time Spent with Patient: Total time spent is greater than 50% in coordination of care (as documented) at patient's floor/unit and/or counseling patient: Coding Level of Care Code 50423 SUB INP/OBS CARE 3/50MIN Diagnoses Acute kidney injury N17.9 H/O partial nephrectomy Z90.5 Postoperative hypotension I95.81 Acute blood loss anemia D62 COPD (chronic obstructive pulmonary disease) J44.9 MARIA EUGENIA (obstructive sleep apnea) G47.33
[2022-08-06] MEDS: GABAPENTIN 300 MG CAP PO SCH ×2 (10:13→21:00)
[2022-08-06] MEDS: dexMEDEtomidine 400 MCG/100 ML Bag (Premixed) IV SCH ×6 (11:44→22:46)
--- NOTE | 2022-08-06 14:29 | Pharmacy Report ---
Pharmacy Glycemic Short Note 2 - Date of Service August 06, 2022 - Glycemic Short BSG Results (Last 24 hours): 08/05/22 08/05/22 08/05/22 14:35 16:14 19:55 Glucose POC Glucose 191 H 165 H 140 H 08/05/22 08/05/22 08/06/22 21:32 23:52 03:48 Glucose POC Glucose 151 H 167 H 162 H 08/06/22 08/06/22 08/06/22 05:27 07:19 11:26 Glucose 112 H POC Glucose 109 H 107 H OUTPATIENT ANTIDIABETIC REGIMEN: * Metformin ER 1000 mg PO BID * Glipizide ER 10 mg PO BID * Farxiga 5 mg PO daily * Trulicity 3 mg SC every Friday * HbA1c: 9.6% (05/30/22) ASSESSMENT: 08/06: * Patient transitioned off of drip. * Received 80 units of basal yesterday, fasting this AM 109 mg/dL. * Patient now on precedex- will scale back basal slightly * Renal function continues to improve- continue current novolog parameters 08/05: * Nathaniel remained on the insulin infusion in the ICU this AM. Rate has trended down this AM. Based on requirements over the last 8 hours, calculated total daily insulin requirements to be near 180 units. * Hemodynamics are improving. Milrinone to be discontinued today and hopefully can wean norepinephrine off. Improving diet and renal function as well. * Will reduced estimated TDD from above to be conservative today as to prevent hypoglycemia. Insulin drip has been discontinued at this time. Will target a total daily insulin dose of 160 units, split 50/50 between basal and bolus. Will check BSGs q4h for now during drip transition period. Can likely be changed to ACHS tomorrow. 08/04: * Patient remains on insulin infusion in ICU * Hemodynamics improving -> vasopressor support being weaned * Diet advanced to full liquid/T2DM today * Give patient improvement, will look to make progress in transitioning off insulin infusion * Insulin infusion requirements still ~10 units/hr 08/02: * 57 yo admitted following partial nephrectomy, patient with hypotension currently on norepinephrine * Insulin infusion started yesterday with elevated BSGs. Continued to be elevated overnight with insulin infusion running at high rates, now down to 10.7 units/hr * Given continued pressor use and high rates, will continue insulin infusion today * Small dose of Lantus this AM to assist with lowering infusion rates. PLAN FOR INPATIENT GLYCEMIC CONTROL: * Hold outpatient oral diabetes medications * Basal insulin * Lantus 35 units SC this AM- per scale this evening * Reassess basal in the AM * Bolus insulin * Novolog per scale q4, achs * Goal Range: 110-140 mg/dL * Correction Factor: 15 mg/dL/unit * Carb Ratio: 5 g CHO/unit
--- NOTE | 2022-08-06 16:46 | Urology Progress Note ---
Date of Service August 06, 2022 Assessment & Plan (1) Acute renal failure: (2) Acute blood loss anemia: (3) H/O partial nephrectomy: (4) Renal mass: Plan 57-year-old male who is POD #5 status post right robotic partial nephrectomy on 08/01/2022 for suspected renal malignancy. Postoperatively he was upgraded to ICU due to hypotension, respiratory issues, and concern for postoperative bleed. He fortunately stabilized and a postoperative CT scan did not show concern for a large hemorrhage. Afebrile overnight. Pressors were weaned. Creatinine continues to downtrend, significant improvement this morning. Now at 2.56. Hgb has been stable after transfusion. Continue to trend labs. Patient tolerating full liquid diet. Have encouraged utilization of candy/gum/other chewing options in order to help stimulate return of bowel function. Patient out of bed to chair this morning. Will likely need to work on physical therapy once patient has improved. Maintain Reis catheter and DIANA drain. Can consider removal of Reis catheter once patient is able to ambulate Repeat blood cultures showing no growth x 24 hours, urine culture pending. On IV Flagyl and Cefepime. Hold any anticoagulation. Pathology pending as of the morning. Appreciate help with care from all consulting teams. We will continue to follow closely while in the ICU. Appreciate the critical care, hospitalist, nephrology and other supportive teams. We will likely be moving towards transfer once patient continues to stabilize. We will continue to monitor creatinine and renal function over time. This continues to improve. White count continues to trend down. Hemoglobin appears to stabilize. Once patient is able to ambulate and advance diet we will likely work on removing catheter and continue with oral hydration. We will work towards improving bowel function and continue with close monitoring. We will be awaiting the pathologic report and discuss findings once these are available. Over the next few days we will plan to continue transposition the patient's care and continue to monitor. We will likely need physical therapy and assistance to gain back strength and to recover after the significant events after the surgery. Admission and Anticipated Discharge Date Admission Date: August 01, 2022 Subjective Agitation and confusion noted overnight. Patient does have significant sleep apnea. Has been having some issues with ICU delirium likely due to a combination of hypoxia as well as acute illness mixed with the unusual environme nt and the stress with acute illness. Remains somewhat disoriented this AM. Was arousable and was answering some questions. Denies dyspnea. Has required oxygen support. Has been intermittently utilizing the BiPAP. Denies pain. Afebrile overnight. Vasopressors weaned off. BP remains acceptable. Urine output has increased and patient is diuresing. Creatinine is improving overall. Review of Systems Review of Systems: All systems reviewed & are unremarkable except as noted in HPI & below Physical Exam Physical Exam: General: Alert in no significant increase in distress. Acute on chronic respiratory distress. Overall has improved over the last few days. HEENT: Normocephalic Atraumatic. Inspection normal. Cranial Nerves 2-12 Grossly intact. Normal inspection of face. Normal inspection of neck. Psychologic: Mild delirium with some issues with orientation. Waxing and waning likely secondary to ICU delirium/acute on chronic illness Respiratory: Continued utilization of accessory muscles. Respiratory issues appear to be approaching baseline. Cardiovascular: No tachycardia Skin: [place] and Dry. No rashes or visible lesions. Extremities/Lymphatics: No edema Abdomen: Appropriately tender. Significantly distended with large abdomen at baseline. No rebound or guarding. Wound: Clean, dry, covered. Results & Data Vital Signs (Past 12 Hours) Vital Signs Pulse Resp BP Pulse Ox O2 Del Method O2 Flow Rate FiO2 08/06/22 15:40 61 21 100 40 08/06/22 07:40 83 27 H 95 45 08/06/22 14:45 68 16 94/60 L 100 BiPAP 45 08/06/22 14:30 64 20 98/56 L 98 BiPAP 45 08/06/22 14:15 67 22 102/60 100 BiPAP 45 08/06/22 14:00 69 23 103/61 100 BiPAP 45 08/06/22 13:45 68 21 95/56 L 99 BiPAP 45 08/06/22 13:30 73 21 104/61 100 BiPAP 45 08/06/22 13:15 78 22 121/74 99 BiPAP 45 08/06/22 13:00 71 20 108/71 98 BiPAP 45 08/06/22 12:46 78 108/67 98 BiPAP 45 08/06/22 12:31 72 20 111/65 97 BiPAP 45 08/06/22 12:15 70 20 110/68 96 BiPAP 45 08/06/22 12:00 77 25 H 115/64 94 BiPAP 45 08/06/22 11:45 77 26 H 114/70 BiPAP 45 08/06/22 11:30 77 20 102/58 L 93 BiPAP 45 08/06/22 11:15 83 23 130/62 97 BiPAP 45 08/06/22 11:06 84 22 133/74 97 BiPAP 45 08/06/22 10:00 87 27 H 152/80 H 93 Oxymask 10 08/06/22 09:01 84 24 156/88 H 98 Oxymask 10 08/06/22 08:01 85 20 145/84 H 96 BiPAP 45 08/06/22 07:00 93 H 27 H 174/113 H 90 BiPAP 45 08/06/22 07:30 Oxymask 10 08/06/22 05:50 87 23 08/06/22 05:40 86 22 08/06/22 05:30 92 H 14 08/06/22 05:20 90 33 H 08/06/22 05:10 90 20 08/06/22 05:01 106/76 08/06/22 05:01 90 25 H 08/06/22 05:00 87 22 08/06/22 04:50 82 21 08/06/22 04:40 91 H 29 H PG Care Time/CCT Total # of Minutes Spent Total Time Spent with Patient: Total time spent is greater than 50% in coordination of care (as documented) at patient's floor/unit and/or counseling patient: Coding Level of Care Code 41192 SUB INP/OBS CARE 3/50MIN Diagnoses Acute renal failure N17.9 Acute blood loss anemia D62 H/O partial nephrectomy Z90.5 Renal mass N28.89
[2022-08-06] MEDS: LANTUS PER UNIT CHARGE SC SCH (20:09)
[2022-08-06] MEDS: ATORVASTATIN 40 MG TAB PO SCH (21:00)
[2022-08-07] MEDS: INSULIN ASPART PER UNIT CHARGE SC SCH ×6 (00:16→20:55)
[2022-08-07] MEDS: dexMEDEtomidine 400 MCG/100 ML Bag (Premixed) IV SCH ×4 (01:13→20:04)
[2022-08-07 06:30] LABS: Mean Corpuscular Hemoglobin 28.8 pg (25.0-34.0); Mean Corpuscular Volume 89.9 fL (80.0-100.0); Mean Platelet Volume 8.9 fL (9.4-12.4); Platelet Count 265 K/uL (130-400); RDW Coefficient of Variation 14.6 % (11.5-14.5); RDW Standard Deviation 48.1 fL (36.4-46.3); Red Blood Count 2.78 M/uL (4.70-6.10); White Blood Count 11.61 K/ul (4.8-10.8)
--- NOTE | 2022-08-07 06:54 | Urology Progress Note ---
Date of Service August 07, 2022 Assessment & Plan (1) Acute renal failure: (2) Right renal mass: (3) H/O partial nephrectomy: Plan 57-year-old male who is POD #5 status post right robotic partial nephrectomy on 08/01/2022 for suspected renal malignancy. Postoperatively he was upgraded to ICU due to hypotension, respiratory issues, and concern for postoperative bleed. He fortunately stabilized and a postoperative CT scan did not show concern for a large hemorrhage. Patient subjectively improving. Denies any acute issues today. Creatinine continues to downtrend, significant improvement this morning. Now at 1.97 Hgb stable at 8.0 today Continue to trend labs. Patient tolerating full liquid diet. Have encouraged utilization of candy/gum/other chewing options in order to help stimulate return of bowel function. Continue working with PT and OT. Out of bed and ambulating if possible Maintain Reis catheter and DIANA drain. Can consider removal of Reis catheter once patient is able to ambulate Blood and urine cultures currently negative and completed antibiotics Hold any anticoagulation. 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 Can discuss with patient at outpatient follow-up Appreciate help with care from all consulting teams. Admission and Anticipated Discharge Date Admission Date: August 01, 2022 Subjective No acute issues overnight. Patient subjectively reports feeling much better. Pain is well controlled. Had a bowel movement earlier today. Review of Systems Review of Systems: 14 point review of systems negative outside of what is listed above in HPI Physical Exam Physical Exam: General: Alert and oriented, no acute distress HEENT: Normocephalic, mucous membranes moist, nasal cannula in place Pulmonary: Nonlabored respirations Abdomen: Soft, nondistended, nontender. Incisions clean dry and intact with lobo in place. DIANA drain with very minimal serosanguinous output. : Reis catheter draining clear urine Extremities: Moves all 4 spontaneously Neuro: No gross deficits Skin: Warm, dry, no rashes noted Results & Data Vital Signs (Past 12 Hours) Vital Signs Temp Pulse Resp BP Pulse Ox O2 Del Method FiO2 08/07/22 02:00 55 L 16 98/63 L 93 BiPAP 40 08/07/22 01:00 57 L 19 105/67 95 BiPAP 40 08/07/22 00:00 36.9 C 55 L 15 100/67 95 BiPAP 40 08/06/22 23:00 57 L 17 93/59 L 97 BiPAP 40 08/07/22 02:19 56 L 23 95 40 08/06/22 19:15 57 L 08/07/22 00:00 57 L 08/06/22 22:47 59 L 24 96 40 08/06/22 22:00 63 21 96 08/06/22 22:00 110/61 08/06/22 21:30 57 L 18 102/61 96 08/06/22 21:30 102/61 08/06/22 21:00 56 L 18 91/57 L 96 08/06/22 20:34 61 23 95/60 L 95 08/06/22 20:00 16 99/57 L 96 08/06/22 19:30 36.6 C 58 L 20 98/55 L 95 BiPAP 40 08/06/22 19:00 60 15 108/66 98 BiPAP 40 08/06/22 20:00 BiPAP 45 08/06/22 19:47 60 14 94 40 PG Care Time/CCT Total # of Minutes Spent Total Time Spent with Patient: Total time spent is greater than 50% in coordination of care (as documented) at patient's floor/unit and/or counseling patient: Coding Level of Care Code 45688 SUB INP/OBS CARE 2/35MIN Diagnoses Acute renal failure N17.9 Right renal mass N28.89 H/O partial nephrectomy Z90.5
[2022-08-07 07:09] LABS: Prothrombin Time 10.9 Seconds (9.0-12.0)
[2022-08-07 08:06] LABS: BUN Creatinine Ratio 26.9 (10-20); Calcium 8.2 mg/dl (8.6-10.3); Creatinine Clr Calc Pharmacy 70.6 ml/min; Est GFR (African American) 42.8 ml/min; Est GFR (Non-African American) 36.9 ml/min; Magnesium 2.5 mg/dl (1.7-2.4); Phosphorus 2.9 mg/dl (2.5-4.9); Potassium 5.1 mmol/L (3.5-5.1)
[2022-08-07] MEDS: LANTUS PER UNIT CHARGE SC SCH ×2 (08:11→21:46)
[2022-08-07] MEDS: GABAPENTIN 300 MG CAP PO SCH ×2 (08:12→21:46)
[2022-08-07] MEDS: DOCUSATE SODIUM 100 MG CAP PO SCH ×2 (08:13→20:04)
[2022-08-07] MEDS: CYANOCOBALAMIN (B-12) 500 MCG TABLET PO SCH (08:38)
--- NOTE | 2022-08-07 08:39 | Critical Care Progress Note ---
Date of Service August 07, 2022 Assessment & Plan (1) Acute renal failure: (2) MARIA EUGENIA (obstructive sleep apnea): (3) Postoperative hypotension: Plan Reason Critically Ill: 57-year-old male postprocedural hypotension status post partial nephrectomy. He remains in the ICU with agitated delirium. 24-hour events: Restarted gabapentin and placed on Precedex for acute agitated delirium yesterday. Much improved this morning. Hemodynamically stable.. Recommendations: Neuro: Acute agitated delirium. Continue gabapentin to treat potential withdrawal. We will make efforts to try and wean the Precedex today. Again no indication for additional imaging or work-up at this point time. Try to avoid medications associated with delirium including narcotics and benzodiazepines. Resp: Sleep disordered breathing and hypoxemic respiratory failure. Continue noninvasive positive pressure ventilation at night. We will need to try and get him out of bed to chair and mobile once his acute delirium resolves. CV: Hypotension resolved. Blood pressure adequate. Diuresis per nephrology. Fluids/Renal: Creatinine continues to improve. Continue Reis catheter. Electrolytes stable. ID: Completed course of cefepime and Flagyl. Monitoring clinically. GI/Nutrition: Tolerating diet. Heme: Acute blood loss: Small mount of hemorrhage identified at the operative site. Try and minimize lab draws. No evidence of continued bleeding. Endocrine: Glycemic control per protocol. Subcu insulin per pharmacy. Vascular access: Right IJ central catheter Code Status: Full code Disposition: ICU Out of bed to chair as tolerated. Work on ambulation if we can get off of the Precedex. Once the drip is off, the patient can likely be transitioned out of the intensive care unit. Admission and Anticipated Discharge Date Admission Date: August 01, 2022 Subjective Patient seen and examined. EMR reviewed. Discussed with bedside critical care nurse and on multidisciplinary rounds. The patient remains on Precedex. This has been effective in improving his overall level of agitation and delirium. He is hemodynamically stable. He is tolerating a diet. He tolerated BiPAP overnight. This morning he is awake alert conversant and pleasant. Review of Systems Review of Systems: All systems reviewed & are unremarkable except as noted in Subjective Physical Exam Constitutional: well developed and + morbidly obese; no acute distress Eyes: + anicteric sclerae; pupils not irregular Neck: normal visual inspection, trachea midline and + thick neck Respiratory: normal respiratory effort; no respiratory distress, no labored breathing, no retractions and not tachypneic Auscultation: lungs clear to auscultation bilaterally and + rhonchi; no rales and no wheezes Cardiovascular: Rate/Rhythm: regular rate Heart Sounds: normal S1 and normal S2 Extremities: + edema (trace dependent) Gastrointestinal (Abdomen): Inspection/Auscultation: + abdomen distended; + abnormal bowel sounds (hypoactive) Percussion/Palpation: normal to percussion; no guarding and abdomen not rigid Musculoskeletal: Extremities: no cyanosis and no clubbing Skin: normal turgor; no jaundice Neurologic: Motor/Sensory: no tremor and no asterixis Psychiatric: Orientation: alert and oriented x 3 Results & Data Results & Data Vital Signs (Past 12 Hours) Vital Signs Temp Pulse Resp BP Pulse Ox O2 Del Method O2 Flow Rate 08/07/22 08:24 36.9 C 08/07/22 07:41 High Flow Nasal Cannula 8 08/07/22 07:00 61 25 H 89 L 08/07/22 07:00 116/69 08/07/22 06:46 55 L 21 108/64 96 BiPAP 08/07/22 06:00 55 L 19 92/64 L 95 BiPAP 08/07/22 05:00 56 L 18 93/68 L 95 BiPAP 08/07/22 04:00 55 L 20 100/54 L 100 08/07/22 03:00 36.9 C 55 L 17 98/62 L 93 BiPAP 08/07/22 02:00 55 L 16 98/63 L 93 BiPAP 08/07/22 01:00 57 L 19 105/67 95 BiPAP 08/07/22 00:00 36.9 C 55 L 15 100/67 95 BiPAP 08/06/22 23:00 57 L 17 93/59 L 97 BiPAP 08/07/22 02:19 56 L 23 95 08/07/22 00:00 57 L 08/06/22 22:47 59 L 24 96 08/06/22 22:00 63 21 96 08/06/22 22:00 110/61 08/06/22 21:30 57 L 18 102/61 96 08/06/22 21:30 102/61 08/06/22 21:00 56 L 18 91/57 L 96 FiO2 08/07/22 08:24 08/07/22 07:41 04/26/23 07:00 08/07/22 07:00 08/07/22 06:46 40 08/07/22 06:00 40 08/07/22 05:00 40 08/07/22 04:00 08/07/22 03:00 40 08/07/22 02:00 40 08/07/22 01:00 40 08/07/22 00:00 40 08/06/22 23:00 40 08/07/22 02:19 40 08/07/22 00:00 08/06/22 22:47 40 08/06/22 22:00 08/06/22 22:00 08/06/22 21:30 08/06/22 21:30 08/06/22 21:00 Critical Care Results & Data Vital Signs (Past 12 Hours) Vital Signs Temp Pulse Resp BP Pulse Ox O2 Del Method O2 Flow Rate 08/07/22 08:24 36.9 C 08/07/22 07:41 High Flow Nasal Cannula 8 08/07/22 07:00 61 25 H 89 L 08/07/22 07:00 116/69 08/07/22 06:46 55 L 21 108/64 96 BiPAP 08/07/22 06:00 55 L 19 92/64 L 95 BiPAP 08/07/22 05:00 56 L 18 93/68 L 95 BiPAP 08/07/22 04:00 55 L 20 100/54 L 100 08/07/22 03:00 36.9 C 55 L 17 98/62 L 93 BiPAP 08/07/22 02:00 55 L 16 98/63 L 93 BiPAP 08/07/22 01:00 57 L 19 105/67 95 BiPAP 08/07/22 00:00 36.9 C 55 L 15 100/67 95 BiPAP 08/06/22 23:00 57 L 17 93/59 L 97 BiPAP 08/07/22 02:19 56 L 23 95 08/07/22 00:00 57 L 08/06/22 22:47 59 L 24 96 08/06/22 22:00 63 21 96 08/06/22 22:00 110/61 08/06/22 21:30 57 L 18 102/61 96 08/06/22 21:30 102/61 08/06/22 21:00 56 L 18 91/57 L 96 FiO2 08/07/22 08:24 08/07/22 07:41 08/07/22 07:00 08/07/22 07:00 08/07/22 06:46 40 08/07/22 06:00 40 08/07/22 05:00 40 08/07/22 04:00 08/07/22 03:00 40 08/07/22 02:00 40 08/07/22 01:00 40 08/07/22 00:00 40 08/06/22 23:00 40 08/07/22 02:19 40 08/07/22 00:00 08/06/22 22:47 40 08/06/22 22:00 08/06/22 22:00 08/06/22 21:30 08/06/22 21:30 08/06/22 21:00 Lab & Micro Results (Past 24 Hours) RBC 2.78 M/uL (4.70-6.10) L 08/07/22 WBC 11.61 K/ul (4.8-10.8) H 08/07/22 Hgb 8.0 g/dl (14.0-18.0) L 08/07/22 Hct 25.0 % (42.0-52.0) L 08/07/22 MCV 89.9 fL (80.0-100.0) 08/07/22 MCH 28.8 pg (25.0-34.0) 08/07/22 MCHC 32.0 g/dL (32.0-36.0) 08/07/22 RDW Standard Deviation 48.1 fL (36.4-46.3) H 08/07/22 RDW Coefficient of Variation 14.6 % (11.5-14.5) H 08/07/22 Plt Count 265 K/uL (130-400) 08/07/22 MPV 8.9 fL (9.4-12.4) L 08/07/22 Na 140 mmol/L (136-145) 08/07/22 K 5.1 mmol/L (3.5-5.1) 08/07/22 Cl 110 mmol/L (98-107) H 08/07/22 CO2 24 mmol/L (21-32) 08/07/22 Anion Gap 6 (3-11) 08/07/22 BUN 53 mg/dl (6-23) H 08/07/22 Creatinine 1.97 mg/dl (0.6-1.4) H 08/07/22 Estimated GFR ( Amer) 42.8 ml/min 08/07/22 Estimated GFR (Non-Af Amer) 36.9 ml/min 08/07/22 BUN/Creatinine Ratio 26.9 (10-20) H 08/07/22 Glu 98 mg/dl (70-99(Fasting)) 08/07/22 Ca 8.2 mg/dl (8.6-10.3) L 08/07/22 Phosphorus Level 2.9 mg/dl (2.5-4.9) 08/07/22 Albumin 3.0 gm/dl (3.4-5.0) L 08/07/22 Mg 2.5 mg/dl (1.7-2.4) H 08/07/22 06:12 Calcium Level 8.2 mg/dl (8.6-10.3) L 08/07/22 06:12 Prothromb Time International Ratio 1.0 (0.9-1.1) 08/07/22 06:1 2 Microbiology 08/01/22 22:46 Aerobic Blood Culture - Final Blood No growth in Aerobic bottle after 5 days. Anaerobic Blood Culture - Final No growth in Anaerobic bottle after 5 days. 08/01/22 22:41 Aerobic Blood Culture - Final Blood No growth in Aerobic bottle after 5 days. Anaerobic Blood Culture - Final No growth in Anaerobic bottle after 5 days. 08/04/22 Unknown Urine Culture - Final Urine,Indwelling Cath No growth - less than 1,000 colonies/mL. I & O Totals 24 Hours 08/06/22 08/07/22 08/08/22 06:59 06:59 06:59 Intake Total 961.117 / 961.117 834.209 / 834.209 854.553 / 854.553 Output Total 5035 / 5035 3153 / 3153 60 / 60 Balance -4073.883 / -4073.883 -2318.791 / -2318.791 794.553 / 794.553 Cumulative 07/16/22 09:54 thru 08/07/22 08:34 Intake Total 03390.974 Output Total 38903 Balance 4238.974 RT Ventilator Mngmt (Last Documented) Ventilator Ordered Settings Respiratory Rate 25 08/07/22 07:00 Fraction of Inspired Oxygen 40 08/07/22 06:46 Ventilator - PT Measurements Respiratory Rate 25 Coding Level of Care Code 24577 SUB INP/OBS CARE 3/50MIN Diagnoses Acute renal failure N17.9 MARIA EUGENIA (obstructive sleep apnea) G47.33 Postoperative hypotension I95.81
[2022-08-07 09:21] LABS: Codeine Urine NEGATIVE ng/mL (<50); Hydrocodone Urine NEGATIVE ng/mL (<50); Hydromor Urine NEGATIVE ng/mL (<50); Morphine Urine 762 ng/mL (<50); Norhydrocodone Conf Ur NEGATIVE ng/mL (<50); Noroxycodone Urine NEGATIVE ng/mL (<50); Oxycodone Urine NEGATIVE ng/mL (<50); Oxymorph Urine NEGATIVE ng/mL (<50)
--- NOTE | 2022-08-07 12:07 | Nephrology Progress Note ---
Date of Service August 07, 2022 Assessment & Plan (1) Acute kidney injury: Plan: Non-oliguric. Polyuria and autodiuresis slowed. Creatinine improving. MAO consistent with ischemic ATN in setting of partial nephrectomy, hemodynamic instability, and acute blood loss anemia. Medications are appropriately dosed for kidney dysfunction. Document strict I/O's. Repeat metabolic profile tomorrow AM. (2) H/O partial nephrectomy: Plan: POD #6 s/p robotic assisted laparoscopic right partial nephrectomy. (3) Acute blood loss anemia: Plan: 3 u PRBC transfusion support post-operatively followed by an additional 2 units POD#1 and 1 unit yesterday AM. Hgb acceptable. (4) COPD (chronic obstructive pulmonary disease): (5) MARIA EUGENIA (obstructive sleep apnea): Plan: Diuretics PRN to encourage negative fluid balance. Admission and Anticipated Discharge Date Admission Date: August 01, 2022 Subjective No acute events overnight. Reports improvement today. Very happy to be assisted out of bed. Bowel movement this AM. Breathing comfortably. Denies significant pain. Review of Systems Review of Systems: All systems reviewed & are unremarkable except as noted in HPI & below Physical Exam Constitutional: well developed and + morbidly obese; no acute distress Eyes: + anicteric sclerae; pupils not irregular Neck: normal visual inspection, trachea midline and + thick neck Respiratory: normal respiratory effort and + tachypneic Auscultation: lungs clear to auscultation bilaterally, + diminished lung sounds and + rhonchi; no rales and no wheezes Cardiovascular: Rate/Rhythm: regular rate Heart Sounds: normal S1 and normal S2 Extremities: + edema (trace dependent) Musculoskeletal: Extremities: no cyanosis and no clubbing Skin: normal turgor; no jaundice Neurologic: Motor/Sensory: no tremor and no asterixis Psychiatric: Orientation: alert, oriented x 3 and cooperative Results & Data Vital Signs (Past 12 Hours) Vital Signs Temp Pulse Resp BP Pulse Ox O2 Del Method O2 Flow Rate 08/07/22 12:00 80 22 159/89 H 92 Nasal Cannula 6 08/07/22 11:00 75 26 H 131/82 95 08/07/22 12:00 36.6 C 08/07/22 10:00 79 13 148/103 H 93 Nasal Cannula 6 08/07/22 09:00 68 21 120/80 98 Nasal Cannula 6 08/07/22 08:00 67 18 112/91 99 Nasal Cannula 8 08/07/22 08:24 36.9 C 08/07/22 07:41 High Flow Nasal Cannula 8 08/07/22 07:00 61 25 H 89 L 08/07/22 07:00 116/69 08/07/22 06:46 55 L 21 108/64 96 BiPAP 08/07/22 06:00 55 L 19 92/64 L 95 BiPAP 08/07/22 05:00 56 L 18 93/68 L 95 BiPAP 08/07/22 04:00 55 L 20 100/54 L 100 08/07/22 03:00 36.9 C 55 L 17 98/62 L 93 BiPAP 08/07/22 02:00 55 L 16 98/63 L 93 BiPAP 08/07/22 01:00 57 L 19 105/67 95 BiPAP 08/07/22 02:19 56 L 23 95 FiO2 08/07/22 12:00 08/07/22 11:00 08/07/22 12:00 08/07/22 10:00 08/07/22 09:00 08/07/22 08:00 08/07/22 08:24 08/07/22 07:41 08/07/22 07:00 08/07/22 07:00 08/07/22 06:46 40 08/07/22 06:00 40 08/07/22 05:00 40 08/07/22 04:00 08/07/22 03:00 40 08/07/22 02:00 40 08/07/22 01:00 40 08/07/22 02:19 40 Laboratory Results Laboratory Results - last 24 hr 08/04/22 08/06/22 08/06/22 Unknown 16:11 19:57 WBC RBC Hgb Hct MCV MCH MCHC RDW Std Deviation RDW Coeff of [place] Plt Count MPV PT INR Sodium Potassium Chloride Carbon Dioxide Anion Gap BUN Creatinine Est Cr Clr Drug Dosing Est GFR ( Amer) Est GFR (Non-Af Amer) BUN/Creatinine Ratio Glucose POC Glucose 121 H 135 H Calcium Phosphorus Magnesium Albumin Fluid Creatinine U Codeine Confrm GC/MS NEGATIVE Ur Morphine (GC/MS) 762 H Ur Hydrocodone (GC/MS) NEGATIVE Ur Norhydrocodone NEGATIVE Ur Noroxycodone NEGATIVE Urine Oxycodone (GC/MS) NEGATIVE U Oxymorphone GC/MS NEGATIVE Ur Hydromorphone (GC/MS) NEGATIVE Drug Screen Comment SEE NOTE 08/06/22 08/07/22 08/07/22 22:00 00:01 04:11 WBC RBC Hgb Hct MCV MCH MCHC RDW Std Deviation RDW Coeff of [place] Plt Count MPV PT INR Sodium Potassium Chloride Carbon Dioxide Anion Gap BUN Creatinine Est Cr Clr Drug Dosing Est GFR ( Amer) Est GFR (Non-Af Amer) BUN/Creatinine Ratio Glucose POC Glucose 125 H 112 H Calcium Phosphorus Magnesium Albumin Fluid Creatinine Pending U Codeine Confrm GC/MS Ur Morphine (GC/MS) Ur Hydrocodone (GC/MS) Ur Norhydrocodone Ur Noroxycodone Urine Oxycodone (GC/MS) U Oxymorphone GC/MS Ur Hydromorphone (GC/MS) Drug Screen Comment 08/07/22 08/07/22 08/07/22 06:12 06:12 06:12 WBC 11.61 H RBC 2.78 L Hgb 8.0 L Hct 25.0 L MCV 89.9 MCH 28.8 MCHC 32.0 RDW Std Deviation 48.1 H RDW Coeff of [place] 14.6 H Plt Count 265 MPV 8.9 L PT 10.9 INR 1.0 Sodium 140 Potassium 5.1 Chloride 110 H Carbon Dioxide 24 Anion Gap 6 BUN 53 H Creatinine 1.97 H D Est Cr Clr Drug Dosing 70.6 Est GFR ( Amer) 42.8 Est GFR (Non-Af Amer) 36.9 BUN/Creatinine Ratio 26.9 H Glucose 98 POC Glucose Calcium 8.2 L Phosphorus 2.9 Magnesium 2.5 H Albumin 3.0 L Fluid Creatinine U Codeine Confrm GC/MS Ur Morphine (GC/MS) Ur Hydrocodone (GC/MS) Ur Norhydrocodone Ur Noroxycodone Urine Oxycodone (GC/MS) U Oxymorphone GC/MS Ur Hydromorphone (GC/MS) Drug Screen Comment 08/07/22 08/07/22 07:28 11:12 WBC RBC Hgb Hct MCV MCH MCHC RDW Std Deviation RDW Coeff of [place] Plt Count MPV PT INR Sodium Potassium Chloride Carbon Dioxide Anion Gap BUN Creatinine Est Cr Clr Drug Dosing Est GFR ( Amer) Est GFR (Non-Af Amer) BUN/Creatinine Ratio Glucose POC Glucose 111 H 149 H Calcium Phosphorus Magnesium Albumin Fluid Creatinine U Codeine Confrm GC/MS Ur Morphine (GC/MS) Ur Hydrocodone (GC/MS) Ur Norhydrocodone Ur Noroxycodone Urine Oxycodone (GC/MS) U Oxymorphone GC/MS Ur Hydromorphone (GC/MS) Drug Screen Comment PG Care Time/CCT Total # of Minutes Spent Total Time Spent with Patient: Total time spent is greater than 50% in coordination of care (as documented) at patient's floor/unit and/or counseling patient: Coding Level of Care Code 89349 SUB INP/OBS CARE 3/50MIN Diagnoses Acute kidney injury N17.9 H/O partial nephrectomy Z90.5 Acute blood loss anemia D62 COPD (chronic obstructive pulmonary disease) J44.9 MARIA EUGENIA (obstructive sleep apnea) G47.33
--- NOTE | 2022-08-07 12:42 | Pharmacy Report ---
Pharmacy Glycemic Short Note 2 - Date of Service August 07, 2022 - Glycemic Short BSG Results (Last 24 hours): 08/06/22 08/06/22 08/07/22 16:11 19:57 00:01 Glucose POC Glucose 121 H 135 H 125 H 08/07/22 08/07/22 08/07/22 04:11 06:12 07:28 Glucose 98 POC Glucose 112 H 111 H 08/07/22 11:12 Glucose POC Glucose 149 H OUTPATIENT ANTIDIABETIC REGIMEN: * Metformin ER 1000 mg PO BID * Glipizide ER 10 mg PO BID * Farxiga 5 mg PO daily * Trulicity 3 mg SC every Friday * HbA1c: 9.6% (05/30/22) ASSESSMENT: 08/07: * Precedex discontinued, plan for downgrade from ICU * Fasting 111 mg/dL this morning with 65 units of basal yesterday- will continue scale * BSGS within goal range yesterday, did not receive any correctional/prandial * Monitor novolog parameters as patient advances with diet- no change for now 08/06: * Patient transitioned off of drip. * Received 80 units of basal yesterday, fasting this AM 109 mg/dL. * Patient now on precedex- will scale back basal slightly * Renal function continues to improve- continue current novolog parameters 08/05: * Nathaniel remained on the insulin infusion in the ICU this AM. Rate has trended down this AM. Based on requirements over the last 8 hours, calculated total daily insulin requirements to be near 180 units. * Hemodynamics are improving. Milrinone to be discontinued today and hopefully can wean norepinephrine off. Improving diet and renal function as well. * Will reduced estimated TDD from above to be conservative today as to prevent hypoglycemia. Insulin drip has been discontinued at this time. Will target a total daily insulin dose of 160 units, split 50/50 between basal and bolus. Will check BSGs q4h for now during drip transition period. Can likely be changed to [facility] tomorrow. 08/04: * Patient remains on insulin infusion in ICU * Hemodynamics improving -> vasopressor support being weaned * Diet advanced to full liquid/T2DM today * Give patient improvement, will look to make progress in transitioning off insulin infusion * Insulin infusion requirements still ~10 units/hr 08/02: * 57 yo admitted following partial nephrectomy, patient with hypotension currently on norepinephrine * Insulin infusion started yesterday with elevated BSGs. Continued to be elevated overnight with insulin infusion running at high rates, now down to 10.7 units/hr * Given continued pressor use and high rates, will continue insulin infusion tod ay * Small dose of Lantus this AM to assist with lowering infusion rates. PLAN FOR INPATIENT GLYCEMIC CONTROL: * Hold outpatient oral diabetes medications * Basal insulin * Lantus 30/35 SC BID per scale * Reassess basal in the AM * Bolus insulin * Novolog per scale q4, achs * Goal Range: 110-140 mg/dL * Correction Factor: 15 mg/dL/unit * Carb Ratio: 5 g CHO/unit
[2022-08-07] MEDS: ATORVASTATIN 40 MG TAB PO SCH (21:47)
--- NOTE | 2022-08-08 07:14 | Urology Progress Note ---
Date of Service August 08, 2022 Assessment & Plan (1) Acute renal failure: (2) H/O partial nephrectomy: (3) Right renal mass: Plan 57-year-old male who is POD #7 status post right robotic partial nephrectomy on 08/01/2022 for suspected renal malignancy. Postoperatively he was upgraded to ICU due to hypotension, respiratory issues, and concern for postoperative bleed. He fortunately stabilized and a postoperative CT scan did not show concern for a large hemorrhage. Downgraded from ICU on 08/07/2022 Neuro -Tylenol as needed and gabapentin 300 mg twice daily ICU delirium has resolved Cardiac Hemodynamically stable Continue home atorvastatin Respiratory Remains on 6 L nasal cannula. Wean as tolerated. Continue CPAP at night GI Continue carb consistent diet Bowel regimen with [facility] Continue insulin and glucose checks Heme Hemoglobin stable at 8.3 today Has received a total of 6 units PRBCs since surgery, last occurring on postoperative day 2. Creatinine continues to downtrend, 1.63 today. Nephrology consulted, appreciate recs. 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 Discussed with patient today. ID Afebrile. Leukocytosis 13 slightly up from 11 yesterday. Continue to monitor Urine and blood cultures negative. He has completed a course of antibiotics. Prophylaxis SCDs Will start prophylactic heparin today MSK Ambulate, work with PT and OT Allopurinol home medication Dispo MedSurg with telemetry. Medicine reconsulted, appreciate their recommendations. Admission and Anticipated Discharge Date Admission Date: August 01, 2022 Subjective No acute issues overnight. Afebrile with stable vitals. Urine output appropriate. Drain output minimal. Labs pending. Downgraded from ICU yesterday. Reports pain is well controlled. Remains on 6 L of nasal cannula. Review of Systems Review of Systems: 14 point review of systems negative outside of what is listed above in HPI Physical Exam Physical Exam: General: Alert and oriented, no acute distress HEENT: Normocephalic, mucous membranes moist, nasal cannula in place Pulmonary: Nonlabored respirations Abdomen: Soft, nondistended, nontender. Incisions clean dry and intact with lobo in place. DIANA drain with very minimal serosanguinous output. : Reis catheter draining clear urine Extremities: Moves all 4 spontaneously Neuro: No gross deficits Skin: Warm, dry, no rashes noted Results & Data Vital Signs (Past 12 Hours) Vital Signs Temp Pulse Pulse Resp BP BP Pulse Ox 08/08/22 02:55 59 L 21 95 08/08/22 04:21 36.8 C 68 20 144/86 H 94 08/07/22 22:00 78 08/07/22 23:20 61 25 H 96 08/07/22 23:12 37 C 78 20 138/72 96 08/07/22 20:00 08/07/22 19:22 36.6 C 68 20 136/73 94 O2 Del Method O2 Flow Rate FiO2 08/08/22 02:55 40 08/08/22 04:21 BiPAP 40 08/07/22 22:00 08/07/22 23:20 40 08/07/22 23:12 BiPAP 40 08/07/22 20:00 High Flow Nasal Cannula 6 08/07/22 19:22 High Flow Nasal Cannula 6 PG Care Time/CCT Total # of Minutes Spent Total Time Spent with Patient: Total time spent is greater than 50% in coordination of care (as documented) at patient's floor/unit and/or counseling patient: Coding Level of Care Code 21882 SUB INP/OBS CARE 2/35MIN Diagnoses Acute renal failure N17.9 H/O partial nephrectomy Z90.5 Right renal mass N28.89
[2022-08-08 07:29] LABS: BUN Creatinine Ratio 29.4 (10-20); Calcium 7.9 mg/dl (8.6-10.3); Creatinine Clr Calc Pharmacy 84.4 ml/min; Est GFR (African American) 53.8 ml/min; Est GFR (Non-African American) 46.4 ml/min; Phosphorus 2.7 mg/dl (2.5-4.9); Potassium 4.5 mmol/L (3.5-5.1)
[2022-08-08 07:31] LABS: Hematocrit (blood only) 25.6 % (42.0-52.0); Hemoglobin 8.3 g/dl (14.0-18.0); Mean Corpuscular Hemoglobin 28.8 pg (25.0-34.0); Mean Corpuscular Hgb Conc 32.4 g/dL (32.0-36.0); Mean Corpuscular Volume 88.9 fL (80.0-100.0); Mean Platelet Volume 9.3 fL (9.4-12.4); Platelet Count 351 K/uL (130-400); RDW Coefficient of Variation 14.6 % (11.5-14.5); RDW Standard Deviation 47.5 fL (36.4-46.3); Red Blood Count 2.88 M/uL (4.70-6.10); White Blood Count 13.68 K/ul (4.8-10.8)
[2022-08-08 07:48] LABS: Ferritin 471.3 ng/ml (8-388)
[2022-08-08] MEDS: GABAPENTIN 300 MG CAP PO SCH ×2 (08:29→20:09)
[2022-08-08] MEDS: DOCUSATE SODIUM 100 MG CAP PO SCH ×2 (08:30→20:10)
[2022-08-08] MEDS: INSULIN ASPART PER UNIT CHARGE SC SCH ×4 (08:30→21:19)
[2022-08-08] MEDS: LANTUS PER UNIT CHARGE SC SCH ×2 (08:31→21:19)
--- NOTE | 2022-08-08 10:09 | Nephrology Progress Note ---
Date of Service August 08, 2022 Assessment & Plan (1) Acute kidney injury: Plan: Non-oliguric. Good urine output. Remains in negative fluid balance without diuretics. Creatinine improving. MAO consistent with ischemic ATN in setting of partial nephrectomy, hemodynamic instability, and acute blood loss anemia. Medications are appropriately dosed for kidney dysfunction. Document strict I/O's. Repeat metabolic profile tomorrow AM. (2) H/O partial nephrectomy: Plan: POD #7 s/p robotic assisted laparoscopic right partial nephrectomy. (3) Acute blood loss anemia: Plan: 3 u PRBC transfusion support post-operatively followed by an additional 2 units POD#1 and 1 unit POD#2 AM. Hgb stable. Tsat 15. ferritin 471. Venofer 200 mg x 1 dose today. (4) COPD (chronic obstructive pulmonary disease): (5) MARIA EUGENIA (obstructive sleep apnea): Plan: Diuretics PRN to encourage negative fluid balance. Admission and Anticipated Discharge Date Admission Date: August 01, 2022 Subjective No acute events overnight. Nathaniel is resting comfortably in bed this AM. Denies pain. No fevers or chills. Overall feels well. Good urine output. Reis remains intact. Review of Systems Review of Systems: All systems reviewed & are unremarkable except as noted in HPI & below Physical Exam Constitutional: well developed and + morbidly obese; no acute distress Eyes: + anicteric sclerae Neck: normal visual inspection, trachea midline and + thick neck Respiratory: normal respiratory effort Auscultation: lungs clear to auscultation bilaterally and + diminished lung sounds Cardiovascular: Rate/Rhythm: regular rate Heart Sounds: normal S1 and normal S2 Extremities: + edema (trace dependent) Gastrointestinal (Abdomen): Inspection/Auscultation: + abdomen distended and normal bowel sounds Musculoskeletal: Extremities: no cyanosis and no clubbing Skin: normal turgor; no jaundice Neurologic: Motor/Sensory: no tremor and no asterixis Psychiatric: Orientation: alert, oriented x 3 and cooperative Results & Data Vital Signs (Past 12 Hours) Vital Signs Temp Pulse Pulse Resp BP BP Pulse Ox 08/08/22 05:34 70 08/08/22 08:15 08/08/22 08:38 37.1 C 68 22 165/84 H 95 08/08/22 02:55 59 L 21 95 08/08/22 04:21 36.8 C 68 20 144/86 H 94 04/26/23 23:20 61 25 H 96 08/07/22 23:12 37 C 78 20 138/72 96 O2 Del Method O2 Flow Rate FiO2 08/08/22 05:34 08/08/22 08:15 Nasal Cannula 6 08/08/22 08:38 Nasal Cannula 6 08/08/22 02:55 40 08/08/22 04:21 BiPAP 40 08/07/22 23:20 40 08/07/22 23:12 BiPAP 40 Laboratory Results Laboratory Results - last 24 hr 08/06/22 08/07/22 08/07/22 22:00 11:12 16:03 WBC RBC Hgb Hct MCV MCH MCHC RDW Std Deviation RDW Coeff of Chano Plt Count MPV Sodium Potassium Chloride Carbon Dioxide Anion Gap BUN Creatinine Est Cr Clr Drug Dosing Est GFR ( Amer) Est GFR (Non-Af Amer) BUN/Creatinine Ratio Glucose POC Glucose 149 H 104 H Calcium Phosphorus Iron TIBC Unsaturated IBC Transferrin % Sat Ferritin Fluid Creatinine 08/07/22 08/08/22 08/08/22 20:16 06:17 06:17 WBC 13.68 H RBC 2.88 L Hgb 8.3 L Hct 25.6 L MCV 88.9 MCH 28.8 MCHC 32.4 RDW Std Deviation 47.5 H RDW Coeff of Chano 14.6 H Plt Count 351 MPV 9.3 L Sodium 137 Potassium 4.5 Chloride 107 Carbon Dioxide 24 Anion Gap 6 BUN 48 H Creatinine 1.63 H D Est Cr Clr Drug Dosing 84.4 Est GFR ( Amer) 53.8 Est GFR (Non-Af Amer) 46.4 BUN/Creatinine Ratio 29.4 H Glucose 111 H POC Glucose 133 H Calcium 7.9 L Phosphorus 2.7 Iron 29 L TIBC 197 L Unsaturated IBC 168 Transferrin % Sat 15 L Ferritin 471.3 H Fluid Creatinine 08/08/22 08:10 WBC RBC Hgb Hct MCV MCH MCHC RDW Std Deviation RDW Coeff of [place]ano Plt Count MPV Sodium Potassium Chloride Carbon Dioxide Anion Gap BUN Creatinine Est Cr Clr Drug Dosing Est GFR ( Amer) Est GFR (Non-Af Amer) BUN/Creatinine Ratio Glucose POC Glucose 134 H Calcium Phosphorus Iron TIBC Unsaturated IBC Transferrin % Sat Ferritin Fluid Creatinine PG Care Time/CCT Total # of Minutes Spent Total Time Spent with Patient: Total time spent is greater than 50% in coordination of care (as documented) at patient's floor/unit and/or counseling patient: Coding Level of Care Code 82840 SUB INP/OBS CARE 3/50MIN Diagnoses Acute kidney injury N17.9 H/O partial nephrectomy Z90.5 Acute blood loss anemia D62 COPD (chronic obstructive pulmonary disease) J44.9 MARIA EUGENIA (obstructive sleep apnea) G47.33
[2022-08-08] MEDS ORDERED: IRON SUCROSE 200 MG in 0.9 % SODIUM CHLORIDE 100 ML IV ONE (10:15)
[2022-08-08] MEDS: HEPARIN SOD 5,000 UNIT/0.5 ML VIAL SQ SCH ×2 (14:25→21:20)
[2022-08-08] MEDS ORDERED: LIDOCAINE 2% JELLY 5 ML TUBE EXT PRN (17:16)
--- NOTE | 2022-08-08 17:18 | Hospitalist Progress Note ---
Date of Service August 08, 2022 Assessment & Plan (1) H/O partial nephrectomy: Plan: RIGHT kidney. POD#7 s/p parial nephrectomy. Path returned with Clear Cell RCC. Defer management to primary urology team. For tip of penis / penile pain - lidocaine jelly q4h prn pain. (2) Postoperative hypotension: Plan: 2nd to acute blood loss anemia. s/p 6 units PRBCs. Required pressors in the iCU for a period of time. No PRBCs in several days. No pressors in several days. BPs have recovered. (3) Type 2 diabetes mellitus with diabetic neuropathy, without long-term current use of insulin: Plan: HbA1C 9.6 in May 2022. Appreciate Pharmacy glycemic consult. BSGs <200. (4) Neuropathic pain: Plan: Cont gabapentin 300mg BID Once renal function is completely back to normal resume his normal dosing of 600mg qam with 300mg at HS (5) Proteinuria due to type 2 diabetes mellitus: Plan: Lisinopril on hold due to MAO (6) Gout, joint: Plan: Depending on Cr tomorrow can likely resume allopurinol (7) Sleep apnea: Plan: CPAP HS Can use home unit - family brought in for its use (8) Morbid obesity: Plan: BMI 48 (9) Acute blood loss anemia: Plan: SEVERE s/p 6 units PRBCs since admission Fe studies c/w Fe def - defer venofer to nephrology H/H acceptable today (10) Acute renal failure: Plan: ARF/MAO -- cont to improve Was prerenal in etiology - ATN - due to shock/hypotension, acute blood loss anemia, etc Peak Cr 4.4 Today 1.6 BMP in am (11) Acute psychosis: Plan: resolved (12) DVT prophylaxis: Plan: if renal function is stable tomorrow - given his morbid obesity - his heparin should be 7500 units TID Plan daughter updated at bedside will follow Admission and Anticipated Discharge Date Admission Date: August 01, 2022 Subjective pt continues to feel better each day tolerated regular diet earlier today no nausea or emesis is passing flatus c/o penile pain where peterson enters the head of penis he feels weak he has orthopnea and SILVA with moving around family brought his home CPAP unit tele overnight wnl daughter at bedside Review of Systems Review of Systems: gen - no fever; weak/fatigued cv - no chest pain pulm - no cough GI - no nausea/emesis Physical Exam Physical Exam: gen - morbidly obese, very weak with transferring in bed neck - unable to asses for JVD due to neck size mouth - MMM heart - RRR, s1 s2, no murmur lungs - decreased BS bases, airation fair, crackles b/l, no wheeze abd - distended, DIANA drain in place with serosanguinous appearing fluids, dressings in place - penile head without balanitis, peterson in place ext - trace edema b/l, pulses 2+ b/l Results & Data Results & Data Vital Signs (Past 12 Hours) Vital Signs Temp Pulse Pulse Resp BP Pulse Ox O2 Del Method 08/08/22 16:28 36.9 C 76 18 118/67 97 BiPAP 08/08/22 14:22 85 08/08/22 16:00 65 23 95 08/08/22 11:42 36.4 C L 78 18 154/84 H 96 Nasal Cannula 08/08/22 05:34 70 08/08/22 08:15 Nasal Cannula 08/08/22 08:38 37.1 C 68 22 165/84 H 95 Nasal Cannula O2 Flow Rate FiO2 08/08/22 16:28 08/08/22 14:22 08/08/22 16:00 40 08/08/22 11:42 6 08/08/22 05:34 08/08/22 08:15 6 08/08/22 08:38 6 Laboratory Results Laboratory Results - last 24 hr 08/06/22 08/07/22 08/08/22 22:00 20:16 06:17 WBC RBC Hgb Hct MCV MCH MCHC RDW Std Deviation RDW Coeff of [place]ano Plt Count MPV Sodium 137 Potassium 4.5 Chloride 107 Carbon Dioxide 24 Anion Gap 6 BUN 48 H Creatinine 1.63 H D Est Cr Clr Drug Dosing 84.4 Est GFR ( Amer) 53.8 Est GFR (Non-Af Amer) 46.4 BUN/Creatinine Ratio 29.4 H Glucose 111 H POC Glucose 133 H Calcium 7.9 L Phosphorus 2.7 Iron 29 L TIBC 197 L Unsaturated IBC 168 Transferrin % Sat 15 L Ferritin 471.3 H Fluid Creatinine 08/08/22 08/08/22 08/08/22 06:17 08:10 11:51 WBC 13.68 H RBC 2.88 L Hgb 8.3 L Hct 25.6 L MCV 88.9 MCH 28.8 MCHC 32.4 RDW Std Deviation 47.5 H RDW Coeff of Chano 14.6 H Plt Count 351 MPV 9.3 L Sodium Potassium Chloride Carbon Dioxide Anion Gap BUN Creatinine Est Cr Clr Drug Dosing Est GFR ( Amer) Est GFR (Non-Af Amer) BUN/Creatinine Ratio Glucose POC Glucose 134 H 134 H Calcium Phosphorus Iron TIBC Unsaturated IBC Transferrin % Sat Ferritin Fluid Creatinine 08/08/22 17:15 WBC RBC Hgb Hct MCV MCH MCHC RDW Std Deviation RDW Coeff of [place]ano Plt Count MPV Sodium Potassium Chloride Carbon Dioxide Anion Gap BUN Creatinine Est Cr Clr Drug Dosing Est GFR ( Amer) Est GFR (Non-Af Amer) BUN/Creatinine Ratio Glucose POC Glucose 88 Calcium Phosphorus Iron TIBC Unsaturated IBC Transferrin % Sat Ferritin Fluid Creatinine PG Care Time/CCT Total # of Minutes Spent Total Time Spent with Patient: Total time spent is greater than 50% in coordination of care (as documented) at patient's floor/unit and/or counseling patient: Coding Level of Care Code 90179 SUB INP/OBS CARE 2/35MIN Diagnoses H/O partial nephrectomy Z90.5 Postoperative hypotension I95.81 Type 2 diabetes mellitus with diabetic neuropathy, without long-term current use of insulin E11.40 Neuropathic pain M79.2 Proteinuria due to type 2 diabetes mellitus E11.29; R80.9 Gout, joint M10.9 Sleep apnea G47.30 Morbid obesity E66.01 Acute blood loss anemia D62 Acute renal failure N17.9 Acute psychosis F23 DVT prophylaxis Z29.9
[2022-08-08] MEDS ORDERED: INSULIN ASPART PER UNIT CHARGE SC SCH (19:00)
[2022-08-08] MEDS: ATORVASTATIN 40 MG TAB PO SCH (20:07)
[2022-08-09] MEDS: HEPARIN SOD 5,000 UNIT/0.5 ML VIAL SQ SCH ×3 (05:17→21:16)
[2022-08-09 06:24] LABS: Hematocrit (blood only) 26.2 % (42.0-52.0); Hemoglobin 8.4 g/dl (14.0-18.0); Mean Corpuscular Hemoglobin 28.9 pg (25.0-34.0); Mean Corpuscular Hgb Conc 32.1 g/dL (32.0-36.0); Platelet Count 395 K/uL (130-400); RDW Coefficient of Variation 14.6 % (11.5-14.5); RDW Standard Deviation 47.3 fL (36.4-46.3); Red Blood Count 2.91 M/uL (4.70-6.10); White Blood Count 13.24 K/ul (4.8-10.8)
[2022-08-09 06:50] LABS: BUN Creatinine Ratio 28.6 (10-20); Creatinine Clr Calc Pharmacy 98.2 ml/min; Est GFR (African American) 64.6 ml/min; Est GFR (Non-African American) 55.8 ml/min; Potassium 4.7 mmol/L (3.5-5.1)
[2022-08-09] MEDS: ACETAMINOPHEN 325 MG TAB PO PRN ×2 (07:43→16:09)
[2022-08-09] MEDS: INSULIN ASPART PER UNIT CHARGE SC SCH ×4 (08:32→21:07)
[2022-08-09] MEDS: LANTUS PER UNIT CHARGE SC SCH ×2 (08:33→21:07)
[2022-08-09] MEDS: GABAPENTIN 300 MG CAP PO SCH ×2 (08:33→21:15)
[2022-08-09] MEDS: DOCUSATE SODIUM 100 MG CAP PO SCH ×2 (08:33→21:15)
--- NOTE | 2022-08-09 10:25 | Nephrology Progress Note ---
Date of Service August 09, 2022 Assessment & Plan (1) Acute kidney injury: Plan: Excellent urine output. Remains in negative fluid balance without diuretics. Creatinine normalized. MAO consistent with ischemic ATN in setting of partial nephrectomy, hemodynamic instability, and acute blood loss anemia. Medications are appropriately dosed for kidney dysfunction. Monitor metabolic profile daily while inpatient. Reis may be removed. I discussed plan of care with urology this AM. No additional recommendations from nephrology standpoint at this time. Nephrology will sign-off. Please call with questions or concerns. Outpatient nephrology follow up can be arranged at discharge. Continue to hold Farxiga and lisinopril for now pending follow up. (2) H/O partial nephrectomy: Plan: POD #8 s/p robotic assisted laparoscopic right partial nephrectomy. (3) Acute blood loss anemia: Plan: 3 u PRBC transfusion support post-operatively followed by an additional 2 units POD#1 and 1 unit POD#2 AM. Hgb stable. Tsat 15. ferritin 471. Venofer 200 mg x 2nd dose today. (4) COPD (chronic obstructive pulmonary disease): (5) MARIA EUGENIA (obstructive sleep apnea): Plan: Diuretics PRN to encourage negative fluid balance. Admission and Anticipated Discharge Date Admission Date: August 01, 2022 Subjective No acute events overnight. Nathaniel was seen and evaluated this AM with his family at the bedside. I discussed the plan of care with urology. Out of bed and ambulating in hallway with RN. Activity tolerance improving. Ambulating with assistance of rolling walker. Denies notable dyspnea. No fevers or chills. Denies pain. Some increased oozing of blood around incision and DIANA noted. Review of Systems Review of Systems: All systems reviewed & are unremarkable except as noted in HPI & below Physical Exam Constitutional: well developed and + morbidly obese; no acute distress Eyes: + anicteric sclerae Neck: normal visual inspection, trachea midline and + thick neck Respiratory: normal respiratory effort Auscultation: lungs clear to auscultation bilaterally, + rales and + rhonchi Cardiovascular: Rate/Rhythm: regular rate and + tachycardic Heart Sounds: normal S1 and normal S2 Extremities: + edema (trace dependent) Musculoskeletal: Extremities: no cyanosis and no clubbing Skin: normal turgor; no jaundice Neurologic: Motor/Sensory: no tremor and no asterixis Psychiatric: Orientation: alert and oriented x 3 Genitourinary: Reis draining large amount of yellow urine Results & Data Vital Signs (Past 12 Hours) Vital Signs Temp Pulse Pulse Resp BP Pulse Ox O2 Del Method 08/09/22 07:52 37.0 C 70 22 171/71 H 96 Nasal Cannula 08/09/22 04:30 36.6 C 75 20 174/81 H 96 Nasal Cannula 08/09/22 02:12 08/09/22 00:45 74 08/08/22 23:17 36.6 C 79 20 165/81 H 92 BiPAP FiO2 08/09/22 07:52 08/09/22 04:30 08/09/22 02:12 40 08/09/22 00:45 08/08/22 23:17 Laboratory Results Laboratory Results - last 24 hr 08/08/22 08/08/22 08/08/22 11:51 17:15 18:45 WBC RBC Hgb Hct MCV MCH MCHC RDW Std Deviation RDW Coeff of Chano Plt Count MPV Sodium Potassium Chloride Carbon Dioxide Anion Gap BUN Creatinine Est Cr Clr Drug Dosing Est GFR ( Amer) Est GFR (Non-Af Amer) BUN/Creatinine Ratio Glucose POC Glucose 134 H 88 194 H Calcium 08/08/22 08/09/22 08/09/22 20:08 05:45 05:45 WBC 13.24 H RBC 2.91 L Hgb 8.4 L Hct 26.2 L MCV 90.0 MCH 28.9 MCHC 32.1 RDW Std Deviation 47.3 H RDW Coeff of Chano 14.6 H Plt Count 395 MPV 9.0 L Sodium 137 Potassium 4.7 Chloride 107 Carbon Dioxide 24 Anion Gap 6 BUN 40 H Creatinine 1.40 Est Cr Clr Drug Dosing 98.2 Est GFR ( Amer) 64.6 Est GFR (Non-Af Amer) 55.8 BUN/Creatinine Ratio 28.6 H Glucose 108 H POC Glucose 184 H Calcium 8.0 L 08/09/22 08:02 WBC RBC Hgb Hct MCV MCH MCHC RDW Std Deviation RDW Coeff of [place]ano Plt Count MPV Sodium Potassium Chloride Carbon Dioxide Anion Gap BUN Creatinine Est Cr Clr Drug Dosing Est GFR ( Amer) Est GFR (Non-Af Amer) BUN/Creatinine Ratio Glucose POC Glucose 129 H Calcium PG Care Time/CCT Total # of Minutes Spent Total Time Spent with Patient: Total time spent is greater than 50% in coordination of care (as documented) at patient's floor/unit and/or counseling patient: Coding Level of Care Code 44909 SUB INP/OBS CARE 350MIN Diagnoses Acute kidney injury N17.9 H/O partial nephrectomy Z90.5 Acute blood loss anemia D62 COPD (chronic obstructive pulmonary disease) J44.9 MARIA EUGENIA (obstructive sleep apnea) G47.33
[2022-08-09] MEDS ORDERED: IRON SUCROSE 200 MG in 0.9 % SODIUM CHLORIDE 100 ML IV ONE (10:45)
--- NOTE | 2022-08-09 11:39 | Urology Progress Note ---
Date of Service August 09, 2022 Assessment & Plan (1) Acute renal failure: (2) H/O partial nephrectomy: (3) Right renal mass: Plan 57-year-old male who is POD #8 status post right robotic partial nephrectomy on 08/01/2022 for suspected renal malignancy. Postoperatively he was upgraded to ICU due to hypotension, respiratory issues, and concern for postoperative bleed. He fortunately stabilized and a postoperative CT scan did not show concern for a large hemorrhage. Downgraded from ICU on 08/07/2022 Neuro - Tylenol as needed and gabapentin 300 mg twice daily - ICU delirium has resolved Cardiac - Hemodynamically stable - Continue home atorvastatin Respiratory - Continues with nasal cannula. Wean as tolerated. - Continue CPAP at night GI - Continue carb consistent diet - Bowel regimen with [facility] - Continue insulin and glucose checks Heme - Hemoglobin stable at 8.4 today - Has received a total of 6 units PRBCs since surgery, last occurring on postoperative day 2. - Creatinine continues to downtrend, 1.4 today. - Nephrology consulted, appreciate recs. 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 Dr. Wilburn previously reviewed with patient. ID - Afebrile. Leukocytosis 13.24 (previously 13.68). Continue to monitor - Urine and blood cultures negative. He has completed a course of antibiotics. Prophylaxis - SCDs - Prophylactic heparin MSK - Ambulate, work with PT and OT - Allopurinol home medication Dispo - MedSurg with telemetry. Medicine reconsulted, appreciate their recommendations. Admission and Anticipated Discharge Date Admission Date: August 01, 2022 Subjective No acute issues overnight. Patient seen and examined at bedside this AM. Reports pain is well controlled. No fever or chills. Tolerating diet, no nausea or vomiting. Reis catheter discontinued this am. He voided small amount into urinal before I arrived. Labs reviewed - creatinine improved to 1.40 this am, WBC 13.24, Hgb 8.4. DIANA drain output minimal. Review of Systems Constitutional: as per Subjective / HPI Gastrointestinal: as per Subjective / HPI Genitourinary: + as per Subjective / HPI Physical Exam Constitutional: well developed, well nourished and + morbidly obese; no acute distress Respiratory: no respiratory distress and no labored breathing O2 via nasal cannula Gastrointestinal (Abdomen): Inspection/Auscultation: abdomen normal to inspection; abdomen not distended Percussion/Palpation: abdomen soft; abdomen nontender Skin: Surgical incisions approximated with lobo, ecchymosis noted around right lower quadrant incision with sanguinous drainage noted from middle of incision. DIANA with serosanguinous drainage. Neurologic: moves all extremities and awake Psychiatric: Orientation: alert and oriented x 3 Genitourinary: Voided small amount of yellow urine in urinal Results & Data Vital Signs (Past 12 Hours) Vital Signs Temp Pulse Pulse Resp BP Pulse Ox O2 Del Method 08/09/22 07:52 37.0 C 70 22 171/71 H 96 Nasal Cannula 08/09/22 04:30 36.6 C 75 20 174/81 H 96 Nasal Cannula 08/09/22 02:12 08/09/22 00:45 74 FiO2 08/09/22 07:52 08/09/22 04:30 08/09/22 02:12 40 08/09/22 00:45 PG Care Time/CCT Total # of Minutes Spent Total Time Spent with Patient: Total time spent is greater than 50% in coordination of care (as documented) at patient's floor/unit and/or counseling patient: Coding Level of Care Code 00563 SUB INP/OBS CARE 05/08MIN Diagnoses Acute renal failure N17.9 H/O partial nephrectomy Z90.5 Right renal mass N28.89
--- NOTE | 2022-08-09 12:45 | Pharmacy Report ---
Pharmacy Glycemic Short Note 2 - Date of Service August 09, 2022 - Glycemic Short BSG Results (Last 24 hours): 08/05/22 08/08/22 08/08/22 04:53 17:15 18:45 Glucose POC Glucose 88 194 H POC Glucose (other) 119 H 08/08/22 08/09/22 08/09/22 20:08 05:45 08:02 Glucose 108 H POC Glucose 184 H 129 H POC Glucose (other) 08/09/22 11:50 Glucose POC Glucose 120 H POC Glucose (other) OUTPATIENT ANTIDIABETIC REGIMEN: * Metformin ER 1000 mg PO BID * Glipizide ER 10 mg PO BID * Farxiga 5 mg PO daily * Trulicity 3 mg SC every Friday * HbA1c: 9.6% (05/30/22) ASSESSMENT: 08/09: * BSGs [id number] mg/dL yesterday, received 62 units of basal and 24 units of correctional/prandial novolog * Fasting this AM 129- mg/dL- continue with 32 units BID * Continue current novolog parameters, BSGs primarily at goal 08/07: * Precedex discontinued, plan for downgrade from ICU * Fasting 111 mg/dL this morning with 65 units of basal yesterday- will continue scale * BSGS within goal range yesterday, did not receive any correctional/prandial * Monitor novolog parameters as patient advances with diet- no change for now 08/06: * Patient transitioned off of drip. * Received 80 units of basal yesterday, fasting this AM 109 mg/dL. * Patient now on precedex- will scale back basal slightly * Renal function continues to improve- continue current novolog parameters 08/05: * Nathaniel remained on the insulin infusion in the ICU this AM. Rate has trended down this AM. Based on requirements over the last 8 hours, calculated total daily insulin requirements to be near 180 units. * Hemodynamics are improving. Milrinone to be discontinued today and hopefully can wean norepinephrine off. Improving diet and renal function as well. * Will reduced estimated TDD from above to be conservative today as to prevent hypoglycemia. Insulin drip has been discontinued at this time. Will target a total daily insulin dose of 160 units, split 50/50 between basal and bolus. Will check BSGs q4h for now during drip transition period. Can likely be changed to ACHS tomorrow. 08/04: * Patient remains on insulin infusion in ICU * Hemodynamics improving -> vasopressor support being weaned * Diet advanced to full liquid/T2DM today * Give patient improvement, will look to make progress in transitioning off insulin infusion * Insulin infusion requirements still ~10 units/hr 08/02: * 57 yo admitted following partial nephrectomy, patient with hypotension currently on norepinephrine * Insulin infusion started yesterday with elevated BSGs. Continued to be elevated overnight with insulin infusion running at high rates, now down to 10.7 units/hr * Given continued pressor use and high rates, will continue insulin infusion today * Small dose of Lantus this AM to assist with lowering infusion rates. PLAN FOR INPATIENT GLYCEMIC CONTROL: * Hold outpatient oral diabetes medications * Basal insulin * Lantus 32 SC BID * Bolus insulin * Novolog per scale q4, achs * Goal Range: 110-140 mg/dL * Correction Factor: 15 mg/dL/unit * Carb Ratio: 5 g CHO/unit
--- NOTE | 2022-08-09 19:35 | Hospitalist Progress Note ---
Date of Service August 09, 2022 Assessment & Plan (1) H/O partial nephrectomy: Plan: RIGHT kidney. POD#8 s/p partial nephrectomy. Path returned with Clear Cell RCC. Defer management to primary urology team. Peterson has been removed; has voided since. Defer DIANA drain management, etc to urology. (2) Postoperative hypotension: Plan: resolved. 2nd to acute blood loss anemia. s/p 6 units PRBCs. Required pressors in the iCU for a period of time. No PRBCs in several days. No pressors in several days. BPs have recovered. (3) Type 2 diabetes mellitus with diabetic neuropathy, without long-term current use of insulin: Plan: HbA1C 9.6 in May 2022. Appreciate Pharmacy glycemic consult. BSGs <200. (4) Neuropathic pain: Plan: Cont gabapentin 300mg BID Once renal function is completely back to normal resume his normal dosing of 600mg qam with 300mg at HS (5) Proteinuria due to type 2 diabetes mellitus: Plan: Lisinopril on hold due to MAO (6) Gout, joint: Plan: Resume allopurinol (7) Sleep apnea: Plan: CPAP HS Can use home unit - family brought in for its use (8) Morbid obesity: Plan: BMI 48 (9) Acute blood loss anemia: Plan: SEVERE s/p 6 units PRBCs since admission Fe studies c/w Fe def - defer venofer to nephrology H/H acceptable today repeat H/H in am for stability also check b12 with folate (10) Acute renal failure: Plan: ARF/MAO -- cont to improve Was prerenal in etiology - ATN - due to shock/hypotension, acute blood loss ane larry, etc Peak Cr 4.4 Today 1.4 BMP in am (11) Acute psychosis: Plan: resolved (12) DVT prophylaxis: Plan: increase heparin to 7500 units TID due to body size and his renal function has recovered Plan son updated at bedside will cont to follow script for bariatric walker filled out patient - per PT/OT - can return home at d/c Admission and Anticipated Discharge Date Admission Date: August 01, 2022 Subjective feeling better each day during the visit I took his NC O2 off - sats stayed mid 90s remainder of the time I was there denies dyspnea with PT today he walked in hallway - was "tired" but did not have SILVA no chest pain mild operative abd pain only pteerson removed this am - voiding ok still no BM but passing flatus no N/V eating better son at bedside pt reports use of BIPAP overnight Review of Systems Review of Systems: gen - no fevers/chills cv - no orthopnea or cp pulm - no cough GI - no N/V - no dysuria with first void with peterson out Physical Exam Physical Exam: gen - morbidly obese, sitting in chair, looks good neck - unable to asses for JVD due to neck size mouth - MMM heart - RRR, s1 s2, no murmur lungs - decreased BS bases, airation improved, minimal rales bases abd - distension improved, DIANA drain in place with serosanguinous appearing flui ds, dressings in place ext - trace edema b/l, pulses 2+ b/l Results & Data Results & Data Vital Signs (Past 12 Hours) Vital Signs Temp Pulse Pulse Resp BP Pulse Ox O2 Del Method 08/09/22 16:01 84 08/09/22 15:10 36.8 C 83 18 132/72 93 Room Air, BiPAP 08/09/22 13:34 68 08/09/22 07:50 Nasal Cannula 08/09/22 12:43 36.6 C 95 H 18 167/88 H 92 Room Air 08/09/22 07:52 37.0 C 70 22 171/71 H 96 Nasal Cannula Laboratory Results Laboratory Results - last 24 hr 08/05/22 08/08/22 08/09/22 04:53 20:08 05:45 WBC RBC Hgb Hct MCV MCH MCHC RDW Std Deviation RDW Coeff of [place] Plt Count MPV Sodium 137 Potassium 4.7 Chloride 107 Carbon Dioxide 24 Anion Gap 6 BUN 40 H Creatinine 1.40 Est Cr Clr Drug Dosing 98.2 Est GFR ( Amer) 64.6 Est GFR (Non-Af Amer) 55.8 BUN/Creatinine Ratio 28.6 H Glucose 108 H POC Glucose 184 H POC Glucose (other) 119 H Calcium 8.0 L 08/09/22 08/09/22 08/09/22 05:45 08:02 11:50 WBC 13.24 H RBC 2.91 L Hgb 8.4 L Hct 26.2 L MCV 90.0 MCH 28.9 MCHC 32.1 RDW Std Deviation 47.3 H RDW Coeff of [place] 14.6 H Plt Count 395 MPV 9.0 L Sodium Potassium Chloride Carbon Dioxide Anion Gap BUN Creatinine Est Cr Clr Drug Dosing Est GFR ( Amer) Est GFR (Non-Af Amer) BUN/Creatinine Ratio Glucose POC Glucose 129 H 120 H POC Glucose (other) Calcium 08/09/22 16:59 WBC RBC Hgb Hct MCV MCH MCHC RDW Std Deviation RDW Coeff of [place] Plt Count MPV Sodium Potassium Chloride Carbon Dioxide Anion Gap BUN Creatinine Est Cr Clr Drug Dosing Est GFR ( Amer) Est GFR (Non-Af Amer) BUN/Creatinine Ratio Glucose POC Glucose 153 H POC Glucose (other) Calcium PG Care Time/CCT Total # of Minutes Spent Total Time Spent with Patient: Total time spent is greater than 50% in coordination of care (as documented) at patient's floor/unit and/or counseling patient: Coding Level of Care Code 86073 SUB INP/OBS CARE 2/35MIN Diagnoses H/O partial nephrectomy Z90.5 Postoperative hypotension I95.81 Type 2 diabetes mellitus with diabetic neuropathy, without long-term current use of insulin E11.40 Neuropathic pain M79.2 Proteinuria due to type 2 diabetes mellitus E11.29; R80.9 Gout, joint M10.9 Sleep apnea G47.30 Morbid obesity E66.01 Acute blood loss anemia D62 Acute renal failure N17.9 Acute psychosis F23 DVT prophylaxis Z29.9
[2022-08-09] MEDS: ATORVASTATIN 40 MG TAB PO SCH (21:14)
[2022-08-10] MEDS: HEPARIN SOD 5,000 UNIT/0.5 ML VIAL SQ SCH (05:54)
[2022-08-10] MEDS: INSULIN ASPART PER UNIT CHARGE SC SCH ×2 (08:17→12:48)
[2022-08-10] MEDS: GABAPENTIN 300 MG CAP PO SCH (08:18)
[2022-08-10] MEDS: ACETAMINOPHEN 325 MG TAB PO PRN (08:18)
[2022-08-10] MEDS: LANTUS PER UNIT CHARGE SC SCH (08:18)
[2022-08-10] MEDS: DOCUSATE SODIUM 100 MG CAP PO SCH (08:19)
[2022-08-10] MEDS ORDERED: bisacodyL 10 MG SUPP PR STA (10:30)
[2022-08-10] MEDS ORDERED: allopurinoL 300 MG TAB PO ONE (10:39)
--- NOTE | 2022-08-10 10:48 | Urology Progress Note ---
Date of Service August 10, 2022 Assessment & Plan (1) Acute renal failure: (2) COPD (chronic obstructive pulmonary disease): (3) Clear cell carcinoma of right kidney: Plan Status post right robotic partial nephrectomy Clear-cell renal cell carcinoma5.8 cm, confined to the kidney, negative margins, pT1b pathology Discussed his pathology again todayhe did discuss this previously with Dr. Wilburn We reviewed his lab work, we reviewed imaging, we reviewed his nephrology and hospitalist notestheir input has been greatly appreciated Overall, it seems that he has met criteria for discharge home We reviewed the need to continue using his CPAP at home We reviewed the importance of strict glucose control at home We will plan to continue holding Farxiga as well as lisinopril secondary to proteinuria and MAO during this hospitalization He will go home with lobo intact but will have follow-up next week for staple removal and simple f/u He has follow-up scheduled with nephrology Admission and Anticipated Discharge Date Admission Date: August 01, 2022 Subjective Subjectively doing much better today He still has a DIANA drain in place and is draining a small amount of serosanguineous fluid He has also had some drainage around the DIANA drain itself His incisions otherwise appear to be healing appropriately without any outward signs of infection On evaluation he was off of oxygen and reports that he is breathing without difficulty He is ambulatory He is tolerating a diet He is moving his bowels He has not had blood work collected today but yesterday he had further improvement in his kidney numbers and stability in his hemoglobin He is anxious to go home and feels ready for discharge Blood glucose has been improving throughout his stay Physical Exam Physical Exam: [place] intact, all incisions healing appropriately without any erythema Serosanguineous drainage from the DIANA Some drainage around the DIANA siteanticipate improvement after DIANA removal but it may take 24 to 40 hours for full resolution Reis catheter has been removed Passing clear urine Obese Abdomen is soft and nontender Results & Data Vital Signs (Past 12 Hours) Vital Signs Temp Pulse Pulse Resp BP Pulse Ox O2 Del Method 08/10/22 08:00 Nasal Cannula, BiPAP 08/10/22 08:00 79 08/10/22 07:41 36.5 C 72 20 164/84 H 97 Room Air 08/10/22 04:03 36.7 C 67 20 122/69 97 BiPAP 08/10/22 03:14 69 24 96 08/09/22 23:22 36.7 C 74 20 152/80 H 90 Nasal Cannula 08/09/22 23:16 70 08/09/22 22:51 69 17 92 O2 Flow Rate FiO2 08/10/22 08:00 4 08/10/22 08:00 08/10/22 07:41 08/10/22 04:03 08/10/22 03:14 40 08/09/22 23:22 08/09/22 23:16 08/09/22 22:51 40 PG Care Time/CCT Total # of Minutes Spent Total Time Spent with Patient: Total time spent is greater than 50% in coordination of care (as documented) at patient's floor/unit and/or counseling patient: Coding Level of Care Code 17712 SUB INP/OBS CARE 235MIN Diagnoses Acute renal failure N17.9 COPD (chronic obstructive pulmonary disease) J44.9 Clear cell carcinoma of right kidney C64.1
[2022-08-10] MEDS ORDERED: IRON SUCROSE 300 MG in SODIUM CHLORIDE 0.9% 250 ML IV ONE (11:00)
[2022-08-10 11:14] LABS: Hematocrit (blood only) 29.8 % (42.0-52.0); Hemoglobin 9.6 g/dl (14.0-18.0)
[2022-08-10 11:22] LABS: BUN Creatinine Ratio 24.2 (10-20); Calcium 8.2 mg/dl (8.6-10.3); Creatinine Clr Calc Pharmacy 103.6 ml/min; Est GFR (African American) 69.4 ml/min; Est GFR (Non-African American) 59.9 ml/min; Potassium 4.8 mmol/L (3.5-5.1)
[2022-08-10 11:38] LABS: Thyroid Stimulating Hormone 8.519 uIu/ml (0.300-4.500)
[2022-08-10 12:14] LABS: T4 Free Thyroxine 0.94 ng/dl (0.61-1.60)
--- NOTE | 2022-08-10 12:56 | Hospitalist Progress Note ---
Date of Service August 10, 2022 Assessment & Plan (1) H/O partial nephrectomy: Plan: RIGHT kidney. POD#9 s/p partial nephrectomy. Path returned with Clear Cell RCC. Defer management to primary urology team. Reis has been removed; has voided since. DIANA drain being removed today by urology. Urology team feels he is stable from their standpoint for d/c home. (2) Postoperative hypotension: Plan: resolved. 2nd to acute blood loss anemia. s/p 6 units PRBCs. Required pressors in the iCU for a period of time. No PRBCs in several days. No pressors in several days. BPs have recovered. (3) Type 2 diabetes mellitus with diabetic neuropathy, without long-term current use of insulin: Plan: HbA1C 9.6 in May 2022. Appreciate Pharmacy glycemic consult. BSGs <200. Would hold Farxiga at d/c. Can resume glipizide and metformin upon return home as renal function is stable. Can resume Trulicity tomorrow on Friday, 08/11. (4) Neuropathic pain: Plan: Can resume his normal dosing of 600mg qam with 300mg at HS as renal function continues to remain stable. (5) Proteinuria due to type 2 diabetes mellitus: Plan: Lisinopril on hold due to MAO Cont to hold today at discharge (6) Gout, joint: Plan: Cont allopurinol (7) Sleep apnea: Plan: Cont CPAP HS (8) Morbid obesity: Plan: BMI 48 (9) Acute blood loss anemia: Plan: SEVERE s/p 6 units PRBCs since admission Fe studies c/w Fe def Has previously received IV venofer this admission gave 300mg of Venofer again today prior to d/c. H/H stable today. B12/folate checked to be complete and were both wnl. will need repeat CBC next week to ensure stability. (10) Acute renal failure: Plan: ARF/MAO -- just about resolved Was prerenal in etiology - ATN - due to shock/hypotension, acute blood loss anemia, etc Peak Cr 4.4 Today 1.3 given his O2 requirement for home he may have still some very mild lingering pulm edema as he had been markedly volume overloaded much of this stay will advise lasix 20mg tomorrow AM and on Friday AM only he otherwise is auto-diuresing very well (11) Acute psychosis: Plan: resolved (12) Hypothyroidism: Plan: TSH today, and previous 2 TSH levels all high he would benefit from supplementation start synthroid 50mcg daily f/u PCP for this repeat TSH 6 weeks as outpatient (13) Supplemental oxygen dependent: Plan: 2 L with activity only (based on 2-step results today) 2nd to COPD? obesity-hypoventilation syndrome? lingering pulm edema? could have combination of factors f/u PCP for ongoing surveillance Plan ok from medical team standpoint to d/c home I added the following instructions to his d/c packet -- 1. Please resume your glipizide and metformin with dinner this evening. Please resume your Trulicity on 08/11/22. 2. Check your blood sugars at least twice daily. * Check every morning * Check 1 other time during the day; please vary the time you do the 2nd check; on some days check it at bedtime, on other days before your evening meal, and before lunch * please write your numbers down and show these to your family doctor as well as the diabetes provider at the endocrinology clinic 3. HOLD your lisinopril. 4. HOLD your Farxiga. 5. For underactive thyroid ("Hypothyroidism") - please start AM of 08/11/22 - * levothyroxine 50mcg once each AM on empty stomach * see handout on "hypothyroidism" * have your thyroid level (TSH, which is a blood test for your thyroid gland) rechecked in 6 weeks by your family doctor or the endocrinology clinic 6. In the place of your lisinopril blood pressure pill please take the following new blood pressure pill - * amlodipine 2.5mg once daily * common side effects - constipation (some people), swelling of feet (some people) * you can start this today upon return home 7. If you experience any constipation you can take one or both of the following [id number]-luy-tunfxky medications - * miralax 1 serving daily * senokot 2 tabs daily 8. Please ask your family doctor or Dr Valero to repeat your "CBC" (blood counts) and your "BMP" (kidney function, electrolytes) next week. 9. Please use 2 liters of oxygen with any walking, especially when you leave your home. Do not allow anyone to smoke in your home due to high risk of a fire . 10. Please take the following diuretic (water pill) for 2 days only - * furosemide 20mg once daily x 2 days; take the AM of 08/11 and the AM of 08/12 * you will have extra pills in the bottle, but just take for those 2 days for now Admission and Anticipated Discharge Date Admission Date: August 01, 2022 Subjective patient feeling pretty good today eating well walked with nursing in hallway; o2 sats did drop to high 80s, but no dyspnea noted by staff formal 2-step shows he needs 2 L NC O2 with activity his abd pain is improved he is passing flatus has had stool no N/V we discussed new dx of hypothyroidism tele overnight wnl Review of Systems Review of Systems: gen - no fevers cv - no cp pulm - denies dyspnea - voiding well without LUTS or hematuria DIANA drain still in place with serosanguinous fluid Physical Exam Physical Exam: gen - morbidly obese, sitting at side of bed, looks good neck - unable to asses for JVD due to neck size mouth - MMM heart - RRR, s1 s2, no murmur lungs - decreased BS bases, airation wnl, no rales or wheeze abd - distension again improved, DIANA drain in place with serosanguinous appearing fluids, dressings in place, BS+, some incisions with lobo seen are clean ext - trace edema b/l, pulses 2+ b/l psych - a/o x 3 Results & Data Results & Data Vital Signs (Past 12 Hours) Vital Signs Temp Pulse Pulse Resp BP Pulse Ox O2 Del Method 08/10/22 08:00 Nasal Cannula, BiPAP 08/10/22 08:00 79 08/10/22 07:41 36.5 C 72 20 164/84 H 97 Room Air 08/10/22 04:03 36.7 C 67 20 122/69 97 BiPAP 08/10/22 03:14 69 24 96 O2 Flow Rate FiO2 08/10/22 08:00 4 08/10/22 08:00 08/10/22 07:41 08/10/22 04:03 08/10/22 03:14 40 Laboratory Results Laboratory Results - last 24 hr 08/09/22 08/09/22 08/10/22 16:59 20:41 08:04 Hgb Hct Sodium Potassium Chloride Carbon Dioxide Anion Gap BUN Creatinine Est Cr Clr Drug Dosing Est GFR ( Amer) Est GFR (Non-Af Amer) BUN/Creatinine Ratio Glucose POC Glucose 153 H 150 H 155 H Calcium Magnesium Vitamin B12 Folate TSH Free T4 08/10/22 08/10/22 08/10/22 10:44 10:44 10:44 Hgb 9.6 L Hct 29.8 L Sodium 137 Potassium 4.8 Chloride 106 Carbon Dioxide 26 Anion Gap 5 BUN 32 H Creatinine 1.32 Est Cr Clr Drug Dosing 103.6 Est GFR ( Amer) 69.4 Est GFR (Non-Af Amer) 59.9 BUN/Creatinine Ratio 24.2 H Glucose 145 H POC Glucose Calcium 8.2 L Magnesium 2.0 Vitamin B12 Pending Folate Pending TSH Free T4 08/10/22 08/10/22 10:44 12:11 Hgb Hct Sodium Potassium Chloride Carbon Dioxide Anion Gap BUN Creatinine Est Cr Clr Drug Dosing Est GFR ( Amer) Est GFR (Non-Af Amer) BUN/Creatinine Ratio Glucose POC Glucose 150 H Calcium Magnesium Vitamin B12 Folate TSH 8.519 H Free T4 0.94 PG Care Time/CCT Total # of Minutes Spent Total Time Spent with Patient: Total time spent is greater than 50% in coordination of care (as documented) at patient's floor/unit and/or counseling patient: Coding Level of Care Code 38506 SUB INP/OBS CARE 3/50MIN Diagnoses H/O partial nephrectomy Z90.5 Postoperative hypotension I95.81 Type 2 diabetes mellitus with diabetic neuropathy, without long-term current use of insulin E11.40 Neuropathic pain M79.2 Proteinuria due to type 2 diabetes mellitus E11.29; R80.9 Gout, joint M10.9 Sleep apnea G47.30 Morbid obesity E66.01 Acute blood loss anemia D62 Acute renal failure N17.9 Acute psychosis F23 Hypothyroidism E03.9 Supplemental oxygen dependent Z99.81
[2022-08-10] MEDS ORDERED: HEPARIN SOD 5,000 UNIT/0.5 ML VIAL SQ SCH (14:00)
[2022-08-12 15:48] LABS: iSTAT Arterial Blood Gas HCO3 12 meg/L (19-24); iSTAT Arterial Blood Gas pCO2 30 mmHg (35-46); iSTAT Arterial Blood Gas pH 7.19 (7.35-7.45); iSTAT Arterial Blood Gas pO2 61 mmHg (80-95); iSTAT Carbon Dioxide 12 mmol/L (24-31); iSTAT Site Art Line
== END 2022-08-10 15:34 | disposition home health service (06) | DRG 656 ==
LOC: ASU 05:52 → 1E 14:27 → 4W 08-07 17:41

== ENCOUNTER 2022-08-11 10:43 | Inpatient (IN) ==
[2022-08-11] MEDS: SODIUM CHLORIDE 0.9% 1000ML 1,000 ML IV ONE ×2 (10:55→11:23)
--- NOTE | 2022-08-11 11:01 | XRay Report ---
XR chest 1V portable HISTORY: Shortness of breath. COMPARISON: Chest 08/06/2022. FINDINGS: No pneumothorax. No pleural effusions. The cardiac silhouette is now normal in size. No russ dence for pulmonary edema. Bibasilar linear densities favor subsegmental atelectasis. There are low l vic volumes. The upper lung zones are clear. IMPRESSION: 1. Interval resolution of the pulmonary edema and cardiomegaly. 2. Bibasilar linear densities favor subsegmental atelectasis. ACT 112: Negative or not required by law. Electronically signed by: Gonzalo Roldan M.D. 08/11/2022 10:59 AM
[2022-08-11 11:12] LABS: Base Excess VBG -3.9 mEq/L; HCO3 VBG 22 mmol/L; Oxygen Saturation VBG < 60.0 %; PCO2 VBG 40 mmHg (38-50); PO2 VBG 25 mmHg; pH VBG 7.34 (7.36-7.41)
[2022-08-11 11:15] LABS: iSTAT Creatinine 1.6 mg/dl (0.6-1.3); iSTAT Hemoglobin 8.5 g/dl (14.0-18.0); iSTAT Ionized Calcium 1.06 mmol/l (1.12-1.32); iSTAT Potassium 4.8 mmol/L (3.3-5.0)
[2022-08-11 11:16] LABS: Basophils % (auto) 0.4 %; Eosinophils # (auto) 0.46 K/uL (0-0.50); Eosinophils % (auto) 1.8 %; Hematocrit (blood only) 25.2 % (42.0-52.0); Hemoglobin 8.1 g/dl (14.0-18.0); Immature Granulocytes # (auto) 0.97 K/uL (0.01-0.20); Immature Granulocytes % (auto) 3.7 %; Lymphocytes # (auto) 3.64 K/uL (1.2-3.4); Lymphocytes % (auto) 14.1 %; Mean Corpuscular Hemoglobin 29.3 pg (25.0-34.0); Mean Corpuscular Hgb Conc 32.1 g/dL (32.0-36.0); Mean Corpuscular Volume 91.3 fL (80.0-100.0); Mean Platelet Volume 9.1 fL (9.4-12.4); Monocytes # (auto) 1.69 K/uL (0.11-0.59); Monocytes % (auto) 6.5 %; Neutrophils # (auto) 19.04 K/uL (1.40-6.50); Neutrophils % (auto) 73.5 %; Platelet Count 730 K/uL (130-400); RDW Coefficient of Variation 14.7 % (11.5-14.5); Red Blood Count 2.76 M/uL (4.70-6.10)
[2022-08-11] MEDS ORDERED: SODIUM CHLORIDE 0.9% 1000ML 1,000 ML IV ONE (11:20)
[2022-08-11] MEDS ORDERED: CEFEPIME 2,000 MG/20 ML VIAL IV STA (11:20)
[2022-08-11 11:33] LABS: BUN Creatinine Ratio 19.9 (10-20); Calcium 7.8 mg/dl (8.6-10.3); Creatinine Clr Calc Pharmacy 85.1 ml/min; Est GFR (African American) 54.6 ml/min; Est GFR (Non-African American) 47.1 ml/min; Magnesium 1.7 mg/dl (1.7-2.4); Potassium 4.7 mmol/L (3.5-5.1)
[2022-08-11 11:40] LABS: Troponin I High Sensitivity 8.7 pg/ml (0-20)
[2022-08-11] MEDS ORDERED: DAPTOmycin 700 MG in SYRINGE 0 ML IV STA (11:40)
[2022-08-11 11:52] LABS: INR 1.1 (0.9-1.1); Partial Thromboplastin Time 27.1 Seconds (21.0-31.0); Prothrombin Time 11.6 Seconds (9.0-12.0)
--- NOTE | 2022-08-11 12:24 | CT Scan Report ---
ABDOMEN AND PELVIS CT WITHOUT CONTRAST CT DOSE: 1953.16 mGy.cm HISTORY: hematuria sepsis recent nephrectomy TECHNIQUE: Multiaxial CT images of the abdomen and pelvis were performed without contrast. A dose lo wering technique was utilized adhering to the principles of ALARA. COMPARISON STUDY: Abdomen and pelvis CT 08/01/2022 FINDINGS: Bibasilar linear densities favor subsegmental atelectasis. No pneumoperitoneum. No pneumato sis. There are old, healed right posterior rib fractures. No suspicious lytic or blastic osseous lesi ons. Skin lobo and a focus of subcutaneous fluid within the right lower quadrant abdominal wall co nsistent with recent incision. The unenhanced gallbladder, spleen, adrenal glands, pancreas, and left kidney are unremarkable. Status post partial nephrectomy of the right upper pole renal mass. There i s hyperdense material within the right renal collecting system consistent with blood products/hematur ia. No right-sided hydronephrosis. The right perinephric drain has been removed. Increase in size in the now moderate right perinephric/retroperitoneal mixed density fluid collection consistent with a h ematoma. This is seen along the right perihepatic/subcapsular space and extending inferiorly along th e right retroperitoneal space best seen on image 325. This hematoma results in mild mass effect along the inferior aspect of the right hepatic lobe. An underlying hepatic laceration is not excluded. The perinephric hematoma measures approximately 11 cm. The extension of the hematoma within the within t he right retroperitoneal space measures 8.5 cm. These areas previously measured approximately 8.4 cm and 6.2 cm, respectively. There is a Reis catheter within the bladder lumen. The bladder is markedly distended and partially filled with blood clot/hemorrhage. There is also gas within the bladder lume n. Prostate gland is normal in size. Small fat-containing bilateral inguinal hernias are noted. Trace fluid/hemorrhage along the left paracolic gutter. No bowel wall thickening or obstruction. Normal ap pendix. There is a punctate focus of gas within the right retroperitoneal fluid/hemorrhage which has improved. IMPRESSION: 1. Increase in size in the now moderate right perinephric/retroperitoneal hematoma as described above status post partial nephrectomy. The hemorrhage results in mild mass effect along the right hepatic lobe inferiorly. 2. Status post removal of the right-sided drainage catheters. The punctate focus of gas within the ri ght retroperitoneal fluid/hemorrhage has improved and favors resolving postoperative change. Superinf ection would be difficult to exclude but considered less likely. 3. The bladder is markedly distended and partially filled with hemorrhage/clot. A Reis catheter appe ars in good position but may not be draining the bladder fluid due to the hemorrhage/clot. 4. Hematuria noted within the right renal collecting system. No hydronephrosis at this time. 5. Additional findings as described above. ACT 112: Negative or not required by law. Electronically signed by: Gonzalo Roldan M.D. 08/11/2022 12:22 PM
[2022-08-11] MEDS ORDERED: SODIUM CHLORIDE 0.9% 1000ML 500 ML IV ONE (12:33)
[2022-08-11] MEDS: SODIUM CHLORIDE 0.9% 500 ML IV SCH ×3 (12:51→20:30)
[2022-08-11] MEDS ORDERED: fentaNYL citrate PF 100 MCG/2 ML VIAL IV STA (13:34)
--- NOTE | 2022-08-11 14:11 | History & Physical Report ---
Date of Service August 11, 2022 Assessment & Plan (1) Clear cell carcinoma of right kidney: (2) Acute blood loss anemia: Plan: POD #10 right partial nephrectomy for clear-cut renal cell carcinoma admitted with ABLA secondary to gross hematuria and moderate right perin ephric/retroperitoneal hematoma and bladder markedly distended and partially filled with hemorrhage/clot Now with Peterson placed IVF supplementation will continue Daptomycin and cefepime Consult Dr Mosher As above discussion with Dr Mosher, if patient's Hgb should drop further patient may need an intravascular angiogram and would need transferred for Interventional Radiology Services. (3) Hematuria: (4) COPD (chronic obstructive pulmonary disease): (5) MARIA EUGENIA (obstructive sleep apnea): (6) Anxiety: (7) Morbid obesity: (8) Dyslipidemia: (9) Hypertension: (10) Gout, joint: History of Present Illness Chief Complaint: Gross hematuria Primary Care Provider: Peterson Lamas MD Nathaniel Ga is a 57 year old male with a complicated past medical history of clear-cut renal cell carcinoma POD #10 Robotic Right Partial Nephrectomy who was actually discharged to home yesterday. Patient also has a history of uncontrolled diabetes, morbid obesity, Hypertension, hyperlipidemia, gout, sleep apnea and tobacco abuse. Patient has a history of medication noncompliance in the past. He states he was discharge home yesterday and was fine until last night he became SOB, dizzy and his oxygen saturation was dropping while on his Bipap. His son states he had to sit his father upright on the Bipap in order for the saturation to improve. The son called EMS who evaluated patient and advised for him to come to the ED. Patient refused and then this AM he had to have a BM and went into the bathroom. He states he sat down and had a bowel movement and then stood up to urinate and had gross hematuria. The son had a picture of the BRB in the toilet bowel and floor. He states his father felt dizzy and he made hime come back to the ED. Patient was evaluated in the ED and was hypotensive, tachy with increased respirations. He initially was placed on Bipap and currently on 4L oxymask and saturating in high 90s. He was given IVFs - NSS at 125/hr He was given Daptomycin and cefepime and had a peterson placed that is draining fra nk blood. Patient's Hgb has dropped 1 gram from discharge yesterday but is similar to the day prior. Lactate was elevated at 3.1 at 11:00 - repeat Lactate was ordered STAT at 12:30 and has yet to be drawn. Dr Berrios spoke with Dr Mosher who stated there us not much to do but closely watch patient's Hgb and if his hgb would drop further would obviously need transfusion and would worry about a possible pseudoaneurysm that may need an intravscular angiogram and Interventional Radiology service, thus may need to be transferred. But recommended at this time to admit here to [facility] and closely watch for worsening bleeding. Allergies Allergy/AdvReac Type Severity Reaction Status Date / Time oxycodone AdvReac Mild DIZZY Verified 08/01/22 06:18 Home Medications Medication Instructions Recorded Confirmed Type gabapentin 300 mg capsule 300 mg PO HS 02/02/19 08/11/22 History blood sugar diagnostic (OneTouch #200 ea 08/10/20 05/29/22 Rx Ultra Blue Test Strip) blood-glucose meter (OneTouch #1 ea 08/10/20 07/22/22 Rx Ultra2 Meter) lancets (OneTouch UltraSoft #200 ea 08/10/20 08/11/22 Rx Lancets) allopurinol 300 mg tablet 300 mg PO QAM #90 tabs 10/16/21 08/11/22 Rx atorvastatin 80 mg tablet 80 mg PO HS #90 tabs 10/16/21 08/11/22 Rx metformin 500 mg tablet,extended 1,000 mg PO BID #360 tabs 12/28/21 08/11/22 Rx release 24 hr budesonide-formoterol HFA 80 2 puff inhalation BID #10.2 grams 02/12/22 08/11/22 Rx mcg-4.5 mcg/actuation aerosol inhaler (Symbicort) CPAP Supplies #1 ea 02/14/22 07/22/22 Rx lisinopril 40 mg tablet 40 mg PO QAM #90 tabs 05/29/22 08/11/22 Rx ofloxacin 0.3 % eye drops 5 drp otic (ear) BID PRN clogged 06/24/22 08/11/22 Rx tube #10 mL sodium sul 1.479 gram-potas ch See Rx Instructions PO .COMPLEX 06/28/22 08/11/22 Rx 0.188 gram-magnes sul 0.225 gram #24 tabs tablet (Sutab) cyanocobalamin (vitamin B-12) 500 500 mcg PO QAM 07/22/22 08/11/22 History mcg tablet dapagliflozin 5 mg tablet (Farxiga) 5 mg PO QAM 07/22/22 08/11/22 History dulaglutide 3 mg/0.5 mL 3 mg subcut WK 08/01/22 08/11/22 History subcutaneous pen injector (Trulicity) gabapentin 300 mg capsule 600 mg PO QAM 08/01/22 08/11/22 History glipizide 10 mg tablet, extended 10 mg PO BID 08/01/22 08/11/22 History release 24 hr (Glucotrol XL) Oxygen Home #1 ea 08/10/22 08/11/22 Rx amlodipine 2.5 mg tablet 2.5 mg PO DAILY #30 tabs 08/10/22 08/11/22 Rx furosemide 20 mg tablet (Lasix) 20 mg PO DIRECTED #10 tabs 08/10/22 08/11/22 Rx levothyroxine 50 mcg tablet 50 mcg PO .qam on empty stomach 08/10/22 08/11/22 Rx (Synthroid) #30 tabs Past Med/Surg History Medical History Acute kidney injury Acute kidney injury superimposed on CKD Anxiety no meds > controlled COPD (chronic obstructive pulmonary disease) well controlled, no res inh, said his albuterol inh was , and no longer prescribed, going to follow up with PCP Dyslipidemia Gout, joint History of anesthesia problem [facility] > difficulty breathing after a sinus surgery, this is what Dr. Moreno told patient, pt unaware of other details History of COVID-19 May 20, 2022 > home test > body aches > resolved Hyperkalemia Hypertension Mastoid disorder pt unaware Metabolic acidosis Morbid obesity MARIA EUGENIA (obstructive sleep apnea) cpap Postoperative hypotension Renal mass Right renal mass Smoking greater than 30 pack years Stroke-like symptoms - 09/2019- admitted to [facility]- unable to complete MRI due to claustrophobia- left AMA- head/neck CTA and head CT unremarkable- denies any residual problems- no subsequent symptoms since that time - While admitted in 2019- neuro felt small ischemia stroke could not be excluded but suspected symptoms related to inner ear issue Type 2 diabetes mellitus with diabetic neuropathy, without long-term current use of insulin Surgical History H/O partial nephrectomy History of sinus surgery History of tonsillectomy and adenoidectomy tonsils grew back and had to be removed again History of tooth extraction Status post myringotomy with insertion of tube x2 Family History Uncle Prostate cancer Mother Diabetes Father Diabetes COPD (chronic obstructive pulmonary disease) Other Hearing loss No family history of allergies No family history of bleeding disorder Denies family history of Heart disease Cancer Hypertension Stroke Asthma Social History Smoking Status: Former smoker Tobacco Type: Cigarettes Age Started Using Tobacco: 22; packs per day: 1.5; Cigarettes Per Day: 1-1.5 ppd; Second Hand Exposure: No; Do You Dip or Chew Tobacco: No; Hx Alcohol Use: No Hx Substance Use: Yes Substance Use Type Other:: uses on weekends Preferred Language: Amharic Communication Ability: Effective Naturopath Required: No Beliefs That Will Affect Care: None marital status: Single Current Living Situation: Significant Other current occupational status: unemployed Feels Safe at Home: Yes Diet: regular caffeine: Yes Dental Care, Regularly: No Physical Activity Frequency: Does not Exercise Seatbelt Use: always Sunscreen Use: No Assistive Devices: CPAP Review of Systems Constitutional: + fatigue and + weakness; no fever, no chills and no sweats Respiratory: + dyspnea on exertion; no cough, no chest congestion and no hemoptysis Cardiovascular: + lightheadedness; no chest pain, no chest pain at rest, no syncope and no calf pain Additional Comments: no syncope but patient states after he had the gross hematuria he felt dizzy and presyncopal but did not pass out or loose consciousness Gastrointestinal: no abdominal pain, no nausea and no vomiting Genitourinary: + difficulty urinating, + urinary hesitancy and + hematuria; no flank pain Psychiatric: + irritability; no confusion Physical Exam Constitutional: + ill appearing and + morbidly obese; + uncomfortable Neck: trachea midline, no thyromegaly Respiratory: + labored breathing and able to speak in complete sentences; no cough Cardiovascular: RRR, no murmur, no edema Extremities: no calf tenderness Gastrointestinal (Abdomen): Inspection/Auscultation: + abdomen distended and normal bowel sounds obese, round with surgical sites clean and lobo intact Skin: pale with conjunctival pallor Psychiatric: Orientation: alert and oriented x 3 appears uncomfortable and worried Results & Data Results & Data Vital Signs (Past 12 Hours) Vital Signs Temp Pulse Resp BP Pulse Ox O2 Del Method O2 Flow Rate 08/11/22 13:20 105 H 31 H 136/82 98 Oxymask 4 08/11/22 13:11 112 H 24 127/86 100 Oxymask 4 08/11/22 13:01 105 H 24 137/81 100 Oxymask 4 08/11/22 13:00 105 H 29 H 100 08/11/22 12:53 106 H 32 H 97/75 L 99 Oxymask 4 08/11/22 12:50 99 H 32 H 88/67 L 100 Oxymask 4 08/11/22 12:41 101 H 31 H 135/79 98 Oxymask 4 08/11/22 12:30 95 H 33 H 125/100 99 Oxymask 4 08/11/22 12:21 103 H 29 H 124/76 97 Oxymask 4 08/11/22 12:08 99 H 13 113/86 99 Oxymask 4 08/11/22 11:41 101 H 16 117/75 97 Oxymask 4 08/11/22 11:31 89 24 121/65 93 Oxymask 4 08/11/22 11:21 84 26 H 128/62 92 Oxymask 4 08/11/22 12:12 101 H 08/11/22 11:19 86 17 118/56 L 89 L Nasal Cannula 2 08/11/22 11:17 37 C 87 19 115/65 93 Nasal Cannula 2 08/11/22 11:10 86 17 106/57 L 93 Nasal Cannula 2 08/11/22 11:02 78/41 L 08/11/22 10:49 90 18 91/50 L 94 Nasal Cannula 2 08/11/22 10:48 98 Nasal Cannula 2 08/11/22 10:48 88 21 91/50 L 98 Nasal Cannula 2 Laboratory Results Abnormal lab results 08/11/22 08/11/22 08/11/22 Range/Units 11:00 11:00 11:00 WBC 25.90 H (4.8-10.8) K/ul RBC 2.76 L (4.70-6.10) M/uL Hgb 8.1 L (14.0-18.0) g/dl POC Hgb (14.0-18.0) g/dl Hct 25.2 L (42.0-52.0) % POC Hct (42-52) % RDW Std Deviation 49.0 H (36.4-46.3) fL RDW Coeff of Chano 14.7 H (11.5-14.5) % Plt Count 730 H (130-400) K/uL MPV 9.1 L (9.4-12.4) fL Neut # (Auto) 19.04 H (1.40-6.50) K/uL Lymph # (Auto) 3.64 H (1.2-3.4) K/uL Perkins # (Auto) 1.69 H (0.11-0.59) K/uL Immature Gran # (Auto) 0.97 H (0.01-0.20) K/uL VBG pH 7.34 L (7.36-7.41) Chloride 110 H (98-107) mmol/L Carbon Dioxide 20 L (21-32) mmol/L POC Total CO2 (24-31) mmol/L POC BUN (7-18) mg/dl BUN 32 H (6-23) mg/dl Creatinine 1.61 H (0.6-1.4) mg/dl POC Creatinine (0.6-1.3) mg/dl Glucose 289 H (70-99(Fasting)) mg/dl POC Glucose (other) (70-99) mg/dl Lactate (0.4-2.0) mmol/L Calcium 7.8 L (8.6-10.3) mg/dl POC Ioniz Calcium Arik (1.12-1.32) mmol/l 08/11/22 08/11/22 Range/Units 11:00 11:03 WBC (4.8-10.8) K/ul RBC (4.70-6.10) M/uL Hgb (14.0-18.0) g/dl POC Hgb 8.5 L (14.0-18.0) g/dl Hct (42.0-52.0) % POC Hct 25 L (42-52) % RDW Std Deviation (36.4-46.3) fL RDW Coeff of Chano (11.5-14.5) % Plt Count (130-400) K/uL MPV (9.4-12.4) fL Neut # (Auto) (1.40-6.50) K/uL Lymph # (Auto) (1.2-3.4) K/uL Perkins # (Auto) (0.11-0.59) K/uL Immature Gran # (Auto) (0.01-0.20) K/uL VBG pH (7.36-7.41) Chloride (98-107) mmol/L Carbon Dioxide (21-32) mmol/L POC Total CO2 19 L (24-31) mmol/L POC BUN 27 H (7-18) mg/dl BUN (6-23) mg/dl Creatinine (0.6-1.4) mg/dl POC Creatinine 1.6 H (0.6-1.3) mg/dl Glucose (70-99(Fasting)) mg/dl POC Glucose (other) 284 H (70-99) mg/dl Lactate 3.1 H* (0.4-2.0) mmol/L Calcium (8.6-10.3) mg/dl POC Ioniz Calcium Arik 1.06 L (1.12-1.32) mmol/l Diagnostic Findings Chest X-Ray 08/11/22 10:47 XR chest 1V portable HISTORY: Shortness of breath. COMPARISON: Chest 08/06/2022. FINDINGS: No pneumothorax. No pleural effusions. The cardiac silhouette is now normal in size. No evidence for pulmonary edema. Bibasilar linear densities favor subsegmental atelectasis. There are low lung volumes. The upper lung zones are clear. IMPRESSION: 1. Interval resolution of the pulmonary edema and cardiomegaly. 2. Bibasilar linear densities favor subsegmental atelectasis. ACT 112: Negative or not required by law. Electronically signed by: Gonzalo Roldan M.D. 08/11/2022 10:59 AM Abdomen/Pelvis CT 08/11/22 11:[address] WITHOUT CONTRAST CT DOSE: 1953.16 mGy.cm HISTORY: hematuria sepsis recent nephrectomy TECHNIQUE: Multiaxial CT images of the abdomen and pelvis were performed without contrast. A dose lowering technique was utilized adhering to the principles of ALARA. COMPARISON STUDY: Abdomen and pelvis CT 08/01/2022 FINDINGS: Bibasilar linear densities favor subsegmental atelectasis. No pneumoperitoneum. No pneumatosis. There are old, healed right posterior rib fractures. No suspicious lytic or blastic osseous lesions. Skin lobo and a focus of subcutaneous fluid within the right lower quadrant abdominal wall consistent with recent incision. The unenhanced gallbladder, spleen, adrenal glands, pancreas, and left kidney are unremarkable. Status post partial nephrectomy of the right upper pole renal mass. There is hyperdense material within the right renal collecting system consistent with blood products/hematuria. No right-sided hydronephrosis. The right perinephric drain has been removed. Increase in size in the now moderate right perinephr ic/retroperitoneal mixed density fluid collection consistent with a hematoma. This is seen along the right perihepatic/subcapsular space and extending inferiorly along the right retroperitoneal space best seen on image 325. This hematoma results in mild mass effect along the inferior aspect of the right hepatic lobe. An underlying hepatic laceration is not excluded. The perinephric hematoma measures approximately 11 cm. The extension of the hematoma within the within the right retroperitoneal space measures 8.5 cm. These areas previously measured approximately 8.4 cm and 6.2 cm, respectively. There is a Peterson catheter within the bladder lumen. The bladder is markedly distended and partially filled with blood clot/hemorrhage. There is also gas within the bladder lumen. Prostate gland is normal in size. Small fat-containing bilateral inguinal hernias are noted. Trace fluid/hemorrhage along the left paracolic gutter. No bowel wall thickening or obstruction. Normal appendix. There is a pun ctate focus of gas within the right retroperitoneal fluid/hemorrhage which has improved. IMPRESSION: 1. Increase in size in the now moderate right perinephric/retroperitoneal hematoma as described above status post partial nephrectomy. The hemorrhage results in mild mass effect along the right hepatic lobe inferiorly. 2. Status post removal of the right-sided drainage catheters. The punctate focus of gas within the right retroperitoneal fluid/hemorrhage has improved and favors resolving postoperative change. Superinfection would be difficult to exclude but considered less likely. 3. The bladder is markedly distended and partially filled with hemorrhage/clot. A Peterson catheter appears in good position but may not be draining the bladder fluid due to the hemorrhage/clot. 4. Hematuria noted within the right renal collecting system. No hydronephrosis at this time. 5. Additional findings as described above. ACT 112: Negative or not required by law. Electronically signed by: Gonzalo Roldan M.D. 08/11/2022 12:22 PM Supervising Physician Co-Signing Physician Notes Patient seen and examined, chart reviewed, case discussed with Zahida Lundberg and I agree with the assessment and plan as above except as otherwise noted Labs and images reviewed Vernon is a 57-year-old male with a past medical history of recent partial nephrectomy for RCC, poorly controlled DM, obesity, hyperlipidemia, sleep apnea, tobacco abuse who was discharged yesterday after a prolonged course post partial nephrectomy requiring ICU admission and 1 unit of blood who became progressively short of breath and weak with fever, chills, and sweats. He initially declined EMS transport to the hospital at that time and preferred to wait till morning, continued to feel poor with bloody output of urine in the morning and presented for evaluation. CT as noted above, Peterson was placed to decompress bladder with initial serosanguineous output and subsequently with gradual serosanguineous output. CT shows mild expansion of retroperitoneal hematoma. This was reviewed with urology. Slow bleed which may improve with supportive care, however patient is also at risk for pseudoaneurysm development which would require interventional radiology and directed angiography to diagnose and treat. Does not recommend transfer at this time, recommend continuing supportive care but should he continue to bleed this would be the next step and would need to be done at tertiary care. Given his concurrent fever, chills, leukocytosis, and additional risk of infection due to clot obstruction of the bladder patient is treated for concurrent complicated UTI with cefepime/daptomycin. At bedside visit patient does have diffuse bruising/hematoma at right flank and right anterior surgical site, although the surgical site themselves are well-healing without dehiscence, lobo in place, and no oozing or tenderness. Lungs are clear to auscultation, pulmonary edema is not appreciated on imaging. BNP is not elevated and troponin is normal. Hemoglobin is 8.1 from last 9.6, 8.1 before this. Will trend, if persistently tachycardic/hypotensive or continued drop in hemoglobin we will transfuse 1 unit of blood for symptomatic anemia versus holding if doing well unless he drops below 7. Lactate was initially 3.1, this has normalized with fluids and heart rate is downtrending. Agree with management as noted above. PG Care Time/CCT Total # of Minutes Spent Total Time Spent with Patient: Total time spent is greater than 50% in coordination of care (as documented) at patient's floor/unit and/or counseling patient: Coding Level of Care Code 69359 INT INP/OBS CARE 2/55MIN Diagnoses Clear cell carcinoma of right kidney C64.1 Acute blood loss anemia D62 Hematuria R31.9 COPD (chronic obstructive pulmonary disease) J44.9 MARIA EUGENIA (obstructive sleep apnea) G47.33 Anxiety F41.9 Morbid obesity E66.01 Dyslipidemia E78.5 Hypertension I10 Gout, joint M10.9
[2022-08-11 14:47] LABS: Hematocrit (blood only) 24.3 % (42.0-52.0); Hemoglobin 7.9 g/dl (14.0-18.0)
--- NOTE | 2022-08-11 15:15 | Emergency Department Note ---
History of Present Illness General Chief complaint: Hematuria Stated complaint: HEMATURIA, SOB, Time Seen by Provider: 08/11/22 10:44 Source: patient and EMS History of Present Illness Provider complaint: Hematuria shortness of breath hypotension Maximum Pain Intensity: 9 57-year-old male with recent nephrectomy done at this facility presents emergency department via EMS for hematuria and difficulty urinating and shortness of breath. EMS reports that the patient was discharged yesterday. EMS reports that the patient placed in EMS call yesterday for difficulty breathing at approximately 2300 however when EMS crews got there he declined transfer to the hospital. They state they received a call today for increasing shortness of breath and hematuria. They stated when they arrived the patient was in severe respiratory distress looking ashen and they placed patient on BiPAP. They also state that they gave the patient 4 of Zofran and that he has been having difficulties urinating with some blood in his urine. Home Medications Medication Instructions Recorded Confirmed Type gabapentin 300 mg capsule 300 mg PO HS 02/02/19 08/11/22 History blood sugar diagnostic (OneTouch #200 ea 08/10/20 05/29/22 Rx Ultra Blue Test Strip) blood-glucose meter (OneTouch #1 ea 08/10/20 07/22/22 Rx Ultra2 Meter) lancets (OneTouch UltraSoft #200 ea 08/10/20 08/11/22 Rx Lancets) allopurinol 300 mg tablet 300 mg PO QAM #90 tabs 10/16/21 08/11/22 Rx atorvastatin 80 mg tablet 80 mg PO HS #90 tabs 10/16/21 08/11/22 Rx metformin 500 mg tablet,extended 1,000 mg PO BID #360 tabs 12/28/21 08/11/22 Rx release 24 hr budesonide-formoterol HFA 80 2 puff inhalation BID #10.2 grams 02/12/22 08/11/22 Rx mcg-4.5 mcg/actuation aerosol inhaler (Symbicort) CPAP Supplies #1 ea 02/14/22 07/22/22 Rx lisinopril 40 mg tablet 40 mg PO QAM #90 tabs 05/29/22 08/11/22 Rx ofloxacin 0.3 % eye drops 5 drp otic (ear) BID PRN clogged 06/24/22 08/11/22 Rx tube #10 mL sodium sul 1.479 gram-potas ch See Rx Instructions PO .COMPLEX 06/28/22 08/11/22 Rx 0.188 gram-magnes sul 0.225 gram #24 tabs tablet (Sutab) cyanocobalamin (vitamin B-12) 500 500 mcg PO QAM 07/22/22 08/11/22 History mcg tablet dapagliflozin 5 mg tablet (Farxiga) 5 mg PO QAM 07/22/22 08/11/22 History dulaglutide 3 mg/0.5 mL 3 mg subcut WK 08/01/22 08/11/22 History subcutaneous pen injector (Trulicity) gabapentin 300 mg capsule 600 mg PO QAM 08/01/22 08/11/22 History glipizide 10 mg tablet, extended 10 mg PO BID 08/01/22 08/11/22 History release 24 hr (Glucotrol XL) Oxygen Home #1 ea 08/10/22 08/11/22 Rx amlodipine 2.5 mg tablet 2.5 mg PO DAILY #30 tabs 08/10/22 08/11/22 Rx furosemide 20 mg tablet (Lasix) 20 mg PO DIRECTED #10 tabs 08/10/22 08/11/22 Rx levothyroxine 50 mcg tablet 50 mcg PO .qam on empty stomach 08/10/22 08/11/22 Rx (Synthroid) #30 tabs Allergies Allergy/AdvReac Type Severity Reaction Status Date / Time oxycodone AdvReac Mild DIZZY Verified 08/01/22 06:18 Past Med/Surg History Medical History Acute kidney injury Acute kidney injury superimposed on CKD Anxiety no meds > controlled COPD (chronic obstructive pulmonary disease) well controlled, no res inh, said his albuterol inh was , and no longer prescribed, going to follow up with PCP Dyslipidemia Gout, joint History of anesthesia problem [facility] > difficulty breathing after a sinus surgery, this is what Dr. Moreno told patient, pt unaware of other details History of COVID-19 May 20, 2022 > home test > body aches > resolved Hyperkalemia Hypertension Mastoid disorder pt unaware Metabolic acidosis Morbid obesity MARIA EUGENIA (obstructive sleep apnea) cpap Postoperative hypotension Renal mass Right renal mass Smoking greater than 30 pack years Stroke-like symptoms - 09/2019- admitted to [facility]- unable to complete MRI due to claustrophobia- left AMA- head/neck CTA and head CT unremarkable- denies any residual problems- no subsequent symptoms since that time - While admitted in 2019- neuro felt small ischemia stroke could not be excluded but suspected symptoms related to inner ear issue Type 2 diabetes mellitus with diabetic neuropathy, without long-term current use of insulin Surgical History H/O partial nephrectomy History of sinus surgery History of tonsillectomy and adenoidectomy tonsils grew back and had to be removed again History of tooth extraction Status post myringotomy with insertion of tube x2 Family History Uncle Prostate cancer Mother Diabetes Father Diabetes COPD (chronic obstructive pulmonary disease) Other Hearing loss No family history of allergies No family history of bleeding disorder Denies family history of Heart disease Cancer Hypertension Stroke Asthma Social History Smoking Status: Former smoker Tobacco Type: Cigarettes Age Started Using Tobacco: 22; packs per day: 1.5; Cigarettes Per Day: 1-1.5 ppd; Second Hand Exposure: No; Do You Dip or Chew Tobacco: No; Hx Alcohol Use: No Hx Substance Use: Yes Substance Use Type Other:: uses on weekends Preferred Language: Yi Communication Ability: Effective Flower Cheniller Required: No Beliefs That Will Affect Care: None marital status: Single Current Living Situation: Significant Other current occupational status: unemployed Feels Safe at Home: Yes Diet: regular caffeine: Yes Dental Care, Regularly: No Physical Activity Frequency: Does not Exercise Seatbelt Use: always Sunscreen Use: No Assistive Devices: CPAP Physical Exam Vital Signs Vital Signs - 24 hr 08/11/22 10:48 08/11/22 10:48 08/11/22 10:49 Temperature Pulse Rate 88 90 Pulse Rate from SpO2 Sensor Respiratory Rate 21 18 Respiratory Effort / Characteristics Non-Labored Respiratory Depth Normal Respiratory Pattern Regular Blood Pressure 91/50 L 91/50 L Blood Pressure Mean 63 63 Blood Pressure Position Lying Pulse Oximetry 98 98 94 Oxygen Delivery Method Nasal Cannula Nasal Cannula Nasal Cannula Oxygen Flow Rate 2 2 2 Sepsis Recent Fever Within 48 Hours No Sepsis New/Unexplained Change in Mental Status N/A Sepsis Action Taken by Nursing Physician Notified 08/11/22 11:02 08/11/22 11:10 08/11/22 11:17 Temperature 37 C Pulse Rate 86 87 Pulse Rate from SpO2 Sensor 86 Respiratory Rate 17 19 Respiratory Effort / Characteristics Respiratory Depth Respiratory Pattern Blood Pressure 78/41 L 106/57 L 115/65 Blood Pressure Mean 53 73 81 Blood Pressure Position Pulse Oximetry 93 93 Oxygen Delivery Method Nasal Cannula Nasal Cannula Oxygen Flow Rate 2 2 Sepsis Recent Fever Within 48 Hours Sepsis New/Unexplained Change in Mental Status Sepsis Action Taken by Nursing 08/11/22 11:19 08/11/22 12:12 08/11/22 11:21 Temperature Pulse Rate 86 101 H 84 Pulse Rate from SpO2 Sensor 87 84 Respiratory Rate 17 26 H Respiratory Effort / Characteristics Respiratory Depth Respiratory Pattern Blood Pressure 118/56 L 128/62 Blood Pressure Mean 76 84 Blood Pressure Position Pulse Oximetry 89 L 92 Oxygen Delivery Method Nasal Cannula Oxymask Oxygen Flow Rate 2 4 Sepsis Recent Fever Within 48 Hours Sepsis New/Unexplained Change in Mental Status Sepsis Action Taken by Nursing 08/11/22 11:31 08/11/22 11:41 08/11/22 12:08 Temperature Pulse Rate 89 101 H 99 H Pulse Rate from SpO2 Sensor 89 Respiratory Rate 24 16 13 Respiratory Effort / Characteristics Respiratory Depth Respiratory Pattern Blood Pressure 121/65 117/75 113/86 Blood Pressure Mean 83 89 95 Blood Pressure Position Pulse Oximetry 93 97 99 Oxygen Delivery Method Oxymask Oxymask Oxymask Oxygen Flow Rate 4 4 4 Sepsis Recent Fever Within 48 Hours Sepsis New/Unexplained Change in Mental Status Sepsis Action Taken by Nursing 08/11/22 12:21 08/11/22 12:30 08/11/22 12:41 Temperature Pulse Rate 103 H 95 H 101 H Pulse Rate from SpO2 Sensor 103 H 95 H 99 H Respiratory Rate 29 H 33 H 31 H Respiratory Effort / Characteristics Respiratory Depth Respiratory Pattern Blood Pressure 124/76 125/100 135/79 Blood Pressure Mean 92 108 97 Blood Pressure Position Pulse Oximetry 97 99 98 Oxygen Delivery Method Oxymask Oxymask Oxymask Oxygen Flow Rate 4 4 4 Sepsis Recent Fever Within 48 Hours Sepsis New/Unexplained Change in Mental Status Sepsis Action Taken by Nursing 08/11/22 12:50 08/11/22 12:53 08/11/22 13:00 Temperature Pulse Rate 99 H 106 H 105 H Pulse Rate from SpO2 Sensor 98 H 106 H 106 H Respiratory Rate 32 H 32 H 29 H Respiratory Effort / Characteristics Respiratory Depth Respiratory Pattern Blood Pressure 88/67 L 97/75 L Blood Pressure Mean 74 82 Blood Pressure Position Pulse Oximetry 100 99 100 Oxygen Delivery Method Oxymask Oxymask Oxygen Flow Rate 4 4 Sepsis Recent Fever Within 48 Hours Sepsis New/Unexplained Change in Mental Status Sepsis Action Taken by Nursing 08/11/22 13:01 08/11/22 13:11 08/11/22 13:20 Temperature Pulse Rate 105 H 112 H 105 H Pulse Rate from SpO2 Sensor 105 H 96 H Respiratory Rate 24 24 31 H Respiratory Effort / Characteristics Respiratory Depth Respiratory Pattern Blood Pressure 137/81 127/86 136/82 Blood Pressure Mean 99 99 100 Blood Pressure Position Pulse Oximetry 100 100 98 Oxygen Delivery Method Oxymask Oxymask Oxymask Oxygen Flow Rate 4 4 4 Sepsis Recent Fever Within 48 Hours Sepsis New/Unexplained Change in Mental Status Sepsis Action Taken by Nursing 08/11/22 13:30 08/11/22 13:40 08/11/22 13:50 Temperature Pulse Rate 105 H 102 H 105 H Pulse Rate from SpO2 Sensor 104 H 104 H 114 H Respiratory Rate 25 H 34 H 35 H Respiratory Effort / Characteristics Respiratory Depth Respiratory Pattern Blood Pressure 127/75 125/75 101/73 Blood Pressure Mean 92 91 82 Blood Pressure Position Pulse Oximetry 98 97 97 Oxygen Delivery Method Oxymask Oxymask Oxymask Oxygen Flow Rate 4 4 4 Sepsis Recent Fever Within 48 Hours Sepsis New/Unexplained Change in Mental Status Sepsis Action Taken by Nursing 08/11/22 14:00 08/11/22 14:10 Temperature Pulse Rate 101 H 110 H Pulse Rate from SpO2 Sensor 101 H 112 H Respiratory Rate 37 H 29 H Respiratory Effort / Characteristics Respiratory Depth Respiratory Pattern Blood Pressure 127/75 147/119 H Blood Pressure Mean 92 128 Blood Pressure Position Pulse Oximetry 98 97 Oxygen Delivery Method Oxymask Oxymask Oxygen Flow Rate 4 4 Sepsis Recent Fever Within 48 Hours Sepsis New/Unexplained Change in Mental Status Sepsis Action Taken by Nursing Physical Exam GENERAL: Patient is ill-appearing. On CPAP from EMS. HENT: Exam performed. - Head: Normocephalic and atraumatic. - Right Ear: External ear normal. No mastoid erythema - Left Ear: External ear normal. No mastoid erythema NECK: Normal range of motion. Neck supple. No JVD present. CV: Tachycardic rate, regular rhythm, normal heart sounds and intact distal pulses. There is no peripheral edema. Palpable radial pulses bue. PULM/CHEST: Diminished breath sounds bilaterally. ABD: Surgical incision over the anterior abdominal wall. There is no surrounding erythema or discharge. There is no bleeding from the surgical incision. The abdomen does appear distended. NEURO: Motor and sensation grossly intact. SKIN: Pale. Course Course 1044: The patient was evaluated in room B1. A complete history and physical exam was performed Cardiac monitoring: An order was placed for continuous cardiac monitoring. The monitor shows a rate of 110 with sinus tachycardia rhythm interpreted by me On arrival in the emergency department the patient was able to be transitioned from CPAP to room air. Patient is hypotensive on arrival. I-STAT will be obtained to make sure that the patient is not anemic or bleeding into his abdomen. Sepsis protocols were initiated. 1105: I-STAT shows a hemoglobin of 8.5 which is down from 9.6 yesterday. Creatinine up to 1.6 which is up from 1.3 yesterday. We will wait for formal metabolic profile to see with the patient's creatinine as well as creatinine clearance truly has. 1120: Patient's lactic acid is 3. Patient's blood pressure is responding to fluids. Patient received 400 cc normal saline prehospital. Patient placed on supplemental oxygen. Patient will be treated with antibiotics for possible sepsis given his elevated lactic acid and hypotension. Cefepime ordered for patient. Discussed with pharmacy and given the patient's weight and questionable kidney function patient be started on daptomycin instead of vancomycin. 1140:Patient's creatinine is up to 1.6 from 1.[address] of the abdomen pelvis without contrast. 1310: Vital signs stable on supplemental oxygen. Patient receiving 30 cc/kg bolus when including the prehospital fluids. Antibiotics given to the patient. Labs show leukocytosis of 25.9. Hemoglobin 8.1. CT of the abdomen pelvis shows a increase in the right perinephric/retroperitoneal hematoma now measuring 11 cm and 8.5 cm compared to 8.4 and 6.2 cm. There is a small punctate focus of gas in the right retroperitoneal fluid/hemorrhage which is improved and the superinfection will be difficult to exclude. The bladder is distended and filled with hemorrhage/clots Reis catheter is in good position. Discussed the case with urology on-call Dr. Mosher and he states that he does not think that the patient has infection but has a possible pseudoaneurysm with possible slow leak. He states that the patient's hemoglobin has not changed enough to warrant a transfusion or to require embolization at this time and [facility] team will be on consult. He also recommends consulting cardiology and nephrology. Dr. Berrios will be notified. Administered Medications Sodium Chloride (Nss) 500 mls @ 150 mls/hr IV .Q3H20M JANAK Stop: 09/10/22 12:44 Last Admin: 08/11/22 12:51 Dose: 125 mls/hr Documented By: JACQUES Discontinued Medications Fentanyl Citrate (Fentanyl Citrate Pf 100 Mcg/2 Ml Vial) 50 mcg IV NOW STA Stop: 08/11/22 13:35 Last Admin: 08/11/22 13:44 Dose: 50 mcg Documented By: JACQUES Sodium Chloride (Nss 1000ml) 1,000 mls @ 999 mls/hr IV .Q1H1M ONE Stop: 08/11/22 12:05 Last Infusion: 08/11/22 12:38 Dose: 0 mls/hr Documented By: Admin: 08/11/22 11:23 Dose: 999 mls/hr Documented By: Infusion: 08/11/22 11:23 Dose: 999 mls/hr Documented By: Admin: 08/11/22 10:55 Dose: 999 mls/hr Documented By: JACQUES Sodium Chloride (Nss 1000ml) 1,000 mls @ 999 mls/hr IV .Q1H1M ONE Stop: 08/11/22 12:20 Last Infusion: 08/11/22 12:38 Dose: 0 mls/hr Documented By: Admin: 08/11/22 11:24 Dose: 999 mls/hr Documented By: JACQUES Cefepime HCl (Maxipime) 2,000 mg in 20 mls @ 5 mls/min IV NOW STA; Protocol Stop: 08/11/22 11:23 Last Admin: 08/11/22 11:23 Dose: 5 mls/min Documented By: JACQUES Daptomycin 700 mg/ Syringe 14 mls @ 7 mls/min IV NOW STA; Protocol Stop: 08/11/22 11:41 Last Admin: 08/11/22 12:12 Dose: 7 mls/min Documented By: JACQUES Sodium Chloride (Nss 1000ml) 500 mls @ 999 mls/hr IV .Q31M ONE Stop: 08/11/22 13:03 Last Infusion: 08/11/22 13:11 Dose: 0 mls/hr Documented By: Admin: 08/11/22 12:40 Dose: 999 mls/hr Documented By: JACQUES Critical Care Time Critical Care Time: Yes Total Critical Care Time: 65 I have personally spent greater than 65 minutes of critical care time in the direct management of this patient. This includes bedside care, interpretation of diagnostic studies, and testing, discussion with consultants, patient, and family members, and other required patient management activities. This 65 minutes is in excess of all separately billable procedures. Medical Decision Making Medical Records Attestation: I reviewed the patient's medical records. External medical records reviewed. Patient had a surgical procedure done by Dr. Matthews urology on August 01, 2022. Patient had a robotic assisted right laparoscopic partial nephrectomy. Patient was discharged from the hospital yesterday after requiring transfusion of 6 units packed red blood cells during his admission. Laboratory Data Attestation: I reviewed the patient's lab results. 08/11/22 14:25 08/11/22 11:00 Lab Results 08/11/22 08/11/22 08/11/22 Range/Units 11:00 11:00 11:00 WBC 25.90 H (4.8-10.8) K/ul RBC 2.76 L (4.70-6.10) M/uL Hgb 8.1 L (14.0-18.0) g/dl POC Hgb (14.0-18.0) g/dl Hct 25.2 L (42.0-52.0) % POC Hct (42-52) % MCV 91.3 (80.0-100.0) fL MCH 29.3 (25.0-34.0) pg MCHC 32.1 (32.0-36.0) g/dL RDW Std Deviation 49.0 H (36.4-46.3) fL RDW Coeff of Chano 14.7 H (11.5-14.5) % Plt Count 730 H (130-400) K/uL MPV 9.1 L (9.4-12.4) fL Immature Gran % (Auto) 3.7 % Neut % (Auto) 73.5 % Lymph % (Auto) 14.1 % Gray % (Auto) 6.5 % Eos % (Auto) 1.8 % Baso % (Auto) 0.4 % Neut # (Auto) 19.04 H (1.40-6.50) K/uL Lymph # (Auto) 3.64 H (1.2-3.4) K/uL Gray # (Auto) 1.69 H (0.11-0.59) K/uL Eos # (Auto) 0.46 (0-0.50) K/uL Baso # (Auto) 0.10 (0-0.2) K/uL Immature Gran # (Auto) 0.97 H (0.01-0.20) K/uL PT 11.6 (9.0-12.0) Seconds INR 1.1 (0.9-1.1) APTT 27.1 (21.0-31.0) Seconds PTT Ratio 1.0 VBG pH (7.36-7.41) VBG pCO2 (38-50) mmHg VBG pO2 mmHg VBG HCO3 mmol/L VBG O2 Saturation % VBG Base Excess mEq/L POC Sodium (135-144) mmol/L Sodium (136-145) mmol/L POC Potassium (3.3-5.0) mmol/L Potassium (3.5-5.1) mmol/L POC Chloride (101-112) mmol/L Chloride (98-107) mmol/L Carbon Dioxide (21-32) mmol/L POC Total CO2 (24-31) mmol/L Anion Gap (3-11) POC Anion Gap (16-25) mmol/L POC BUN (7-18) mg/dl BUN (6-23) mg/dl Creatinine (0.6-1.4) mg/dl POC Creatinine (0.6-1.3) mg/dl Est Cr Clr Drug Dosing ml/min Est GFR ( Amer) ml/min Est GFR (Non-Af Amer) ml/min BUN/Creatinine Ratio (10-20) Glucose (70-99(Fasting)) mg/dl POC Glucose (other) (70-99) mg/dl Lactate (0.4-2.0) mmol/L Calcium (8.6-10.3) mg/dl POC Ioniz Calcium Arik (1.12-1.32) mmol/l Magnesium (1.7-2.4) mg/dl Troponin I High Sens (0-20) pg/ml B-Natriuretic Peptide (0-100) pg/ml SARS-CoV-2, RNA, NAAT (NEGATIVE) Blood Type O Positive Antibody Screen NEGATIVE 08/11/22 08/11/22 08/11/22 Range/Units 11:00 11:00 11:00 WBC (4.8-10.8) K/ul RBC (4.70-6.10) M/uL Hgb (14.0-18.0) g/dl POC Hgb (14.0-18.0) g/dl Hct (42.0-52.0) % POC Hct (42-52) % MCV (80.0-100.0) fL MCH (25.0-34.0) pg MCHC (32.0-36.0) g/dL RDW Std Deviation (36.4-46.3) fL RDW Coeff of Chano (11.5-14.5) % Plt Count (130-400) K/uL MPV (9.4-12.4) fL Immature Gran % (Auto) % Neut % (Auto) % Lymph % (Auto) % Gray % (Auto) % Eos % (Auto) % Baso % (Auto) % Neut # (Auto) (1.40-6.50) K/uL Lymph # (Auto) (1.2-3.4) K/uL Gray # (Auto) (0.11-0.59) K/uL Eos # (Auto) (0-0.50) K/uL Baso # (Auto) (0-0.2) K/uL Immature Gran # (Auto) (0.01-0.20) K/uL PT (9.0-12.0) Seconds INR (0.9-1.1) APTT (21.0-31.0) Seconds PTT Ratio VBG pH 7.34 L (7.36-7.41) VBG pCO2 40 (38-50) mmHg VBG pO2 25 mmHg VBG HCO3 22 mmol/L VBG O2 Saturation < 60.0 % VBG Base Excess -3.9 mEq/L POC Sodium (135-144) mmol/L Sodium 136 (136-145) mmol/L POC Potassium (3.3-5.0) mmol/L Potassium 4.7 (3.5-5.1) mmol/L POC Chloride (101-112) mmol/L Chloride 110 H (98-107) mmol/L Carbon Dioxide 20 L (21-32) mmol/L POC Total CO2 (24-31) mmol/L Anion Gap 6 (3-11) POC Anion Gap (16-25) mmol/L POC BUN (7-18) mg/dl BUN 32 H (6-23) mg/dl Creatinine 1.61 H (0.6-1.4) mg/dl POC Creatinine (0.6-1.3) mg/dl Est Cr Clr Drug Dosing 85.1 ml/min Est GFR ( Amer) 54.6 ml/min Est GFR (Non-Af Amer) 47.1 ml/min BUN/Creatinine Ratio 19.9 (10-20) Glucose 289 H (70-99(Fasting)) mg/dl POC Glucose (other) (70-99) mg/dl Lactate 3.1 H* (0.4-2.0) mmol/L Calcium 7.8 L (8.6-10.3) mg/dl POC Ioniz Calcium Arik (1.12-1.32) mmol/l Magnesium 1.7 (1.7-2.4) mg/dl Troponin I High Sens 8.7 (0-20) pg/ml B-Natriuretic Peptide (0-100) pg/ml SARS-CoV-2, RNA, NAAT (NEGATIVE) Blood Type Antibody Screen 08/11/22 08/11/22 08/11/22 Range/Units 11:03 11:05 11:09 WBC (4.8-10.8) K/ul RBC (4.70-6.10) M/uL Hgb (14.0-18.0) g/dl POC Hgb 8.5 L (14.0-18.0) g/dl Hct (42.0-52.0) % POC Hct 25 L (42-52) % MCV (80.0-100.0) fL MCH (25.0-34.0) pg MCHC (32.0-36.0) g/dL RDW Std Deviation (36.4-46.3) fL RDW Coeff of Chano (11.5-14.5) % Plt Count (130-400) K/uL MPV (9.4-12.4) fL Immature Gran % (Auto) % Neut % (Auto) % Lymph % (Auto) % Gray % (Auto) % Eos % (Auto) % Baso % (Auto) % Neut # (Auto) (1.40-6.50) K/uL Lymph # (Auto) (1.2-3.4) K/uL Gray # (Auto) (0.11-0.59) K/uL Eos # (Auto) (0-0.50) K/uL Baso # (Auto) (0-0.2) K/uL Immature Gran # (Auto) (0.01-0.20) K/uL PT (9.0-12.0) Seconds INR (0.9-1.1) APTT (21.0-31.0) Seconds PTT Ratio VBG pH (7.36-7.41) VBG pCO2 (38-50) mmHg VBG pO2 mmHg VBG HCO3 mmol/L VBG O2 Saturation % VBG Base Excess mEq/L POC Sodium 137 (135-144) mmol/L Sodium (136-145) mmol/L POC Potassium 4.8 (3.3-5.0) mmol/L Potassium (3.5-5.1) mmol/L POC Chloride 108 (101-112) mmol/L Chloride (98-107) mmol/L Carbon Dioxide (21-32) mmol/L POC Total CO2 19 L (24-31) mmol/L Anion Gap (3-11) POC Anion Gap 16.0 (16-25) mmol/L POC BUN 27 H (7-18) mg/dl BUN (6-23) mg/dl Creatinine (0.6-1.4) mg/dl POC Creatinine 1.6 H (0.6-1.3) mg/dl Est Cr Clr Drug Dosing ml/min Est GFR ( Amer) ml/min Est GFR (Non-Af Amer) ml/min BUN/Creatinine Ratio (10-20) Glucose (70-99(Fasting)) mg/dl POC Glucose (other) 284 H (70-99) mg/dl Lactate (0.4-2.0) mmol/L Calcium (8.6-10.3) mg/dl POC Ioniz Calcium Arik 1.06 L (1.12-1.32) mmol/l Magnesium (1.7-2.4) mg/dl Troponin I High Sens (0-20) pg/ml B-Natriuretic Peptide 29 (0-100) pg/ml SARS-CoV-2, RNA, NAAT NEGATIVE (NEGATIVE) Blood Type Antibody Screen 08/11/22 08/11/22 Range/Units 14:01 14:25 WBC (4.8-10.8) K/ul RBC (4.70-6.10) M/uL Hgb 7.9 L (14.0-18.0) g/dl POC Hgb (14.0-18.0) g/dl Hct 24.3 L (42.0-52.0) % POC Hct (42-52) % MCV (80.0-100.0) fL MCH (25.0-34.0) pg MCHC (32.0-36.0) g/dL RDW Std Deviation (36.4-46.3) fL RDW Coeff of Chano (11.5-14.5) % Plt Count (130-400) K/uL MPV (9.4-12.4) fL Immature Gran % (Auto) % Neut % (Auto) % Lymph % (Auto) % Gray % (Auto) % Eos % (Auto) % Baso % (Auto) % Neut # (Auto) (1.40-6.50) K/uL Lymph # (Auto) (1.2-3.4) K/uL Gray # (Auto) (0.11-0.59) K/uL Eos # (Auto) (0-0.50) K/uL Baso # (Auto) (0-0.2) K/uL Immature Gran # (Auto) (0.01-0.20) K/uL PT (9.0-12.0) Seconds INR (0.9-1.1) APTT (21.0-31.0) Seconds PTT Ratio VBG pH (7.36-7.41) VBG pCO2 (38-50) mmHg VBG pO2 mmHg VBG HCO3 mmol/L VBG O2 Saturation % VBG Base Excess mEq/L POC Sodium (135-144) mmol/L Sodium (136-145) mmol/L POC Potassium (3.3-5.0) mmol/L Potassium (3.5-5.1) mmol/L POC Chloride (101-112) mmol/L Chloride (98-107) mmol/L Carbon Dioxide (21-32) mmol/L POC Total CO2 (24-31) mmol/L Anion Gap (3-11) POC Anion Gap (16-25) mmol/L POC BUN (7-18) mg/dl BUN (6-23) mg/dl Creatinine (0.6-1.4) mg/dl POC Creatinine (0.6-1.3) mg/dl Est Cr Clr Drug Dosing ml/min Est GFR ( Amer) ml/min Est GFR (Non-Af Amer) ml/min BUN/Creatinine Ratio (10-20) Glucose (70-99(Fasting)) mg/dl POC Glucose (other) (70-99) mg/dl Lactate 1.2 (0.4-2.0) mmol/L Calcium (8.6-10.3) mg/dl POC Ioniz Calcium Arik (1.12-1.32) mmol/l Magnesium (1.7-2.4) mg/dl Troponin I High Sens (0-20) pg/ml B-Natriuretic Peptide (0-100) pg/ml SARS-CoV-2, RNA, NAAT (NEGATIVE) Blood Type Antibody Screen Imaging Data Attestation: I personally reviewed and interpreted this imaging study as follows: My Impression: Chest x-ray negative. Airway clear. No pneumothorax. No consolidation. No cardiomegaly or cephalization.. No free air under the diaphragm. No fractures of the skeletal structures. Radiologist's Impression: Chest X-Ray 08/11/22 10:47 XR chest 1V portable HISTORY: Shortness of breath. COMPARISON: Chest 08/06/2022. FINDINGS: No pneumothorax. No pleural effusions. The cardiac silhouette is now normal in size. No evidence for pulmonary edema. Bibasilar linear densities favor subsegmental atelectasis. There are low lung volumes. The upper lung zones are clear. IMPRESSION: 1. Interval resolution of the pulmonary edema and cardiomegaly. 2. Bibasilar linear densities favor subsegmental atelectasis. ACT 112: Negative or not required by law. Electronically signed by: Gonzalo Roldan M.D. 08/11/2022 10:59 AM Abdomen/Pelvis CT 08/11/22 11:[address] WITHOUT CONTRAST CT DOSE: 1953.16 mGy.cm HISTORY: hematuria sepsis recent nephrectomy TECHNIQUE: Multiaxial CT images of the abdomen and pelvis were performed without contrast. A dose lowering technique was utilized adhering to the principles of ALARA. COMPARISON STUDY: Abdomen and pelvis CT 08/01/2022 FINDINGS: Bibasilar linear densities favor subsegmental atelectasis. No pneumoperitoneum. No pneumatosis. There are old, healed right posterior rib fractures. No suspicious lytic or blastic osseous lesions. Skin lobo and a focus of subcutaneous fluid within the right lower quadrant abdominal wall consistent with recent incision. The unenhanced gallbladder, spleen, adrenal glands, pancreas, and left kidney are unremarkable. Status post partial nephrectomy of the right upper pole renal mass. There is hyperdense material within the right renal collecting system consistent with blood products/hematuria. No right-sided hydronephrosis. The right perinephric drain has been removed. Increase in size in the now moderate right perinephric/retroperitoneal mixed density fluid collection consistent with a hematoma. This is seen along the right perihepatic/subcapsular space and extending inferiorly along the right retroperitoneal space best seen on image 325. This hematoma results in mild mass effect along the inferior aspect of the right hepatic lobe. An underlying hepatic laceration is not excluded. The perinephric hematoma measures approximately 11 cm. The extension of the hematoma within the within the right retroperitoneal space measures 8.5 cm. These areas previously measured approximately 8.4 cm and 6.2 cm, respectively. There is a Reis catheter within the bladder lumen. The bladder is markedly distended and partially filled with blood clot/hemorrhage. There is also gas within the bladder lumen. Prostate gland is normal in size. Small fat-containing bilateral inguinal hernias are noted. Trace fluid/hemorrhage along the left paracolic gutter. No bowel wall thickening or obstruction. Normal appendix. There is a punctate focus of gas within the right retroperitoneal fluid/hemorrhage which has improved. IMPRESSION: 1. Increase in size in the now moderate right perinephric/retroperitoneal hematoma as described above status post partial nephrectomy. The hemorrhage results in mild mass effect along the right hepatic lobe inferiorly. 2. Status post removal of the right-sided drainage catheters. The punctate focus of gas within the right retroperitoneal fluid/hemorrhage has improved and favors resolving postoperative change. Superinfection would be difficult to exclude but considered less likely. 3. The bladder is markedly distended and partially filled with hemorrhage/clot. A Reis catheter appears in good position but may not be draining the bladder fluid due to the hemorrhage/clot. 4. Hematuria noted within the right renal collecting system. No hydronephrosis at this time. 5. Additional findings as described above. ACT 112: Negative or not required by law. Electronically signed by: Gonzalo Roldan M.D. 08/11/2022 12:22 PM ECG Data Attestation: I personally reviewed and interpreted this ECG as follows: Indication: + SOB/dyspnea Rate (beats per minute): 86 Rhythm: + normal sinus ECG Intervals/blocks: + Normal QRS, + Normal AL and + Normal QT-c ECG ST segments: + Normal ST segments MDM Narrative 1044: The patient was evaluated in room B1. A complete history and physical exam was performed Cardiac monitoring: An order was placed for continuous cardiac monitoring. The monitor shows a rate of 110 with sinus tachycardia rhythm interpreted by me On arrival in the emergency department the patient was able to be transitioned from CPAP to room air. Patient is hypotensive on arrival. I-STAT will be obtained to make sure that the patient is not anemic or bleeding into his abdomen. Sepsis protocols were initiated. 1105: I-STAT shows a hemoglobin of 8.5 which is down from 9.6 yesterday. Creatinine up to 1.6 which is up from 1.3 yesterday. We will wait for formal metabolic profile to see with the patient's creatinine as well as creatinine clearance truly has. 1120: Patient's lactic acid is 3. Patient's blood pressure is responding to fluids. Patient received 400 cc normal saline prehospital. Patient placed on supplemental oxygen. Patient will be treated with antibiotics for possible sepsis given his elevated lactic acid and hypotension. Cefepime ordered for patient. Discussed with pharmacy and given the patient's weight and questionable kidney function patient be started on daptomycin instead of vancomycin. 1140:Patient's creatinine is up to 1.6 from 1.[address] of the abdomen pelvis without contrast. 1310: Vital signs stable on supplemental oxygen. Patient receiving 30 cc/kg bolus when including the prehospital fluids. Antibiotics given to the patient. Labs show leukocytosis of 25.9. Hemoglobin 8.1. CT of the abdomen pelvis shows a increase in the right perinephric/retroperitoneal hematoma now measuring 11 cm and 8.5 cm compared to 8.4 and 6.2 cm. There is a small punctate focus of gas in the right retroperitoneal fluid/hemorrhage which is improved and the superinfection will be difficult to exclude. The bladder is distended and filled with hemorrhage/clots Reis catheter is in good position. Discussed the case with urology on-call Dr. Mosher and he states that he does not think that the patient has infection but has a possible pseudoaneurysm with possible slow leak. He states that the patient's hemoglobin has not changed enough to warrant a transfusion or to require embolization at this time and he [facility] team will be on consult. He also recommends consulting cardiology and nephrology. Dr. Berrios will be notified. Impression & Plan Sepsis, Postoperative hematoma Discharge Plan Visit Data Chief Complaint: Hematuria Stated Complaint: HEMATURIA, SOB, ED Provider: Santana Ríos Discharge Problem: Sepsis, Postoperative hematoma Patient Disposition: Admitted As Inpatient Forms Stand Alone Forms: My [facility] Prescriptions Prescriptions: No Action (DME) OneTouch Ultra Blue Test Strip Strip See Dose Instructions .ROUTE .MEDSUPPLY Qty: 200 3RF Dose Instruction: As directed Rx Instructions: use to test twice daily and as needed (DME) blood-glucose meter [OneTouch Ultra2 Meter] [facility] See Rx Instructions .ROUTE .MEDSUPPLY Qty: 1 0RF Rx Instructions: Test twice daily and PRN. (DME) lancets [OneTouch UltraSoft Lancets] Mis See Rx Instructions .ROUTE .MEDSUPPLY Qty: 200 3RF Rx Instructions: Test twice daily and PRN. allopurinol 300 mg tablet 300 mg PO QAM Qty: 90 3RF atorvastatin 80 mg tablet 80 mg PO HS Qty: 90 3RF metformin 500 mg tablet extended release 24 hr 1,000 mg PO BID Qty: 360 3RF budesonide-formoterol [Symbicort] 80-4.5 mcg/actuation HFA aerosol inhaler 2 puff inhalation BID Qty: 10.2 6RF (DME) CPAP Supplies Misc See Rx Instructions .Route Qty: 1 0RF Rx Instructions: As directed ofloxacin 0.3 % drops 5 drp otic (ear) BID PRN (Reason: clogged tube) Qty: 10 1RF Sutab 1.479-0.188- 0.225 gram tablet See Rx Instructions PO .COMPLEX Qty: 24 0RF Rx Instructions: Take per split dose instructions. PLEASE USE COUPON BIN: [id number] PCN: [place] UP#: [id number] lisinopril 40 mg tablet 40 mg PO QAM Qty: 90 3RF Hold Instructions: Until your appointment with Dr. Valero gabapentin 300 mg Capsule 300 mg PO HS cyanocobalamin (vitamin B-12) 500 mcg Tablet 500 mcg PO QAM Farxiga 5 mg tablet 5 mg PO QAM Hold Instructions: Until your appointment with Dr. Valero gabapentin 300 mg capsule 600 mg PO QAM Rx Instructions: take 2 capsules in every AM and 1 capsule every PM. Trulicity 3 mg/0.5 mL pen injector 3 mg subcut WK Rx Instructions: 3 mg subcutaneously weekly; glipizide [Glucotrol XL] 10 mg tablet extended release 24hr 10 mg PO BID levothyroxine [Synthroid] 50 mcg tablet 50 mcg PO .qam on empty stomach Qty: 30 2RF amlodipine 2.5 mg tablet 2.5 mg PO DAILY Qty: 30 2RF Rx Instructions: for high blood pressure furosemide [Lasix] 20 mg tablet 20 mg PO DIRECTED Qty: 10 0RF (DME) Oxygen Home Liters Per Minute See Rx Instructions .ROUTE .MEDSUPPLY Qty: 1 0RF Rx Instructions: 2 liters of NC O2 with activity/ambulation Referrals Referrals: Peterson Lamas MD [Primary Care Provider] -
[2022-08-11] MEDS ORDERED: GLUCOSE 10 TAB/TUBE PO PRN (15:55)
[2022-08-11] MEDS ORDERED: GLUCOSE 40% GEL 15 GM TUBE PO PRN (15:55)
[2022-08-11] MEDS ORDERED: CALCIUM GLUCONATE 10% 1,000 MG in DEXTROSE 5% 50 ML IV ONE (15:55)
[2022-08-11] MEDS ORDERED: STAT IV STA (15:55)
[2022-08-11] MEDS ORDERED: CARBOHYDRATES FOR HYPOGLYCEMIA PO PRN (15:55)
[2022-08-11] MEDS ORDERED: GLUCAGON FOR INJ 1 MG VIAL SQ PRN (15:55)
[2022-08-11] MEDS ORDERED: DEXTROSE 50% 50 ML SYRINGE IV PRN (15:55)
--- NOTE | 2022-08-11 16:08 | Urology Consultation ---
Date of Consultation August 11, 2022 Assessment & Plan (1) Hematuria: (2) Clear cell carcinoma of right kidney: Plan Status post right robotic partial nephrectomy for clear-cell carcinoma Complicated postop course with ultimate discharge home yesterday but failure to thrive at home necessitating a return to the hospital today Creatinine has risen again after improvement during his past hospitalization CT shows increased perinephric hematoma as well as substantial clot within the bladderimpossible to know how acute some of this is Currently feeling much better and looking a bit better from arrival Greatly appreciate the help of the hospitalist team He obviously has a number of significant comorbidities Plan: Supportive care now Maintain Reis catheter Observe labs Hydrate, supplemental oxygen Pending progression, will determine next steps May ultimately require clot evacuation from the bladder or if he experiences recurrent bleeding or instability, may would necessitate transfer for for possible angiogram and selective embolizationcannot rule out the possibility of a small pseudoaneurysm, but given current stability I do not believe we require emergent transfer now We will make n.p.o. after midnight as a precaution but not because of a plan to take him to the operating roomokay to eat now, okay to shower from a standpoint if medically stable enough (patient has asked about this) History of Present Illness History of Present Illness Patient discharged home yesterday after a prolonged and complicated hospital course following partial nephrectomy for a right clear-cell renal cell carcinoma Unfortunately he developed difficulties overnight He had initially done quite well at home but then began to experience shortness of breath and lightheadedness He had an initial visit from EMS but refused transport back to the hospital This morning he had a second episode of ill feeling as well as gross hematuria Was quite hypotensive and agreed to allow EMS to bring him back to the hospital He has now been stabilized hemodynamically He has had a slight change in his hemoglobin and he has had an increase in creatinine to 1.6 He is now normotensive borderline tachycardic He has a Reis catheter in position which she reports is uncomfortable but denies any other abdominal discomfort He has not been draining from his incisions He has not had fevers He does have an elevated lactate level He had a repeat CT that on arrival in the emergency room today Comparing this to his CT from 08/01, he has had increase in the perinephric hematoma as well as development of a substantial amount of clot within the bladder Unfortunately it is difficult to know how much of this occurred acutely versus occurred during his prior hospitalization and was simply visualized during this study His catheter is now draining appropriately despite the significant amount of clot within the bladder I irrigated it manually and it flushes without difficulty My suspicion is it is washing over the old clot rather than new clot Allergies Allergy/AdvReac Type Severity Reaction Status Date / Time oxycodone AdvReac Mild DIZZY Verified 08/01/22 06:18 Home Medications Medication Instructions Recorded Confirmed Type gabapentin 300 mg capsule 300 mg PO HS 02/02/19 08/11/22 History blood sugar diagnostic (OneTouch #200 ea 08/10/20 05/29/22 Rx Ultra Blue Test Strip) blood-glucose meter (OneTouch #1 ea 08/10/20 07/22/22 Rx Ultra2 Meter) lancets (Local [employer] MediaTouch UltraSoft #200 ea 08/10/20 08/11/22 Rx Lancets) allopurinol 300 mg tablet 300 mg PO QAM #90 tabs 10/16/21 08/11/22 Rx atorvastatin 80 mg tablet 80 mg PO HS #90 tabs 10/16/21 08/11/22 Rx metformin 500 mg tablet,extended 1,000 mg PO BID #360 tabs 12/28/21 08/11/22 Rx release 24 hr budesonide-formoterol HFA 80 2 puff inhalation BID #10.2 grams 02/12/22 08/11/22 Rx mcg-4.5 mcg/actuation aerosol inhaler (Symbicort) CPAP Supplies #1 ea 02/14/22 07/22/22 Rx lisinopril 40 mg tablet 40 mg PO QAM #90 tabs 05/29/22 08/11/22 Rx ofloxacin 0.3 % eye drops 5 drp otic (ear) BID PRN clogged 06/24/22 08/11/22 Rx tube #10 mL sodium sul 1.479 gram-potas ch See Rx Instructions PO .COMPLEX 06/28/22 08/11/22 Rx 0.188 gram-magnes sul 0.225 gram #24 tabs tablet (Sutab) cyanocobalamin (vitamin B-12) 500 500 mcg PO QAM 07/22/22 08/11/22 History mcg tablet dapagliflozin 5 mg tablet (Farxiga) 5 mg PO QAM 07/22/22 08/11/22 History dulaglutide 3 mg/0.5 mL 3 mg subcut WK 08/01/22 08/11/22 History subcutaneous pen injector (Trulicity) gabapentin 300 mg capsule 600 mg PO QAM 08/01/22 08/11/22 History glipizide 10 mg tablet, extended 10 mg PO BID 08/01/22 08/11/22 History release 24 hr (Glucotrol XL) Oxygen Home #1 ea 08/10/22 08/11/22 Rx amlodipine 2.5 mg tablet 2.5 mg PO DAILY #30 tabs 08/10/22 08/11/22 Rx furosemide 20 mg tablet (Lasix) 20 mg PO DIRECTED #10 tabs 08/10/22 08/11/22 Rx levothyroxine 50 mcg tablet 50 mcg PO .qam on empty stomach 08/10/22 08/11/22 Rx (Synthroid) #30 tabs Patient History Medical History Acute kidney injury Acute kidney injury superimposed on CKD Anxiety no meds > controlled COPD (chronic obstructive pulmonary disease) well controlled, no res inh, said his albuterol inh was , and no longer prescribed, going to follow up with PCP Dyslipidemia Gout, joint History of anesthesia problem [facility] > difficulty breathing after a sinus surgery, this is what Dr. Moreno told patient, pt unaware of other details History of COVID-19 May 20, 2022 > home test > body aches > resolved Hyperkalemia Hypertension Mastoid disorder pt unaware Metabolic acidosis Morbid obesity MARIA EUGENIA (obstructive sleep apnea) cpap Postoperative hypotension Renal mass Right renal mass Smoking greater than 30 pack years Stroke-like symptoms - 09/2019- admitted to [facility]- unable to complete MRI due to claustrophobia- left AMA- head/neck CTA and head CT unremarkable- denies any residual problems- no subsequent symptoms since that time - While admitted in 2019- neuro felt small ischemia stroke could not be excluded but suspected symptoms related to inner ear issue Type 2 diabetes mellitus with diabetic neuropathy, without long-term current use of insulin Surgical History H/O partial nephrectomy History of sinus surgery History of tonsillectomy and adenoidectomy tonsils grew back and had to be removed again History of tooth extraction Status post myringotomy with insertion of tube x2 Family History Uncle Prostate cancer Mother Diabetes Father Diabetes COPD (chronic obstructive pulmonary disease) Other Hearing loss No family history of allergies No family history of bleeding disorder Denies family history of Heart disease Cancer Hypertension Stroke Asthma Social History Smoking Status: Former smoker Tobacco Type: Cigarettes Age Started Using Tobacco: 22; packs per day: 1.5; Cigarettes Per Day: 1-1.5 ppd; Second Hand Exposure: No; Do You Dip or Chew Tobacco: No; Hx Alcohol Use: No Hx Substance Use: Yes Substance Use Type Other:: uses on weekends Preferred Language: Upper Sorbian Communication Ability: Effective Logistics Tech Required: No Beliefs That Will Affect Care: None marital status: Single Current Living Situation: Significant Other current occupational status: unemployed Feels Safe at Home: Yes Diet: regular caffeine: Yes Dental Care, Regularly: No Physical Activity Frequency: Does not Exercise Seatbelt Use: always Sunscreen Use: No Assistive Devices: CPAP Physical Exam Physical Exam: Obese On an Oxymask with 3 L of O2 Saturations have been in the upper 90s while I was evaluating him Heart rate in the upper 90s Blood pressure 130/70 Incisions appropriate Bruising but no signs of infection, no drainage Urine [id number] [place] Reis catheter in place Results & Data Vital Signs (Past 12 Hours) Vital Signs Temp Pulse Resp BP Pulse Ox O2 Del Method O2 Flow Rate 08/11/22 15:55 78 24 133/64 95 Oxymask 4 08/11/22 15:10 99 H 34 H 141/81 H 99 Oxymask 4 08/11/22 15:00 110 H 30 H 129/66 98 Oxymask 4 08/11/22 14:50 102 H 31 H 133/77 99 Oxymask 4 08/11/22 14:40 102 H 29 H 144/79 H 98 Oxymask 4 08/11/22 14:30 104 H 34 H 127/77 99 Oxymask 4 08/11/22 14:20 103 H 33 H 130/75 96 Oxymask 4 08/11/22 14:10 110 H 29 H 147/119 H 97 Oxymask 4 08/11/22 14:00 101 H 37 H 127/75 98 Oxymask 4 08/11/22 13:50 105 H 35 H 101/73 97 Oxymask 4 08/11/22 13:40 102 H 34 H 125/75 97 Oxymask 4 08/11/22 13:30 105 H 25 H 127/75 98 Oxymask 4 08/11/22 13:20 105 H 31 H 136/82 98 Oxymask 4 08/11/22 13:11 112 H 24 127/86 100 Oxymask 4 08/11/22 13:01 105 H 24 137/81 100 Oxymask 4 08/11/22 13:00 105 H 29 H 100 08/11/22 12:53 106 H 32 H 97/75 L 99 Oxymask 4 08/11/22 12:50 99 H 32 H 88/67 L 100 Oxymask 4 08/11/22 12:41 101 H 31 H 135/79 98 Oxymask 4 08/11/22 12:30 95 H 33 H 125/100 99 Oxymask 4 08/11/22 12:21 103 H 29 H 124/76 97 Oxymask 4 08/11/22 12:08 99 H 13 113/86 99 Oxymask 4 08/11/22 11:41 101 H 16 117/75 97 Oxymask 4 08/11/22 11:31 89 24 121/65 93 Oxymask 4 08/11/22 11:21 84 26 H 128/62 92 Oxymask 4 08/11/22 12:12 101 H 08/11/22 11:19 86 17 118/56 L 89 L Nasal Cannula 2 08/11/22 11:17 37 C 87 19 115/65 93 Nasal Cannula 2 08/11/22 11:10 86 17 106/57 L 93 Nasal Cannula 2 08/11/22 11:02 78/41 L 08/11/22 10:49 90 18 91/50 L 94 Nasal Cannula 2 08/11/22 10:48 98 Nasal Cannula 2 08/11/22 10:48 88 21 91/50 L 98 Nasal Cannula 2 PG Care Time/CCT Total # of Minutes Spent Total Time Spent with Patient: Total time spent is greater than 50% in coordination of care (as documented) at patient's floor/unit and/or counseling patient: Coding Level of Care Code 27039 IN/OBS CONSULT LVL 4,60M Diagnoses Hematuria R31.9 Clear cell carcinoma of right kidney C64.1
[2022-08-11] MEDS ORDERED: ONDANSETRON INJ 2 MG/ML 2 ML VIAL IV PRN ×2 (16:12→22:56)
[2022-08-11] MEDS ORDERED: ACETAMINOPHEN 325 MG TAB PO PRN (16:12)
[2022-08-11] MEDS ORDERED: POLYETHYLENE (MIRALAX) 17 GM PACK PO PRN (16:12)
[2022-08-11] MEDS ORDERED: SODIUM CHLORIDE 0.9% 250 ML IV PRN (16:12)
[2022-08-11] MEDS ORDERED: PHARMACY GLYCEMIC MGMT CONSULT PRN (16:12)
[2022-08-11] MEDS ORDERED: LANTUS PER UNIT CHARGE SQ ONE (17:15)
[2022-08-11] MEDS: LEVOTHYROXINE SODIUM 50 MCG TABLET PO SCH (17:22)
[2022-08-11] MEDS: INSULIN ASPART PER UNIT CHARGE SC SCH ×2 (17:24→20:15)
[2022-08-11] MEDS ORDERED: LANTUS PER UNIT CHARGE SC SCH (17:30)
[2022-08-11] MEDS: GABAPENTIN 300 MG CAP PO SCH (20:16)
[2022-08-11 20:37] LABS: Hematocrit (blood only) 23.1 % (42.0-52.0); Hemoglobin 7.5 g/dl (14.0-18.0)
[2022-08-11] MEDS ORDERED: LANTUS PER UNIT CHARGE SQ SCH (21:00)
--- NOTE | 2022-08-11 22:32 | Anesthesiology Consultation ---
Date of Service August 11, 2022 Assessment & Plan Chart Review Chart Review: Acceptable Risk for Surgery and Patient NOT seen in Pre Admission Testing History Height/Weight Height: 6 ft 1 in Weight: 173 kg Allergies Allergy/AdvReac Type Severity Reaction Status Date / Time oxycodone AdvReac Mild DIZZY Verified 08/01/22 06:18 Medications Home Medications Medication Instructions Recorded Confirmed Last Taken gabapentin 300 mg capsule 300 mg PO HS 02/02/19 08/11/22 10/01/19 blood sugar diagnostic (OneTouch #200 ea 08/10/20 05/29/22 Unknown Ultra Blue Test Strip) blood-glucose meter (OneTouch #1 ea 08/10/20 07/22/22 Unknown Ultra2 Meter) lancets (OneTouch UltraSoft #200 ea 08/10/20 08/11/22 Unknown Lancets) allopurinol 300 mg tablet 300 mg PO QAM #90 tabs 10/16/21 08/11/22 07/31/22 06:30 atorvastatin 80 mg tablet 80 mg PO HS #90 tabs 10/16/21 08/11/22 07/31/22 06:30 metformin 500 mg tablet,extended 1,000 mg PO BID #360 tabs 12/28/21 08/11/22 07/30/22 06:30 release 24 hr budesonide-formoterol HFA 80 2 puff inhalation BID #10.2 grams 02/12/22 08/11/22 07/31/22 20:00 mcg-4.5 mcg/actuation aerosol inhaler (Symbicort) CPAP Supplies #1 ea 02/14/22 07/22/22 Unknown lisinopril 40 mg tablet 40 mg PO QAM #90 tabs 05/29/22 08/11/22 07/31/22 06:30 ofloxacin 0.3 % eye drops 5 drp otic (ear) BID PRN clogged 06/24/22 08/11/22 07/31/22 06:30 tube #10 mL sodium sul 1.479 gram-potas ch See Rx Instructions PO .COMPLEX 06/28/22 08/11/22 Unknown 0.188 gram-magnes sul 0.225 gram #24 tabs tablet (Sutab) cyanocobalamin (vitamin B-12) 500 500 mcg PO QAM 04/02/0308/11/22 07/31/22 06:30 mcg tablet dapagliflozin 5 mg tablet (Farxiga) 5 mg PO QAM 07/22/22 08/11/22 07/31/22 06:30 dulaglutide 3 mg/0.5 mL 3 mg subcut WK 08/01/22 08/11/22 07/26/22 06:30 subcutaneous pen injector (Trulicity) gabapentin 300 mg capsule 600 mg PO QAM 08/01/22 08/11/22 07/31/22 06:30 glipizide 10 mg tablet, extended 10 mg PO BID 08/01/22 08/11/22 07/31/22 06:30 release 24 hr (Glucotrol XL) Oxygen Home #1 ea 08/10/22 08/11/22 Unknown amlodipine 2.5 mg tablet 2.5 mg PO DAILY #30 tabs 08/10/22 08/11/22 Unknown furosemide 20 mg tablet (Lasix) 20 mg PO DIRECTED #10 tabs 08/10/22 08/11/22 Unknown levothyroxine 50 mcg tablet 50 mcg PO .qam on empty stomach 08/10/22 08/11/22 Unknown (Synthroid) #30 tabs Active Medications Generic Name Dose Route Start Last Admin Trade Name Yemiq PRN Reason Stop Dose Admin Gabapentin 300 mg 08/11/22 21:00 08/11/22 20:16 Gabapentin 300 Mg Cap PO 09/10/22 20:59 Not Given HS JANAK Sodium Chloride 500 mls @ 150 mls/hr 08/11/22 12:45 08/11/22 20:30 Nss IV 09/10/22 12:44 150 mls/hr .Q3H20M JANAK Administration Insulin Aspart 0 units 08/11/22 16:30 08/11/22 20:15 Insulin Aspart Per Unit Charge SC 09/10/22 16:29 Not Given ACHS JANAK Levothyroxine Sodium 50 mcg 08/11/22 16:12 08/11/22 17:22 Levothyroxine Sodium 50 Mcg Tablet PO 09/10/22 16:11 50 mcg QAM JANAK Administration Past Medical History Medical History Acute kidney injury Acute kidney injury superimposed on CKD Anxiety no meds > controlled COPD (chronic obstructive pulmonary disease) well controlled, no res inh, said his albuterol inh was , and no longer prescribed, going to follow up with PCP Dyslipidemia Gout, joint History of anesthesia problem [facility] > difficulty breathing after a sinus surgery, this is what Dr. Moreno told patient, pt unaware of other details History of COVID-19 May 20, 2022 > home test > body aches > resolved Hyperkalemia Hypertension Mastoid disorder pt unaware Metabolic acidosis Morbid obesity MARIA EUGENIA (obstructive sleep apnea) cpap Postoperative hypotension Renal mass Right renal mass Smoking greater than 30 pack years Stroke-like symptoms - 09/2019- admitted to [facility]- unable to complete MRI due to claustrophobia- left AMA- head/neck CTA and head CT unremarkable- denies any residual problems- no subsequent symptoms since that time - While admitted in 2019- neuro felt small ischemia stroke could not be excluded but suspected symptoms related to inner ear issue Type 2 diabetes mellitus with diabetic neuropathy, without long-term current use of insulin Past Family History Family History Uncle Prostate cancer Mother Diabetes Father Diabetes COPD (chronic obstructive pulmonary disease) Other Hearing loss No family history of allergies No family history of bleeding disorder Denies family history of Heart disease Cancer Hypertension Stroke Asthma Past Surgical History Surgical History H/O partial nephrectomy History of sinus surgery History of tonsillectomy and adenoidectomy tonsils grew back and had to be removed again History of tooth extraction Status post myringotomy with insertion of tube x2 Social History Smoking Status: Former smoker tobacco type: cigarettes Smoking cigarettes per day: 1-1.5 ppd Do You Dip or Chew Tobacco: No Hx Alcohol Use: No Hx Substance Use: No substance use type: marijuana Substance Use Type Other:: uses on weekends Physical Exam Vital Signs Last Vital Signs Temp 36.9 C 08/11/22 22:24 Pulse 82 08/11/22 22:26 Resp 22 08/11/22 22:26 BP 105/66 08/11/22 22:24 Pulse Ox 96 08/11/22 22:26 O2 Del Method BiPAP 08/11/22 22:24 O2 Flow Rate 4 08/11/22 22:26 Testing Laboratory Results 08/11/22 20:19 08/11/22 11:00 PT 11.6 Seconds (9.0-12.0) 08/11/22 11:00 INR 1.1 (0.9-1.1) 08/11/22 11:00 APTT 27.1 Seconds (21.0-31.0) 08/11/22 11:00 Blood Type O Positive 08/11/22 11:00 Antibody Screen NEGATIVE 08/11/22 11:00 08/11/22 08/11/22 08/11/22 20:12 16:48 11:03 POC Glucose 161 H 195 H POC Glucose (other) 284 H
[2022-08-11] MEDS: CEFEPIME 2,000 MG in SYRINGE 0 ML IV SCH (22:39)
--- NOTE | 2022-08-11 22:44 | Communication Note ---
Date of Service: August 11, 2022 I was asked to evaluate this patient by Dr. Mosher this evening as he was called by nursing staff noting that they were unable to flush and irrigate the patient's catheter. Dr. Mosher therefore ordered nurses to remove patient's Reis catheter and plans were put in place to tentatively perform a cystoscopy with clot evacuation with timing to be determined. I visited with the patient at the bedside and discussed with the nursing staff. The patient does note that he feels the urge to urinate quite often. He also admits to some suprapubic discomfort. He does note that he is slightly more comfortable without the Reis catheter in place. Discussion with the nursing staff revealed that patient has been getting up out of bed constantly every few minutes as he feels the urge to void. They note that when he voids he has grossly bloody urine and is only able to void approximately 10 cc at a time. They do feel that the patient seems somewhat uncomfortable. On physical exam with palpation of the patient's abdomen he did have some discomfort with palpation of the suprapubic region. The patient is noted to be hemodynamically stable with a blood pressure of 105/66 and a heart rate in the 80s. He is afebrile. It is nowhere the mention that today in the emergency department patient did have a CT scan that showed concern for large amount of hemorrhagic material/clot in the patient's bladder. As the patient no longer has a functional Reis catheter in place doctoring felt to be the patient's best interest to perform a cystoscopy with clot evacuation. I discussed with the patient and his family at bedside the plans to perform this procedure at approximate 11:00 PM this evening. Additional recommendations will be forthcoming based on the patient's response to this procedure. As the patient has had a complicated postoperative course previously I have notified the facilities engineer provider as well as the hospitalist service about the need to potentially escalate the patient's level of care depending on how he does after this procedure. Additional recommendations be forthcoming.
[2022-08-11] MEDS ORDERED: ATROPINE SULFATE 0.1 MG/ML 10ML SYR IV PRN (22:56)
[2022-08-11] MEDS ORDERED: ePHEDrine sulfate 50 MG/ML AMP IV PRN (22:56)
[2022-08-11] MEDS ORDERED: fentaNYL citrate PF 100 MCG/2 ML VIAL IV PRN (22:56)
--- NOTE | 2022-08-11 23:50 | History & Physical Bridge Note ---
Date of Service August 11, 2022 History & Physical Bridge Note I have examined the patient, reviewed the History & Physical and in the interval since the performance of the History & Physical I have noted the following changes of clinical significance: no changes noted Unfortunately, after being evaluated in the emergency room, the patient continued to have voiding dysfunction and difficulty irrigating his catheter. The decision was made to take him to the operating room to evacuate the clot. Given his lack of n.p.o. status, this was delayed until the current time to be safe for anesthesia.
--- NOTE | 2022-08-12 01:29 | Operative Report ---
PG Post Operative Report Pre & Post Diagnosis Operation Date: 08/11/22 23:45 Pre-Op Diagnosis: hematuria Post-Op Diagnosis: hematuria I identified the patient and participated in the time-out.: Yes Procedure Operation Date: 08/11/22 23:45 Actual Procedures p Cystoscopy and clot Evacuation(Not Applicable) - Peterson Mosher MD Surgeon Peterson Mosher MD Attache none Estimated Blood Loss 0 Findings Consistent with Post-Op Diagnosis Specimens none Description of Procedure The patient was identified in the preoperative holding area, appropriate informed consents were reviewed and completed and the patient was transferred to the operative suite. Upon arrival, appropriate antibiotics and anesthesia were administered and the patient was placed in dorsal lithotomy position and prepped and draped in sterile fashion. Begin the case I passed a 27 Macedonian resectoscope with 30 degree lens and visual obturator. Inspection revealed a healthy-appearing urethra but I began to see clot as soon as I advanced the scope through the prostate. His prostatic urethra was moderately irritatedpresumably from the catheter. The bladder was difficult to inspect upon initial entry secondary to a copious amount of blood. After my initial efforts he inspect, I used an instrument Jose G syringe to attempt to irrigate as much clot as possible out of the bladder. I initially irrigated 500 to 700 cc of clot. I then reinspected and found that I still had not irrigated the majority of the clot out of the bladder. I repeated and irrigated an additional 5 to 700 cc. I then inspected again and found that there was only some residual clot in the upper portion of the bladder. This was relatively hard to reach. I used a loop electrode as a scraping tool to try to pull this off of the areas where it was adherent to the bladder wall. Of note the bladder wall was quite irritated and a variety of areas but there did not appear to be any active bleeding that I could not definitively identify. The ureteral orifices were identified and I saw no bloody output from the right UO during my time inspecting. Unfortunately, I cannot definitively say I saw urine output at all from the right UO. After working for significant amount of time on the adherent clot, I felt I had achieved all I could achieve through this surgery. I again irrigated with the instrument Jose G syringein total I would estimate my cumulative clot irrigation was close to 2 L. I concluded the case by placing a 22 Macedonian hematuria 3-way catheter. I decided to run gentle CBI to prevent clot formation if his kidney bleeds again overnight. He was subsequently extubated and taken to the recovery area in stable condition. He tolerated the surgery well. There was minimal blood loss from the surgery itself. I attest to the content of the Intraoperative Record and any orders documented therein. Any exceptions are noted below.
--- NOTE | 2022-08-12 02:01 | Anesthesiology Progress Note ---
Date of Service August 12, 2022 Anesthesia Post Procedure Vital Signs Vital Signs: Temp Pulse Pulse Resp BP BP Pulse Ox 08/12/22 01:40 36.9 C 92 H 20 150/73 H 94 08/12/22 01:30 37 C 92 H 24 155/80 H 97 08/12/22 01:20 36.7 C 93 H 28 H 129/65 97 08/12/22 01:26 94 H 94 08/11/22 22:57 79 08/11/22 22:26 82 22 96 08/11/22 22:24 36.9 C 85 22 105/66 96 08/11/22 20:00 08/11/22 20:24 90 26 H 94 08/11/22 19:39 36.4 C L 89 22 106/74 98 08/11/22 16:22 97 H 08/11/22 16:00 08/11/22 16:14 36.4 C L 22 97 08/11/22 15:55 78 24 133/64 95 08/11/22 15:10 99 H 34 H 141/81 H 99 08/11/22 15:00 110 H 30 H 129/66 98 08/11/22 14:50 102 H 31 H 133/77 99 08/11/22 14:40 102 H 29 H 144/79 H 98 08/11/22 14:30 104 H 34 H 127/77 99 08/11/22 14:20 103 H 33 H 130/75 96 08/11/22 14:10 110 H 29 H 147/119 H 97 08/11/22 14:00 101 H 37 H 127/75 98 08/11/22 13:50 105 H 35 H 101/73 97 08/11/22 13:40 102 H 34 H 125/75 97 08/11/22 13:30 105 H 25 H 127/75 98 08/11/22 13:20 105 H 31 H 136/82 98 08/11/22 13:11 112 H 24 127/86 100 08/11/22 13:01 105 H 24 137/81 100 08/11/22 13:00 105 H 29 H 100 08/11/22 12:53 106 H 32 H 97/75 L 99 08/11/22 12:50 99 H 32 H 88/67 L 100 08/11/22 12:41 101 H 31 H 135/79 98 08/11/22 12:30 95 H 33 H 125/100 99 08/11/22 12:21 103 H 29 H 124/76 97 08/11/22 12:08 99 H 13 113/86 99 08/11/22 11:41 101 H 16 117/75 97 08/11/22 11:31 89 24 121/65 93 08/11/22 11:21 84 26 H 128/62 92 08/11/22 12:12 101 H 08/11/22 11:19 86 17 118/56 L 89 L 08/11/22 11:17 37 C 87 19 115/65 93 08/11/22 11:10 86 17 106/57 L 93 08/11/22 11:02 78/41 L 08/11/22 10:49 90 18 91/50 L 94 08/11/22 10:48 98 08/11/22 10:48 88 21 91/50 L 98 O2 Del Method O2 Flow Rate FiO2 08/12/22 01:40 BiPAP 70 08/12/22 01:30 BiPAP 80 08/12/22 01:20 BiPAP 100 08/12/22 01:26 80 08/11/22 22:57 08/11/22 22:26 4 08/11/22 22:24 BiPAP 08/11/22 20:00 Nasal Cannula 4 08/11/22 20:24 5 08/11/22 19:39 Nasal Cannula 4 08/11/22 16:22 08/11/22 16:00 Oxymask 4 08/11/22 16:14 Oxymask 4 08/11/22 15:55 Oxymask 4 08/11/22 15:10 Oxymask 4 08/11/22 15:00 Oxymask 4 08/11/22 14:50 Oxymask 4 08/11/22 14:40 Oxymask 4 08/11/22 14:30 Oxymask 4 08/11/22 14:20 Oxymask 4 08/11/22 14:10 Oxymask 4 08/11/22 14:00 Oxymask 4 08/11/22 13:50 Oxymask 4 08/11/22 13:40 Oxymask 4 08/11/22 13:30 Oxymask 4 08/11/22 13:20 Oxymask 4 08/11/22 13:11 Oxymask 4 08/11/22 13:01 Oxymask 4 08/11/22 13:00 08/11/22 12:53 Oxymask 4 08/11/22 12:50 Oxymask 4 08/11/22 12:41 Oxymask 4 08/11/22 12:30 Oxymask 4 08/11/22 12:21 Oxymask 4 08/11/22 12:08 Oxymask 4 08/11/22 11:41 Oxymask 4 08/11/22 11:31 Oxymask 4 08/11/22 11:21 Oxymask 4 08/11/22 12:12 08/11/22 11:19 Nasal Cannula 2 08/11/22 11:17 Nasal Cannula 2 08/11/22 11:10 Nasal Cannula 2 08/11/22 11:02 08/11/22 10:49 Nasal Cannula 2 08/11/22 10:48 Nasal Cannula 2 08/11/22 10:48 Nasal Cannula 2 Pain Intensity Right Abdomen: Pain Intensity: 5 Transfer of Care Handoff Completed per policy Notes Mental Status: alert / awake / arousable and participated in evaluation Patient Amnestic to Procedure: Yes Nausea / Vomiting: adequately controlled Pain: adequately controlled Airway Patency, RR, SpO2: stable & adequate (pt on home bipap) BP & HR: stable & adequate Hydration State: stable & adequate Anesthetic Complications: no major complications apparent and Pt Satisfied with anesthetic care
[2022-08-12] MEDS ORDERED: SODIUM CHLORIDE 0.9% 250 ML IV PRN ×3 (02:04→18:36)
[2022-08-12] MEDS: SODIUM CHLORIDE 0.9% 500 ML IV SCH ×7 (02:21→20:52)
[2022-08-12] MEDS ORDERED: MoRPHine SULFATE 2 MG/ML CARP IV PRN (03:02)
[2022-08-12] MEDS: MoRPHine SULFATE 4 MG/ML 1 ML CARP\\VIAL IV PRN ×3 (03:21→17:32)
--- NOTE | 2022-08-12 03:52 | Communication Note ---
Date of Service: August 12, 2022 Patient visited at bedside following his procedure. He notes that his breathing currently feels comfortable. His only complaint is some minor burning from his catheter. He notes the suprapubic discomfort he felt prior to his procedure has improved. I discussed the patient's care with the nursing staff. They note that the continuous bladder irrigation is working effectively. Patient is currently receiving his second unit of packed red blood cells. Nursing staff did not voice any concerns at this time. Patient is noted to be hemodynamically stable with a blood pressure of 155/63 and a pulse of 89. He is afebrile and his pulse ox is 96% on his BiPAP machine. Reis catheter inspected and continuous bladder irrigation is running and urine appears clear.
[2022-08-12 06:37] LABS: Calcium 7.5 mg/dl (8.6-10.3); Creatinine Clr Calc Pharmacy 76.9 ml/min; Est GFR (African American) 49.4 ml/min; Est GFR (Non-African American) 42.6 ml/min; Potassium 5.6 mmol/L (3.5-5.1)
--- NOTE | 2022-08-12 08:11 | Urology Progress Note ---
Date of Service August 12, 2022 Assessment & Plan (1) Hematuria: (2) Clear cell carcinoma of right kidney: Plan Status post partial nephrectomy with a complicated postop course He was discharged home on Friday, returned Friday because of bleeding and inability to void CT revealed a copious amount of clot within the bladder Catheters were ineffective and draining this and he ultimately returned to the operating room last night We were able to irrigate approximately 2 L of clot out of his bladder and he now has a 22 [place] [address] in place with slow CBI running overnight This was now clamped and we will observe I would like to have his catheter removed in the near future but I do not want to salazar that today His creatinine has risen from Friday to present, I would like to see this start to turn the right direction before we pull the catheter If he rebleeds, I would have a strong suspicion of pseudoaneurysm and send him for angiography and intervention with interventional radiology Admission and Anticipated Discharge Date Admission Date: August 11, 2022 Subjective Doing relatively well this morning He tolerated surgery overnight surprisingly well He has not had major respiratory issues since that time He is still on 5 L of supplementation but only with nasal cannula CBI running slowly overnight and remained clear Lower abdominal pressure has improved drastically since irrigation of the clot Physical Exam Physical Exam: Unchanged abdominal exam Soft, nontender, incisions appropriate Bruising around incisions, the lower abdominal wall and extending onto his back but no increase from yesterday or the day prior Urine clear with CBI running at a very slow rate Results & Data Vital Signs (Past 12 Hours) Vital Signs Temp Pulse Pulse Resp BP BP Pulse Ox 08/12/22 07:32 08/12/22 07:00 36.4 C L 77 22 119/73 93 08/12/22 06:30 37 C 77 22 139/81 98 08/12/22 06:15 36.9 C 84 24 149/82 H 96 08/12/22 06:00 36.5 C 85 20 139/77 96 08/12/22 05:29 37 C 81 20 115/67 98 08/12/22 05:28 37 C 81 20 115/67 98 08/12/22 04:48 37 C 74 20 117/64 98 08/12/22 04:47 37 C 80 20 117/64 98 08/12/22 04:30 37 C 78 20 104/64 97 08/12/22 03:48 36.5 C 89 24 155/63 H 96 08/12/22 03:33 37 C 90 24 96/67 L 97 08/12/22 03:18 36.9 C 91 H 24 116/67 98 08/12/22 03:03 36.7 C 92 H 24 120/64 98 08/12/22 02:47 37 C 86 24 128/68 98 08/12/22 02:42 37 C 86 24 128/68 97 08/12/22 02:27 36.6 C 88 22 145/72 H 97 08/12/22 02:18 88 27 H 96 08/12/22 02:15 36.9 C 89 24 146/74 H 97 08/12/22 01:40 36.9 C 92 H 20 150/73 H 94 08/12/22 01:30 37 C 92 H 24 155/80 H 97 08/12/22 01:20 36.7 C 93 H 28 H 129/65 97 08/12/22 01:26 94 H 94 08/11/22 22:57 79 08/11/22 22:26 82 22 96 08/11/22 22:24 36.9 C 85 22 105/66 96 08/11/22 20:24 90 26 H 94 O2 Del Method O2 Flow Rate FiO2 08/12/22 07:32 Nasal Cannula 5 08/12/22 07:00 5 08/12/22 06:30 5 08/12/22 06:15 5 08/12/22 06:00 5 08/12/22 05:29 08/12/22 05:28 08/12/22 04:48 08/12/22 04:47 08/12/22 04:30 BiPAP 40 08/12/22 03:48 08/12/22 03:33 BiPAP 40 08/12/22 03:18 08/12/22 03:03 08/12/22 02:47 08/12/22 02:42 BiPAP 50 08/12/22 02:27 BiPAP 50 08/12/22 02:18 50 08/12/22 02:15 BiPAP 50 08/12/22 01:40 BiPAP 70 08/12/22 01:30 BiPAP 80 08/12/22 01:20 BiPAP 100 08/12/22 01:26 80 08/11/22 22:57 08/11/22 22:26 4 08/11/22 22:24 BiPAP 08/11/22 20:24 5 PG Care Time/CCT Total # of Minutes Spent Total Time Spent with Patient: Total time spent is greater than 50% in coordination of care (as documented) at patient's floor/unit and/or counseling patient: Coding Level of Care Code 26685 SUB INP/OBS CARE 2/35MIN Diagnoses Hematuria R31.9 Clear cell carcinoma of right kidney C64.1
[2022-08-12] MEDS ORDERED: GABAPENTIN 300 MG CAP PO SCH (09:00)
[2022-08-12] MEDS ORDERED: LANTUS PER UNIT CHARGE SC SCH (09:00)
[2022-08-12] MEDS ORDERED: CYANOCOBALAMIN (B-12) 500 MCG TABLET PO SCH (09:00)
[2022-08-12] MEDS ORDERED: FLUTICASONE/VILANTEROL 100/25MCG 14 PUFFS/INHALER INH SCH (09:00)
[2022-08-12] MEDS: INSULIN ASPART PER UNIT CHARGE SC SCH ×4 (09:05→20:26)
[2022-08-12] MEDS: LEVOTHYROXINE SODIUM 50 MCG TABLET PO SCH (09:07)
--- NOTE | 2022-08-12 10:54 | Pharmacy Report ---
Pharmacy Glycemic Short Note 2 - Date of Service August 12, 2022 - Glycemic Short BSG Results (Last 24 hours): 08/11/22 08/11/22 08/11/22 11:00 11:03 16:48 Glucose 289 H POC Glucose 195 H POC Glucose (other) 284 H 08/11/22 08/12/22 08/12/22 20:12 05:42 07:40 Glucose 143 H POC Glucose 161 H 139 H POC Glucose (other) OUTPATIENT ANTIDIABETIC REGIMEN: * Metformin ER 1000 mg PO BID * Glipizide ER 10 mg PO BID * Farxiga 5 mg PO daily * Trulicity 3 mg SC every Friday * HbA1c: 9.6% (05/30/22) ASSESSMENT: * 57 yo M admitted on 08/11/22 secondary to gross hematuria. Pharmacy has been consulted to assist with inpatient glycemic management. Patient is an uncontrolled Type 2 diabetic as an outpatient. Please refer to outpatient regimen and most recent HbA1c above. * Recently discharged from [facility] on 08/10/22. Pharmacy was consulted for glycemic management during that admission as well. Underwent cystoscopy and clot evacuation last evening. Now ordered and tolerating a T2DM diet. Currently on Cefepime and Daptomycin for UTI. * BSGs yesterday were: 284-195-161 mg/dL. Received 30 units of basal + 6 units of bolus. Did refuse HS bolus insulin prior to going to OR. * Fasting BSG was 139 mg/dL this AM. Will resume previous regimen that controlled patient during last hospital stay. PLAN FOR INPATIENT GLYCEMIC CONTROL: * Hold outpatient oral diabetes medications * Basal insulin * Lantus 30 units SC BID * Bolus insulin * NovoLog per scale ACHS or Q6hrs while NPO * Goal Range: Low 110 mg/dL - High 140 mg/dL * Correction Factor: 15 mg/dL/unit * Nutritional / Prandial insulin per carb ratio of 1 unit per 5 grams CHO consumed
[2022-08-12] MEDS ORDERED: DAPTOmycin 700 MG in SYRINGE 0 ML IV SCH (12:00)
[2022-08-12] MEDS ORDERED: LIDOCAINE 2% JELLY 5 ML TUBE EXT PRN (12:41)
[2022-08-12] MEDS: CEFEPIME 2,000 MG in SYRINGE 0 ML IV SCH (12:44)
[2022-08-12 13:22] LABS: Hematocrit (blood only) 23.3 % (42.0-52.0); Hemoglobin 7.6 g/dl (14.0-18.0); Mean Corpuscular Hemoglobin 29.2 pg (25.0-34.0); Mean Corpuscular Hgb Conc 32.6 g/dL (32.0-36.0); Mean Corpuscular Volume 89.6 fL (80.0-100.0); Mean Platelet Volume 9.6 fL (9.4-12.4); Nucleated RBC # (auto) 0.02 K/uL (0-0.12); Nucleated RBC % (auto) 0.1 %; Platelet Count 551 K/uL (130-400); RDW Coefficient of Variation 15.1 % (11.5-14.5); RDW Standard Deviation 48.7 fL (36.4-46.3); White Blood Count 21.87 K/ul (4.8-10.8)
--- NOTE | 2022-08-12 17:16 | Hospitalist Progress Note ---
Date of Service August 12, 2022 Assessment & Plan (1) Acute blood loss anemia: Plan: Acute blood loss anemia following partial nephrectomy for renal cell ca (11 days post op) d/t retroperitoneal hematoma - unstable - high risk - Urology consulted urgently - pt taken back to OR by Dr. Mosher, underwent cystoscopy and clot evacuation - Peterson in place with CBI - CBC reviewed today, hgb 7.6 - no need for blood at this time, not symptomatic - Continue to trend H&H and will transfuse if hgb <7 - Dr. Mosher following pt, given the nature of his hospitalization will tr ansition back to urology as primary service (2) Leukocytosis: Plan: Acute/unstable - high risk - Possibly secondary to post op infection - CT noted punctate focus of gas w/in R retroperitoneal fluid/hemorrhage has improved and favors resolving post op change but superinfection would be difficult to exclude - Reviewed prior records, last wbc was 13.68 on 08/09, upon admit (08/11) was 25.90 - Empirically started on Daptomycin and Cefepime - CBC reviewed, wbc count has trended down to 21.87 - Urine and blood cultures drawn/pending (3) COPD (chronic obstructive pulmonary disease): Plan: Chronic/stable - W/o acute exacerbation at this time - Continue Symbicort and supplemental O2 - Earlier today was documented as 94% pulse ox on 5L - Ultimately goal pulse ox is 88-92% (4) Acute kidney injury: Plan: Acute/unstable - Upon discharge, renal function had returned to normal with creatinine at 1.32 - On admit, creatinine was 1.61, reviewed chemistry today, creatinine uptrended to 1.75 - Ultimately want to see this downtrend, suspect post obstructive in nature d/t bleeding - Trend with repeat chemistry in AM - Hold ACEi (5) MARIA EUGENIA (obstructive sleep apnea): Plan: Chronic/stable - Continue bipap while sleeping (6) Anxiety: Plan: Chronic/stable - (7) Hypertension: Plan: Chronic/stable - Takes Lisinopril, Amlodipine, and Lasix - BP meds currently on hold - if BP becomes accelerated, will reintroduce appropriate meds (8) Type 2 diabetes mellitus with diabetic neuropathy, without long-term current use of insulin: Plan: Chronic/stable - Takes Farxiga, Glipizide, Metformin, and Trulicity - BSG checks AC and HS - Oral diabetic meds on hold and converted to lantus/log - pharmacy consulted for glycemic management, appreciate assistance Plan SCDs to bilateral LE for DVT ppx due to ABLA. Repeat labs ordered for tomorrow AM. Will continue to follow closely along with this patient and continue to make recommendations based on progression of the hospitalization. Plan d/w Dr. Mora. Admission and Anticipated Discharge Date Admission Date: August 11, 2022 Subjective Patient was seen on daily rounds this morning. He is resting comfortably in bed, no abd pain, n/v/d. He denies dyspnea, cough, fever/chills. Reports some itching where the lobo are in from his recent surgery. Endorses a little bit of discomfort from the catheter. Physical Exam Physical Exam: GENERAL: 57 yo morbidly obese middle aged M. AAOx4. NAD. LUNGS: Clear to auscultation bilaterally. No W/R/R. CARDIOVASCULAR: Regular rate and rhythm. ABDOMEN: Soft, obese, non-tender and non-distended. BS normoactive x 4 quad. Incisions are healing well and lobo remain in place. No redness/bleeding/drainage. : peterson in place with CBI. Urine in bag is pink. Results & Data Results & Data Vital Signs (Past 12 Hours) Vital Signs Temp Pulse Pulse Resp BP BP Pulse Ox 08/12/22 14:18 83 08/12/22 15:57 36.2 C L 74 105/55 L 99 08/12/22 10:02 36.5 C 87 20 125/60 92 08/12/22 11:24 36.4 C L 79 19 151/73 H 94 08/12/22 09:02 36.8 C 83 20 128/67 92 08/12/22 08:00 36.7 C 84 20 146/72 H 93 08/12/22 06:02 86 08/12/22 07:32 08/12/22 07:00 36.4 C L 77 22 119/73 93 08/12/22 06:30 37 C 77 22 139/81 98 08/12/22 06:15 36.9 C 84 24 149/82 H 96 08/12/22 06:00 36.5 C 85 20 139/77 96 05/01/23 05:29 37 C 81 20 115/67 98 08/12/22 05:28 37 C 81 20 115/67 98 O2 Del Method O2 Flow Rate 08/12/22 14:18 08/12/22 15:57 BiPAP 08/12/22 10:02 4 08/12/22 11:24 Nasal Cannula 5 08/12/22 09:02 4 08/12/22 08:00 5 08/12/22 06:02 08/12/22 07:32 Nasal Cannula 5 08/12/22 07:00 5 08/12/22 06:30 5 08/12/22 06:15 5 08/12/22 06:00 5 08/12/22 05:29 08/12/22 05:28 Laboratory Results 08/12/22 12:54 08/12/22 05:42 PG Care Time/CCT Total # of Minutes Spent Total Time Spent with Patient: Total time spent is greater than 50% in coordination of care (as documented) at patient's floor/unit and/or counseling patient: Coding Level of Care Code 11486 SUB INP/OBS CARE 3/50MIN Diagnoses Acute blood loss anemia D62 Leukocytosis D72.829 COPD (chronic obstructive pulmonary disease) J44.9 Acute kidney injury N17.9 MARIA EUGENIA (obstructive sleep apnea) G47.33 Anxiety F41.9 Hypertension I10 Type 2 diabetes mellitus with diabetic neuropathy, without long-term current use of insulin E11.40
[2022-08-12] MEDS ORDERED: OPTIRAY 320 500ml IV ONE (18:55)
[2022-08-12] MEDS ORDERED: RAPID SEQUENCE INDUCTION BAG ONE (18:55)
[2022-08-12] MEDS ORDERED: PROPOFOL IV EMULSION 10 MG/ML 100 ML VIAL IV ONE (18:55)
[2022-08-12 19:15] LABS: Hematocrit (blood only) 21.2 % (42.0-52.0); Hemoglobin 6.8 g/dl (14.0-18.0)
--- NOTE | 2022-08-12 20:00 | Critical Care Consultation ---
Date of Consultation August 12, 2022 Assessment & Plan (1) Acute blood loss anemia: (2) COPD (chronic obstructive pulmonary disease): (3) MARIA EUGENIA (obstructive sleep apnea): (4) Hypertension: (5) Morbid obesity: (6) Blood clot in bladder: (7) S/p nephrectomy: Plan Reason Critically Ill: 57YOM s/p partial nephrectomy secondary to clear cell renal carcinoma. Patient had complicated postoperative course and eventually went home. He was re-admitted on 08/11/22 for hematuria and was taken tot he OR last evening for clot removal and blood transfusion. Patient was with CBI overnight and was apparently recovering well until this evening where he became more pale, dyspneic, and drop in HGB levels. Transferred to ICU for acute monitoring and resuscitation support while awaiting transport to tertiary center for IR. Patient was evaluated by ICU staff, Urology and IM at bedside. Neuro - No acute needs - mentating well with no signs of hypoperfusion - moving all extremities Cardiac - Acute blood loss anemia, HTN, HLD - Transfuse for HGB 8 or greater with active pseudoaneurysm - Currently without vasopressor support - No chest pain - Follow coags, fibrinogen and ica - support Respiratory - COPD, MARIA EUGENIA - NC and BIPAP support - intubation if needed for decompensation GI - No acute needs RENAL/LYTES - Renal cell carcinoma, pseudoaneurysm renal s/p partial nephrectomy, MAO - MAO on CKD III not making urine at this time Peterson removed secondary to obstruction with clot - Urology recs no placement of Peterson at this time secodnary to clot - As above ENDO - DM - ICU hyperglycemic protocol HEME - Acute blood loss anemia - Secondary to above- transfuse HGB 8 - or active hemorrhage, ischemia, or symptoms - Platlet count 551 - INR/PTT/Fibronogen pending ID - UTI/instrumentation of bladder - continue cefepime LINES/IV ACCESS - Right IJ MAC catheter, PIV x2, Continue use of these lines DVT PROPHYLAXIS - SCDS, hold chemoprophylaxis at this time DISPO- ICU while awaiting transfer to tertiary care center I have personally spent 50 minutes of critical care time in the direct management of this patient. This is a life/limb threatening event. This includes time spent evaluating patient, direct bedside care, chart review, placing orders, interpretation of diagnostic studies, discussion with consultants, patient, and family members, as well as other required patient management activities. This time is exclusive of all separately billable procedures, and separate from and in addition to any other critical care service time. Thank you for allowing us to participate in the care of this patient. Please refer to my attending physician's documentation for any further recommendations. History of Present Illness Reason for Consultation: Concern or active hemorrhage Requesting Physician: Rock Mora MD Attending Physician: Peterson Elena MD History of Present Illness 57 YOM with POD #1 from cystoscopy and bladder irrigation from his bladder. This was likely secondary to partial nephrectomy that was performed last week and with confirmed pseudoaneurysm on CT scan. Was notified at 1805 by medicine service following a discussion with primary urology team in regards to patient with decrease in HGB, and decreasing hemodynamics. Patient was evaluated in his carlson room noting cool clammy skin, and pale appearance with complain of back pain. He is mentating well but states he feels a little more short of breath. Transfer was early in the process without accepting physician or destination known. Decision was made to bring patient to the ICU for supportive care until details were worked out with transfer. Patient with noted difficult stay post nephrectomy requiring intubation and vasopressors with ARF non oliguric and not requiring dialysis. Discussed case with attending Dr. Miles who met the patient at the bedside as well upon arrival to the ICU. Staff Hospitalist as well as Staff Urologist at bedside as well. Patient evaluated and currently he is maintaining his blood pressure, noted drop in hgb and is receiving PRBCs. He is mentating well and is able to lay flat as well as tolerated placement of MAC catheter to Right IJ without respiratory distress. Main concern at this time is supporting bleeding as well as hemodynamics. Family was updated by staff from all services as above. Patient is awaiting transport to [facility]. CODE: FULL Procedures: Right IJ central line placement- MAC catheter Allergies Allergy/AdvReac Type Severity Reaction Status Date / Time oxycodone AdvReac Mild DIZZY Verified 08/01/22 06:18 Home Medications Medication Instructions Recorded Confirmed Type gabapentin 300 mg capsule 300 mg PO HS 02/02/19 08/11/22 History blood sugar diagnostic (OneTouch #200 ea 08/10/20 05/29/22 Rx Ultra Blue Test Strip) blood-glucose meter (OneTouch #1 ea 08/10/20 07/22/22 Rx Ultra2 Meter) lancets (OneTouch UltraSoft #200 ea 08/10/20 08/11/22 Rx Lancets) allopurinol 300 mg tablet 300 mg PO QAM #90 tabs 10/16/21 08/11/22 Rx atorvastatin 80 mg tablet 80 mg PO HS #90 tabs 10/16/21 08/11/22 Rx metformin 500 mg tablet,extended 1,000 mg PO BID #360 tabs 12/28/21 08/11/22 Rx release 24 hr budesonide-formoterol HFA 80 2 puff inhalation BID #10.2 grams 02/12/22 08/11/22 Rx mcg-4.5 mcg/actuation aerosol inhaler (Symbicort) CPAP Supplies #1 ea 02/14/22 07/22/22 Rx lisinopril 40 mg tablet 40 mg PO QAM #90 tabs 05/29/22 08/11/22 Rx ofloxacin 0.3 % eye drops 5 drp otic (ear) BID PRN clogged 06/24/22 08/11/22 Rx tube #10 mL sodium sul 1.479 gram-potas ch See Rx Instructions PO .COMPLEX 06/28/22 08/11/22 Rx 0.188 gram-magnes sul 0.225 gram #24 tabs tablet (Sutab) cyanocobalamin (vitamin B-12) 500 500 mcg PO QAM 07/22/22 08/11/22 History mcg tablet dapagliflozin 5 mg tablet (Farxiga) 5 mg PO QAM 07/22/22 08/11/22 History dulaglutide 3 mg/0.5 mL 3 mg subcut WK 08/01/22 08/11/22 History subcutaneous pen injector (Trulicity) gabapentin 300 mg capsule 600 mg PO QAM 08/01/22 08/11/22 History glipizide 10 mg tablet, extended 10 mg PO BID 08/01/22 08/11/22 History release 24 hr (Glucotrol XL) Oxygen Home #1 ea 08/10/22 08/11/22 Rx amlodipine 2.5 mg tablet 2.5 mg PO DAILY #30 tabs 08/10/22 08/11/22 Rx furosemide 20 mg tablet (Lasix) 20 mg PO DIRECTED #10 tabs 08/10/22 08/11/22 Rx levothyroxine 50 mcg tablet 50 mcg PO .qam on empty stomach 08/10/22 08/11/22 Rx (Synthroid) #30 tabs Patient History Medical History Acute kidney injury Acute kidney injury superimposed on CKD Anxiety no meds > controlled COPD (chronic obstructive pulmonary disease) well controlled, no res inh, said his albuterol inh was , and no longer prescribed, going to follow up with PCP Dyslipidemia Gout, joint History of anesthesia problem [facility] > difficulty breathing after a sinus surgery, this is what Dr. Moreno told patient, pt unaware of other details History of COVID-May 20, 2022 > home test > body aches > resolved Hyperkalemia Hypertension Mastoid disorder pt unaware Metabolic acidosis Morbid obesity MARIA EUGENIA (obstructive sleep apnea) cpap Postoperative hypotension Renal mass Right renal mass Smoking greater than 30 pack years Stroke-like symptoms - 09/2019- admitted to [facility]- unable to complete MRI due to claustrophobia- left AMA- head/neck CTA and head CT unremarkable- denies any residual problems- no subsequent symptoms since that time - While admitted in 2019- neuro felt small ischemia stroke could not be excluded but suspected symptoms related to inner ear issue Type 2 diabetes mellitus with diabetic neuropathy, without long-term current use of insulin Surgical History H/O partial nephrectomy History of sinus surgery History of tonsillectomy and adenoidectomy tonsils grew back and had to be removed again History of tooth extraction Status post myringotomy with insertion of tube x2 Family History Uncle Prostate cancer Mother Diabetes Father Diabetes COPD (chronic obstructive pulmonary disease) Other Hearing loss No family history of allergies No family history of bleeding disorder Denies family history of Heart disease Cancer Hypertension Stroke Asthma Social History Smoking Status: Former smoker Tobacco Type: Cigarettes Age Started Using Tobacco: 22; packs per day: 1.5; Cigarettes Per Day: 1-1.5 ppd; Second Hand Exposure: No; Do You Dip or Chew Tobacco: No; Hx Alcohol Use: No Hx Substance Use: No Preferred Language: Danish Communication Ability: Effective Police Sergeant Required: No Beliefs That Will Affect Care: None marital status: Single Current Living Situation: Family and Significant Other Current Living Situation Comment: Elisabet Daughter/ JEFFREY Jeong current occupational status: unemployed Feels Safe at Home: Yes Diet: regular caffeine: Yes Dental Care, Regularly: No Physical Activity Frequency: Does not Exercise Seatbelt Use: always Sunscreen Use: No Assistive Devices: BiPap and Oxygen - at Night Review of Systems Review of Systems: REVIEW OF SYSTEMS: Constitutional: No fever, sweats or chills Eyes: (+) pale conjunctivae No diplopia, no worsening or blurred vision ENT: normal hearing, no trouble swallowing Respiratory: (+) dyspnea, No cough, sputum, Cardiovascular: No chest pain, tightness or palpitations Abdomen: (+) obese, No pain, nausea, vomiting, diarrhea or constipation Musculoskeletal: (+) chronic back pain Neurologic: No weakness, numbness/tingling, or balance problems Physical Exam Physical Exam: PHYSICAL EXAM: General: awake, alert, pale Head: Normocephalic, atraumatic ENT: PERRL, EOMI, no pharyngeal exudate, mucous membranes dry, conjunctiva pale Neuro: AAO x 3, speech clear and appropriate, strength intact bilaterally 5/5, sensation intact and equal all extremities and dermatomes, no pronator drift Chest: equal rise and fall of the chest, no accessory muscle use, no heaves or thrills, decreased throughout secondary to body habitus- on 6LNC Cardiac: Regular rate and rhythm, telemetry reviewed, skin warm dry, cap refill <3 seconds, peripheral pulses +2 no JVD, no murmur, no JVD, no edema GI: NABS x 4 quadrants, soft, tender to palpation on flanks, no rebound, guarding or tenderness : attempting to void- no peterson in place- light pink urine, bladder tender to palpation Results & Data Results & Data Vital Signs (Past 12 Hours) Vital Signs Temp Pulse Pulse Resp BP BP Pulse Ox 08/12/22 19:46 36.6 C 89 27 H 128/70 100 08/12/22 19:31 36.6 C 89 32 H 128/70 100 08/12/22 19:15 36.6 C 86 22 128/89 08/12/22 14:18 83 08/12/22 15:57 36.2 C L 74 105/55 L 99 08/12/22 10:02 36.5 C 87 20 125/60 92 08/12/22 11:24 36.4 C L 79 19 151/73 H 94 08/12/22 09:02 36.8 C 83 20 128/67 92 O2 Del Method O2 Flow Rate 08/12/22 19:46 08/12/22 19:31 08/12/22 19:15 08/12/22 14:18 08/12/22 15:57 BiPAP 08/12/22 10:02 4 08/12/22 11:24 Nasal Cannula 5 08/12/22 09:02 4 Laboratory Results Abnormal lab results 08/11/22 08/11/22 08/12/22 Range/Units 11:00 20:19 05:42 WBC (4.8-10.8) K/ul RBC (4.70-6.10) M/uL Hgb 7.5 L (14.0-18.0) g/dl Hct 23.1 L (42.0-52.0) % RDW Std Deviation (36.4-46.3) fL RDW Coeff of Chano (11.5-14.5) % Plt Count (130-400) K/uL Potassium 5.6 H (3.5-5.1) mmol/L Chloride 112 H (98-107) mmol/L BUN 35 H (6-23) mg/dl Creatinine 1.75 H (0.6-1.4) mg/dl Glucose 143 H (70-99(Fasting)) mg/dl POC Glucose (70-99) mg/dl Calcium 7.5 L (8.6-10.3) mg/dl Ionized Calcium (1.12-1.32) mmol/L Crossmatch See Detail 08/12/22 08/12/22 08/12/22 Range/Units 07:40 11:18 12:53 WBC 21.87 H (4.8-10.8) K/ul RBC 2.60 L (4.70-6.10) M/uL Hgb 7.6 L (14.0-18.0) g/dl Hct 23.3 L (42.0-52.0) % RDW Std Deviation 48.7 H (36.4-46.3) fL RDW Coeff of Chano 15.1 H (11.5-14.5) % Plt Count 551 H (130-400) K/uL Potassium (3.5-5.1) mmol/L Chloride (98-107) mmol/L BUN (6-23) mg/dl Creatinine (0.6-1.4) mg/dl Glucose (70-99(Fasting)) mg/dl POC Glucose 139 H 152 H (70-99) mg/dl Calcium (8.6-10.3) mg/dl Ionized Calcium (1.12-1.32) mmol/L Crossmatch 08/12/22 08/12/22 08/12/22 Range/Units 16:26 18:19 19:44 WBC (4.8-10.8) K/ul RBC (4.70-6.10) M/uL Hgb 6.8 L* (14.0-18.0) g/dl Hct 21.2 L (42.0-52.0) % RDW Std Deviation (36.4-46.3) fL RDW Coeff of Chano (11.5-14.5) % Plt Count (130-400) K/uL Potassium (3.5-5.1) mmol/L Chloride (98-107) mmol/L BUN (6-23) mg/dl Creatinine (0.6-1.4) mg/dl Glucose (70-99(Fasting)) mg/dl POC Glucose 126 H (70-99) mg/dl Calcium (8.6-10.3) mg/dl Ionized Calcium 1.11 L (1.12-1.32) mmol/L Crossmatch 08/12/22 Range/Units 20:04 WBC (4.8-10.8) K/ul RBC (4.70-6.10) M/uL Hgb (14.0-18.0) g/dl Hct (42.0-52.0) % RDW Std Deviation (36.4-46.3) fL RDW Coeff of Chano (11.5-14.5) % Plt Count (130-400) K/uL Potassium (3.5-5.1) mmol/L Chloride (98-107) mmol/L BUN (6-23) mg/dl Creatinine (0.6-1.4) mg/dl Glucose (70-99(Fasting)) mg/dl POC Glucose 192 H (70-99) mg/dl Calcium (8.6-10.3) mg/dl Ionized Calcium (1.12-1.32) mmol/L Crossmatch Diagnostic Findings Chest X-Ray 08/11/22 10:47 XR chest 1V portable HISTORY: Shortness of breath. COMPARISON: Chest 08/06/2022. FINDINGS: No pneumothorax. No pleural effusions. The cardiac silhouette is now normal in size. No evidence for pulmonary edema. Bibasilar linear densities favor subsegmental atelectasis. There are low lung volumes. The upper lung zones are clear. IMPRESSION: 1. Interval resolution of the pulmonary edema and cardiomegaly. 2. Bibasilar linear densities favor subsegmental atelectasis. ACT 112: Negative or not required by law. Electronically signed by: Gonzalo Roldan M.D. 08/11/2022 10:59 AM Abdomen/Pelvis CT 08/11/22 11:[address] WITHOUT CONTRAST CT DOSE: 1953.16 mGy.cm HISTORY: hematuria sepsis recent nephrectomy TECHNIQUE: Multiaxial CT images of the abdomen and pelvis were performed without contrast. A dose lowering technique was utilized adhering to the principles of ALARA. COMPARISON STUDY: Abdomen and pelvis CT 08/01/2022 FINDINGS: Bibasilar linear densities favor subsegmental atelectasis. No pneumoperitoneum. No pneumatosis. There are old, healed right posterior rib fractures. No suspicious lytic or blastic osseous lesions. Skin lobo and a focus of subcutaneous fluid within the right lower quadrant abdominal wall consistent with recent incision. The unenhanced gallbladder, spleen, adrenal glands, pancreas, and left kidney are unremarkable. Status post partial nephrectomy of the right upper pole renal mass. There is hyperdense material within the right renal collecting system consistent with blood products/hematuria. No right-sided hydronephrosis. The right perinephric drain has been removed. Increase in size in the now moderate right perinephric/retroperitoneal mixed density fluid collection consistent with a hematoma. This is seen along the right perihepatic/subcapsular space and extending inferiorly along the right retroperitoneal space best seen on image 325. This hematoma results in mild mass effect along the inferior aspect of the right hepatic lobe. An underlying hepatic laceration is not excluded. The perinephric hematoma measures approximately 11 cm. The extension of the hematoma within the within the right retroperitoneal space measures 8.5 cm. These areas previously measured approximately 8.4 cm and 6.2 cm, respectively. There is a Peterson catheter within the bladder lumen. The bladder is markedly distended and partially filled with blood clot/hemorrhage. There is also gas within the bladder lumen. Prostate gland is normal in size. Small fat-containing bilateral inguinal hernias are noted. Trace fluid/hemorrhage along the left paracolic gutter. No bowel wall thickening or obstruction. Normal appendix. There is a punctate focus of gas within the right retroperitoneal fluid/hemorrhage which has improved. IMPRESSION: 1. Increase in size in the now moderate right perinephric/retroperitoneal hematoma as described above status post partial nephrectomy. The hemorrhage results in mild mass effect along the right hepatic lobe inferiorly. 2. Status post removal of the right-sided drainage catheters. The punctate focus of gas within the right retroperitoneal fluid/hemorrhage has improved and favors resolving postoperative change. Superinfection would be difficult to exclude but considered less likely. 3. The bladder is markedly distended and partially filled with hemorrhage/clot. A Peterson catheter appears in good position but may not be draining the bladder fluid due to the hemorrhage/clot. 4. Hematuria noted within the right renal collecting system. No hydronephrosis at this time. 5. Additional findings as described above. ACT 112: Negative or not required by law. Electronically signed by: Gonzalo Roldan M.D. 08/11/2022 12:22 PM Abdomen/Pelvis CTA 08/12/22 18:41 CR 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 TECHNIQUE: Axial computed tomographic images of the abdomen and pelvis with intravenous contrast. CTDI is 33.48 mGy and DLP is 2062.66 mGy-cm. Automated exposure control was utilized for the study. A dose lowering technique was utilized adhering to the principles of ALARA. CONTRAST: Patient received 102ml of IV contrast COMPARISON: 08/11/22. FINDINGS: Extensive bibasilar atelectasis has slightly worsened in the interval. Status post partial right nephrectomy with a presumed suture line along the lateral upper pole. Postero-inferior to the suture line there is a 2. 4 cm arterially enhancing focus which persists in the portal venous phase and washes out on the 5 minute scan. Findings suggest a pseudoaneurysm. There is no filling of the inferior vena cava in the arterial phase to suggest arteriovenous malformation. No puddling of contrast to suggest that this is an active hemorrhage. There is however a surrounding parenchymal hematoma measuring 5 x 4.6 cm. Larger hematoma dissects along the retroperitoneum/posterior perinephric fat and along the inferior margin of the liver to the right paracolic gutter. Along the liver this measures 14.5 x 6.2 cm and more inferiorly along the hepatic free edge to the gutter it measures 14 x 5.2 cm, though these hematomas do appear to communicate, but it is difficult to give a total measurement that accurately conveys the size of the collections. That said, collections do appear similar in size compared to the exam performed yesterday. In the more inferolateral right kidney, there are ill-defined hypodensities measuring roughly 2.5 and 2.3 cm. Possibility of renal infarcts. Cannot speak to stability as the prior study lack of contrast. There is mild right hydroureteronephrosis with blood clot and gas within the urinary bladder. 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 Gaseous distention of the proximal colon. Consideration for adynamic ileus in the postoperative setting. This gaseous distention is more pronounced than on the prior examination. Possible polyps or atypical adherent stool along the colonic wall. Aortoiliofemoral atherosclerosis without aneurysm. Nodular thickening of the left adrenal gland. 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 Parenchymal and perinephric and paranephric hematomas appear similar to yesterday's exam. 2.5 and 2.3 cm more inferolateral right renal hypodensities could reflect infarcts. Cannot speak to stability as prior study lacked contrast. Persistent mild right hydroureteronephrosis with blood clot and gas within the urinary bladder. Increasing gaseous distention of the colon may reflect adynamic ileus. Slight worsening of extensive basilar atelectasis. Communications: 08/12/22 20:01 Call Doctor Regarding Above results, called Dr. ELENA on 08/12 20:01 (-04:00) Electronically signed by: Tk Herbert M.D. 08/12/22 20:07 PM Medications Administered Cyanocobalamin (Cyanocobalamin (B-12) 500 Mcg Tablet) 500 mcg PO QAM JANAK Stop: 09/11/22 08:59 Last Admin: 08/12/22 09:43 Dose: 500 mcg Documented By: SJW Fluticasone/Vilanterol (Fluticasone/Vilanterol 100/25mcg 14 Puffs/Inhaler) 1 puffs INH DAILY JANAK Stop: 09/11/22 08:59 Last Admin: 08/12/22 09:06 Dose: 1 puffs Documented By: SARAH Gabapentin (Gabapentin 300 Mg Cap) 300 mg PO HS JANAK Stop: 09/10/22 20:59 Last Admin: 08/11/22 20:16 Dose: Not Given Documented By: RUSTAM Gabapentin (Gabapentin 300 Mg Cap) 600 mg PO QAM JANAK Stop: 09/11/22 08:59 Last Admin: 08/12/22 09:06 Dose: 600 mg Documented By: SARAH Sodium Chloride (Nss) 500 mls @ 150 mls/hr IV .Q3H20M JANAK Stop: 09/10/22 12:44 Last Infusion: 08/12/22 20:01 Dose: 0 mls/hr Documented By: Admin: 08/12/22 20:00 Dose: Not Given Documented By: Admin: 08/12/22 20:00 Dose: Not Given Documented By: Admin: 08/12/22 13:50 Dose: 150 mls/hr Documented By: Infusion: 08/12/22 12:37 Dose: 150 mls/hr Documented By: Admin: 08/12/22 09:17 Dose: 150 mls/hr Documented By: Infusion: 08/12/22 09:17 Dose: 0 mls/hr Documented By: Admin: 08/12/22 06:26 Dose: Not Given Documented By: Admin: 08/12/22 03:21 Dose: Not Given Documented By: Infusion: 08/12/22 02:56 Dose: 0 mls/hr Documented By: Admin: 08/12/22 02:21 Dose: 150 mls/hr Documented By: Infusion: 08/12/22 02:20 Dose: 0 mls/hr Documented By: Admin: 08/11/22 20:30 Dose: 150 mls/hr Documented By: Admin: 08/11/22 18:01 Dose: Not Given Documented By: Infusion: 08/11/22 16:51 Dose: 125 mls/hr Documented By: Admin: 08/11/22 12:51 Dose: 125 mls/hr Documented By: JACQUES Cefepime HCl 2,000 mg/ Syringe 20 mls @ 5 mls/min IV Q12H JANAK; Protocol Stop: 08/21/22 23:29 Last Admin: 08/12/22 12:44 Dose: 5 mls/min Documented By: Admin: 08/11/22 22:39 Dose: 5 mls/min Documented By: RUSTAM Daptomycin 700 mg/ Syringe 14 mls @ 7 mls/min IV Q24H JANAK; Protocol Stop: 08/22/22 11:59 Last Admin: 08/12/22 13:49 Dose: 7 mls/min Documented By: SARAH Insulin Aspart (Insulin Aspart Per Unit Charge) 0 units SC ACHS JANAK; Protocol Stop: 09/10/22 16:29 Last Admin: 08/12/22 12:44 Dose: 7 units Documented By: SARAH Co-signed By: SHERITA Admin: 08/12/22 09:05 Dose: 4 units Documented By: SARAH Co-signed By: CARLOS EDUARDO Admin: 08/11/22 20:15 Dose: Not Given Documented By: Admin: 08/11/22 17:24 Dose: 6 units Documented By: DI Co-signed By: EDY Levothyroxine Sodium (Levothyroxine Sodium 50 Mcg Tablet) 50 mcg PO QAM JANAK Stop: 09/10/22 16:11 Last Admin: 08/12/22 09:07 Dose: 50 mcg Documented By: Admin: 08/11/22 17:22 Dose: 50 mcg Documented By: DI Lidocaine HCl (Lidocaine 2% Jelly 5 Ml Tube) 1 ml EXT Q6 PRN PRN Reason: Pain or Agitation Stop: 09/11/22 17:59 Last Admin: 08/12/22 12:54 Dose: 1 ml Documented By: SARAH Morphine Sulfate (Morphine Sulfate 4 Mg/Ml 1 Ml Carp\Vial) 4 mg IV Q4H PRN PRN Reason: Severe Pain (Scale 7, 8, 9,10) Stop: 08/26/22 03:01 Last Admin: 08/12/22 17:32 Dose: 4 mg Documented By: Admin: 08/12/22 09:43 Dose: 4 mg Documented By: Admin: 08/12/22 03:21 Dose: 4 mg Documented By: RUSTAM Discontinued Medications Fentanyl Citrate (Fentanyl Citrate Pf 100 Mcg/2 Ml Vial) 50 mcg IV NOW STA Stop: 08/11/22 13:35 Last Admin: 08/11/22 13:44 Dose: 50 mcg Documented By: JACQUES Sodium Chloride (Nss 1000ml) 1,000 mls @ 999 mls/hr IV .Q1H1M ONE Stop: 08/11/22 12:05 Last Infusion: 08/11/22 12:38 Dose: 0 mls/hr Documented By: Admin: 08/11/22 11:23 Dose: 999 mls/hr Documented By: Infusion: 08/11/22 11:23 Dose: 999 mls/hr Documented By: Admin: 08/11/22 10:55 Dose: 999 mls/hr Documented By: BEZ Sodium Chloride (Nss 1000ml) 1,000 mls @ 999 mls/hr IV .Q1H1M ONE Stop: 08/11/22 12:20 Last Infusion: 08/11/22 12:38 Dose: 0 mls/hr Documented By: Admin: 08/11/22 11:24 Dose: 999 mls/hr Documented By: BEZ Cefepime HCl (Maxipime) 2,000 mg in 20 mls @ 5 mls/min IV NOW STA; Protocol Stop: 08/11/22 11:23 Last Admin: 08/11/22 11:23 Dose: 5 mls/min Documented By: BEZ Daptomycin 700 mg/ Syringe 14 mls @ 7 mls/min IV NOW STA; Protocol Stop: 08/11/22 11:41 Last Admin: 08/11/22 12:12 Dose: 7 mls/min Documented By: BEZ Sodium Chloride (Nss 1000ml) 500 mls @ 999 mls/hr IV .Q31M ONE Stop: 08/11/22 13:03 Last Infusion: 08/11/22 13:11 Dose: 0 mls/hr Documented By: Admin: 08/11/22 12:40 Dose: 999 mls/hr Documented By: JACQUES Calcium Gluconate 1,000 mg/ (Dextrose) 60 mls @ 240 mls/hr IV NOW ONE Stop: 08/11/22 16:09 Last Infusion: 08/11/22 19:27 Dose: 0 mls/hr Documented By: Admin: 08/11/22 18:01 Dose: 240 mls/hr Documented By: DI Insulin Glargine (Lantus Per Unit Charge) 30 units SC 1730 [facility] Stop: 08/11/22 20:00 Last Admin: 08/11/22 17:26 Dose: 30 units Documented By: DI Co-signed By: EDY Insulin Glargine (Lantus Per Unit Charge) 30 units SC BID [facility] Stop: 09/11/22 08:59 Last Admin: 08/12/22 09:08 Dose: 30 units Documented By: SARAH Co-signed By: CARLOS EDUARDO Ioversol (Optiray 320 500ml) 102 ml IV ONCE ONE Stop: 08/12/22 18:56 Last Admin: 08/12/22 18:56 Dose: 102 ml Documented By: IRVING Miscellaneous (Rapid Sequence Induction Bag) Confirm Administered Dose 1 each N/A .STK-MED ONE Stop: 08/12/22 18:56 Last Admin: 08/12/22 19:55 Dose: Not Given Documented By: CF Propofol (Propofol Iv Emulsion 10 Mg/Ml 100 Ml Vial) Confirm Administered Dose 1,000 mg IV .STK-MED ONE Stop: 08/12/22 18:56 Last Admin: 08/12/22 19:55 Dose: Not Given Documented By: BLANE Coding Level of Care Code 89743 CRITICAL CARE 1ST 30-74M Diagnoses Acute blood loss anemia D62 COPD (chronic obstructive pulmonary disease) J44.9 MARIA EUGENIA (obstructive sleep apnea) G47.33 Hypertension I10 Morbid obesity E66.01 Blood clot in bladder N32.89 S/p nephrectomy Z90.5
--- NOTE | 2022-08-12 20:06 | Procedure Note ---
Procedure Note Date of Service August 12, 2022 Note INTERNAL JUGULAR CENTRAL LINE PROCEDURE NOTE: Procedure: Internal Jugular Central Line Placement Proceduralist: John BOWEN ([facility]) Attending: Dr. Miles Indication: Central Drug Administration, Poor Venous Access, need for rapid blood transfusion possible Anesthesia: [x]Lidocaine 1% Verbal Consent was obtained from the patient via Dr. Miles. Indication, risks, and benefits were explained at length. A time-out was completed verifying correct patient, procedure, site, positioning, and implants(s) or special equipment if applicable. Patients RIGHT Neck was cleansed and draped in the typical sterile fashion using Chloraprep. The Internal Jugular Vein and Carotid Artery were identified using ultrasound. The superficial tissue was anesthetized using 8 mL of 1% lidocaine without epinephrine under direct visualization with the ultrasound. After adequate anesthetization was achieved, the Internal Jugular vein was cannulated under direct ultrasound guidance using an introducer needle on a syringe. Good venous blood return was maintained prior to removal of syringe from introducer needle. Using Seldinger Technique, a guide wire was advanced through the introducer needle without resistance. The introducer needle was removed and ultrasound images were obtained of the guide wire within the Internal Jugular Vein. A small incision was made in penetrating fashion at the guide wire insertion site utilizing an 11 blade scalpel. The dilator and MAC catheter were advanced to the vessel without resistance. The dilator and wire were then removed in tandem without resistance. The 9 Fr MAC catheter was left in place. Claves were placed on each catheter tip with confirmation of good blood flow from each lumen. Each port was easily flushed with sterile saline. BioPatch was applied to the catheter and a sterile Tegaderm dressing was applied over the catheter with careful attention to sterility. Patient tolerated procedure well. No immediate complications were met. Post procedure x-ray was completed, placement was appropriate and no pneumothorax was noted. Procedural Ultrasound Guidance: Procedure Date: 08/12/22 Indication: Direct visualization for Central Access Proceduralist: John BOWEN ([facility]) Attending: Dr. Miles Artery AND Vein visualized: YES Compressible Vein: YES Guidewire or Short Catheter seen in vein prior to dilation: YES Images were obtained but not saved in permanent record as procedure was urgent. Coding
--- NOTE | 2022-08-12 20:08 | CT Scan Report ---
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 TECHNIQUE: Axial computed tomographic images of the abdomen and pelvis with intravenous contrast. CTDI is 33.48 mGy and DLP is 2062.66 mGy-cm. Automated exposure control was utilized for the study. A dose lowering technique was utilized adhering to the principles of ALARA. CONTRAST: Patient received 102ml of IV contrast COMPARISON: 08/11/22. FINDINGS: Extensive bibasilar atelectasis has slightly worsened in the interval. Status post partial right nephrectomy with a presumed suture line along the lateral upper pole. Postero-inferior to the suture line there is a 2. 4 cm arterially enhancing focus which persists in the portal venous phase and washes out on the 5 minute scan. Findings suggest a pseudoaneurysm. There is no filling of the inferior vena cava in the arterial phase to suggest arteriovenous malformation. No puddling of contrast to suggest that this is an active hemorrhage. There is however a surrounding parenchymal hematoma measuring 5 x 4.6 cm. Larger hematoma dissects along the retroperitoneum/posterior perinephric fat and along the inferior margin of the liver to the right paracolic gutter. Along the liver this measures 14.5 x 6.2 cm and more inferiorly along the hepatic free edge to the gutter it measures 14 x 5.2 cm, though these hematomas do appear to communicate, but it is difficult to give a total measurement that accurately conveys the size of the collections. That said, collections do appear similar in size compared to the exam performed yesterday. In the more inferolateral right kidney, there are ill-defined hypodensities measuring roughly 2.5 and 2.3 cm. Possibility of renal infarcts. Cannot speak to stability as the prior study lack of contrast. There is mild right hydroureteronephrosis with blood clot and gas within the urinary bladder. 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 Gaseous distention of the proximal colon. Consideration for adynamic ileus in the postoperative setting. This gaseous distention is more pronounced than on the prior examination. Possible polyps or atypical adherent stool along the colonic wall. Aortoiliofemoral atherosclerosis without aneurysm. Nodular thickening of the left adrenal gland. 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 Parenchymal and perinephric and paranephric hematomas appear similar to yesterday's exam. 2.5 and 2.3 cm more inferolateral right renal hypodensities could reflect infarcts. Cannot speak to stability as prior study lacked contrast. Persistent mild right hydroureteronephrosis with blood clot and gas within the urinary bladder. Increasing gaseous distention of the colon may reflect adynamic ileus. Slight worsening of extensive basilar atelectasis. Communications: 08/12/22 20:01 Call Doctor Regarding Above results, called Dr. ELENA on 08/12 20:01 (-04:00) Electronically signed by: Tk Herbert M.D. 08/12/22 20:07 PM
--- NOTE | 2022-08-12 20:26 | Urology Progress Note ---
Date of Service August 12, 2022 Assessment & Plan (1) Hematuria: (2) Clear cell carcinoma of right kidney: (3) Acute blood loss anemia: Plan Status post right robotic partial nephrectomy with complicated by postoperative bleed Repeat bleed this afternoon with significant blood in the collecting system Complete clotting of his catheter without ability to salvage this Hemoglobin dropped to 6.8receiving 1 unit of blood right now Transfer to the ICU initiated Transfer to a tertiary center with interventional radiology for potential angiography and embolization arrangedpatient will be going to [facility]. 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 He also has perinephric hematoma which has not changed drastically in the past 24 hours. His bladder, however, has accumulated a substantial amount of clot despite evacuation of 2 L of clot overnight. He will be flown via [facility] and transferred immediately and reevaluated upon arrival for potential intervention acutely tonight versus delayed intervention tomorrow morning. I have spoken with both interventional radiology and urology as well as the admitting ICU team about his status and comorbidities. Records will be sent with the patient. Admission and Anticipated Discharge Date Admission Date: August 11, 2022 Subjective Called to the patient's bedside around 5:00 today because of a sudden change in his urine output from relatively clear to extremely bloody His nursing staff attempted to irrigate his catheter but was unsuccessful He developed significant right flank and lower abdominal discomfort I immediately evaluated the patient and noted that his catheter bag was filled with clotted blood and there was no output through the tubing I attempted to irrigate his catheter with normal saline could evacuate no clot or urine from the bladder. Given that it was a 3-way catheter, I irrigated both ports and had no success with either port. I then remove the catheter and he had voided approximately 200 cc of bloody urine and clots. Hemodynamically he was beginning to decompensate and given his history there is strong suspicion that he harnesses an underlying pseudoaneurysm from his prior surgery. Physical Exam Physical Exam: Borderline hypotensive, BiPAP in place Abdomen soft, tender over the suprapubic area and minimally tender in the right flank Grossly bloody urine Constitutional: well developed and well nourished Respiratory: no respiratory distress Cardiovascular: Extremities: no pedal edema Gastrointestinal (Abdomen): Inspection/Auscultation: abdomen normal to inspection Results & Data Vital Signs (Past 12 Hours) Vital Signs Temp Pulse Pulse Resp BP BP Pulse Ox 08/12/22 20:16 36.8 C 86 22 96/62 L 100 08/12/22 19:46 36.6 C 89 27 H 128/70 100 08/12/22 19:31 36.6 C 89 32 H 128/70 100 08/12/22 19:15 36.6 C 86 22 128/89 08/12/22 14:18 83 08/12/22 15:57 36.2 C L 74 105/55 L 99 08/12/22 10:02 36.5 C 87 20 125/60 92 08/12/22 11:24 36.4 C L 79 19 151/73 H 94 08/12/22 09:02 36.8 C 83 20 128/67 92 O2 Del Method O2 Flow Rate 08/12/22 20:16 6 08/12/22 19:46 08/12/22 19:31 08/12/22 19:15 08/12/22 14:18 08/12/22 15:57 BiPAP 08/12/22 10:02 4 08/12/22 11:24 Nasal Cannula 5 08/12/22 09:02 4 PG Care Time/CCT Total # of Minutes Spent Total Time Spent with Patient: Total time spent is greater than 50% in coordination of care (as documented) at patient's floor/unit and/or counseling patient: Coding Level of Care Code 82522 SUB INP/OBS CARE 2/35MIN Diagnoses Hematuria R31.9 Clear cell carcinoma of right kidney C64.1 Acute blood loss anemia D62
[2022-08-12] MEDS: GABAPENTIN 300 MG CAP PO SCH (20:52)
[2022-08-12 21:00] LABS: Fibrinogen 633 mg/dl (184-400); Partial Thromboplastin Ratio 0.8; Partial Thromboplastin Time 21.5 Seconds (21.0-31.0)
[2022-08-12] MEDS ORDERED: LANTUS PER UNIT CHARGE SQ SCH (21:00)
[2022-08-12] MEDS ORDERED: MoRPHine SULFATE 2 MG/ML CARP IV STA (21:07)
--- NOTE | 2022-08-13 08:04 | XRay Report ---
XR chest 1V portable HISTORY: Evaluate central line placement. COMPARISON: Chest 08/11/2022. FINDINGS: Interval placement of a right jugular central venous catheter with the tip terminating at t he expected location of the right brachiocephalic vein. No pneumothorax. No pleural effusions. There are low lung findings with bibasilar linear densities. This has progressed in the right. This favors subsegmental atelectasis. The heart remains mildly enlarged. No evidence for pulmonary edema. IMPRESSION: 1. Right jugular central venous catheter terminates at the expected location of the right brachioceph alic vein. 2. No pneumothorax. 3. Bibasilar linear densities have progressed and favor subsegmental atelectasis. ACT 112: Negative or not required by law. Electronically signed by: Gonzalo Roldan M.D. 08/13/2022 7:16 AM
--- NOTE | 2022-08-13 10:32 | Electrocardiogram Report ---
Test Reason : Blood Pressure : / mmHG Vent. Rate : 086 BPM Atrial Rate : 086 BPM P-R Int : 168 ms QRS Dur : 096 ms QT Int : 394 ms P-R-T Axes : 054 020 035 degrees QTc Int : 471 ms Normal sinus rhythm Possible Left atrial enlargement Borderline ECG When compared with ECG of 03-AUG-2022 08:27, Premature ventricular complexes are no longer Present Confirmed by Henry Galarza ([id number]) on 08/13/2022 10:31:56 AM Referred By: REFERRED SELF Confirmed By:Henry Galarza
== END 2022-08-12 22:09 | disposition short-term general hospital (02) | DRG 663 ==
LOC: ED 10:43 → 4W 14:24 → SUATTDRO 14:24 → 4W 15:55 → 1E 08-12 19:10